=== PATIENT | male | born 1955 | race Caucasian/White ===

== ENCOUNTER 2018-08-29 11:36 | Inpatient (IN) | payer BC, OTHER ==
[~2018-08-29 11:36] MED LIST: ISOVUE-370 76%-LOCM 1 ML ONE
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
[2018-08-29 11:58] LABS: #Basophils 0.1 thou/uL (0.0-0.2); #Eosinphils 0.2 thou/uL (0.0-0.7); #Lymphocytes 1.8 thou/uL (1.20-3.40); #Monocytes 0.7 thou/uL (0.11-0.59); #Neutrophils 7.5 thou/uL (1.40-6.50); %Basophils 0.5 % (0.0-1.0); %Eosinophils 2.1 % (0.0-10.0); %Monocytes 6.7 % (0.0-10.0); %Neutrophils 73.7 % (42.0-75.0); Hemoglobin 16.7 g/dL (14.0-18.0); Mean Corpuscular Hemoglobin 30.4 pg (27.0-31.0); Platelet Count 182 thou/uL (130-400); Red Blood Cell (RBC) Count 5.49 mill/uL (4.70-6.10); White Blood Cell (WBC) Count 10.2 thou/uL (4.8-10.8)
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
[2018-08-29 12:19] LABS: ALT (SGPT) 44 U/L (8-55); AST (SGOT) 37 U/L (5-34); Albumin 4.6 g/dL (3.4-4.8); Alkaline Phosphatase 80 U/L (40-150); Anion Gap 14 mmol/L (10-20); BUN (Urea Nitrogen) 14 mg/dL (8.4-25.7); Bilirubin, Total 0.4 mg/dL (0.2-1.2); Calc. Creatinine Clearance 0 mL/min (70-130); Calcium 9.9 mg/dL (7.8-10.44); Carbon Dioxide 28 mmol/L (23-31); Chloride 105 mmol/L (98-107); Estimated GFR-MDRD 64; Globulin 3.2 g/dL (2.4-3.5); Glucose 117 mg/dL (80-115); Potassium 3.9 mmol/L (3.5-5.1); Protein, Total 7.8 g/dL (5.8-8.1); Sodium 143 mmol/L (136-145)
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
[2018-08-29 13:20] LABS: CKMB 16.6 ng/mL (0-6.6)
[2018-08-29] MEDS ORDERED: Labetalol HCl 100 MG/20 ML VIAL ONE (13:24)
[2018-08-29] MEDS ORDERED: methylPREDNISolone Sod Succ/PF 125 MG/2 ML VIAL ONE (13:24)
[2018-08-29] MEDS ORDERED: Aspirin Chewable 81 MG TAB ONE (13:24)
[2018-08-29] MEDS ORDERED: Ondansetron PF 4 MG/2 ML Vial IVP PRN (13:32)
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
[2018-08-29] MEDS ORDERED: cloNIDine 0.1 MG TAB PO PRN (14:25)
[2018-08-29] MEDS ORDERED: Amlodipine 5 MG TAB PO SCH (14:30)
[2018-08-29 15:03] LABS: Bilirubin Negative (Negative); Blood, Urine Negative (Negative); Clarity CLEAR (Clear); Glucose, Urine (Dipstick) Negative (Negative); Leukocyte Negative (Negative); Nitrite Negative (Negative); Protein, Urine (Dipstick) Trace mg/dL (Neg-Trace); pH, Urine 5.5 (5.0-9.0)
[2018-08-29 15:08] LABS: Specific Gravity, Urine Greater than 1.060 (1.002-1.036)
[2018-08-29] MEDS ORDERED: Amlodipine 5 MG TAB ONE (16:19)
[2018-08-29 16:53] LABS: Troponin I 0.047 ng/mL (< 0.028)
[2018-08-29] MEDS: Acetaminophen 325 MG TAB PO PRN (20:40)
[2018-08-30] MEDS: Acetaminophen 325 MG TAB PO PRN ×3 (06:36→21:41)
[2018-08-30 06:42] LABS: #Eosinphils 0.1 thou/uL (0.0-0.7); #Lymphocytes 1.3 thou/uL (1.20-3.40); #Neutrophils 13.2 thou/uL (1.40-6.50); %Basophils 0.1 % (0.0-1.0); %Eosinophils 0.3 % (0.0-10.0); %Lymphocytes 8.2 % (21.0-51.0); %Monocytes 6.3 % (0.0-10.0); %Neutrophils 85.2 % (42.0-75.0); Hemoglobin 14.7 g/dL (14.0-18.0); Mean Corpuscular HGB CONC 33.2 g/dL (32.0-36.0); Mean Corpuscular Hemoglobin 30.5 pg (27.0-31.0); Mean Corpuscular Volume 91.8 fL (78.0-98.0); Mean Platelet Volume 8.2 fL (7.4-10.4); Platelet Count 177 thou/uL (130-400); RBC Distribution Width 12.2 % (11.5-14.5); Red Blood Cell (RBC) Count 4.82 mill/uL (4.70-6.10); White Blood Cell (WBC) Count 15.5 thou/uL (4.8-10.8)
[2018-08-30 07:03] LABS: Anion Gap 14 mmol/L (10-20); BUN (Urea Nitrogen) 16 mg/dL (8.4-25.7); CK (CPK) 916 U/L (30-200); Calc. Creatinine Clearance 96 mL/min (70-130); Calcium 9.2 mg/dL (7.8-10.44); Carbon Dioxide 26 mmol/L (23-31); Chloride 105 mmol/L (98-107); Estimated GFR-MDRD 82; Glucose 132 mg/dL (80-115); Potassium 3.7 mmol/L (3.5-5.1); Sodium 141 mmol/L (136-145)
[2018-08-30] MEDS ORDERED: Enoxaparin Sodium 40 MG/0.4 ML SYRINGE SC SCH (09:00)
[2018-08-30] MEDS: Amlodipine 5 MG TAB PO SCH (09:33)
[2018-08-30] MEDS: predniSONE 20 MG TAB PO SCH (09:34)
--- NOTE | 2018-08-30 12:21 | PDOC.PN ---
- Subjective Encounter Start Date: 08/30/18 Encounter Start Time: 12:19 Mr. Westfall was seen today in follow-up of syncope. He notes some chest soreness , after rib fracture. Otherwise he feels fine. - Objective MAR Reviewed: Yes Vital Signs & Weight: Vital Signs (12 hours) Temp Pulse Resp BP BP Pulse Ox 08/30/18 11:48 97.3 F L 100 17 190/90 H 90 L 08/30/18 09:33 96 177/83 H 08/30/18 08:00 91 L 08/30/18 07:28 85 16 93 L 08/30/18 07:23 98.6 F 95 16 177/83 H 91 L 08/30/18 04:00 97.4 F L 85 16 141/67 H 90 L Weight Weight 186 lb 14.4 oz Result Diagrams: 08/30/18 06:20 08/30/18 06:20 Phys Exam - Physical Examination HEENT: PERRLA Respiratory: no wheezing, no rales, no rhonchi, clear to auscultation bilateral Cardiovascular: RRR, no significant murmur, no rub Gastrointestinal: soft, non-tender, no distention, positive bowel sounds Musculoskeletal: no edema, pulses present Dx/Plan (1) Syncope Code(s): R55 - SYNCOPE AND COLLAPSE Status: Acute (2) Hypertension Code(s): I10 - ESSENTIAL (PRIMARY) HYPERTENSION Status: Chronic - Plan * Syncope- ? etiology- await Echo results as well as Cardiology evaluation * HTN- blood pressure is not well controlled- will add Carvediolol * Restart aspirin. Will check a lipid profile
[2018-08-30] MEDS ORDERED: Carvedilol 6.25 MG TAB PO SCH (12:30)
[2018-08-30] MEDS ORDERED: Communication Order-Pharmacy FS SCH (14:30)
[2018-08-30] MEDS ORDERED: Lisinopril 10 MG TAB PO SCH (14:45)
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
[2018-08-30] MEDS: Carvedilol 6.25 MG TAB PO SCH (15:56)
[2018-08-31] MEDS: Sodium Chloride 0.9% 1,000 ML IV SCH ×2 (00:36→16:01)
[2018-08-31] MEDS: Carvedilol 6.25 MG TAB PO SCH ×2 (05:42→17:38)
[2018-08-31] MEDS: Acetaminophen 325 MG TAB PO PRN (05:43)
[2018-08-31] MEDS ORDERED: HYDROcodone/Acetaminophen 5/325 mg Tablet PO PRN (10:19)
[2018-08-31] MEDS ORDERED: Iopamidol 370 76% 100 ML VIAL ONE (10:27)
--- NOTE | 2018-08-31 11:09 | PDOC.PN ---
- Subjective Encounter Start Date: 08/31/18 Encounter Start Time: 10:00 Mr. Westfall was seen today in follow-up of syncope. He does not have any complaints. - Objective MAR Reviewed: Yes Vital Signs & Weight: Vital Signs (12 hours) Temp Pulse Resp BP Pulse Ox 08/31/18 08:15 95 08/31/18 07:52 97.4 F L 82 18 162/85 H 95 08/31/18 06:44 99 16 95 08/31/18 04:00 97.6 F 77 20 155/73 H 92 L 08/31/18 00:00 97.9 F 79 18 138/68 97 08/30/18 23:24 82 16 Weight Weight 186 lb 14.4 oz Result Diagrams: 08/30/18 06:20 08/30/18 06:20 Phys Exam - Physical Examination HEENT: PERRLA Respiratory: no rales, wheezing present + occasional wheeze, and decreased breath sounds at the bases Cardiovascular: RRR 2/6 systolic and diastolic heart murmur Gastrointestinal: soft, non-tender, no distention, positive bowel sounds Musculoskeletal: no edema, pulses present + mild cyanosis of both feet, Dx/Plan (1) Syncope Code(s): R55 - SYNCOPE AND COLLAPSE Status: Acute (2) Hypertension Code(s): I10 - ESSENTIAL (PRIMARY) HYPERTENSION Status: Chronic - Plan * Syncope- ? etiology possibly cardiac, plan is for cardiac cath today * Possible LINQ recorder at discharge * HTN- Blood pressure is a bit elevated- will continue to monitor and adjust medications as needed * .
[2018-08-31] MEDS ORDERED: Midazolam HCl 2 mg/2 ml Vial ONE (11:22)
[2018-08-31] MEDS ORDERED: Fentanyl 100 MCG/2 ML VIAL ONE (11:22)
[2018-08-31] MEDS ORDERED: Sodium Chloride 0.9% 200 ML IV PRN (11:37)
[2018-08-31] MEDS ORDERED: Nitroglycerin 0.4 MG TAB (25 Tab Bottle) SL PRN (11:37)
[2018-08-31] MEDS ORDERED: Sodium Chloride 0.9% 1,000 ML IV SCH (11:45)
[2018-08-31] MEDS: Amlodipine 5 MG TAB PO SCH (12:19)
[2018-08-31] MEDS: predniSONE 20 MG TAB PO SCH (12:19)
[2018-08-31] MEDS: Lisinopril 10 MG TAB PO SCH (12:20)
[2018-08-31] MEDS: Aspirin 81 mg Enteric Coated Tablet PO SCH (12:20)
[2018-08-31] MEDS: Acetaminophen/Codeine 30-300mg Tablet PO PRN ×2 (14:12→22:08)
[2018-08-31 15:55] LABS: Actual Bicarbonate (HCO3a) 27.1 mEq/L (22-28); Calcium, Ionized 1.14 mmol/L (1.12-1.30); Carboxyhemoglobin (COHb) 1.6 gm% (0.0-3.0); O2 Tension (PaO2) 61.3 mmHg (> 80.0); Potassium - ABG Lab 4.15 mmol/L (3.70-5.30); Puncture Site LRA; pH, Arterial 7.41 (7.35-7.45)
--- NOTE | 2018-08-31 16:20 | RAD ---
Portable chest: HISTORY: Rib fracture COMPARISON: 08/29/2018 FINDINGS:Mild cardiomegaly. Mild vascular engorgement. Lungs appear well aerated and clear. No pneumo thorax identified. Patient has a known right fifth rib fracture which is not delineated on this portable chest exam. IMPRESSION: No acute finding
--- NOTE | 2018-08-31 16:24 | PDOC.CTH ---
Cardiology Progress Note - Subjective Chest pain. - Objective Vital Signs Temp Pulse Resp BP BP BP Pulse Ox 08/31/18 15:51 96 22 H 167/80 H 08/31/18 15:41 97.7 F 94 18 186/90 H 92 L 08/31/18 15:00 22 H 203/97 H 08/31/18 13:37 115 H 22 H 91 L 08/31/18 12:19 82 159/77 H 08/31/18 12:00 97.9 F 88 18 166/84 H 166/84 H 94 L 08/31/18 08:15 95 08/31/18 07:52 97.4 F L 82 18 162/85 H 95 08/31/18 06:44 99 16 95 Weight 186 lb 14.4 oz - Physical Examination General/Neuro: alert & oriented x3, NAD Neck: no JVD present Lungs: unlabored respirations Heart: RRR Abdomen: NT/ND Extremities: other: (no edema) - Telemetry Telemetry Rhythm: NSR - Labs Result Diagrams: 08/30/18 06:20 08/30/18 06:20 Troponin/CKMB CK-MB (CK-2) 16.6 ng/mL (0-6.6) H* 08/29/18 11:47 Troponin I 0.047 ng/mL (< 0.028) H 08/29/18 16:19 - Assessment/Plan 1. CAD. 2. Syncope. 3. Mild LV dysfunction EF at 45% PLAN: - Occluded RCA, occluded LCx, both fill from large collaterals from LAD widely patent. - Will consult EP for EP study possible AICD versus LINQ. - EP study monday. NPO past midnight monday night.
--- NOTE | 2018-08-31 17:05 | PDOC.EVN ---
Event Note - Event Note Event Note: Patient was reported to have some dyspnea about 2-3 hours after his cardiac cath. He also developed chest pain on his right side. His oxygen saturation droped as well. He was placed on a venti-mask, and given a breathing treatment. A chest X-ray was ordered, and he appears to be a little volume overloaded, he has some rales on lung exam. Will discontinue his IV fluids, and give a dose of IV Lasix. Incentive spirometry, and pain control with regards to the rib fracture and re-assess.
[2018-08-31] MEDS ORDERED: Furosemide 20 MG/2 ML VIAL SLOW IVP SCH (17:15)
[2018-08-31] MEDS: guaiFENesin 200 MG TAB PO PRN (22:09)
--- NOTE | 2018-08-31 23:56 | HP ---
DICTATIONS ENDS HERE Job ID: [id number] [facility]
[2018-09-01 05:44] LABS: #Lymphocytes 2.4 thou/uL (1.20-3.40); #Monocytes 1.2 thou/uL (0.11-0.59); #Neutrophils 9.6 thou/uL (1.40-6.50); %Basophils 0.3 % (0.0-1.0); %Eosinophils 0.3 % (0.0-10.0); %Lymphocytes 17.7 % (21.0-51.0); %Monocytes 9.3 % (0.0-10.0); %Neutrophils 72.3 % (42.0-75.0); Hemoglobin 15.5 g/dL (14.0-18.0); Mean Corpuscular HGB CONC 33.1 g/dL (32.0-36.0); Mean Corpuscular Hemoglobin 30.7 pg (27.0-31.0); Mean Corpuscular Volume 92.6 fL (78.0-98.0); Mean Platelet Volume 8.1 fL (7.4-10.4); Platelet Count 184 thou/uL (130-400); RBC Distribution Width 12.2 % (11.5-14.5); Red Blood Cell (RBC) Count 5.05 mill/uL (4.70-6.10); White Blood Cell (WBC) Count 13.3 thou/uL (4.8-10.8)
[2018-09-01] MEDS: Acetaminophen/Codeine 30-300mg Tablet PO PRN ×3 (05:57→21:01)
[2018-09-01 06:02] LABS: Anion Gap 16 mmol/L (10-20); BUN (Urea Nitrogen) 22 mg/dL (8.4-25.7); Calc. Creatinine Clearance 92 mL/min (70-130); Calcium 9.6 mg/dL (7.8-10.44); Carbon Dioxide 27 mmol/L (23-31); Chloride 102 mmol/L (98-107); Estimated GFR-MDRD 78; Glucose 101 mg/dL (80-115); Potassium 4.5 mmol/L (3.5-5.1); Sodium 140 mmol/L (136-145)
[2018-09-01] MEDS: guaiFENesin 200 MG TAB PO PRN (10:08)
[2018-09-01] MEDS: predniSONE 20 MG TAB PO SCH (10:08)
[2018-09-01] MEDS: Amlodipine 5 MG TAB PO SCH (10:08)
[2018-09-01] MEDS: Aspirin 81 mg Enteric Coated Tablet PO SCH (10:08)
[2018-09-01] MEDS: Carvedilol 6.25 MG TAB PO SCH ×2 (10:09→17:56)
[2018-09-01] MEDS: Lisinopril 10 MG TAB PO SCH (10:10)
--- NOTE | 2018-09-01 11:01 | PDOC.PN ---
- Subjective Encounter Start Date: 09/01/18 Encounter Start Time: 10:59 Mr. Westfall was seen today in follow-up of Syncope. He says he is breathing a little better today. He continues to have some pain in his chest on the right side, but otherwise ok. - Objective MAR Reviewed: Yes Vital Signs & Weight: Vital Signs (12 hours) Temp Pulse Resp BP BP Pulse Ox 09/01/18 10:10 179/80 H 09/01/18 10:09 179/80 H 09/01/18 10:08 75 09/01/18 08:00 97.5 F L 87 20 179/80 H 92 L 09/01/18 06:58 67 20 93 L 09/01/18 04:00 98.2 F 93 18 180/97 H 90 L 09/01/18 00:23 103 H 20 09/01/18 00:00 98.3 F 66 16 142/76 H 97 Weight Weight 186 lb 14.4 oz I&O: 08/31/18 09/01/18 09/02/18 06:59 06:59 06:59 Intake Total 1872 360 Balance 1872 360 Result Diagrams: 09/01/18 05:16 09/01/18 05:16 Additional Labs: Accuchecks 08/31/18 15:48 POC Glucose 141 H Phys Exam - Physical Examination HEENT: PERRLA + faint wheeze on the right base Cardiovascular: RRR, no significant murmur, no rub Gastrointestinal: soft, non-tender, no distention, positive bowel sounds Musculoskeletal: no edema, pulses present Dx/Plan (1) Syncope Code(s): R55 - SYNCOPE AND COLLAPSE Status: Acute (2) Hypertension Code(s): I10 - ESSENTIAL (PRIMARY) HYPERTENSION Status: Chronic - Plan * Syncope- an arrhythmia is suspected- await EP evaluation on Monday * CAD- discussed with Dr. Fernandes- medical management is recommended * Dyspnea- i suspect he may have some atelectasis from his rib fracture- encourage incentive spirometry, and manage pain * HTN- Lisinopril has been added to his regimen- will monitor over the next few days
[2018-09-01] MEDS: Bisacodyl 5 MG TAB PO PRN (13:12)
[2018-09-02] MEDS: predniSONE 20 MG TAB PO SCH (08:44)
[2018-09-02] MEDS: Aspirin 81 mg Enteric Coated Tablet PO SCH (08:44)
[2018-09-02] MEDS: Carvedilol 6.25 MG TAB PO SCH ×2 (08:44→18:14)
[2018-09-02] MEDS: Lisinopril 10 MG TAB PO SCH (08:44)
[2018-09-02] MEDS: Acetaminophen/Codeine 30-300mg Tablet PO PRN ×3 (08:45→20:11)
[2018-09-02] MEDS: Amlodipine 5 MG TAB PO SCH (08:45)
[2018-09-02] MEDS: Bisacodyl 5 MG TAB PO PRN (09:04)
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
[2018-09-02] MEDS: guaiFENesin 200 MG TAB PO PRN (10:51)
[2018-09-02] MEDS: Atorvastatin Calcium 20 MG TAB PO SCH (20:11)
[2018-09-03 06:11] LABS: Cardiac Risk 4.5 (Less than 4.5)
[2018-09-03] MEDS: Aspirin 81 mg Enteric Coated Tablet PO SCH (08:33)
[2018-09-03] MEDS: predniSONE 20 MG TAB PO SCH (08:33)
[2018-09-03] MEDS: Amlodipine 10 MG TAB PO SCH (08:33)
[2018-09-03] MEDS: Lisinopril 10 MG TAB PO SCH (08:34)
[2018-09-03] MEDS: Carvedilol 6.25 MG TAB PO SCH ×2 (08:34→16:58)
[2018-09-03] MEDS ORDERED: PROPOFOL 200 MG/20 ML VIAL ONE (09:28)
[2018-09-03] MEDS: Acetaminophen/Codeine 30-300mg Tablet PO PRN ×2 (10:14→20:57)
--- NOTE | 2018-09-03 11:22 | PDOC.PN ---
- Subjective Encounter Start Date: 09/03/18 Encounter Start Time: 11:20 Subjective: f/u for syncope and concern for cardiac etiology or arrhythmia. Plan for -: EP evaluation and consideration for loop recorder. Some mild cough, no -: fever, voiding ok. NPO currently - Objective MAR Reviewed: Yes Vital Signs & Weight: Vital Signs (12 hours) Temp Pulse Resp BP BP Pulse Ox 09/03/18 08:34 173/89 H 09/03/18 08:33 68 173/89 H 09/03/18 07:52 98.4 F 68 18 173/89 H 92 L 09/03/18 07:04 97 09/03/18 07:02 70 16 97 09/03/18 04:00 97.4 F L 63 19 163/74 H 95 09/03/18 00:00 97.4 F L 63 18 138/71 97 09/02/18 23:32 93 L Weight Weight 186 lb 14.4 oz I&O: 09/02/18 09/03/18 09/04/18 06:59 06:59 06:59 Intake Total 900 Output Total 155 575 Balance 745 -575 Result Diagrams: 09/01/18 05:16 09/01/18 05:16 Radiology Reviewed by me: Yes (Echo - EF 50-55%, mod-sev AR, I/III diast dysfxn) EKG Reviewed by me: Yes (Tele - Sinus bradycardia) Phys Exam - Physical Examination Constitutional: NAD HEENT: PERRLA, sclera anicteric, oral pharynx no lesions Neck: no nodes, no JVD, supple, full ROM diminished in basilar segments Respiratory: no wheezing, no rales, clear to auscultation bilateral S1, S2 Cardiovascular: RRR, no rub, gallop Gastrointestinal: soft, non-tender, no distention, positive bowel sounds Musculoskeletal: no edema, pulses present Neurological: normal sensation, moves all 4 limbs Psychiatric: A&O x 3 Skin: normal turgor, cap refill <2 seconds Dx/Plan (1) Syncope Code(s): R55 - SYNCOPE AND COLLAPSE Status: Acute Comment: Suspected cardiac etiology, EP consulted for evaluation and ILR placement (2) Hypertension Code(s): I10 - ESSENTIAL (PRIMARY) HYPERTENSION Status: Chronic Qualifiers: Hypertension type: essential hypertension Qualified Code(s): I10 - Essential (primary) hypertension Comment: Continue Amlodipine, Coreg, increase Lisinopril 20mg daily, titrate to optimal response (3) Grade I diastolic dysfunction Code(s): I51.9 - HEART DISEASE, UNSPECIFIED Status: Chronic Comment: Continue Coreg 6.25mg BID (4) Aortic regurgitation Code(s): I35.1 - NONRHEUMATIC AORTIC (VALVE) INSUFFICIENCY Status: Chronic Comment: EP evaluation pending (5) CAD (coronary artery disease) Code(s): I25.10 - ATHSCL HEART DISEASE OF 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
[2018-09-03] MEDS ORDERED: Fentanyl 100 MCG/2 ML VIAL ONE (17:34)
[2018-09-03] MEDS ORDERED: Midazolam HCl 2 mg/2 ml Vial ONE (17:34)
[2018-09-03] MEDS ORDERED: Propofol 500 MG/50 ML VIAL ONE (17:35)
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
[2018-09-03] MEDS ORDERED: Lidocaine 1% w/Epinephrine 1:100K 20 ML VIAL ONE (18:46)
[2018-09-03] MEDS: Atorvastatin Calcium 20 MG TAB PO SCH (20:54)
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
[2018-09-04] MEDS: Acetaminophen/Codeine 30-300mg Tablet PO PRN ×2 (06:49→22:46)
[2018-09-04] MEDS: Aspirin 81 mg Enteric Coated Tablet PO SCH (07:57)
[2018-09-04] MEDS: predniSONE 20 MG TAB PO SCH (07:58)
[2018-09-04] MEDS: Lisinopril 20 MG TAB PO SCH (07:58)
[2018-09-04] MEDS: Amlodipine 10 MG TAB PO SCH (07:59)
[2018-09-04] MEDS: Carvedilol 6.25 MG TAB PO SCH ×2 (08:00→15:59)
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
[2018-09-04] MEDS: Bisacodyl 5 MG TAB PO PRN (15:20)
[2018-09-04] MEDS ORDERED: Furosemide 40 MG/4 ML VIAL SLOW IVP SCH (15:45)
--- NOTE | 2018-09-04 18:02 | PDOC.CTH ---
Cardiology Progress Note - Subjective He is feeling more SOB today. He is still needing oxygen supplementation. - Objective Vital Signs Temp Pulse Resp BP BP Pulse Ox 09/04/18 16:00 98.3 F 100 18 160/75 H 92 L 09/04/18 15:59 160/75 H 09/04/18 12:46 88 16 88 L 09/04/18 12:00 98.1 F 98 18 169/75 H 93 L 09/04/18 08:00 168/76 H 93 L 09/04/18 07:59 72 168/76 H 09/04/18 07:58 168/76 H 09/04/18 07:35 98.0 F 72 20 168/76 H 93 L 09/04/18 06:40 95 09/04/18 06:39 77 16 95 Weight 186 lb 14.4 oz 09/03/18 09/04/18 09/05/18 06:59 06:59 06:59 Intake Total 600 Output Total 575 1165 Balance -575 -565 - Physical Examination General/Neuro: alert & oriented x3 Neck: no JVD present Lungs: other: (Reduced breath sounds bilaterally. ) Heart: RRR Abdomen: NT/ND Extremities: other: (no edema) - Telemetry Telemetry Rhythm: S Tach - Labs Result Diagrams: 09/01/18 05:16 09/01/18 05:16 Troponin/CKMB CK-MB (CK-2) 16.6 ng/mL (0-6.6) H* 08/29/18 11:47 Troponin I 0.047 ng/mL (< 0.028) H 08/29/18 16:19 - Assessment/Plan 1. CAD. 2. Syncope. 3. Mild LV dysfunction EF at 45% 4. Normal EP study, s/p LINQ placement. 5. Constipation. PLAN: - Occluded RCA, occluded LCx, both fill from large collaterals from LAD widely patent. - LINQ in place. - Will give Lactulose to try to get his bowels to move. - Will give one dose IV lasix as he is a little volume up. - Monitor overnight and home tomorrow if remains stable.
--- NOTE | 2018-09-04 19:19 | PDOC.PN ---
- Subjective Encounter Start Date: 09/04/18 Encounter Start Time: 18:30 Subjective: Nsg reports pt with increased dyspnea after planned d/c today. Remains -: on O2 3-4L/min NC. EP study performed with negative findings and ILR -: placed 09/03/18. - Objective MAR Reviewed: Yes Vital Signs & Weight: Vital Signs (12 hours) Temp Pulse Resp BP BP Pulse Ox 09/04/18 18:44 88 L 09/04/18 18:19 112 H 28 H 85 L 09/04/18 16:00 98.3 F 100 18 160/75 H 92 L 09/04/18 15:59 160/75 H 09/04/18 12:46 88 16 88 L 09/04/18 12:00 98.1 F 98 18 169/75 H 93 L 09/04/18 08:00 168/76 H 93 L 09/04/18 07:59 72 168/76 H 09/04/18 07:58 168/76 H 09/04/18 07:35 98.0 F 72 20 168/76 H 93 L Weight Weight 186 lb 14.4 oz I&O: 09/03/18 09/04/18 09/05/18 06:59 06:59 06:59 Intake Total 600 Output Total 575 1165 Balance -575 -565 Result Diagrams: 09/01/18 05:16 09/01/18 05:16 EKG Reviewed by me: Yes (Tele - Sinus bradycardia) Phys Exam - Physical Examination Constitutional: NAD HEENT: PERRLA, sclera anicteric, oral pharynx no lesions Neck: no nodes, no JVD, supple, full ROM scattered coarse sounds bilat, diminished in bases S1, S2 Cardiovascular: RRR, no significant murmur, no rub, gallop Gastrointestinal: soft, non-tender, no distention, positive bowel sounds Musculoskeletal: no edema, pulses present Neurological: normal sensation, moves all 4 limbs Psychiatric: A&O x 3 Skin: normal turgor, cap refill <2 seconds Dx/Plan (1) Acute respiratory failure with hypoxia Code(s): J96.01 - ACUTE RESPIRATORY FAILURE WITH HYPOXIA Status: Acute Comment: Persistent need for O2 supplementation, likely undiagnosed COPD with exacerbation, continue Duonebs q4h, Solumedrol 80mg IV x 1 dose now, Dulera 2 puffs BID, Start Levaquin 500mg daily (2) Syncope Code(s): R55 - SYNCOPE AND COLLAPSE Status: Acute Comment: Suspected cardiac etiology, EP consulted with negative EP study 09/03/18, ILR placed with outpt f/u planned (3) Hypertension Code(s): I10 - ESSENTIAL (PRIMARY) HYPERTENSION Status: Chronic Qualifiers: Hypertension type: essential hypertension Qualified Code(s): I10 - Essential (primary) hypertension Comment: Continue Amlodipine, Coreg, increase Lisinopril 20mg daily, titrate to optimal response (4) Grade I diastolic dysfunction Code(s): I51.9 - HEART DISEASE, UNSPECIFIED Status: Chronic Comment: Continue Coreg 6.25mg BID (5) Aortic regurgitation Code(s): I35.1 - NONRHEUMATIC AORTIC (VALVE) INSUFFICIENCY Status: Chronic Comment: EP evaluation pending (6) CAD (coronary artery disease) Code(s): I25.10 - ATHSCL HEART DISEASE OF [place] CORONARY ARTERY W/O ANG PCTRS Status: Chronic Comment: continue med mgmt with ASA, Lipitor, Coreg - Plan continue antibiotics, PT/OT, social insurance analyst, respiratory therapy, out of bed/ ambulate, DVT proph w/SCDs Stable currently -: Add Solumedrol 80mg IV x 1 dose -: Add Dulera BID -: Add Levaquin 500mg daily -: O2 setup for home * Likely home in am
[2018-09-04] MEDS ORDERED: methylPREDNISolone Sod Succ/PF 125 MG/2 ML VIAL IVP SCH (19:30)
[2018-09-04] MEDS ORDERED: Mometasone/Formoterol 120 PUFF INHALER INH SCH ×2 (20:00)
[2018-09-04] MEDS: Atorvastatin Calcium 20 MG TAB PO SCH (21:46)
[2018-09-04] MEDS: Acetaminophen 325 MG TAB PO PRN (22:05)
[2018-09-05] MEDS: Acetaminophen/Codeine 30-300mg Tablet PO PRN ×3 (03:24→15:33)
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
[2018-09-05] MEDS ORDERED: Ondansetron PF 4 MG/2 ML Vial IVP SCH ×2 (06:45→09:00)
[2018-09-05] MEDS: Mometasone/Formoterol 120 PUFF INHALER INH SCH ×2 (07:13→18:33)
[2018-09-05] MEDS: Bisacodyl 5 MG TAB PO PRN (08:55)
[2018-09-05] MEDS: predniSONE 20 MG TAB PO SCH (08:56)
[2018-09-05] MEDS: Carvedilol 6.25 MG TAB PO SCH ×2 (08:56→16:37)
[2018-09-05] MEDS: Aspirin 81 mg Enteric Coated Tablet PO SCH (08:56)
[2018-09-05] MEDS: Lisinopril 20 MG TAB PO SCH (08:56)
[2018-09-05] MEDS: Amlodipine 10 MG TAB PO SCH (08:57)
[2018-09-05] MEDS ORDERED: Magnesium Citrate 300 ML BOT PO SCH (11:00)
--- NOTE | 2018-09-05 11:18 | PDOC.PN ---
- Subjective Encounter Start Date: 09/05/18 Encounter Start Time: 11:10 Subjective: f/u for hypoxic resp failure likely related to COPD. Remains on 4L/ min -: NC and received Lasix last pm x 1 dose. No BM in 1 week with abd -: fullness. No fever and tolerating all meals. Ambulated short distance. - Objective MAR Reviewed: Yes Vital Signs & Weight: Vital Signs (12 hours) Temp Pulse Resp BP BP Pulse Ox 09/05/18 10:57 92 24 H 90 L 09/05/18 09:01 95 09/05/18 08:57 95 139/67 09/05/18 08:56 139/67 09/05/18 08:00 97.5 F L 95 20 139/67 89 L 09/05/18 07:16 89 L 09/05/18 07:13 97 20 89 L 09/05/18 04:00 97.8 F 103 H 22 H 120/76 90 L 09/05/18 02:11 95 24 H 09/05/18 00:00 97.8 F 105 H 20 139/71 91 L Weight Admit Weight 186 lb 14.4 oz Weight 201 lb 4.8 oz I&O: 09/04/18 09/05/18 09/06/18 06:59 06:59 06:59 Intake Total 600 Output Total 1165 Balance -565 Result Diagrams: 09/01/18 05:16 09/01/18 05:16 Additional Labs: Laboratory Tests 08/29/18 08/29/18 08/30/18 11:47 11:47 06:20 WBC 10.2 15.5 H B-Natriuretic Peptide 90.7 09/01/18 05:16 WBC 13.3 H B-Natriuretic Peptide Radiology Reviewed by me: Yes (KUB - pending) EKG Reviewed by me: Yes (Tele - SR) Phys Exam - Physical Examination Constitutional: NAD alert, responsive HEENT: PERRLA, sclera anicteric, oral pharynx no lesions Neck: no nodes, no JVD, supple, full ROM diminished in bases Respiratory: no wheezing, no rhonchi S1, S2 Cardiovascular: RRR, no significant murmur, no rub, gallop no mass or rebound Gastrointestinal: soft, non-tender, positive bowel sounds Musculoskeletal: no edema, pulses present Neurological: normal sensation, moves all 4 limbs Psychiatric: A&O x 3 Skin: normal turgor, cap refill <2 seconds Dx/Plan (1) Acute respiratory failure with hypoxia Code(s): J96.01 - ACUTE RESPIRATORY FAILURE WITH HYPOXIA Status: Acute Comment: Persistent need for O2 supplementation, likely undiagnosed COPD with exacerbation, continue Duonebs q4h, Solumedrol 80mg IV x 1 dose now, Dulera 2 puffs BID, Start Levaquin 500mg daily (2) Syncope Code(s): R55 - SYNCOPE AND COLLAPSE Status: Acute Comment: Suspected cardiac etiology, EP consulted with negative EP study 09/03/18, ILR placed with outpt f/u planned (3) Hypertension Code(s): I10 - ESSENTIAL (PRIMARY) HYPERTENSION Status: Chronic Qualifiers: Hypertension type: essential hypertension Qualified Code(s): I10 - Essential (primary) hypertension Comment: Continue Amlodipine, Coreg, increase Lisinopril 20mg daily, titrate to optimal response (4) Grade I diastolic dysfunction Code(s): I51.9 - HEART DISEASE, UNSPECIFIED Status: Chronic Comment: Continue Coreg 6.25mg BID (5) Aortic regurgitation Code(s): I35.1 - NONRHEUMATIC AORTIC (VALVE) INSUFFICIENCY Status: Chronic Comment: EP evaluation pending (6) CAD (coronary artery disease) Code(s): I25.10 - ATHSCL HEART DISEASE OF [place] CORONARY ARTERY W/O ANG PCTRS Status: Chronic Comment: continue med mgmt with ASA, Lipitor, Coreg (7) Constipation Code(s): K59.00 - CONSTIPATION, UNSPECIFIED Status: Acute Qualifiers: Constipation type: slow transit constipation Qualified Code(s): K59.01 - Slow transit constipation Comment: Start Mag Citrate today, KUB to r/u free air, serial abd exams, OOB - Plan continue antibiotics, PT/OT, social work associate, respiratory therapy, out of bed/ ambulate, DVT proph w/SCDs continue supportive mgmt -: Continue Duonebs, Prednisone -: Continue Levaquin -: Mag Citrate today -: KUB today * Lab: CMP, CBC
[2018-09-05] MEDS ORDERED: predniSONE 20 MG TAB PO SCH (11:30)
[2018-09-05 11:50] LABS: Hemoglobin 14.8 g/dL (14.0-18.0); Mean Corpuscular HGB CONC 33.1 g/dL (32.0-36.0); Mean Corpuscular Volume 93.5 fL (78.0-98.0); Mean Platelet Volume 8.1 fL (7.4-10.4); Platelet Count 179 thou/uL (130-400); RBC Distribution Width 12.4 % (11.5-14.5); Red Blood Cell (RBC) Count 4.78 mill/uL (4.70-6.10); White Blood Cell (WBC) Count 24.2 thou/uL (4.8-10.8)
[2018-09-05] MEDS ORDERED: Senokot S 8.6-50 MG TAB PO SCH (12:00)
--- NOTE | 2018-09-05 12:01 | RAD ---
EXAM: Single view of the abdomen HISTORY: Abdominal distention. No bowel movement. COMPARISON: None FINDINGS: Single view of the abdomen shows a nonspecific, nonobstructive bowel gas pattern. Air is se en to the level the rectum. A small amount of stool is seen in the left colon. An air-filled loop of small bowel is seen in the left upper quadrant of the abdomen. No suspicious calcifications are s een. The bones are unremarkable. IMPRESSION: No significant abnormality
[2018-09-05 12:11] LABS: Band 25 % (5-11); Lymphocytes 3 % (21-51); MDiff Complete? YES; Metamyelocyte 1 % (0-0); Monocytes 2 % (0-10); Neutrophil 67 % (42-75); RBC Morphology Normal; Reactive Lymphocytes 2 % (0-10)
[2018-09-05 12:14] LABS: ALT (SGPT) 40 U/L (8-55); AST (SGOT) 13 U/L (5-34); Albumin 3.9 g/dL (3.4-4.8); Alkaline Phosphatase 57 U/L (40-150); Anion Gap 17 mmol/L (10-20); BUN (Urea Nitrogen) 43 mg/dL (8.4-25.7); Bilirubin, Total 0.9 mg/dL (0.2-1.2); Calc. Creatinine Clearance 42 mL/min (70-130); Calcium 9.7 mg/dL (7.8-10.44); Carbon Dioxide 29 mmol/L (23-31); Chloride 97 mmol/L (98-107); Estimated GFR-MDRD 29; Globulin 3.1 g/dL (2.4-3.5); Glucose 158 mg/dL (80-115); Potassium 4.4 mmol/L (3.5-5.1); Sodium 139 mmol/L (136-145)
--- NOTE | 2018-09-05 14:58 | EKG ---
Test Reason : Blood Pressure : / mmHG Vent. Rate : 094 BPM Atrial Rate : 094 BPM P-R Int : 148 ms QRS Dur : 090 ms QT Int : 380 ms P-R-T Axes : 147 029 156 degrees QTc Int : 475 ms Unusual P axis, possible ectopic atrial rhythm Cannot exclude Inferior infarct , age undetermined Left ventricular hypertrophy with repolarization abnormality Abnormal ECG Confirmed by ADAM MOJICA ([id number]) on 09/05/2018 2:58:01 PM Referred By: GAYLE Confirmed By:ADAM MOJICA
--- NOTE | 2018-09-05 18:15 | PDOC.CTH ---
Cardiology Progress Note - Subjective Still no BM. Abdomen starting to hurt now. Still needing oxygen supplementation. - Objective Vital Signs Temp Pulse Resp BP BP Pulse Ox 09/05/18 16:37 154/69 H 09/05/18 15:48 97.3 F L 99 20 154/69 H 93 L 09/05/18 14:04 83 22 H 09/05/18 11:53 98.0 F 83 18 127/69 95 09/05/18 10:57 92 24 H 90 L 09/05/18 09:01 95 09/05/18 08:57 95 139/67 09/05/18 08:56 139/67 09/05/18 08:48 95 09/05/18 08:00 97.5 F L 95 20 139/67 89 L 09/05/18 07:16 89 L 09/05/18 07:13 97 20 89 L Admit Weight 186 lb 14.4 oz Weight 201 lb 4.8 oz 09/04/18 09/05/18 09/06/18 06:59 06:59 06:59 Intake Total 600 Output Total 1165 Balance -565 - Physical Examination General/Neuro: alert & oriented x3 Neck: no JVD present Lungs: unlabored respirations, other: (Reduced breath sounds bilat. ) Heart: RRR Abdomen: other: (bloated, positive BS, no rebound or guarding. ) Extremities: other: (no edema) - Telemetry Telemetry Rhythm: NSR - Labs Result Diagrams: 09/05/18 11:36 09/05/18 11:36 Troponin/CKMB CK-MB (CK-2) 16.6 ng/mL (0-6.6) H* 08/29/18 11:47 Troponin I 0.047 ng/mL (< 0.028) H 08/29/18 16:19 - Assessment/Plan 1. CAD. 2. Syncope. 3. Mild LV dysfunction EF at 45% 4. Normal EP study, s/p LINQ placement. 5. Constipation. PLAN: - Occluded RCA, occluded LCx, both fill from large collaterals from LAD widely patent. - LINQ in place. - Home once bowels start to move. - Will sign off. Please call [facility] any questions. - Follow up in office in 1 month.
[2018-09-05] MEDS: Atorvastatin Calcium 20 MG TAB PO SCH (21:16)
[2018-09-05] MEDS: Senokot S 8.6-50 MG TAB PO SCH (21:16)
[2018-09-06 06:41] LABS: Hemoglobin 15.4 g/dL (14.0-18.0); Mean Corpuscular HGB CONC 32.3 g/dL (32.0-36.0); Mean Corpuscular Hemoglobin 30.5 pg (27.0-31.0); Mean Corpuscular Volume 94.5 fL (78.0-98.0); Mean Platelet Volume 9.4 fL (7.4-10.4); Platelet Count 155 thou/uL (130-400); RBC Distribution Width 12.7 % (11.5-14.5); Red Blood Cell (RBC) Count 5.03 mill/uL (4.70-6.10); White Blood Cell (WBC) Count 23.4 thou/uL (4.8-10.8)
[2018-09-06] MEDS: Mometasone/Formoterol 120 PUFF INHALER INH SCH ×2 (07:16→18:46)
[2018-09-06] MEDS: Aspirin 81 mg Enteric Coated Tablet PO SCH (08:13)
[2018-09-06] MEDS: Acetaminophen/Codeine 30-300mg Tablet PO PRN (08:13)
[2018-09-06] MEDS: Senokot S 8.6-50 MG TAB PO SCH (08:13)
[2018-09-06 08:47] LABS: Band 34 % (5-11); Lymphocytes 10 % (21-51); MDiff Complete? YES; Monocytes 4 % (0-10); Neutrophil 51 % (42-75); RBC Morphology Normal; Reactive Lymphocytes 1 % (0-10)
[2018-09-06] MEDS ORDERED: predniSONE 20 MG TAB PO SCH (09:00)
[2018-09-06 09:25] LABS: BUN (Urea Nitrogen) 73 mg/dL (8.4-25.7); Calc. Creatinine Clearance 24 mL/min (70-130); Calcium 9.7 mg/dL (7.8-10.44); Carbon Dioxide 23 mmol/L (23-31); Chloride 92 mmol/L (98-107); Estimated GFR-MDRD 15; Glucose 139 mg/dL (80-115); Potassium 5.3 mmol/L (3.5-5.1); Sodium 133 mmol/L (136-145)
[2018-09-06 09:27] LABS: Anion Gap 23 mmol/L (10-20)
[2018-09-06] MEDS ORDERED: Bisacodyl 10 MG SUPP PR PRN (10:18)
[2018-09-06] MEDS ORDERED: Magnesium Citrate 300 ML BOT PO SCH (10:30)
[2018-09-06] MEDS ORDERED: Sodium Chloride 0.9% 1,000 ML IV SCH (10:30)
[2018-09-06] MEDS ORDERED: Fleet Enema 133 ML BOT PR SCH (10:30)
--- NOTE | 2018-09-06 10:32 | PDOC.PN ---
- Subjective Encounter Start Date: 09/06/18 Encounter Start Time: 10:30 Subjective: f/u for abdominal distention and no BM in 1 week. Took Mag Citrate but -: no BM. c/o abd pain and fullness, states urinating. Decreases appetite. -: Remains on 4L/min NC. - Objective MAR Reviewed: Yes Vital Signs & Weight: Vital Signs (12 hours) Temp Pulse Resp BP Pulse Ox 09/06/18 10:12 82 18 88 L 09/06/18 07:52 97.8 F 97 22 H 110/60 95 09/06/18 07:16 95 24 H 09/06/18 04:00 98 F 98 20 92/52 L 94 L 09/06/18 02:30 94 L 09/06/18 02:10 89 22 H 94 L 09/06/18 00:00 97.8 F 101 H 18 107/53 L 92 L Weight Admit Weight 186 lb 14.4 oz Weight 206 lb 6 oz I&O: 09/05/18 09/06/18 09/07/18 06:59 06:59 06:59 Intake Total 460 Output Total 300 Balance 160 Result Diagrams: 09/06/18 06:00 09/06/18 08:45 Additional Labs: Laboratory Tests 08/29/18 08/29/18 08/30/18 11:47 11:47 06:20 WBC 10.2 15.5 H Band Neuts % (Manual) Sodium Potassium BUN Creatinine Estimated GFR (MDRD) B-Natriuretic Peptide 90.7 09/01/18 09/05/18 09/05/18 05:16 11:36 11:36 WBC 13.3 H 24.2 H Band Neuts % (Manual) 25 H Sodium 139 Potassium 4.4 BUN 43 H Creatinine 2.29 H Estimated GFR (MDRD) 29 B-Natriuretic Peptide 09/06/18 06:00 WBC Band Neuts % (Manual) 34 H Sodium Potassium BUN Creatinine Estimated GFR (MDRD) B-Natriuretic Peptide Radiology Reviewed by me: Yes (KUB - no acute process noted) EKG Reviewed by me: Yes (Tele - SR) Phys Exam - Physical Examination lethargic, opens eyes to name, answers questions briefly HEENT: PERRLA, sclera anicteric, oral pharynx no lesions Neck: no nodes, no JVD, supple, full ROM diminished bilat, mild exp wheeze S1, S2 with distant heart sounds Cardiovascular: RRR, no rub, gallop distended, TTP in LLQ, no mass Gastrointestinal: positive bowel sounds Musculoskeletal: pulses present, edema present Neurological: normal sensation, moves all 4 limbs Skin: normal turgor, cap refill <2 seconds Dx/Plan (1) EMILY (acute kidney injury) Code(s): N17.9 - ACUTE KIDNEY FAILURE, UNSPECIFIED Status: Acute Comment: Suspect pre-renal and iatrogenic, start IV NS @ 50ml/h, avoid nephrotoxic meds, limit contrast exposure, hold Lisinopril (2) Constipation Code(s): K59.00 - CONSTIPATION, UNSPECIFIED Status: Acute Qualifiers: Constipation type: slow transit constipation Qualified Code(s): K59.01 - Slow transit constipation Comment: Persistent, Second dose Mag Citrate today, Fleets Enema, Dulcolax supp , Senna, check CT abd/pel (3) Acute respiratory failure with hypoxia Code(s): J96.01 - ACUTE RESPIRATORY FAILURE WITH HYPOXIA Status: Acute Comment: Persistent need for O2 supplementation, likely undiagnosed COPD with exacerbation, continue Duonebs q4h, Solumedrol 80mg IV x 1 dose now, Dulera 2 puffs BID, Start Levaquin 250mg q48h (4) Syncope Code(s): R55 - SYNCOPE AND COLLAPSE Status: Acute Comment: Suspected cardiac etiology, EP consulted with negative EP study 09/03/18, ILR placed with outpt f/u planned (5) Hypertension Code(s): I10 - ESSENTIAL (PRIMARY) HYPERTENSION Status: Chronic Qualifiers: Hypertension type: essential hypertension Qualified Code(s): I10 - Essential (primary) hypertension Comment: Continue Amlodipine, Coreg, increase Lisinopril 20mg daily, titrate to optimal response (6) Grade I diastolic dysfunction Code(s): I51.9 - HEART DISEASE, UNSPECIFIED Status: Chronic Comment: Continue Coreg 6.25mg BID (7) Aortic regurgitation Code(s): I35.1 - NONRHEUMATIC AORTIC (VALVE) INSUFFICIENCY Status: Chronic Comment: EP evaluation pending (8) CAD (coronary artery disease) Code(s): I25.10 - ATHSCL HEART DISEASE OF [place] CORONARY ARTERY W/O ANG PCTRS Status: Chronic Comment: continue med mgmt with ASA, Lipitor, Coreg - Plan continue antibiotics, PT/OT, 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
[2018-09-06] MEDS: Lisinopril 20 MG TAB PO SCH (10:58)
[2018-09-06] MEDS: Amlodipine 10 MG TAB PO SCH (10:58)
[2018-09-06] MEDS: Carvedilol 6.25 MG TAB PO SCH ×2 (10:58→19:29)
[2018-09-06] MEDS ORDERED: Sodium Chloride 0.9% 500 ML IVPB SCH (11:45)
--- NOTE | 2018-09-06 13:11 | ULT ---
US Renal Bilateral STANDARD History: [8 acute kidney injury] Comparison: CT examination August 29, 2018 Findings: Real-time grayscale and color evaluation of the kidneys and urinary bladder was performed. Right kidney measures 10.4 x 5.9 x 6.1 cm with a 2.7 cm cyst. The left kidney measures 11.2 x 7.8 x 6 .2 cm with 2 separate interpolar 3.2 and 2.7 cm cysts. No renal mass, hydronephrosis, or abnormal calcifications. Urinary bladder is unremarkable. Impression: Bilateral renal cysts. No evidence for obstructive uropathy.
--- NOTE | 2018-09-06 13:12 | RAD ---
PORTABLE CHEST DATE: 09/06/2018. PROVIDED CLINICAL HISTORY: Hypoxia. FINDINGS: Comparison 08/31/2018. Cardiac and mediastinal silhouette is unchanged in appearance. Implanted loop recorded device now overlies the left chest. No focal consolidation, pleural fluid, or pneumothorax apparent. IMPRESSION: No evidence for an acute cardiopulmonary process. POS: OFF
[2018-09-06] MEDS ORDERED: cefOXitin 2 GM in Sodium Chloride 0.9% 100 ML IVPB SCH (13:15)
--- NOTE | 2018-09-06 13:36 | CT ---
CT ABDOMEN WITHOUT IV CONTRAST: Date: 09/06/18 HISTORY: Abdominal distention and abdominal pain. COMPARISON: CT abdomen on 08/29/18. FINDINGS: Emphysematous changes are seen within the lungs. There are parenchymal changes at each lung base, gre ater on the right, probably related to bibasilar atelectasis, although pneumonia at either lung base could not be excluded. Vascular calcifications are seen in the coronary arteries, as well as involving the visualized thorac ic, as well as abdominal aorta, and visualized iliac arteries. The heart is mildly enlarged. There has been interval development of free intraperitoneal gas seen within the abdomen. The stomach is distended, and there are dilated loops of proximal small bowel, measuring 3.5 cm in diameter. No a brupt transition zone is seen. There is a small amount of edema seen within the mesentery. No fluid collection or significant free f luid is seen in the abdomen or pelvis. Low density lesions involving each kidney are again seen, which demonstrate appearance of cysts on pr ior exam. Nonobstructing calculus mid portion left kidney is present. The liver, spleen, pancreas, and bilateral adrenal glands demonstrate grossly normal nonenhanced CT a ppearance. There is colonic diverticulosis involving the descending colon and limited visualized sigmoid colon. No other interval change compared to prior exam. There is a remote anterior mid right rib fracture. IMPRESSION: 1. Free intraperitoneal gas in the abdomen suggesting perforated viscus. 2. Small amount of edema in the mesentery. 3. Dilated stomach with dilated proximal jejunal small bowel loops, without an abrupt transition poi nt. Exact etiology for bowel dilatation is uncertain on this exam. 4. Bibasilar areas of consolidation, which may be related to bibasilar atelectasis, but pneumonia in either lung base cannot be excluded. 5. Nonobstructing left renal calculus. 6. Stable bilateral renal cysts. 7. Small duodenal diverticulum. 8. Colonic diverticulosis. Above findings concerning free intraperitoneal gas was discussed with Dr. Aguirre on 09/06/18 at 1237 ho urs. CODE CR. POS: [facility]
[2018-09-06 13:38] LABS: INR-International Normal Ratio 1.3; PTT 34.8 SEC (22.9-36.1); Prothrombin Time 15.9 SEC (12.0-14.7)
[2018-09-06] MEDS ORDERED: Phenylephrine HCL 10 MG/ML VIAL ONE (15:03)
[2018-09-06] MEDS ORDERED: Fentanyl 100 MCG/2 ML VIAL ONE (15:03)
[2018-09-06] MEDS ORDERED: Albumin 25% 0 ML ONE (15:03)
[2018-09-06] MEDS ORDERED: Norepinephrine 8 MG/0.9% NS 0 ML ONE ×2 (15:03→15:11)
[2018-09-06] MEDS ORDERED: Norepinephrine 4 MG/4 ML VIAL ONE (15:03)
[2018-09-06] MEDS ORDERED: Ketamine 50 MG/ML (10ML VIAL) ONE (15:26)
[2018-09-06] MEDS ORDERED: cefOXitin 2 GM VIAL ONE (15:26)
[2018-09-06] MEDS ORDERED: Sodium Chloride 0.9% 100 ML ONE (15:27)
[2018-09-06] MEDS ORDERED: Sodium Bicarbonate 2.5 MEQ/5 ML VIAL ONE (15:52)
[2018-09-06] MEDS ORDERED: Sodium Bicarb 50 MEQ/50 ML Abboject 8.4% SYRINGE ONE (15:53)
[2018-09-06] MEDS ORDERED: Nitroglycerin 2% Ointment 1 INCH/1 GM Packet ONE (15:58)
[2018-09-06] MEDS ORDERED: PHENYLEPHRINE-NS 100 MCG/ML 10 ML SYRINGE ONE (16:46)
[2018-09-06] MEDS ORDERED: Succinylcholine Chloride 20 MG/ML 10 ml SYRINGE FS ONE (16:46)
[2018-09-06] MEDS ORDERED: Calcium Chloride 1 GM/10 ML Abboject SYRINGE ONE (16:46)
[2018-09-06] MEDS ORDERED: ePHEDrine 50 MG/ML VIAL ONE (16:46)
[2018-09-06] MEDS ORDERED: Rocuronium Bromide 10 MG/ML (10ML VIAL) ONE (16:46)
[2018-09-06] MEDS ORDERED: Lidocaine 1% PF 5 ML VIAL ONE (16:46)
[2018-09-06] MEDS ORDERED: PROPOFOL 200 MG/20 ML VIAL ONE (16:46)
[2018-09-06] MEDS ORDERED: Piperacillin/Tazobactam 3.375 GM VIAL ONE (17:45)
[2018-09-06] MEDS ORDERED: Ventilator Sedation Protocol 1 EACH FS SCH (18:30)
[2018-09-06] MEDS ORDERED: Propofol 1,000 MG/100 ML VIAL IV PRN (18:36)
[2018-09-06] MEDS ORDERED: Propofol BOLUS 1,000 MG/100 ML VIAL IV PRN (18:36)
[2018-09-06] MEDS ORDERED: Fentanyl BOLUS 250 ML IVPB PRN (18:36)
[2018-09-06] MEDS ORDERED: Morphine 2 MG/ML SYRINGE SLOW IVP PRN (18:36)
[2018-09-06] MEDS ORDERED: Lorazepam 2 MG/ML VIAL SLOW IVP PRN (18:36)
[2018-09-06] MEDS ORDERED: DISCONTINUE PREVIOUS NARCOTIC PAIN MEDICATIONS AND BENZODIAZEPINES FS SCH (18:36)
[2018-09-06 18:37] LABS: Actual Bicarbonate (HCO3a) 22.9 mEq/L (22-28); Base Excess (BEa) -3.3 mEq/L (-2.0 to +3.0); CO2 Tension 45.5 mmHg (35.0-45.0); Calcium, Ionized 1.02 mmol/L (1.12-1.30); Carboxyhemoglobin (COHb) 1.6 gm% (0.0-3.0); Hemoglobin (Hb) 12.5 g/dL (14.0-18.0); O2 Tension (PaO2) 75.4 mmHg (> 80.0); Potassium - ABG Lab 3.95 mmol/L (3.70-5.30); pH, Arterial 7.32 (7.35-7.45)
[2018-09-06 18:49] LABS: INR-International Normal Ratio 1.5; Prothrombin Time 17.7 SEC (12.0-14.7)
--- NOTE | 2018-09-06 18:49 | RAD ---
Portable frontal chest radiograph: 09/06/2018 6:34 PM. COMPARISON: 09/06/2018 12:25 PM HISTORY: Postoperative patient FINDINGS: Stable increased linear interstitial density noted bilaterally, left greater than right. Salazar pine imaging limits assessment for pneumothorax and pleural fluid. Nasogastric tube extends into the left upper quadrant. Endotracheal tube terminates just below the level the clavicles. Left-sided vascular catheter present, distal tip overlying the expected location of the cavoatrial junction. IMPRESSION: Lines and tubes as detailed above.
[2018-09-06 18:58] LABS: Hemoglobin 12.1 g/dL (14.0-18.0); Mean Corpuscular HGB CONC 33.4 g/dL (32.0-36.0); Mean Corpuscular Hemoglobin 31.3 pg (27.0-31.0); Mean Corpuscular Volume 93.8 fL (78.0-98.0); Mean Platelet Volume 8.2 fL (7.4-10.4); Platelet Count 124 thou/uL (130-400); RBC Distribution Width 12.4 % (11.5-14.5); Red Blood Cell (RBC) Count 3.85 mill/uL (4.70-6.10); White Blood Cell (WBC) Count 8.6 thou/uL (4.8-10.8)
[2018-09-06] MEDS ORDERED: Albumin 5% 500 ML ONE (18:58)
[2018-09-06 19:01] LABS: Lactic Acid 1.2 mmol/L (0.5-2.2)
[2018-09-06 19:09] LABS: Anion Gap 17 mmol/L (10-20); BUN (Urea Nitrogen) 81 mg/dL (8.4-25.7); Calc. Creatinine Clearance 24 mL/min (70-130); Calcium 7.8 mg/dL (7.8-10.44); Carbon Dioxide 24 mmol/L (23-31); Chloride 100 mmol/L (98-107); Estimated GFR-MDRD 14; Glucose 151 mg/dL (80-115); Magnesium 2.6 mg/dL (1.6-2.6); Phosphorus 12.5 mg/dL (2.3-4.7); Potassium 4.1 mmol/L (3.5-5.1); Sodium 137 mmol/L (136-145)
[2018-09-06 19:12] LABS: ALV-art Gradient 366.825 (0-20); Puncture Site LINE
[2018-09-06] MEDS: fentaNYL Citrate/PF 2,000 MCG in Sodium Chloride 0.9% 60 ML IV SCH (19:14)
[2018-09-06 19:17] LABS: Band 34 % (5-11); Eosinophils 1 % (0-10); Lymphocytes 7 % (21-51); MDiff Complete? YES; Metamyelocyte 4 % (0-0); Monocytes 5 % (0-10); Myelocyte 1 % (0-0); Neutrophil 48 % (42-75); Platelet Morphology Comment Appears Decreased; Toxic Granulation SLIGHT
[2018-09-06] MEDS: Sodium Chloride 0.9% 1,000 ML IV SCH (19:26)
[2018-09-06] MEDS ORDERED: Norepinephrine 8 MG/0.9% NS 250 ML IVPB SCH (19:30)
[2018-09-06] MEDS: Piperacillin/Tazobactam 3.375 GM in Sodium Chloride 0.9% 100 ML IVPB SCH (19:39)
[2018-09-06] MEDS ORDERED: Calcium Chloride 1 GM/10 ML Abboject SYRINGE IVP SCH (19:45)
[2018-09-06] MEDS: Hydrocortisone Sod Succ/PF 100 mg/2 ml Vial IVP SCH (21:58)
[2018-09-06] MEDS: Atorvastatin Calcium 20 MG TAB PO SCH (21:59)
--- NOTE | 2018-09-07 00:19 | CON ---
DATE OF CONSULTATION: CONSULTING PHYSICIAN: Marcia Rios MD. REQUESTING PHYSICIAN: Dr. Aguirre. REASON FOR CONSULTATION: Acute kidney injury. IMPRESSION: Acute kidney injury this is likely hemodynamically mediated in the context of bowel obstruction and . PLAN: 1. Renal supportive measures with IV fluid. 2. Renal ultrasound which did not show any significant renal pathology. 3. Renally dose all medications and avoid potentially nephrotoxic agents. 4. No indication at this point for renal replacement therapy. Hopefully, we will be able to avoid this modality of treatment. However, if renal function continues to deteriorate, this modality of treatment might become indicated. HISTORY OF PRESENT ILLNESS: History is that of a 63-year-old gentleman who presented here with syncopal episode and over the course of hospitalization has been noted with worsening abdominal distention to the point that the patient had to now be taken to the OR for possible bowel perforation. Of note, the patient presented here with a normal creatinine of 0.97. However, over the past 24 to 48 hours, the creatinine has gone up to 4.12 with rising potassium at 5.3. As a result of these changes, decision has been taken to involve Renal in the management of this case. PAST MEDICAL HISTORY: Notable for hypertension. SOCIAL HISTORY: Quit tobacco use about 2 months ago. REVIEW OF SYSTEMS: As documented in the body of history, highly limited given the clinical condition of this patient. FAMILY HISTORY: Not significantly related to present illness. PHYSICAL EXAMINATION: VITAL SIGNS: The patient noted with the following vital signs, afebrile temperature 97.8, pulse 97 to 82, respiratory rate of 18, O2 saturation of 88% on 4 L, blood pressure 110/60. HEENT: Unremarkable. CARDIOVASCULAR: First and second heart sounds were heard. RESPIRATORY: sounds. DIGESTIVE: Revealed a distended abdomen. EXTREMITIES: No peripheral edema. SKIN: No new gross rash. LYMPHATICS: No peripheral lymphadenopathy. SUMMARY: This is a 63-year-old gentleman who is experiencing worsening renal failure at this point. Thank you for this consultation. We will follow with you. Job ID: [id number]
[2018-09-07] MEDS: Sodium Chloride 0.9% 1,000 ML IV SCH ×4 (00:49→23:46)
[2018-09-07] MEDS: Piperacillin/Tazobactam 3.375 GM in Sodium Chloride 0.9% 100 ML IVPB SCH ×2 (00:52→05:10)
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
[2018-09-07] MEDS: Hydrocortisone Sod Succ/PF 100 mg/2 ml Vial IVP SCH ×4 (04:53→21:44)
[2018-09-07 06:26] LABS: Lactic Acid 1.1 mmol/L (0.5-2.2)
[2018-09-07 06:27] LABS: Anion Gap 19 mmol/L (10-20); BUN (Urea Nitrogen) 87 mg/dL (8.4-25.7); Calc. Creatinine Clearance 21 mL/min (70-130); Calcium 8.4 mg/dL (7.8-10.44); Carbon Dioxide 22 mmol/L (23-31); Chloride 102 mmol/L (98-107); Estimated GFR-MDRD 13; Glucose 144 mg/dL (80-115); Magnesium 3.2 mg/dL (1.6-2.6); Potassium 4.5 mmol/L (3.5-5.1); Sodium 138 mmol/L (136-145)
[2018-09-07 06:40] LABS: Band 25 % (5-11); Hemoglobin 10.9 g/dL (14.0-18.0); Lymphocytes 6 % (21-51); MDiff Complete? YES; Mean Corpuscular HGB CONC 33.3 g/dL (32.0-36.0); Mean Corpuscular Hemoglobin 31.3 pg (27.0-31.0); Mean Platelet Volume 8.5 fL (7.4-10.4); Metamyelocyte 2 % (0-0); Monocytes 1 % (0-10); Neutrophil 66 % (42-75); Platelet Count 124 thou/uL (130-400); Platelet Morphology Comment Appears Decreased; RBC Distribution Width 12.4 % (11.5-14.5); RBC Morphology Normal; White Blood Cell (WBC) Count 12.6 thou/uL (4.8-10.8)
[2018-09-07] MEDS ORDERED: Midazolam HCl 2 mg/2 ml Vial ONE (07:11)
[2018-09-07] MEDS ORDERED: Fentanyl 100 MCG/2 ML VIAL ONE (07:11)
[2018-09-07] MEDS: Mometasone/Formoterol 120 PUFF INHALER INH SCH ×2 (07:51→20:19)
[2018-09-07] MEDS ORDERED: Ondansetron PF 4 MG/2 ML Vial ONE (10:34)
[2018-09-07] MEDS ORDERED: Rocuronium Bromide 10 MG/ML (10ML VIAL) ONE (10:34)
--- NOTE | 2018-09-07 10:47 | PRG ---
DATE OF SERVICE: 09/07/2018 SUBJECTIVE: The patient was seen and examined, still on life support in the ICU, but hemodynamically stable. OBJECTIVE: VITAL SIGNS: Blood pressure 121/55. HEENT: Remarkable for endotracheal tube in place. CARDIOVASCULAR SYSTEM: First and second heart sounds. RESPIRATORY SYSTEM: Revealed vented sounds. DIGESTIVE SYSTEM: Revealed evidence of recent exploratory laparotomy. EXTREMITIES: No significant peripheral edema. DIAGNOSTIC STUDIES: Laboratory investigation showed a white count of 2600 and hemoglobin 10.9. Chemistry showed creatinine has gone up to 4.62, BUN of 87, and phosphorus of 10.0. IMPRESSION: 1. Acute tubular necrosis, likely hemodynamically mediated in the context of bowel perforation with constipation. 2. Severe hyperphosphatemia, out of proportion with a degree of renal failure. This might be related to Fleet enema. PLAN: 1. Please avoid any need form of Fleet enema because of the potential kidney failure. 2. Renal supportive measures and avoid potentially nephrotoxic agents. 3. No emergent indication at this point for renal replacement therapy; however, if the renal function continues at this current trajectory, this modality of treatment might become indicated. 4. Further management will be dependent on the clinical course. Job ID: [id number]
--- NOTE | 2018-09-07 11:28 | RAD ---
XR Abdomen 1 View/KUB History: [Dobbhoff tube placement] Comparison: Radiograph 2 days prior Findings: Enteric feeding tube is in place with tip at the ligament of Treitz. There is a projecting over the left lower quadrant of the abdomen. Enteric suction tube side port is at the GE junction. New surgical curly over the abdomen. Impression: 1. Dobbhoff tube tip in good position. 2. Enteric suction tube side port at the GE junction. Recommend advancing.
[2018-09-07] MEDS: Aspirin 81 mg Enteric Coated Tablet PO SCH (11:54)
[2018-09-07] MEDS: Famotidine/PF 20 mg/2ml Vial SLOW IVP SCH (11:54)
[2018-09-07] MEDS: Piperacillin/Tazobactam 2.25 GM in Sodium Chloride 0.9% 100 ML IVPB SCH ×3 (11:55→23:46)
--- NOTE | 2018-09-07 12:37 | OP ---
DATE OF PROCEDURE: 09/07/2018 PREOPERATIVE DIAGNOSES: 1. Status post laparotomy and left colectomy for perforated sigmoid colon diverticulitis. 2. Fecal peritonitis. 3. Open abdomen. POSTOPERATIVE DIAGNOSES: 1. Status post laparotomy and left colectomy for perforated sigmoid colon diverticulitis. 2. Fecal peritonitis. 3. Open abdomen. 4. Necrotic transverse colon. PROCEDURE PERFORMED: 1. Second-look exploratory laparotomy. 2. Segmental transverse colectomy. 3. Partial omentectomy. 4. End-transverse colostomy. 5. Placement of feeding nasojejunal tube. 6. Abdominal washout and closure. ANESTHESIA: General endotracheal. ESTIMATED BLOOD LOSS: 150 mL. FLUIDS: Given 2600 mL crystalloids. COUNTS: Sponge and instrument counts were verified as correct x2. COMPLICATIONS: None apparent to operation. INDICATIONS FOR OPERATION: A 63-year-old man underwent exploratory laparotomy yesterday with left colectomy. This was a salvage exploratory laparotomy as the patient had extensive fecal peritonitis and profound septic shock requiring vasopressor support intraoperatively. The abdomen was left open, temporary closed using wound VAC. The patient was brought into operating room today for second-look. Findings are consistent with residual, cloudy foul-smelling ascitic fluid as well as necrotic transverse colonic staple line requiring resection. DESCRIPTION OF PROCEDURE: Informed consent was obtained from the patient's son. The patient was brought to the operating room today and placed in supine position. Following general anesthesia, previous Rizzo catheter was placed to bedside drain. Nasogastric tube was placed to wall suction. External wound VAC dressing was removed, and the abdomen was sterilely prepped and draped in usual fashion. Internal wound VAC dressings were removed and peritoneal cavity was entered. Small bowel was run from ligament of Treitz down to terminal ileum breaking down fibrinous adhesions as they were encountered. Cloudy foul-smelling ascitic fluid was evacuated from the peritoneal cavity. Large intestine was then inspected from the cecum through the ascending to the transverse colonic staple line, approximately distal 6 inches of bowel was necrotic. We decided to proceed with resection. To achieve this, we used the YARIEL stapler, which was fired to divide the bowel. Mesentery of the specimen was divided between clamps and ligated with free tie of 2-0 silk. Specimen was passed off the operative field. A segment of omentum was also noted to be dusky, decided to achieve partial omentectomy. This was serially divided between clamps and ligated with free tie of 2-0 silk and this omentum specimen was passed off the operative field again followed by transmission to pathology. The rectal stump remained intact. At this juncture, a feeding nasojejunal tube was inserted by Anesthesia, which was palpated by myself within the gastric lumen. I manipulated tip of this catheter into proximal small bowel without resistance. The abdominal cavity was then copiously irrigated with saline in a total of 4 L of sterile saline. At this juncture, all sponges and instruments were certified as correct x2. A #19 [place]che drain was introduced into the pelvic cavity and allowed to exit the abdominal cavity through a separate stab incision. The drain was secured to anterior abdominal wall using 2-0 silk suture. I turned my attention to the staple end of the transverse colon, which we will be using to perform the colostomy. The right colon was mobilized along the white line of Toldt, taken down the hepatic flexure as the bowel was mobilized medially. Care was taken to avoid injury to underlying duodenum. A core incision was then made in the left lower quadrant using a 10 scalpel. The incision was carried down to the level of the fascia. A incision was made in the fascia. Tonsil clamp was introduced through this and placed in the peritoneal cavity and the defect was dilated to 3 fingerbreadths. [place] forceps introduced to the peritoneal cavity through this defect grabbing the staple end of the transverse colon, which was pulled through and secured within the abdominal cavity using interrupted sutures of 3-0 silk at 3 points. All sponges and instruments had been removed and accounted for x2. One sheet of Seprafilm was placed into the deep pelvis and small bowel was returned to normal anatomic location. A second piece of Seprafilm was placed over this and omentum was drawn over remainder of the viscera. Fascia was approximated in the midline using a running stitch of #1 single stranded PDS. The subcutaneous tissue was pulse lavaged with 3 L of sterile saline. Good hemostasis was achieved using cautery. Skin incision was closed using curly. Sterile dressing was applied. I turned my attention then to the colostomy site, where the staple line of the transverse colon was excised using Neal scissors. A functional Mandy colostomy was achieved using interrupted sutures of 2-0 chromic. Ostomy appliance was placed. The patient tolerated the operation without any apparent complication and was returned to the intensive care unit in critical, but stable condition. Job ID: [id number]
--- NOTE | 2018-09-07 13:47 | PRG ---
DATE OF SERVICE: 09/07/2018 SUBJECTIVE: Mr. Westfall is a 63-year-old man, postop day #1 status post exploratory laparotomy and left hemicolectomy for sigmoid colon diverticular rupture with profound fecal peritonitis. The patient remains on mechanical ventilator support. His blood pressure is being supported with norepinephrine despite IV fluid resuscitation. He is slightly sedated, awakens to voice. Moves all extremities and follows commands. OBJECTIVE: VITAL SIGNS: This morning include blood pressure 124/51, pulse 82, respiratory rate is 14, temperature is 98.9 degrees Fahrenheit, and oxygen saturation 98% on FiO2 of 70%. The patient is on norepinephrine at 8 mcg/minute. Urinary output has been marginal about 20 to 25 mL/h. HEENT: Pupils equal, round, and reactive to light. NECK: He has no jugular venous distention noted. HEART: Reveals regular rate and rhythm. No murmurs or gallops auscultated. LUNGS: Clear to auscultation bilaterally. Breathing, regular and nonlabored. ABDOMEN: Soft. Wound VAC in place, returns serous fluid. EXTREMITIES: Reveal 2+ radial and pedal pulses bilaterally. He has soft tissue edema bilaterally. NEUROLOGIC: Reveals no focal deficits present. LABORATORY FINDINGS: Today includes CBC with 12,600 white blood cells, hemoglobin and hematocrit of 10.9 and 32.9 respectively. Platelet count 124,000. Differential counts as follows 66 segmented neutrophils, 25 bands, 6 lymphocytes, and 1 monocyte. Metabolic profile; sodium 138, potassium 4.5, chloride is 102, bicarb is 22, BUN is 87, creatinine 4.62, glucose is 144, phosphorus remains high at 10.0, and magnesium is 3.2. IMPRESSION: 1. Postop day #1 status post exploratory laparotomy and left hemicolectomy for perforated sigmoid diverticulum with fecal peritonitis. 2. Acute septic shock secondary to #1. 3. Acute respiratory failure secondary to #1. 4. Worsening acute kidney injury secondary to #1. PLAN: 1. Continue with aggressive fluid resuscitation and wean vasopressors as tolerated. 2. We will monitor urinary output as endpoint of our resuscitation. 3. Continue with full mechanical ventilator support until the patient is hemodynamically stable. The patient will return to the operating room today for second-look laparotomy. Total critical care time is 50 minutes. Job ID: [id number]
--- NOTE | 2018-09-07 16:09 | PDOC.PN ---
- Subjective Encounter Start Date: 09/07/18 Encounter Start Time: 15:00 Subjective: f/u for perforated sigmoid from diverticulitis with peritonitis, sepsis s/p -: R sigmoidectomy, abd washout POD #1. s/p transverse colectomy/partial -: omenectomy, colostomy and washout today. - Objective MAR Reviewed: Yes Vital Signs & Weight: Vital Signs (12 hours) Pulse Resp BP Pulse Ox 09/07/18 14:45 72 98/44 L 09/07/18 11:00 77 09/07/18 07:14 16 99 09/07/18 06:00 16 Weight Admit Weight 186 lb 14.4 oz Weight 206 lb 2.115 oz Most Recent Monitor Data Heart Rate from ECG 76 NIBP 96/48 NIBP BP-Mean 64 Respiration from ECG 16 SpO2 94 I&O: 09/06/18 09/07/18 09/08/18 06:59 06:59 06:59 Intake Total 460 3888 920 Output Total 300 1337 395 Balance 160 2551 525 Result Diagrams: 09/07/18 05:41 09/07/18 05:41 Additional Labs: Microbiology 09/06/18 22:42 Urine cohn catheter Urine Culture - Preliminary NO GROWTH AT 12 HOURS 09/06/18 19:37 Venous blood - Left Arm Blood Culture - Preliminary Specimen has been received and culture in progress. No Growth to date. 09/06/18 19:30 Venous blood - Right Arm Blood Culture - Preliminary Specimen has been received and culture in progress. No Growth to date. Laboratory Tests 08/29/18 08/29/18 08/30/18 11:47 11:47 06:20 WBC 10.2 15.5 H Hgb Plt Count Band Neuts % (Manual) Sodium Potassium BUN Creatinine Estimated GFR (MDRD) Phosphorus Magnesium B-Natriuretic Peptide 90.7 09/01/18 09/05/18 09/05/18 05:16 11:36 11:36 WBC 13.3 H 24.2 H Hgb Plt Count Band Neuts % (Manual) 25 H Sodium 139 Potassium 4.4 BUN 43 H Creatinine 2.29 H Estimated GFR (MDRD) 29 Phosphorus Magnesium B-Natriuretic Peptide 09/06/18 09/06/18 09/06/18 06:00 18:34 18:34 WBC 23.4 H 8.6 Hgb 12.1 L Plt Count 124 L Band Neuts % (Manual) 34 H 34 H Sodium Potassium BUN Creatinine 4.18 H Estimated GFR (MDRD) Phosphorus 12.5 H* Magnesium 2.6 B-Natriuretic Peptide 09/07/18 09/07/18 09/07/18 05:41 05:41 05:41 WBC Hgb Plt Count Band Neuts % (Manual) 25 H Sodium Potassium BUN Creatinine Estimated GFR (MDRD) Phosphorus 10.0 H* Magnesium 3.2 H B-Natriuretic Peptide Radiology Reviewed by me: Yes (Renal sono - no obstruction) EKG Reviewed by me: Yes (Tele - SR in 's) Phys Exam - Physical Examination sedate, mech ventilation, ETT in place HEENT: PERRLA, sclera anicteric, oral pharynx no lesions Neck: no nodes, no JVD, supple, full ROM diminished in bases Respiratory: no rhonchi S1, S2 Cardiovascular: RRR, no significant murmur, no rub, gallop surgical scar intact, + sounds in RUQ, mild distention Musculoskeletal: pulses present, edema present sedate on mech vent Skin: normal turgor, cap refill <2 seconds Deviation from normal: Cohn with dark, rosemarie urine Dx/Plan (1) Severe sepsis with septic shock Code(s): A41.9 - SEPSIS, UNSPECIFIED ORGANISM; R65.21 - SEVERE SEPSIS WITH SEPTIC SHOCK Status: Acute Comment: Secondary to #2, #3, s/p L colectomy, washout and colostomy, continue Zosyn, Levophed for pressor support, IVF's (2) Peritonitis Code(s): K65.9 - PERITONITIS, UNSPECIFIED Status: Acute Comment: Secondary to perforated sigmoid diverticulitis, see above, continue aggressive support (3) Perforated sigmoid colon Code(s): K63.1 - PERFORATION OF INTESTINE (NONTRAUMATIC) Status: Acute Comment: See above for mgmt (4) EMILY (acute kidney injury) Code(s): N17.9 - ACUTE KIDNEY FAILURE, UNSPECIFIED Status: Acute Comment: Secondary to peritonitis, septic shock and pre-renal mechanism, IVF's, avoid nephrotoxic agents, serial monitoring (5) Acute respiratory failure with hypoxia Code(s): J96.01 - ACUTE RESPIRATORY FAILURE WITH HYPOXIA Status: Acute Comment: Secondary to above, continue mech ventilation, CCU sedation protocol (6) Syncope Code(s): R55 - SYNCOPE AND COLLAPSE Status: Acute Comment: Suspected cardiac etiology, EP consulted with negative EP study 09/03/18, ILR placed with outpt f/u planned (7) Hypertension Code(s): I10 - ESSENTIAL (PRIMARY) HYPERTENSION Status: Chronic Qualifiers: Hypertension type: essential hypertension Qualified Code(s): I10 - Essential (primary) hypertension Comment: Currently hypotensive due to septic shock (8) Grade I diastolic dysfunction Code(s): I51.9 - HEART DISEASE, UNSPECIFIED Status: Chronic Comment: Continue Coreg 6.25mg BID (9) Aortic regurgitation Code(s): I35.1 - NONRHEUMATIC AORTIC (VALVE) INSUFFICIENCY Status: Chronic Comment: EP evaluation pending (10) CAD (coronary artery disease) Code(s): I25.10 - ATHSCL HEART DISEASE OF [place] CORONARY ARTERY W/O ANG PCTRS Status: Chronic Comment: continue med mgmt with ASA, Lipitor, Coreg - Plan continue antibiotics, social work msw, respiratory therapy, DVT proph w/SCDs Continue aggressive support -: Continue Zosyn -: Levophed and IVF's for pressure support -: Mech ventilation with SIMV -: AM lab: CMP, CBC, Mg++, PO3 * .
[2018-09-07] MEDS ORDERED: Albumin 5% 500 ML ONE (18:42)
[2018-09-07 19:06] LABS: Actual Bicarbonate (HCO3a) 23.3 mEq/L (22-28); Base Excess (BEa) -3.3 mEq/L (-2.0 to +3.0); CO2 Tension 48.6 mmHg (35.0-45.0); Calcium, Ionized 1.01 mmol/L (1.12-1.30); Carboxyhemoglobin (COHb) 1.6 gm% (0.0-3.0); Hemoglobin (Hb) 10.9 g/dL (14.0-18.0); O2 Tension (PaO2) 61.6 mmHg (> 80.0); Potassium - ABG Lab 4.54 mmol/L (3.70-5.30)
[2018-09-07 19:07] LABS: Puncture Site ALINE
[2018-09-07] MEDS ORDERED: Calcium Chloride 1 GM/10 ML Abboject SYRINGE IVP SCH (19:30)
--- NOTE | 2018-09-07 20:03 | PDOC.CTH ---
Cardiology Progress Note - Subjective He had peritonitis from a perforated diverticulum. He underwent surgery yesterday and remains in the ICU sedated and intubated. - Objective Vital Signs Temp Pulse BP 09/07/18 17:00 98.8 F 09/07/18 14:45 72 98/44 L 09/07/18 11:00 77 Admit Weight 186 lb 14.4 oz Weight 206 lb 2.115 oz 09/06/18 09/07/18 09/08/18 06:59 06:59 06:59 Intake Total 460 3888 2005.5 Output Total 300 1337 530 Balance 160 2551 1475.5 - Physical Examination General/Neuro: other: (Intubated, sedated. ) Neck: no JVD present Lungs: unlabored respirations Heart: RRR Abdomen: NT/ND Extremities: + edema B (1+) - Telemetry Telemetry Rhythm: S tach - Labs Result Diagrams: 09/07/18 05:41 09/07/18 05:41 Troponin/CKMB CK-MB (CK-2) 16.6 ng/mL (0-6.6) H* 08/29/18 11:47 Troponin I 0.047 ng/mL (< 0.028) H 08/29/18 16:19 - Assessment/Plan 1. CAD. 2. Syncope. 3. Mild LV dysfunction EF at 45% 4. Normal EP study, s/p LINQ placement. 5. Peritonitis 6. Septic shock 7. EMILY on CKD PLAN: - Occluded RCA, occluded LCx, both fill from large collaterals from LAD widely patent. - LINQ in place. - Continue supportive care - Will follow.
[2018-09-07] MEDS: Atorvastatin Calcium 20 MG TAB PO SCH (21:03)
[2018-09-07] MEDS: fentaNYL Citrate/PF 2,000 MCG in Sodium Chloride 0.9% 60 ML IV SCH (21:49)
[2018-09-08] MEDS ORDERED: Acetaminophen 325 MG TAB PO PRN (02:20)
[2018-09-08] MEDS: Hydrocortisone Sod Succ/PF 100 mg/2 ml Vial IVP SCH ×3 (04:35→20:24)
[2018-09-08 05:05] LABS: Band 14 % (5-11); Hemoglobin 8.3 g/dL (14.0-18.0); Hypochromia SLIGHT = 6-15 cells (100X) (0-5/hpf); Lymphocytes 2 % (21-51); MDiff Complete? YES; Mean Corpuscular HGB CONC 32.2 g/dL (32.0-36.0); Mean Corpuscular Hemoglobin 30.9 pg (27.0-31.0); Mean Platelet Volume 8.5 fL (7.4-10.4); Monocytes 1 % (0-10); Neutrophil 83 % (42-75); Phosphorus 8.7 mg/dL (2.3-4.7); Platelet Count 99 thou/uL (130-400); Platelet Morphology Comment Appears Decreased; RBC Distribution Width 12.5 % (11.5-14.5); White Blood Cell (WBC) Count 8.8 thou/uL (4.8-10.8)
[2018-09-08 05:06] LABS: ALT (SGPT) 34 U/L (8-55); AST (SGOT) 43 U/L (5-34); Albumin 2.7 g/dL (3.4-4.8); Alkaline Phosphatase 45 U/L (40-150); Anion Gap 15 mmol/L (10-20); BUN (Urea Nitrogen) 99 mg/dL (8.4-25.7); Bilirubin, Total 0.7 mg/dL (0.2-1.2); Calc. Creatinine Clearance 18 mL/min (70-130); Calcium 7.9 mg/dL (7.8-10.44); Carbon Dioxide 24 mmol/L (23-31); Chloride 108 mmol/L (98-107); Estimated GFR-MDRD 10; Globulin 1.9 g/dL (2.4-3.5); Glucose 137 mg/dL (80-115); Magnesium 3.1 mg/dL (1.6-2.6); Potassium 4.6 mmol/L (3.5-5.1); Protein, Total 4.6 g/dL (5.8-8.1); Sodium 142 mmol/L (136-145)
[2018-09-08] MEDS: Piperacillin/Tazobactam 2.25 GM in Sodium Chloride 0.9% 100 ML IVPB SCH ×4 (05:54→23:46)
[2018-09-08] MEDS: Mometasone/Formoterol 120 PUFF INHALER INH SCH ×2 (07:38→19:00)
[2018-09-08 08:53] LABS: Actual Bicarbonate (HCO3a) 22.9 mEq/L (22-28); Base Excess (BEa) -3.1 mEq/L (-2.0 to +3.0); CO2 Tension 44.9 mmHg (35.0-45.0); Calcium, Ionized 1.04 mmol/L (1.12-1.30); Hemoglobin (Hb) 9.9 g/dL (14.0-18.0); O2 Tension (PaO2) 85.9 mmHg (> 80.0); Potassium - ABG Lab 4.59 mmol/L (3.70-5.30); pH, Arterial 7.33 (7.35-7.45)
[2018-09-08 08:58] LABS: ALV-art Gradient 357.075 (0-20); Puncture Site A-LINE
[2018-09-08] MEDS: Famotidine/PF 20 mg/2ml Vial SLOW IVP SCH (09:36)
[2018-09-08] MEDS: Aspirin 81 mg Enteric Coated Tablet PO SCH (09:36)
--- NOTE | 2018-09-08 09:46 | PDOC.PN ---
- Subjective Encounter Start Date: 09/08/18 Encounter Start Time: 09:44 Mr. Westfall was seen in follow-up. The events of the past few days were noted. He developed an acute abdomen with fecal peritonitis from a perforated diverticulum. He is intubated, but is awake and alert. He will respond. - Objective MAR Reviewed: Yes Vital Signs & Weight: Vital Signs (12 hours) Temp Pulse Resp BP Pulse Ox 09/08/18 08:00 20 09/08/18 07:39 81 107/54 L 09/08/18 07:36 97 09/08/18 07:00 98.8 F 09/08/18 06:00 18 09/08/18 04:01 78 110/63 09/08/18 04:00 99.1 F 18 09/08/18 02:00 99.3 F 18 09/08/18 00:00 100.9 F H 78 18 09/07/18 22:00 18 Weight Admit Weight 186 lb 14.4 oz Weight 202 lb 13.204 oz Most Recent Monitor Data Heart Rate from ECG 82 NIBP 114/56 NIBP BP-Mean 75 Respiration from ECG 14 SpO2 99 I&O: 09/07/18 09/08/18 09/09/18 06:59 06:59 06:59 Intake Total 3888 3734.5 Output Total 1337 1220 180 Balance 2551 2514.5 -180 Result Diagrams: 09/08/18 04:30 09/08/18 04:30 Phys Exam - Physical Examination HEENT: PERRLA, sclera anicteric Respiratory: no wheezing, no rales, no rhonchi + coarse breath sounds Cardiovascular: RRR, no significant murmur, no rub + mildly distended, tympanic to percussion bowel sounds are diminished Musculoskeletal: pulses present trace pedal edema Dx/Plan (1) Perforated sigmoid colon Code(s): K63.1 - PERFORATION OF INTESTINE (NONTRAUMATIC) Status: Acute Comment: See above for mgmt (2) Severe sepsis with septic shock Code(s): A41.9 - SEPSIS, UNSPECIFIED ORGANISM; R65.21 - SEVERE SEPSIS WITH SEPTIC SHOCK Status: Acute Comment: Secondary to #2, #3, s/p L colectomy, washout and colostomy, continue Zosyn, Levophed for pressor support, IVF's (3) Acute respiratory failure with hypoxia Code(s): J96.01 - ACUTE RESPIRATORY FAILURE WITH HYPOXIA Status: Acute Comment: Secondary to above, continue [facility] ventilation, CCU sedation protocol (4) Peritonitis Code(s): K65.9 - PERITONITIS, UNSPECIFIED Status: Acute Comment: Secondary to perforated sigmoid diverticulitis, see above, continue aggressive support (5) EMILY (acute kidney injury) Code(s): N17.9 - ACUTE KIDNEY FAILURE, UNSPECIFIED Status: Acute Comment: Secondary to peritonitis, septic shock and pre-renal mechanism, IVF's, avoid nephrotoxic agents, serial monitoring (6) Syncope Code(s): R55 - SYNCOPE AND COLLAPSE Status: Acute Comment: Suspected cardiac etiology, EP consulted with negative EP study 09/03/18, ILR placed with outpt f/u planned (7) Hypertension Code(s): I10 - ESSENTIAL (PRIMARY) HYPERTENSION Status: Chronic Qualifiers: Hypertension type: essential hypertension Qualified Code(s): I10 - Essential (primary) hypertension Comment: Currently hypotensive due to septic shock - Plan * Ruptured Diverticulitis with dfecal peritonitis, with severe sepsis- He is s/ p exploratory lap, sigmoidectomy, and abdominal washout * Continue Zosyn, and he continue to require pressor support * Acute respiratory failure- continue Ventilator management per trauma team * Syncope- suspected to be cardiogenic - patient has loop recorder placed * Acute kidney injury- related to sepsis- renal function has not yet improved- will defer to Nephrology . * Hypermagnesemia and hyperphosphatemia- will defer to Nephrology
[2018-09-08] MEDS ORDERED: Calcium Chloride 1 GM/10 ML Abboject SYRINGE IVP SCH (11:15)
[2018-09-08] MEDS: Sodium Chloride 0.9% 1,000 ML IV SCH ×2 (12:11→20:24)
--- NOTE | 2018-09-08 12:13 | PDOC.CTH ---
Cardiology Progress Note - Subjective Remains sedated intubated. - Objective Vital Signs Temp Pulse Resp BP Pulse Ox 09/08/18 11:15 77 108/60 09/08/18 11:00 99.3 F 09/08/18 10:00 22 H 09/08/18 08:00 20 09/08/18 07:39 81 107/54 L 09/08/18 07:36 97 09/08/18 07:00 98.8 F 09/08/18 06:00 18 09/08/18 04:01 78 110/63 09/08/18 04:00 99.1 F 18 09/08/18 02:00 99.3 F 18 Admit Weight 186 lb 14.4 oz Weight 202 lb 13.204 oz 09/07/18 09/08/18 09/09/18 06:59 06:59 06:59 Intake Total 3888 3734.5 Output Total 1337 1220 350 Balance 2551 2514.5 -350 - Physical Examination General/Neuro: other: (S/I) Neck: no JVD present Lungs: CTA, unlabored respirations Heart: RRR Abdomen: other: (reduced BS) - Telemetry Telemetry Rhythm: NSR - Labs Result Diagrams: 09/08/18 04:30 09/08/18 04:30 Troponin/CKMB CK-MB (CK-2) 16.6 ng/mL (0-6.6) H* 08/29/18 11:47 Troponin I 0.047 ng/mL (< 0.028) H 08/29/18 16:19 - Assessment/Plan 1. CAD. 2. Syncope. 3. Mild LV dysfunction EF at 45% 4. Normal EP study, s/p LINQ placement. 5. Peritonitis 6. Septic shock 7. EMILY on CKD PLAN: - Occluded RCA, occluded LCx, both fill from large collaterals from LAD widely patent. - LINQ in place. - Continue supportive care - Sepis protocol. - May fluid resuscitate as needed for sepsis. EF at 45-50% amnd should be able to tolerate fluid load. - Will follow.
--- NOTE | 2018-09-08 13:19 | PRG ---
DATE OF SERVICE: 09/08/2018 SUBJECTIVE: Mr. Westfall is a 63-year-old man, who is postop day #1, status post second-look exploratory laparotomy, abdominal washout and end-colostomy. He is postop day #2, status post left colectomy for sigmoid colon diverticular perforation with extensive fecal peritonitis. The patient is currently on antibiotic therapy for septic shock. He was successfully weaned off vasopressor support early this morning. He is lightly sedated on mechanical ventilator support. He moves all extremities. Follows commands. OBJECTIVE: VITAL SIGNS: This morning include blood pressure 108/60, pulse is 86, respiratory rate is 18, temperature is 98.8 degrees Fahrenheit with maximum temperature in last 24 hours noted at 100.9 degrees Fahrenheit. Oxygen saturation currently is 99% on FiO2 of 70% on mechanical ventilator support and PEEP of 10. HEENT: Pupils are equal, round, and reactive to light bilaterally. NECK: He has no jugular venous distention noted. HEART: Reveals regular rate and rhythm. No murmurs or gallops auscultated. LUNGS: Clear to auscultation bilaterally. Breathing, regular and nonlabored. ABDOMEN: Soft and distended. He has incisional tenderness to palpation. Colostomy is viable and edematous with no output of stool or gas yet. EXTREMITIES: Reveal 2+ radial and pedal pulses bilaterally. He has bilateral upper and lower extremities soft tissue edema consistent with anasarca. NEUROLOGIC: Reveals no focal deficits present. LABORATORY FINDINGS: Today include a CBC with 8800 white blood cells, hemoglobin and hematocrit of 8.3 and 25.9 respectively. Platelet count is 99,000. Differential counts as follows; 83 segmented neutrophils, 14 bands, 2 lymphocytes, and 1 monocyte. Metabolic profile; sodium 142, potassium is 4.6, chloride is 108, bicarb is 24, BUN 99, creatinine is 5.60, glucose is 137, phosphorus is 8.7. AST and ALT of 43 and 34 respectively. Arterial blood gas this morning; pH 7.33, pCO2 is 45, pO2 is 86, oxygen saturation 95%, base excess -3.1, and ionized calcium is 1.04. IMPRESSION: 1. Postop day #2, status post second-look exploratory laparotomy, abdominal washout and end-colostomy. 2. Postop day #2, status post exploratory laparotomy with left colectomy for perforated sigmoid colon diverticulitis. 3. Acute fecal peritonitis. 4. Acute septic shock. 5. Acute respiratory failure secondary to fecal peritonitis. 6. Worsening acute kidney injury, though the urinary output is improving. 7. Acute hypocalcemia. PLAN: 1. Correct abnormal electrolytes. 2. Continue to optimize fluid resuscitation using urinary output as endpoint of our resuscitation. 3. Continue with full mechanical ventilator support until the patient is hemodynamically stable. 4. We will suspend trophic enteral nutritional supplementation as the patient more than likely has significant bowel wall edema, which will preclude normal absorption. 5. Above findings and plan have been discussed with the patient. TOTAL CRITICAL CARE TIME: 50 minutes. Job ID: [id number]
--- NOTE | 2018-09-08 15:08 | EKG ---
Test Reason : CHEST PAIN Blood Pressure : / mmHG Vent. Rate : 112 BPM Atrial Rate : 112 BPM P-R Int : 134 ms QRS Dur : 086 ms QT Int : 384 ms P-R-T Axes : 062 025 134 degrees QTc Int : 524 ms Sinus tachycardia Left ventricular hypertrophy with repolarization abnormality Prolonged QT Abnormal ECG Left atrial enlargement Left ventricular hypertrophy Confirmed by TRICE PANDEY, LAMINE Bryant ([id number]), field map editor DOLORES GAUTHIER ([id number]) on 09/08/2018 3:07:45 PM Referred By: Confirmed By:LAMINE CARNES MD
--- NOTE | 2018-09-08 15:18 | PRG ---
DATE OF SERVICE: 09/08/2018 SUBJECTIVE: The patient is seen and examined, still on life support. Noted with the following vital signs. OBJECTIVE: VITAL SIGNS: Blood pressure 136/54, pulse rate of 95, and respiratory rate of 17. HEENT: Unremarkable except endotracheal tube in place. CARDIOVASCULAR SYSTEM: First and second heart sounds were heard. RESPIRATORY SYSTEM: Revealed vented sounds. DIGESTIVE SYSTEM: Reveals somewhat distant abdomen. EXTREMITIES: No peripheral edema. SKIN: No new gross rash. NEUROLOGIC: The patient is arousable and could interact and follow commands. LABORATORY INVESTIGATION: Showed a rise in creatinine of 5.6, BUN of 99, and phosphorus of 8.7. IMPRESSION: 1. Acute tubular necrosis, multifactorially mediated but mainly hemodynamically mediated in the context of intravascular depletion. 2. Cardiopulmonary failure. PLAN: 1. We will continue current renal supportive measures. Hopefully, renal function will pickup; however, if this acute tubular necrosis becomes protracted and the patient's renal function continues to deteriorate at the current trajectory, renal replacement therapy might become indicated within the next 24 to 48 hours. 2. Further management will be dependent on the clinical course. Job ID: [id number]
[2018-09-08] MEDS: Atorvastatin Calcium 20 MG TAB PO SCH (21:39)
[2018-09-09] MEDS: Hydrocortisone Sod Succ/PF 100 mg/2 ml Vial IVP SCH ×3 (03:50→20:31)
[2018-09-09] MEDS: Sodium Chloride 0.9% 1,000 ML IV SCH (03:50)
[2018-09-09 03:52] LABS: #Lymphocytes 0.4 thou/uL (1.20-3.40); #Monocytes 0.9 thou/uL (0.11-0.59); #Neutrophils 10.6 thou/uL (1.40-6.50); %Basophils 0.1 % (0.0-1.0); %Lymphocytes 3.4 % (21.0-51.0); %Monocytes 7.2 % (0.0-10.0); %Neutrophils 89.4 % (42.0-75.0); Hemoglobin 9.4 g/dL (14.0-18.0); Mean Corpuscular HGB CONC 32.5 g/dL (32.0-36.0); Mean Corpuscular Hemoglobin 31.2 pg (27.0-31.0); Mean Platelet Volume 8.4 fL (7.4-10.4); Platelet Count 91 thou/uL (130-400); Red Blood Cell (RBC) Count 3.01 mill/uL (4.70-6.10); White Blood Cell (WBC) Count 11.9 thou/uL (4.8-10.8)
[2018-09-09 04:11] LABS: Anion Gap 20 mmol/L (10-20); BUN (Urea Nitrogen) 114 mg/dL (8.4-25.7); Calc. Creatinine Clearance 16 mL/min (70-130); Calcium 8.6 mg/dL (7.8-10.44); Carbon Dioxide 18 mmol/L (23-31); Chloride 111 mmol/L (98-107); Estimated GFR-MDRD 8; Glucose 106 mg/dL (80-115); Magnesium 3.1 mg/dL (1.6-2.6); Phosphorus 8.4 mg/dL (2.3-4.7); Potassium 5.2 mmol/L (3.5-5.1); Sodium 144 mmol/L (136-145)
[2018-09-09] MEDS: Piperacillin/Tazobactam 2.25 GM in Sodium Chloride 0.9% 100 ML IVPB SCH ×4 (06:03→23:56)
[2018-09-09] MEDS: Mometasone/Formoterol 120 PUFF INHALER INH SCH ×2 (08:07→19:07)
[2018-09-09] MEDS: Famotidine/PF 20 mg/2ml Vial SLOW IVP SCH (09:20)
[2018-09-09] MEDS: Aspirin 81 mg Enteric Coated Tablet PO SCH (09:20)
--- NOTE | 2018-09-09 10:05 | PDOC.PN ---
- Subjective Encounter Start Date: 09/09/18 Encounter Start Time: 10:03 Mr. Westfall was seen today in follow-up of ruptured diverticulitis and respiratory failure. He is intubated. He does not have any complaints. He is more alert this morning. - Objective MAR Reviewed: Yes Vital Signs & Weight: Vital Signs (12 hours) Temp Pulse Resp BP Pulse Ox 09/09/18 08:07 82 162/61 H 94 L 09/09/18 08:00 22 H 09/09/18 07:16 95 09/09/18 07:00 99.3 F 09/09/18 06:00 18 09/09/18 04:00 99.6 F 21 H 09/09/18 03:20 85 09/09/18 02:00 18 09/09/18 00:00 99.6 F 20 09/08/18 22:51 84 155/62 H Weight Admit Weight 186 lb 14.4 oz Weight 217 lb 9.54 oz Most Recent Monitor Data Heart Rate from ECG 90 NIBP 153/73 NIBP BP-Mean 99 Respiration from ECG 0 SpO2 93 I&O: 09/08/18 09/09/18 09/10/18 06:59 06:59 06:59 Intake Total 3734.5 3666.7 Output Total 1220 2215 190 Balance 2514.5 1451.7 -190 Result Diagrams: 09/09/18 03:40 09/09/18 03:40 Phys Exam - Physical Examination HEENT: PERRLA, sclera anicteric Respiratory: no wheezing, no rales, no rhonchi + coarse breath sounds Cardiovascular: RRR, no significant murmur, no rub Gastrointestinal: soft, no distention, positive bowel sounds + tenderness, diffuse Musculoskeletal: pulses present, edema present + edema in the upper extremities Neurological: non-focal Dx/Plan (1) Perforated sigmoid colon Code(s): K63.1 - PERFORATION OF INTESTINE (NONTRAUMATIC) Status: Acute Comment: See above for mgmt (2) Severe sepsis with septic shock Code(s): A41.9 - SEPSIS, UNSPECIFIED ORGANISM; R65.21 - SEVERE SEPSIS WITH SEPTIC SHOCK Status: Acute Comment: Secondary to #2, #3, s/p L colectomy, washout and colostomy, continue Zosyn, Levophed for pressor support, IVF's (3) Acute respiratory failure with hypoxia Code(s): J96.01 - ACUTE RESPIRATORY FAILURE WITH HYPOXIA Status: Acute Comment: Secondary to above, [facility], CCU sedation protocol (4) Peritonitis Code(s): K65.9 - PERITONITIS, UNSPECIFIED Status: Acute Comment: Secondary to perforated sigmoid diverticulitis, see above, continue aggressive support (5) EMILY (acute kidney injury) Code(s): N17.9 - ACUTE KIDNEY FAILURE, UNSPECIFIED Status: Acute Comment: Secondary to peritonitis, septic shock and pre-renal mechanism, IVF's, avoid nephrotoxic agents, serial monitoring (6) Syncope Code(s): R55 - SYNCOPE AND COLLAPSE Status: Acute Comment: Suspected cardiac etiology, EP consulted with negative EP study 09/03/18, ILR placed with outpt f/u planned (7) Hypertension Code(s): I10 - ESSENTIAL (PRIMARY) HYPERTENSION Status: Chronic Qualifiers: Hypertension type: essential hypertension Qualified Code(s): I10 - Essential (primary) hypertension Comment: Currently hypotensive due to septic shock - Plan * Diverticulitis with perforation and peritonitis with severe sepsis- continue Zosyn * He is now off pressor support * Acute renal failure- likely due to severe sepsis- continue supportive care- urine output has been improving * Hypermagnesemia and Hyperphosphatemia- will defer to Nephrology * HTN- blood pressure has been creeping up- will monitor. * Syncope- likely cardiogenic in nature- he has a LINQ recorder placed
[2018-09-09 10:58] LABS: Actual Bicarbonate (HCO3a) 17.9 mEq/L (22-28); Base Excess (BEa) -7.9 mEq/L (-2.0 to +3.0); CO2 Tension 37.5 mmHg (35.0-45.0); Carboxyhemoglobin (COHb) 1.8 gm% (0.0-3.0); Hemoglobin (Hb) 9.6 g/dL (14.0-18.0); O2 Tension (PaO2) 70.4 mmHg (> 80.0); Puncture Site A-LINE
[2018-09-09 10:59] LABS: ALV-art Gradient 310.525 (0-20)
[2018-09-09] MEDS: Sodium Bicarbonate 150 MEQ in Dextrose 5% in Water 1,000 ML IV SCH ×2 (11:34→17:15)
[2018-09-09] MEDS: fentaNYL Citrate/PF 2,000 MCG in Sodium Chloride 0.9% 60 ML IV SCH (12:37)
[2018-09-09] MEDS ORDERED: Calcium Chloride 1 GM/10 ML Abboject SYRINGE IVP SCH (14:15)
--- NOTE | 2018-09-09 14:58 | PRG ---
DATE OF SERVICE: 09/09/2018 This is Marivel Lucero PA-C dictating a report for Ming Mcduffie DO. SUBJECTIVE: The patient was seen this morning, still in the ICU, intubated and sedated with Precedex and fentanyl. He does follow commands in all extremities. He can nod appropriately. He does report pain is well controlled and he does not feel uncomfortable. He is making urine this morning and his Rizzo urinary output has improved. He has a colostomy with no stool output yet. He had no acute events overnight otherwise. He is no longer requiring vasopressors. OBJECTIVE: VITAL SIGNS: Temperature 99.3, pulse 84, respirations 18, oxygen saturation 94% on mechanical ventilation, and blood pressure 149/67. GENERAL: Middle-aged male, intubated and sedated, lying in ICU bed, on mechanical ventilation. NEUROLOGIC: GCS is 11T. Pupils equal, round, and reactive to light. Gross motor and sensation intact in all extremities. PULMONARY: Equal chest rise and fall. Clear breath sounds bilaterally. No significant signs of respiratory distress. CARDIAC: Regular rate and rhythm. No murmurs, gallops, or rubs. GI: Abdomen is distended, but still soft, tender to palpation. Colostomy with some edema, but perfusing well. No stool output yet. EXTREMITIES: 2+ pulses in all extremities. Bilateral upper and lower extremities with swelling, this not improved from yesterday. LABORATORY FINDINGS: White count 11.9, hemoglobin 9.8, hematocrit 28.9, and platelets 91. Sodium 114, potassium 5.2, chloride 111, carbon dioxide 18, BUN 111, creatinine 6.65, and glucose 106. Phosphorous 8.4. Magnesium 3.1. Ionized calcium 1.10. ABG, pH 7.30. DIAGNOSTIC FINDINGS: There are no new diagnostic findings to report. ASSESSMENT: 1. Postoperative day 2, status post second-look abdominal washout and end colostomy. 2. Postoperative day 3, status post exploratory laparotomy with left colectomy for perforated sigmoid colon diverticulitis. 3. Acute fecal peritonitis. 4. Acute septic shock. 5. Acute respiratory failure secondary to fecal peritonitis. 6. Acute kidney injury, worsening, but improved urinary output. 7. Acute hypocalcemia. 8. Acute hyperkalemia, hyperphosphatemia, and hypermagnesemia. 9. Acute metabolic acidosis. PLAN: We will correct the patient's calcium by giving him 1 g of calcium chloride. We will discontinue normal saline and start a bicarb drip at 125 an hour per the recommendations of Renal. Continue mechanical ventilation support. Dialysis per Nephrology recommendations. Continue to hold tube feeds for now. Continue Zosyn. Continue to monitor for ostomy output. The patient was discussed with Dr. Mcduffie this morning after rounds. Total critical care time, 40 minutes. Job ID: [id number]
--- NOTE | 2018-09-09 15:07 | PDOC.CTH ---
Cardiology Progress Note - Subjective Remains sedated intubated. - Objective Vital Signs Temp Pulse Resp BP Pulse Ox 09/09/18 14:27 85 140/68 09/09/18 14:00 18 09/09/18 12:00 22 H 09/09/18 11:00 99.8 F H 09/09/18 10:06 87 133/91 H 09/09/18 10:00 18 09/09/18 08:07 82 162/61 H 94 L 09/09/18 08:00 22 H 09/09/18 07:16 95 09/09/18 07:00 99.3 F 09/09/18 06:00 18 09/09/18 04:00 99.6 F 21 H 09/09/18 03:20 85 Admit Weight 186 lb 14.4 oz Weight 217 lb 9.54 oz 09/08/18 09/09/18 09/10/18 06:59 06:59 06:59 Intake Total 3734.5 3666.7 Output Total 1220 2215 690 Balance 2514.5 1451.7 -690 - Physical Examination General/Neuro: alert & oriented x3, NAD Neck: no JVD present Lungs: CTA, unlabored respirations Heart: RRR Abdomen: NT/ND Extremities: + edema B (1+) - Telemetry Telemetry Rhythm: NSR, S tach. - Labs Result Diagrams: 09/09/18 03:40 09/09/18 03:40 Troponin/CKMB CK-MB (CK-2) 16.6 ng/mL (0-6.6) H* 08/29/18 11:47 Troponin I 0.047 ng/mL (< 0.028) H 08/29/18 16:19 - Assessment/Plan 1. CAD. 2. Syncope. 3. Mild LV dysfunction EF at 45% 4. Normal EP study, s/p LINQ placement. 5. Peritonitis 6. Septic shock 7. EMILY, likely ATN. PLAN: - Occluded RCA, occluded LCx, both fill from large collaterals from LAD widely patent. - LINQ in place. - Continue supportive care - Sepsis protocol. - Will follow.
--- NOTE | 2018-09-09 15:18 | PRG ---
DATE OF SERVICE: 09/09/2018 SUBJECTIVE: The patient is seen and examined, still on life support. Noted with the following vital signs. OBJECTIVE: VITAL SIGNS: Blood pressure 140/68 and pulse 85. HEENT: Remarkable for endotracheal tube in place. CARDIOVASCULAR SYSTEM: First and second heart sounds were heard. RESPIRATORY SYSTEM: Revealed ventilator sounds. DIGESTIVE SYSTEM: Revealed recent laparotomy. Positive bowel sounds. EXTREMITIES: No peripheral edema. SKIN: No new gross rash. LYMPHATICS: No peripheral lymphadenopathy. LABORATORY INVESTIGATION: Showed a potassium of 5.2, bicarb of 18, BUN of 114 with a creatinine 6.65, phosphorus 8.4, and magnesium 3.1. CBC showed a hemoglobin of 9.4. IMPRESSION: 1. Dense acute tubular necrosis, seems to be making some urine at this point; however, renal function is showing some evidence of degeneration. 2. Hyperphosphatemia and hypermagnesemia related to problem #1. 3. Metabolic acidosis related to problem #1. 4. Mild hyperkalemia. PLAN: 1. Discontinue normal saline and start this patient on a bicarb-based infusion. 2. Repeat chemistry at 3 p.m. Make changes accordingly. 3. If renal function continues to deteriorate at this rate within the next 24 to 48 hours, renal replacement therapy (hemodialysis) might become indicated. 4. Renally dose all medications and avoid potentially nephrotoxic agents. There is the hope for renal recovery. 5. Further management will be dependent on the clinical course. Job ID: [id number]
[2018-09-09 16:22] LABS: Anion Gap 19 mmol/L (10-20); BUN (Urea Nitrogen) 119 mg/dL (8.4-25.7); Calc. Creatinine Clearance 15 mL/min (70-130); Calcium 8.9 mg/dL (7.8-10.44); Carbon Dioxide 19 mmol/L (23-31); Chloride 113 mmol/L (98-107); Estimated GFR-MDRD 8; Glucose 148 mg/dL (80-115); Potassium 4.9 mmol/L (3.5-5.1); Sodium 146 mmol/L (136-145)
[2018-09-09] MEDS: Atorvastatin Calcium 20 MG TAB PO SCH (20:31)
[2018-09-10] MEDS: Sodium Bicarbonate 150 MEQ in Dextrose 5% in Water 1,000 ML IV SCH ×2 (03:00→14:44)
[2018-09-10 03:41] LABS: Band 8 % (5-11); Hemoglobin 8.9 g/dL (14.0-18.0); Lymphocytes 4 % (21-51); MDiff Complete? YES; Mean Corpuscular HGB CONC 32.3 g/dL (32.0-36.0); Mean Corpuscular Hemoglobin 30.7 pg (27.0-31.0); Mean Corpuscular Volume 95.2 fL (78.0-98.0); Mean Platelet Volume 8.5 fL (7.4-10.4); Monocytes 8 % (0-10); Neutrophil 80 % (42-75); Platelet Count 100 thou/uL (130-400); Platelet Morphology Comment Appears Decreased; RBC Distribution Width 12.9 % (11.5-14.5); Red Blood Cell (RBC) Count 2.89 mill/uL (4.70-6.10)
[2018-09-10 03:42] LABS: Lactic Acid 0.6 mmol/L (0.5-2.2)
[2018-09-10 03:43] LABS: Anion Gap 18 mmol/L (10-20); BUN (Urea Nitrogen) 121 mg/dL (8.4-25.7); Calc. Creatinine Clearance 14 mL/min (70-130); Calcium 8.1 mg/dL (7.8-10.44); Carbon Dioxide 22 mmol/L (23-31); Chloride 109 mmol/L (98-107); Estimated GFR-MDRD 8; Glucose 193 mg/dL (80-115); Magnesium 2.9 mg/dL (1.6-2.6); Potassium 4.6 mmol/L (3.5-5.1); Sodium 144 mmol/L (136-145)
[2018-09-10] MEDS: Hydrocortisone Sod Succ/PF 100 mg/2 ml Vial IVP SCH ×3 (04:21→20:18)
[2018-09-10] MEDS: Piperacillin/Tazobactam 2.25 GM in Sodium Chloride 0.9% 100 ML IVPB SCH ×3 (05:49→17:49)
[2018-09-10] MEDS: Mometasone/Formoterol 120 PUFF INHALER INH SCH ×2 (07:33→18:26)
[2018-09-10 07:40] LABS: Actual Bicarbonate (HCO3a) 24.3 mEq/L (22-28); Base Excess (BEa) -0.6 mEq/L (-2.0 to +3.0); CO2 Tension 40.8 mmHg (35.0-45.0); Calcium, Ionized 1.05 mmol/L (1.12-1.30); Carboxyhemoglobin (COHb) 1.7 gm% (0.0-3.0); Hemoglobin (Hb) 9.3 g/dL (14.0-18.0); Potassium - ABG Lab 4.35 mmol/L (3.70-5.30); pH, Arterial 7.39 (7.35-7.45)
[2018-09-10 07:42] LABS: Puncture Site LINE
--- NOTE | 2018-09-10 08:02 | RAD ---
CHEST 1 VIEW: Date: 09/10/18 INDICATION: Intubation. COMPARISON: Prior exam dated 09/06/18. FINDINGS: There has been interval placement of a feeding tube that projects beyond the left hemidiaphragm and b eyond the field of view. The left subclavian central venous catheter and ET tube tip are unchanged. L oop recorder is unchanged. Cardiomegaly with pulmonary vascular congestion persists. The extent of th e central edema pattern appears slightly more pronounced. There is worsening bilateral pleural effusi ons, left greater than right. No pneumothorax is evident. IMPRESSION: Findings suspicious for worsening volume overload or CHF. POS: BH
[2018-09-10] MEDS: fentaNYL Citrate/PF 2,000 MCG in Sodium Chloride 0.9% 60 ML IV SCH (08:37)
[2018-09-10] MEDS: Famotidine/PF 20 mg/2ml Vial SLOW IVP SCH (08:51)
[2018-09-10] MEDS: Aspirin 81 mg Enteric Coated Tablet PO SCH (08:52)
[2018-09-10 14:01] LABS: Actual Bicarbonate (HCO3a) 27.8 mEq/L (22-28); Analyzer IN Cardio OR; CO2 Tension 53.8 mmHg (35.0-45.0); Calcium, Ionized 1.11 mmol/L (1.12-1.30); Carboxyhemoglobin (COHb) 1.7 gm% (0.0-3.0); Hemoglobin (Hb) 13.1 g/dL (14.0-18.0); O2 Tension (PaO2) 91.7 mmHg (> 80.0); Potassium - ABG Lab 4.48 mmol/L (3.70-5.30); pH, Arterial 7.33 (7.35-7.45)
[2018-09-10 14:02] LABS: Actual Bicarbonate (HCO3a) 25.4 mEq/L (22-28); Analyzer IN Cardio OR; Base Excess (BEa) -1.1 mEq/L (-2.0 to +3.0); CO2 Tension 49.6 mmHg (35.0-45.0); Calcium, Ionized 1.06 mmol/L (1.12-1.30); Carboxyhemoglobin (COHb) 1.6 gm% (0.0-3.0); Hemoglobin (Hb) 13.7 g/dL (14.0-18.0); O2 Tension (PaO2) 69.9 mmHg (> 80.0); Potassium - ABG Lab 4.24 mmol/L (3.70-5.30); Puncture Site ALINE; pH, Arterial 7.33 (7.35-7.45)
[2018-09-10 14:02] LABS: Puncture Site ALINE
--- NOTE | 2018-09-10 15:58 | PDOC.CTH ---
Cardiology Progress Note - Subjective No new issues. Remains intubated, sedated. - Objective Vital Signs Temp Pulse Resp BP Pulse Ox 09/10/18 15:20 67 156/73 H 09/10/18 15:19 69 18 95 09/10/18 15:00 99.2 F 09/10/18 14:00 18 09/10/18 12:00 18 09/10/18 11:00 99.2 F 09/10/18 10:36 74 172/76 H 09/10/18 10:35 76 18 96 09/10/18 10:00 18 09/10/18 08:00 18 09/10/18 07:35 73 183/66 H 09/10/18 07:33 78 18 96 09/10/18 07:14 98 09/10/18 07:00 99.3 F 09/10/18 06:00 18 09/10/18 04:00 99.5 F 24 H Admit Weight 186 lb 14.4 oz Weight 220 lb 14.451 oz 09/09/18 09/10/18 09/11/18 06:59 06:59 06:59 Intake Total 3666.7 3729 30 Output Total 2215 2176 780 Balance 1451.7 1553 -750 - Physical Examination General/Neuro: other: (S/I) Neck: no JVD present Lungs: CTA, unlabored respirations Heart: RRR Abdomen: NT/ND Extremities: other: (no edema) - Telemetry Telemetry Rhythm: NSR - Labs Result Diagrams: 09/10/18 03:15 09/10/18 03:15 Troponin/CKMB CK-MB (CK-2) 16.6 ng/mL (0-6.6) H* 08/29/18 11:47 Troponin I 0.047 ng/mL (< 0.028) H 08/29/18 16:19 - Assessment/Plan 1. CAD. 2. Syncope. 3. Mild LV dysfunction EF at 45% 4. Normal EP study, s/p LINQ placement. 5. Peritonitis 6. Septic shock 7. EMILY, likely ATN. PLAN: - Occluded RCA, occluded LCx, both fill from large collaterals from LAD widely patent. - Continue supportive care - No new recs. - Will follow.
--- NOTE | 2018-09-10 15:59 | PRG ---
DATE OF SERVICE: 09/10/2018 SUBJECTIVE: Mr. Westfall is a 63-year-old man, who is postoperative day #3 status post second-look exploratory laparotomy, segmental colectomy with end colostomy, and abdominal closure. He is postop day #4 status post exploratory laparotomy and left colectomy for perforated sigmoid diverticulitis with profound fecal peritonitis. The patient has successfully been weaned off vasopressor support over the last 48 hours. Urinary output is improving. He remains sedated on mechanical ventilator support. [place] coma scale today is E3-4, M6, V1T. OBJECTIVE: VITAL SIGNS: This morning include blood pressure 172/76, pulse is 76, respiratory rate is 18, temperature is 99.9 degrees Fahrenheit, and oxygen saturation is 97% on FiO2 of 60% on mechanical ventilator support with a PEEP of 10. HEENT: Pupils are equal, round, reactive to light and accommodation. HEART: Reveals regular rate and rhythm. No murmurs or gallops auscultated. LUNGS: Reveal bibasilar rhonchi. Breathing regular and nonlabored. ABDOMEN: Soft and obese. He has incisional tenderness to palpation. Bowel sounds present in all 4 quadrants. Nasogastric tube is returning scant amount of bile-tinged gastric effluent. Colostomy is viable and edematous with no output of stool or gas. NEUROLOGIC: Reveals no focal deficits present. EXTREMITIES: Reveal 2+ radial and pedal pulses bilaterally. He has bilateral upper and lower extremity soft tissue edema. LABORATORY FINDINGS: Today include a CBC with 9000 white blood cells, hemoglobin and hematocrit 8.9 and 27.6 respectively. Platelet count is 100,000. Differential counts as follows; 80 segmented neutrophils, 8 bands, 4 lymphocytes, and 8 monocytes. Metabolic profile; sodium 144, potassium is 4.6, chloride is 109, bicarb is 22, BUN is 121, creatinine is 7.33, glucose is 193, magnesium 2.9, and phosphorus is 7.0. Arterial blood gas today reveals a pH of 7.39, pCO2 is 41, pO2 is 63, base excess is -0.6, and ionized calcium is 1.05. I reviewed the chest x-ray today, which reveals bilateral increased pulmonary alveolar infiltrates with slight cardiomegaly and bilateral pleural effusions, left greater than right. IMPRESSION: 1. Postoperative day #3 status post second-look exploratory laparotomy, segmental colectomy and end colostomy. 2. Postop day #4 status post exploratory laparotomy with left colectomy for perforated sigmoid colon diverticulitis. 3. Fecal peritonitis, resolving. 4. Resolved septic shock. 5. Acute respiratory failure secondary to fecal peritonitis. 6. Acute renal failure secondary to septic shock and fecal peritonitis. PLAN: 1. Continue with full mechanical ventilator support until the patient is hemodynamically stable. 2. We will initiate trophic enteral nutritional supplementation at this time. 3. Continue with current antibiotic regimen. 4. We will need to begin to mobilize the patient through the neuro chair and resume physical and occupational therapy. 5. We will discuss with Nephrology in consideration for starting furosemide drip at low dose. TOTAL CRITICAL CARE TIME: 55 minutes. Job ID: [id number]
[2018-09-10] MEDS: Furosemide 100 MG, Admixture Fee 1 EACH in Sodium Chloride 0.9% 90 ML IVPB SCH (16:16)
--- NOTE | 2018-09-10 16:28 | PDOC.PN ---
- Subjective Encounter Start Date: 09/10/18 Encounter Start Time: 11:00 Mr. Westfall was seen today in follow-up of perforated sigmoid diverticulitis. He remains intubated. He is sitting up in a Neuro-chair when I cam to see him. He is more sedated today. - Objective MAR Reviewed: Yes Vital Signs & Weight: Vital Signs (12 hours) Temp Pulse Resp BP Pulse Ox 09/10/18 16:00 18 09/10/18 15:20 67 156/73 H 09/10/18 15:19 69 18 95 09/10/18 15:00 99.2 F 09/10/18 14:00 18 09/10/18 12:00 18 09/10/18 11:00 99.2 F 09/10/18 10:36 74 172/76 H 09/10/18 10:35 76 18 96 09/10/18 10:00 18 09/10/18 08:00 18 09/10/18 07:35 73 183/66 H 09/10/18 07:33 78 18 96 09/10/18 07:14 98 09/10/18 07:00 99.3 F 09/10/18 06:00 18 Weight Admit Weight 186 lb 14.4 oz Weight 220 lb 14.451 oz Most Recent Monitor Data Heart Rate from ECG 65 NIBP 159/74 NIBP BP-Mean 102 Respiration from ECG 18 SpO2 95 I&O: 09/09/18 09/10/18 09/11/18 06:59 06:59 06:59 Intake Total 3666.7 3729 30 Output Total 2215 2176 825 Balance 1451.7 1553 -795 Result Diagrams: 09/10/18 03:15 09/10/18 03:15 Phys Exam - Physical Examination HEENT: PERRLA Respiratory: no wheezing, no rales, no rhonchi, clear to auscultation bilateral Cardiovascular: RRR, no significant murmur, no rub Gastrointestinal: soft, non-tender, positive bowel sounds Musculoskeletal: pulses present, edema present trace pedal edema Dx/Plan (1) Perforated sigmoid colon Code(s): K63.1 - PERFORATION OF INTESTINE (NONTRAUMATIC) Status: Acute Comment: See above for mgmt (2) Severe sepsis with septic shock Code(s): A41.9 - SEPSIS, UNSPECIFIED ORGANISM; R65.21 - SEVERE SEPSIS WITH SEPTIC SHOCK Status: Acute Comment: Secondary to #2, #3, s/p L colectomy, washout and colostomy, continue Zosyn, Levophed for pressor support, IVF's (3) Acute respiratory failure with hypoxia Code(s): J96.01 - ACUTE RESPIRATORY FAILURE WITH HYPOXIA Status: Acute Comment: Secondary to above, continue [facility] ventilation, CCU sedation protocol (4) Peritonitis Code(s): K65.9 - PERITONITIS, UNSPECIFIED Status: Acute Comment: Secondary to perforated sigmoid diverticulitis, see above, continue aggressive support (5) EMILY (acute kidney injury) Code(s): N17.9 - ACUTE KIDNEY FAILURE, UNSPECIFIED Status: Acute Comment: Secondary to peritonitis, septic shock and pre-renal mechanism, IVF's, avoid nephrotoxic agents, serial monitoring (6) Syncope Code(s): R55 - SYNCOPE AND COLLAPSE Status: Acute Comment: Suspected cardiac etiology, EP consulted with negative EP study 09/03/18, ILR placed with outpt f/u planned (7) Hypertension Code(s): I10 - ESSENTIAL (PRIMARY) HYPERTENSION Status: Chronic Qualifiers: Hypertension type: essential hypertension Qualified Code(s): I10 - Essential (primary) hypertension Comment: Currently hypotensive due to septic shock - Plan * Sigmoid diverticulitis with perforation and peritonitis- continue IV Zosyn, and wound vac is in place * EMILY- likley from ATN from sepsis- his urine output has been improving. avoid nephrotoxins, and renal dose medications * HTN- blood pressure is stable. * Respiratory failure- he continues to require ventilator support
[2018-09-10] MEDS: Atorvastatin Calcium 20 MG TAB PO SCH (20:18)
--- NOTE | 2018-09-10 21:29 | PRG ---
DATE OF SERVICE: 09/10/2018 SUBJECTIVE: The patient is seen and examined, still intubated. OBJECTIVE: VITAL SIGNS: Noted with the following vital signs; blood pressure 152/68, respiratory rate of 18, pulse of 68. HEENT: Unremarkable except endotracheal tube in place. CARDIOVASCULAR: First and second heart sounds were heard. RESPIRATORY: Revealed ventilator sounds. DIGESTIVE: Revealed positive bowel sounds. EXTREMITIES: Showed no significant peripheral edema. LABORATORY INVESTIGATION: Showed a hemoglobin of 8.9. Chemistry showed a creatinine of 7.33, BUN of 121, phosphorus of 7.0 with magnesium of 2.9. IMPRESSION: 1. Dense acute tubular necrosis hemodynamically mediated plus omental cytokine mediated injury in the context of sepsis. 2. Hyperphosphatemia seems to be improving. 3. Profound azotemia. PLAN: 1. We will recommend discontinuation of IV fluids. 2. Gentle diuresis. 3. Monitor renal function and hemodynamics and avoid potentially nephrotoxic agents. 4. Further management will be dependent on the clinical course. At this time of dictation, there is no emergent indication for renal replacement therapy (hemodialysis). Job ID: [id number]
[2018-09-11] MEDS: Piperacillin/Tazobactam 2.25 GM in Sodium Chloride 0.9% 100 ML IVPB SCH ×5 (00:06→23:03)
[2018-09-11] MEDS: fentaNYL Citrate/PF 2,000 MCG in Sodium Chloride 0.9% 60 ML IV SCH ×2 (03:35→22:27)
[2018-09-11] MEDS: Hydrocortisone Sod Succ/PF 100 mg/2 ml Vial IVP SCH ×3 (04:25→20:35)
[2018-09-11 05:04] LABS: Anion Gap 17 mmol/L (10-20); Calc. Creatinine Clearance 13 mL/min (70-130); Calcium 7.7 mg/dL (7.8-10.44); Carbon Dioxide 27 mmol/L (23-31); Chloride 107 mmol/L (98-107); Estimated GFR-MDRD 7; Glucose 150 mg/dL (80-115); Magnesium 2.7 mg/dL (1.6-2.6); Phosphorus 6.4 mg/dL (2.3-4.7); Potassium 4.2 mmol/L (3.5-5.1); Sodium 147 mmol/L (136-145)
[2018-09-11 05:15] LABS: BUN (Urea Nitrogen) 119 mg/dL (8.4-25.7)
[2018-09-11 05:19] LABS: Band 2 % (5-11); Hemoglobin 9.1 g/dL (14.0-18.0); Hypochromia SLIGHT = 6-15 cells (100X) (0-5/hpf); Lymphocytes 6 % (21-51); MDiff Complete? YES; Mean Corpuscular HGB CONC 33.2 g/dL (32.0-36.0); Mean Corpuscular Hemoglobin 31.1 pg (27.0-31.0); Mean Corpuscular Volume 93.7 fL (78.0-98.0); Mean Platelet Volume 8.8 fL (7.4-10.4); Monocytes 3 % (0-10); Neutrophil 89 % (42-75); Platelet Count 123 thou/uL (130-400); Platelet Morphology Comment Appears Adequate; RBC Distribution Width 12.5 % (11.5-14.5); Red Blood Cell (RBC) Count 2.92 mill/uL (4.70-6.10); White Blood Cell (WBC) Count 9.6 thou/uL (4.8-10.8)
[2018-09-11] MEDS: Mometasone/Formoterol 120 PUFF INHALER INH SCH ×2 (07:22→18:47)
[2018-09-11 07:35] LABS: Actual Bicarbonate (HCO3a) 25.2 mEq/L (22-28); Base Excess (BEa) 0.9 mEq/L (-2.0 to +3.0); CO2 Tension 38.7 mmHg (35.0-45.0); Calcium, Ionized 1.03 mmol/L (1.12-1.30); Carboxyhemoglobin (COHb) 1.3 gm% (0.0-3.0); Hemoglobin (Hb) 9.8 g/dL (14.0-18.0); O2 Tension (PaO2) 73.7 mmHg (> 80.0); Potassium - ABG Lab 4.18 mmol/L (3.70-5.30); pH, Arterial 7.43 (7.35-7.45)
[2018-09-11 07:55] LABS: Puncture Site L.R.
[2018-09-11 07:57] LABS: ALV-art Gradient 305.725 (0-20)
--- NOTE | 2018-09-11 08:26 | RAD ---
AP CHEST: Date: 09/11/18 HISTORY: CCU follow-up. Intubation. COMPARISON: 09/10/18. FINDINGS/IMPRESSION: ET tube and NG tube remain in place. Central line unchanged. Vascular and interstitial prominence is again noted, especially in the lung bases. Interstitial and hazy alveolar opacity in both lung bases with evidence of bilateral effusions. No significant change from yesterday. POS: OFF
[2018-09-11] MEDS: Famotidine/PF 20 mg/2ml Vial SLOW IVP SCH (09:50)
[2018-09-11] MEDS: Aspirin 81 mg Enteric Coated Tablet PO SCH (09:50)
[2018-09-11] MEDS: Furosemide 100 MG, Admixture Fee 1 EACH in Sodium Chloride 0.9% 90 ML IVPB SCH (09:50)
[2018-09-11] MEDS: Dextrose 5% in Water 1,000 ML IV SCH ×2 (10:45→21:49)
--- NOTE | 2018-09-11 11:33 | PRG ---
DATE OF SERVICE: 09/11/2018 SUBJECTIVE: Mr. Westfall is a 63-year-old man. The patient is postoperative day #4 status post second-look exploratory laparotomy with sigmoid colectomy with end colostomy and postop day #5, status post exploratory laparotomy with left colectomy for perforated sigmoid colon diverticulitis. The patient did have a severe fecal peritonitis. He is currently on no vasopressor or inotropic support. He is sedated with Precedex and fentanyl. He awakens to voice. Moves all extremities and follows commands. Urinary output has markedly improved since yesterday on furosemide by continuous infusion at 5 mg/hour. OBJECTIVE: VITAL SIGNS: This morning includes blood pressure is 166/103, pulse is 57, respiratory rate is 18, temperature is 98.9 degrees Fahrenheit, oxygen saturation is 100% on FiO2 of 50%. HEENT: On admission, pupils are equal, round, and reactive to light bilaterally. NECK: He has no jugular venous distention noted. HEART: Reveals regular rate with sinus bradycardia. No murmurs or gallops auscultated. LUNGS: Clear to auscultation bilaterally. Breathing, regular and nonlabored. ABDOMEN: Soft and obese. He has incisional tenderness to palpation with no significant gross rebound tenderness present. Colostomy is viable and edematous with no stool or gas output. Bowel sounds are present in all 4 quadrants. Obi-Lopez drain returns large amount of serous ascites. NEUROLOGIC: Reveals no focal deficits present. LABORATORY FINDINGS: Today includes CBC with 9600 white blood cells, hemoglobin and hematocrit are 9.1 and 27.4 respectively. Platelet count is 123,000. Metabolic profile; sodium is 147, potassium is 4.2, chloride is 107, bicarb is 27, BUN is 119, creatinine is 7.89, glucose is 150, magnesium is 2.7, and phosphorus is 6.4. Arterial blood gas today, pH is 7.43, pCO2 is 39, pO2 is 74, oxygen saturation 94%, and ionized calcium is 1.03. IMAGING STUDIES: I have reviewed the chest x-ray today, which shows better aeration in all lung orta. There remains residual left pleural effusion greater than right. No pneumothorax is present. IMPRESSION: 1. Postoperative day #5, status post exploratory laparotomy with left colectomy for perforated sigmoid colon diverticulitis. 2. Postoperative day #4, status post second-look exploratory laparotomy with segmental colectomy and end colostomy for fecal peritonitis. 3. Acute respiratory failure secondary to fecal peritonitis and septic shock, which is now resolving. 4. Acute nonoliguric renal failure, stable. PLAN: 1. Continue with full mechanical ventilator support until the patient is hemodynamically stable. 2. Continue with current diuresis and decrease the Lasix drip to 3 mg/hour. 3. We will consider initiating total parenteral nutrition as this patient is unlikely to resume enteral nutritional support over the next few days due to profound adynamic ileus as operated from recent fecal peritonitis. 4. Continue with trophic enteral nutritional supplementation nevertheless until the bowel function has been returned. Above findings and plan discussed with the patient. Total critical care time is 50 minutes. Job ID: [id number]
--- NOTE | 2018-09-11 15:06 | PDOC.PN ---
- Subjective Encounter Start Date: 09/11/18 Encounter Start Time: 11:10 Mr. Westfall was seen today in follow-up of perforated diverticulitis with sepsis. He remains intubated. He is sitting in the Neuro-chair when I came to see him. He appears comfortable. - Objective MAR Reviewed: Yes Vital Signs & Weight: Vital Signs (12 hours) Temp Pulse Resp BP Pulse Ox 09/11/18 14:20 65 141/64 H 09/11/18 14:19 67 18 96 09/11/18 12:00 98.6 F 18 09/11/18 10:51 57 L 166/103 H 09/11/18 10:50 58 L 18 98 09/11/18 10:00 18 09/11/18 08:00 22 H 09/11/18 07:34 100 09/11/18 07:23 58 L 148/68 H 09/11/18 07:21 63 18 98 09/11/18 07:00 98.9 F 09/11/18 06:00 18 09/11/18 04:00 98.9 F 19 Weight Admit Weight 186 lb 14.4 oz Weight 210 lb 15.718 oz Most Recent Monitor Data Heart Rate from ECG 79 NIBP 143/64 NIBP BP-Mean 90 Respiration from ECG 17 SpO2 96 I&O: 09/10/18 09/11/18 09/12/18 06:59 06:59 06:59 Intake Total 3729 2539.7 200 Output Total 2176 3865 860 Balance 1553 -1325.3 -660 Result Diagrams: 09/11/18 04:30 09/11/18 04:30 Phys Exam - Physical Examination HEENT: PERRLA Respiratory: no wheezing, no rales, no rhonchi, clear to auscultation bilateral Cardiovascular: RRR, no significant murmur, no rub Gastrointestinal: soft, non-tender, no distention, positive bowel sounds Musculoskeletal: pulses present, edema present Dx/Plan (1) Perforated sigmoid colon Code(s): K63.1 - PERFORATION OF INTESTINE (NONTRAUMATIC) Status: Acute Comment: See above for mgmt (2) Severe sepsis with septic shock Code(s): A41.9 - SEPSIS, UNSPECIFIED ORGANISM; R65.21 - SEVERE SEPSIS WITH SEPTIC SHOCK Status: Acute Comment: Secondary to #2, #3, s/p L colectomy, washout and colostomy, continue Zosyn, Levophed for pressor support, IVF's (3) Acute respiratory failure with hypoxia Code(s): J96.01 - ACUTE RESPIRATORY FAILURE WITH HYPOXIA Status: Acute Comment: Secondary to above, continue [facility] ventilation, CCU sedation protocol (4) Peritonitis Code(s): K65.9 - PERITONITIS, UNSPECIFIED Status: Acute Comment: Secondary to perforated sigmoid diverticulitis, see above, continue aggressive support (5) EMILY (acute kidney injury) Code(s): N17.9 - ACUTE KIDNEY FAILURE, UNSPECIFIED Status: Acute Comment: Secondary to peritonitis, septic shock and pre-renal mechanism, IVF's, avoid nephrotoxic agents, serial monitoring (6) Syncope Code(s): R55 - SYNCOPE AND COLLAPSE Status: Acute Comment: Suspected cardiac etiology, EP consulted with negative EP study 09/03/18, ILR placed with outpt f/u planned (7) Hypertension Code(s): I10 - ESSENTIAL (PRIMARY) HYPERTENSION Status: Chronic Qualifiers: Hypertension type: essential hypertension Qualified Code(s): I10 - Essential (primary) hypertension Comment: Currently hypotensive due to septic shock - Plan * Perforated Diverticilitis with.peritonitis and severe sepsis- slowly improving * Continue IV Zosyn * Acute kidney injury- his urine output has improved- continue to observe, and avoid nephrotoxins * HTN- blood pressure is stable * CAD- stable * Syncope- likely cardiogenic etiology- loop recorder has been placed.
--- NOTE | 2018-09-11 18:22 | PDOC.CTH ---
Cardiology Progress Note - Subjective Remains intubated, sedated. - Objective Vital Signs Temp Pulse Resp BP Pulse Ox 09/11/18 16:18 77 187/81 H 09/11/18 16:00 98.6 F 18 09/11/18 14:20 65 141/64 H 09/11/18 14:19 67 18 96 09/11/18 14:00 18 09/11/18 12:00 98.6 F 18 09/11/18 10:51 57 L 166/103 H 09/11/18 10:50 58 L 18 98 09/11/18 10:00 18 09/11/18 08:00 22 H 09/11/18 07:34 100 09/11/18 07:23 58 L 148/68 H 09/11/18 07:21 63 18 98 09/11/18 07:00 98.9 F Admit Weight 186 lb 14.4 oz Weight 210 lb 15.718 oz 09/10/18 09/11/18 09/12/18 06:59 06:59 06:59 Intake Total 3729 2539.7 537 Output Total 2176 3865 2940 Balance 1553 -1325.3 -2403 - Physical Examination General/Neuro: other: (S/I) Neck: no JVD present Lungs: unlabored respirations Heart: RRR Abdomen: NT/ND Extremities: + edema B (1+) - Telemetry Telemetry Rhythm: NSR - Labs Result Diagrams: 09/11/18 04:30 09/11/18 04:30 Troponin/CKMB CK-MB (CK-2) 16.6 ng/mL (0-6.6) H* 08/29/18 11:47 Troponin I 0.047 ng/mL (< 0.028) H 08/29/18 16:19 - Assessment/Plan 1. CAD. 2. Syncope. 3. Mild LV dysfunction EF at 45% 4. Normal EP study, s/p LINQ placement. 5. Peritonitis 6. Septic shock 7. EMILY, likely ATN. PLAN: - Occluded RCA, occluded LCx, both fill from large collaterals from LAD widely patent. - Continue supportive care - On lasix drip. - Creatinine still climbing. Will eventually go into polyuric phase of ATN.
--- NOTE | 2018-09-11 20:29 | PRG ---
DATE OF SERVICE: 09/11/2018 SUBJECTIVE: The patient was seen and examined today and seems to be doing a little bit better. Noted with the following vital signs. OBJECTIVE: VITAL SIGNS: Blood pressure of 163/62, pulse of 77, respiratory rate of 20, and O2 saturations of 98%. HEENT: Remarkable for endotracheal tube in place. CARDIOVASCULAR SYSTEM: First and second heart sounds were heard. RESPIRATORY SYSTEM: Revealed ventilator sounds. DIGESTIVE SYSTEM: Revealed a benign abdomen. EXTREMITIES: Showed no peripheral edema. SKIN: No new gross rash. LYMPHATICS: No peripheral lymphadenopathy. LABORATORY INVESTIGATION: Showed a hemoglobin of 9.1. Chemistry; creatinine of 7.89 with BUN 119, sodium of 147, phosphorus of 6.4, magnesium 2.7, and calcium 7.7. IMPRESSION: 1. Acute tubular necrosis, which seems to be showing some improvement. 2. Hypernatremia. 3. Hyperphosphatemia related to problem #1. PLAN: 1. We will replete this patient's free water with 5% dextrose water as the GI tract is not yet ready for fluid intake. 2. Renally dose all medications and avoid potentially nephrotoxic agents. 3. Gentle diuresis. 4. Further management to be dependent on the clinical course. Job ID: [id number]
[2018-09-11] MEDS: Atorvastatin Calcium 20 MG TAB PO SCH (20:35)
[2018-09-11] MEDS: SODIUM ACETATE IV SCH (21:48)
[2018-09-11] MEDS: [UNRECOGNIZED DRUG - OTHER] IV SCH (21:48)
[2018-09-11] MEDS: CALCIUM GLUCONATE IV SCH (21:48)
[2018-09-11] MEDS: MULTIVITAMINS IV SCH (21:48)
[2018-09-12] MEDS: Hydrocortisone Sod Succ/PF 100 mg/2 ml Vial IVP SCH ×2 (04:56→12:07)
[2018-09-12] MEDS: Piperacillin/Tazobactam 2.25 GM in Sodium Chloride 0.9% 100 ML IVPB SCH ×4 (05:00→23:28)
[2018-09-12 05:18] LABS: Band 1 % (5-11); Eosinophils 1 % (0-10); Hemoglobin 9.3 g/dL (14.0-18.0); Lymphocytes 6 % (21-51); MDiff Complete? YES; Mean Corpuscular HGB CONC 33.1 g/dL (32.0-36.0); Mean Corpuscular Hemoglobin 30.8 pg (27.0-31.0); Mean Platelet Volume 9.4 fL (7.4-10.4); Monocytes 1 % (0-10); Neutrophil 91 % (42-75); Platelet Count 151 thou/uL (130-400); Platelet Morphology Comment Appears Adequate; RBC Distribution Width 12.4 % (11.5-14.5); Red Blood Cell (RBC) Count 3.01 mill/uL (4.70-6.10); White Blood Cell (WBC) Count 11.2 thou/uL (4.8-10.8)
[2018-09-12 05:27] LABS: Anion Gap 18 mmol/L (10-20); Calc. Creatinine Clearance 13 mL/min (70-130); Calcium 7.9 mg/dL (7.8-10.44); Carbon Dioxide 28 mmol/L (23-31); Chloride 104 mmol/L (98-107); Estimated GFR-MDRD 7; Glucose 205 mg/dL (80-115); Magnesium 2.5 mg/dL (1.6-2.6); Phosphorus 6.6 mg/dL (2.3-4.7); Potassium 3.7 mmol/L (3.5-5.1); Sodium 146 mmol/L (136-145)
[2018-09-12 05:39] LABS: BUN (Urea Nitrogen) 131 mg/dL (8.4-25.7)
[2018-09-12] MEDS: Furosemide 100 MG, Admixture Fee 1 EACH in Sodium Chloride 0.9% 90 ML IVPB SCH (06:06)
[2018-09-12] MEDS: Mometasone/Formoterol 120 PUFF INHALER INH SCH ×2 (07:12→18:40)
[2018-09-12 07:24] LABS: Base Excess (BEa) 0.9 mEq/L (-2.0 to +3.0); CO2 Tension 37.7 mmHg (35.0-45.0); Calcium, Ionized 1.04 mmol/L (1.12-1.30); Carboxyhemoglobin (COHb) 1.6 gm% (0.0-3.0); Hemoglobin (Hb) 11.7 g/dL (14.0-18.0); O2 Tension (PaO2) 79.8 mmHg (> 80.0); Potassium - ABG Lab 3.58 mmol/L (3.70-5.30); pH, Arterial 7.44 (7.35-7.45)
[2018-09-12 07:25] LABS: Puncture Site LR
[2018-09-12 07:26] LABS: ALV-art Gradient 158.275 (0-20)
[2018-09-12] MEDS ORDERED: Furosemide 100 MG, Admixture Fee 1 EACH in Sodium Chloride 0.9% 90 ML IVPB SCH (08:10)
[2018-09-12] MEDS: Aspirin 81 mg Enteric Coated Tablet PO SCH (08:28)
[2018-09-12] MEDS: Dextrose 5% in Water 1,000 ML IV SCH ×2 (08:28→18:02)
[2018-09-12] MEDS: Famotidine/PF 20 mg/2ml Vial SLOW IVP SCH (08:28)
[2018-09-12] MEDS: Enoxaparin Sodium 30 MG/0.3 ML SYRINGE SC SCH ×2 (11:36→21:16)
[2018-09-12] MEDS: hydrALAZINE 20 MG/ML VIAL SLOW IVP PRN (15:19)
[2018-09-12] MEDS ORDERED: Metoprolol Tartrate 25 MG TAB PO SCH ×2 (16:30→21:00)
--- NOTE | 2018-09-12 16:49 | PDOC.PN ---
- Subjective Encounter Start Date: 09/12/18 Encounter Start Time: 11:30 Mr. Westfall was seen today in follow-up of perforated sigmoid diverticulitis with peritonitis. He is intubated. He is awake,and will follow some commands. - Objective MAR Reviewed: Yes Vital Signs & Weight: Vital Signs (12 hours) Temp Pulse Resp BP Pulse Ox 09/12/18 16:00 98.1 F 09/12/18 15:19 86 196/81 H 09/12/18 14:50 86 20 97 09/12/18 12:00 99.2 F 94 L 09/12/18 10:59 79 21 H 97 09/12/18 08:00 99.1 F 18 99 09/12/18 07:11 73 14 99 09/12/18 07:08 74 178/66 H 09/12/18 07:07 99 09/12/18 06:00 13 Weight Admit Weight 186 lb 14.4 oz Weight 205 lb 7.533 oz Most Recent Monitor Data Heart Rate from ECG 86 NIBP 192/87 NIBP BP-Mean 122 Respiration from ECG 23 SpO2 93 I&O: 09/11/18 09/12/18 09/13/18 06:59 06:59 06:59 Intake Total 2539.7 1779.0 502.1 Output Total 3865 5650 2070 Balance -1325.3 -3871.0 -1567.9 Result Diagrams: 09/12/18 04:30 09/12/18 04:30 Phys Exam - Physical Examination HEENT: PERRLA Respiratory: no rales, wheezing present + rhonchi Cardiovascular: RRR, no significant murmur, no rub Gastrointestinal: soft, non-tender, no distention, positive bowel sounds Musculoskeletal: pulses present, edema present Neurological: non-focal, moves all 4 limbs Dx/Plan (1) Perforated sigmoid colon Code(s): K63.1 - PERFORATION OF INTESTINE (NONTRAUMATIC) Status: Acute Comment: See above for mgmt (2) Severe sepsis with septic shock Code(s): A41.9 - SEPSIS, UNSPECIFIED ORGANISM; R65.21 - SEVERE SEPSIS WITH SEPTIC SHOCK Status: Acute Comment: Secondary to #2, #3, s/p L colectomy, washout and colostomy, continue Zosyn, Levophed for pressor support, IVF's (3) Acute respiratory failure with hypoxia Code(s): J96.01 - ACUTE RESPIRATORY FAILURE WITH HYPOXIA Status: Acute Comment: Secondary to above, continue [facility] ventilation, CCU sedation protocol (4) Peritonitis Code(s): K65.9 - PERITONITIS, UNSPECIFIED Status: Acute Comment: Secondary to perforated sigmoid diverticulitis, see above, continue aggressive support (5) EMILY (acute kidney injury) Code(s): N17.9 - ACUTE KIDNEY FAILURE, UNSPECIFIED Status: Acute Comment: Secondary to peritonitis, septic shock and pre-renal mechanism, IVF's, avoid nephrotoxic agents, serial monitoring (6) Syncope Code(s): R55 - SYNCOPE AND COLLAPSE Status: Acute Comment: Suspected cardiac etiology, EP consulted with negative EP study 09/03/18, ILR placed with outpt f/u planned (7) Hypertension Code(s): I10 - ESSENTIAL (PRIMARY) HYPERTENSION Status: Chronic Qualifiers: Hypertension type: essential hypertension Qualified Code(s): I10 - Essential (primary) hypertension Comment: Currently hypotensive due to septic shock - Plan * Perforated Sigmoid Diverticulitis- continue IV Zosyn * HTN- blood pressure is elevated- Metoprolol has been added by the trauma team - will observe, and have PRN Hydralazine available * Acute Kidney Injury- renal function is beginning to plateau- urine output has been stable * Syncope- felt to be cardiogenic in origin, either through ischemic heart disease or arrhythmia he has 2 vessel CAD which is auto- bypassed. He has had loop recorder placed * .
--- NOTE | 2018-09-12 17:22 | PDOC.CTH ---
Cardiology Progress Note - Subjective He was extubated earlier today. He is very hypertensive, maintaining his sats. - Objective Vital Signs Temp Pulse Resp BP Pulse Ox 09/12/18 16:00 98.1 F 09/12/18 15:19 86 196/81 H 09/12/18 14:50 86 20 97 09/12/18 12:00 99.2 F 94 L 09/12/18 10:59 79 21 H 97 09/12/18 08:00 99.1 F 18 99 09/12/18 07:11 73 14 99 09/12/18 07:08 74 178/66 H 09/12/18 07:07 99 09/12/18 06:00 13 Admit Weight 186 lb 14.4 oz Weight 205 lb 7.533 oz 09/11/18 09/12/18 09/13/18 06:59 06:59 06:59 Intake Total 2539.7 1779.0 502.1 Output Total 3865 5650 2270 Balance -1325.3 -3871.0 -1767.9 - Physical Examination General/Neuro: other: Neck: no JVD present Lungs: CTA, unlabored respirations Heart: RRR Abdomen: NT/ND Extremities: + edema B (1+) - Telemetry Telemetry Rhythm: NSR - Labs Result Diagrams: 09/12/18 04:30 09/12/18 04:30 Troponin/CKMB CK-MB (CK-2) 16.6 ng/mL (0-6.6) H* 08/29/18 11:47 Troponin I 0.047 ng/mL (< 0.028) H 08/29/18 16:19 - Assessment/Plan 1. Peritonitis. 2. Septic shock. 3. CAD. 4. Syncope. 5. Mild LV dysfunction EF at 45% 6. Normal EP study, s/p LINQ placement. 7. EMILY, likely ATN. 8. HTN PLAN: - Occluded RCA, occluded LCx, both fill from large collaterals from LAD widely patent. - Continue supportive care - On lasix drip diuresing well. - Will schedule metoprolol 5 mg IV q6hrs. - Likely HTN driven by pain and EMILY.
[2018-09-12] MEDS ORDERED: hydrALAZINE 20 MG/ML VIAL ONE (18:01)
[2018-09-12] MEDS ORDERED: hydrALAZINE 20 MG/ML VIAL SLOW IVP SCH (18:15)
[2018-09-12] MEDS ORDERED: Metoprolol Tartrate 5 MG/5 ML VIAL ONE (18:41)
[2018-09-12] MEDS ORDERED: Metoprolol Tartrate 5 MG/5 ML VIAL IVP SCH (19:15)
[2018-09-12] MEDS ORDERED: fentaNYL Citrate/PF 2,000 MCG in Sodium Chloride 0.9% 60 ML IV SCH (20:30)
--- NOTE | 2018-09-12 20:44 | PRG ---
DATE OF SERVICE: 09/12/2018 SUBJECTIVE: The patient is seen and examined, still on life support. Noted with the following vital signs. OBJECTIVE: VITAL SIGNS: Pulse of 86, blood pressure 184/73, respiratory rate of 19, and O2 saturation 95% on 60% of FiO2. HEENT: Remarkable for endotracheal tube in place. CARDIOVASCULAR SYSTEM: First and second heart sounds were heard. RESPIRATORY SYSTEM: Revealed ventilator sounds. DIGESTIVE SYSTEM: Revealed a benign abdomen with positive bowel sounds. EXTREMITIES: No peripheral edema. SKIN: No new gross rash. LYMPHATICS: No peripheral lymphadenopathy. LABORATORY INVESTIGATION: Showed a sodium of 146, BUN of 131, creatinine 7.84, phosphorus of 6.6. Urinary output showed the patient produced about 5.6 L of urine with a negative of 3.8 L. IMPRESSION: 1. Acute tubular necrosis, nonoliguric. 2. Cardiopulmonary failure, on life support. 3. Profound azotemia in the context of problem #1. 4. Bowel perforation, status post exploratory laparotomy and . PLAN: 1. Continue current renal supportive measures. 2. Renally dose all medications for low GFR and avoid potentially nephrotoxic agents. 3. There is no emergent indication at this point for renal replacement therapy (hemodialysis). Hopefully, the renal function will continue to improve. 4. Further management will be dependent on the clinical course. The condition of the patient at this time of dictation is still critical. Job ID: [id number]
[2018-09-12] MEDS ORDERED: niCARdipine HCl 50 MG in Sodium Chloride 0.9% 250 ML 230 ML IVPB SCH (20:45)
[2018-09-12] MEDS: Atorvastatin Calcium 20 MG TAB PO SCH (21:02)
[2018-09-12] MEDS: Ondansetron PF 4 MG/2 ML Vial IVP PRN (21:28)
[2018-09-12] MEDS ORDERED: [UNRECOGNIZED DRUG - OTHER] IV SCH (22:00)
[2018-09-12] MEDS ORDERED: SODIUM ACETATE IV SCH (22:00)
[2018-09-12] MEDS ORDERED: CALCIUM GLUCONATE IV SCH (22:00)
[2018-09-12] MEDS ORDERED: MULTIVITAMINS IV SCH (22:00)
[2018-09-12] MEDS: CALCIUM GLUCONATE IV SCH (22:35)
[2018-09-12] MEDS: MULTIVITAMINS IV SCH (22:35)
[2018-09-12] MEDS: SODIUM ACETATE IV SCH (22:35)
[2018-09-12] MEDS: [UNRECOGNIZED DRUG - OTHER] IV SCH (22:35)
[2018-09-12] MEDS: Metoprolol Tartrate 5 MG/5 ML VIAL IVP SCH (23:28)
[2018-09-13] MEDS ORDERED: Metoprolol Tartrate 5 MG/5 ML VIAL IVP SCH (02:00)
[2018-09-13] MEDS: Dextrose 5% in Water 1,000 ML IV SCH ×2 (04:19→15:01)
[2018-09-13 04:50] LABS: #Eosinphils 0.1 thou/uL (0.0-0.7); #Lymphocytes 0.6 thou/uL (1.20-3.40); #Monocytes 0.7 thou/uL (0.11-0.59); #Neutrophils 13.9 thou/uL (1.40-6.50); %Eosinophils 0.4 % (0.0-10.0); %Monocytes 4.2 % (0.0-10.0); %Neutrophils 91.3 % (42.0-75.0); Mean Corpuscular HGB CONC 33.5 g/dL (32.0-36.0); Mean Corpuscular Hemoglobin 31.3 pg (27.0-31.0); Mean Corpuscular Volume 93.2 fL (78.0-98.0); Platelet Count 160 thou/uL (130-400); RBC Distribution Width 12.5 % (11.5-14.5); Red Blood Cell (RBC) Count 3.21 mill/uL (4.70-6.10); White Blood Cell (WBC) Count 15.2 thou/uL (4.8-10.8)
[2018-09-13 05:11] LABS: Anion Gap 18 mmol/L (10-20); Calc. Creatinine Clearance 12 mL/min (70-130); Carbon Dioxide 28 mmol/L (23-31); Chloride 104 mmol/L (98-107); Estimated GFR-MDRD 7; Glucose 256 mg/dL (80-115); Magnesium 2.2 mg/dL (1.6-2.6); Phosphorus 5.7 mg/dL (2.3-4.7); Sodium 147 mmol/L (136-145)
[2018-09-13 05:23] LABS: BUN (Urea Nitrogen) 141 mg/dL (8.4-25.7)
[2018-09-13] MEDS: Metoprolol Tartrate 5 MG/5 ML VIAL IVP SCH (05:46)
[2018-09-13] MEDS: Piperacillin/Tazobactam 2.25 GM in Sodium Chloride 0.9% 100 ML IVPB SCH ×3 (05:46→17:12)
[2018-09-13] MEDS ORDERED: Potassium Chloride 40 MEQ in Premix Bag 1 BAG IVPB SCH (07:30)
[2018-09-13] MEDS ORDERED: Furosemide 100 MG, Admixture Fee 1 EACH in Sodium Chloride 0.9% 90 ML IVPB SCH (08:08)
[2018-09-13] MEDS: Mometasone/Formoterol 120 PUFF INHALER INH SCH ×2 (08:36→19:33)
[2018-09-13] MEDS: Famotidine/PF 20 mg/2ml Vial SLOW IVP SCH (08:40)
[2018-09-13] MEDS: Enoxaparin Sodium 30 MG/0.3 ML SYRINGE SC SCH ×2 (08:40→21:32)
[2018-09-13] MEDS: Aspirin 81 mg Enteric Coated Tablet PO SCH ×2 (08:41→11:09)
[2018-09-13] MEDS ORDERED: Labetalol HCl 100 MG/20 ML VIAL ONE (09:31)
[2018-09-13] MEDS: Ondansetron PF 4 MG/2 ML Vial IVP PRN (09:39)
[2018-09-13] MEDS ORDERED: Potassium Chloride 20 MEQ in Premix Bag 1 BAG IVPB SCH (09:45)
[2018-09-13] MEDS ORDERED: Labetalol HCl 100 MG/20 ML VIAL SLOW IVP SCH (10:00)
--- NOTE | 2018-09-13 16:27 | PRG ---
DATE OF SERVICE: 09/13/2018 SUBJECTIVE: A 63-year-old man, who is postoperative day #7 status post exploratory laparotomy, left colectomy, and washout for perforated sigmoid colon and diverticulitis with fecal peritonitis. He is postoperative day #6 status post second-look laparotomy with partial colectomy and end colostomy. He was successfully extubated yesterday. He remains in the intensive care unit, on no vasopressor or inotropic support. His blood pressure frankly has been quite high over the last 24 hours. The urinary output has been adequate on diuretics consisting of furosemide at 2 mg/hour achieving urinary output in excess of 100 mL/hour. OBJECTIVE: VITAL SIGNS: This morning include blood pressure 152/72, pulse 74, respiratory rate 22, temperature 98 degrees Fahrenheit, maximum temperature in the last 24 hours 99.9 degrees Fahrenheit, oxygen saturation is 100% on 3 L by nasal cannula oxygen. HEENT: Reveals normocephalic and atraumatic. Pupils are equally round and reactive to light and accommodation. HEART: Reveals regular rate and rhythm. No murmurs or gallops auscultated. LUNGS: Clear to auscultation bilaterally. Breathing, regular and nonlabored. ABDOMEN: Soft with incisional tenderness to palpation. No significant rebound tenderness present. Bowel sounds in all 4 quadrants appear normoactive. Colostomy is viable and functional with stool. EXTREMITIES: Reveal 2+ radial and pedal pulses bilaterally. He has residual bilateral pain and ankle edema present. NEUROLOGIC: Reveals no focal deficits present. LABORATORY FINDINGS: Today include CBC with 15,200 white blood cells, hemoglobin and hematocrit 10.0 and 29.9 respectively, platelet count is 160,000. Metabolic profile; sodium 147, potassium 3.0, chloride is 104, bicarb is 28, BUN 141, creatinine is 8.03, glucose 256, magnesium 2.2, and phosphorus is 5.7. IMPRESSION: 1. Postoperative day #6 and #7 status post exploratory laparotomy, left colectomy, and end colostomy. 2. Acute fecal peritonitis, resolving. 3. Acute nonoliguric renal failure secondary to acute tubular necrosis. I think that this patient's renal dysfunction has plateaued, and hopefully, kidney function will begin to improve as the patient recovers overall. 4. Acute hypokalemia. 5. Acute hypernatremia. 6. Acute hyperglycemia, on total parenteral nutritional supplementation. PLAN: 1. Correct abnormal electrolytes. 2. Continue with current antimicrobial therapy. We will add antifungal to cover yeast. 3. Increase activity per Physical and Occupational Therapy. 4. The patient requires another stay in intensive care unit. We will consider transfer to either step-down unit or general floor in the next 24 hours. Job ID: [id number]
[2018-09-13] MEDS: Acetaminophen 325 MG TAB PO SCH ×2 (17:13→17:42)
[2018-09-13] MEDS ORDERED: Acetaminophen 650 MG/20.3 ML UDCUP PO PRN (17:20)
[2018-09-13] MEDS: Acetaminophen 650 MG/20.3 ML UDCUP PO SCH (17:37)
--- NOTE | 2018-09-13 17:37 | PDOC.CTH ---
Cardiology Progress Note - Subjective No new issues. More awake but still confused. - Objective Vital Signs Temp Pulse Resp Pulse Ox 09/13/18 16:00 98.2 F 09/13/18 14:32 77 19 97 09/13/18 12:00 97.5 F L 09/13/18 11:13 66 26 H 99 09/13/18 10:21 71 09/13/18 10:19 71 09/13/18 08:00 97.9 F 100 09/13/18 06:36 99 09/13/18 06:34 71 20 99 Admit Weight 186 lb 14.4 oz Weight 204 lb 2 oz 09/12/18 09/13/18 09/14/18 06:59 06:59 06:59 Intake Total 1779.0 2908.1 1348.9 Output Total 5650 5315 1850 Balance -3871.0 -2406.9 -501.1 - Physical Examination General/Neuro: NAD Neck: no JVD present ( b ) Lungs: CTA Heart: RRR Abdomen: NT/ND Extremities: + edema B (1+) - Telemetry Telemetry Rhythm: NSR, PAC's. - Labs Result Diagrams: 09/13/18 04:30 09/13/18 04:30 Troponin/CKMB CK-MB (CK-2) 16.6 ng/mL (0-6.6) H* 08/29/18 11:47 Troponin I 0.047 ng/mL (< 0.028) H 08/29/18 16:19 - Assessment/Plan 1. Peritonitis. 2. Septic shock. 3. CAD. 4. Syncope. 5. Mild LV dysfunction EF at 45% 6. Normal EP study, s/p LINQ placement. 7. EMILY, ATN likely, not improving. 8. HTN PLAN: - Occluded RCA, occluded LCx, both fill from large collaterals from LAD widely patent. - On lasix drip continues to diurese but creatinine continues to climb. - EF at 45%. - May need dialysis. - Replace K. - Nicardipine drip as needed for HTN.
--- NOTE | 2018-09-13 19:43 | PDOC.PN ---
- Subjective Encounter Start Date: 09/13/18 Encounter Start Time: 19:00 Patient seen and examined for Syncope/Resp failure/Peritonitis. No new complaints. No overnight events - Objective MAR Reviewed: Yes Vital Signs & Weight: Vital Signs (12 hours) Temp Pulse Resp Pulse Ox 09/13/18 18:52 81 21 H 94 L 09/13/18 16:00 98.2 F 09/13/18 14:32 77 19 97 09/13/18 12:00 97.5 F L 09/13/18 11:13 66 26 H 99 09/13/18 10:21 71 09/13/18 10:19 71 09/13/18 08:00 97.9 F 100 Weight Admit Weight 186 lb 14.4 oz Weight 204 lb 2 oz Most Recent Monitor Data Heart Rate from ECG 68 NIBP 125/53 NIBP BP-Mean 77 Respiration from ECG 24 SpO2 92 I&O: 09/12/18 09/13/18 09/14/18 06:59 06:59 06:59 Intake Total 1779.0 2908.1 1348.9 Output Total 5650 5315 1960 Balance -3871.0 -2406.9 -611.1 Result Diagrams: 09/13/18 04:30 09/13/18 04:30 EKG Reviewed by me: Yes (Tele SR) Phys Exam - Physical Examination Constitutional: NAD NG tube+/on Lasix drip @ 1 mg/hr and TPN Respiratory: no wheezing, no rhonchi Dim AE at bases Cardiovascular: RRR, no rub Gastrointestinal: soft, positive bowel sounds Musculoskeletal: no edema Neurological: moves all 4 limbs awake/alert with intermittent confusion Dx/Plan - Plan DVT proph w/SCDs IMPRESSION: Severe Sepsis with acute organ dysfunction/Septic shock due to Complicated Sigmoid diverticulitis with perforation/Peritonitis s/p Exp Lap with left colectomy EMILY Hypotension requiring pressors Acute respiratory failure requiring mechanical ventilation CAD Chronic diastolic HF/Mild LV dysfunction Mod-Sev AR/Mild Electrolyte abn HTN Obesity BMI 32 Syncope on admission s/p Cath and Linq recorder PLAN: Cont Zosyn Cont supportive care/TPN AM labs Dialysis if renal function worsens Cont current meds as below DVT/GI prophylaxis Review of Systems - Review of Systems Other: Cannot be reliably obtained due to current mentation. - Medications/Allergies Allergies/Adverse Reactions: Allergies Allergy/AdvReac Type Severity Reaction Status Date / Time No Known Drug Allergies Allergy Verified 08/29/18 13:32 Medications: Current Medications Acetaminophen (Tylenol Elixir) 1,000 mg PO Q6HR [facility] Last Admin: 09/13/18 17:37 Dose: 1,000 mg Albuterol/Ipratropium (Duoneb) 3 ml NEB [id number] PRN PRN Reason: SOB &/or Wheezing Albuterol/Ipratropium (Duoneb) 3 ml NEB [id number] [facility] Last Admin: 09/13/18 18:52 Dose: 3 ml Aspirin (Ecotrin) 81 mg PO DAILY [facility] Last Admin: 09/13/18 11:09 Dose: 81 mg Atorvastatin Calcium (Lipitor) 20 mg PO HS [facility] Last Admin: 09/12/18 21:02 Dose: Not Given Enoxaparin Sodium (Lovenox) 30 mg SC 0900 [facility] Last Admin: 09/13/18 08:40 Dose: 30 mg Enoxaparin Sodium (Lovenox) 30 mg SC 2100 [facility] Last Admin: 09/12/18 21:16 Dose: 30 mg Famotidine (Pepcid) 20 mg SLOW IVP QAM [facility] Last Admin: 09/13/18 08:40 Dose: 20 mg Hydralazine HCl (Apresoline) 10 mg SLOW IVP Q6H PRN PRN Reason: SBP Greater Than 170 Last Admin: 09/12/18 15:19 Dose: 10 mg Fentanyl Citrate (Fentanyl Bolus) 250 mls @ 0 mls/hr IVPB PRN PRN PRN Reason: Breakthrough pain/agitation Stop: 10/06/18 18:36 Piperacillin Sod/Tazobactam (Sod 2.25 gm/ Sodium Chloride) 100 mls @ 200 mls/ hr IVPB Q6HR [facility] Last Admin: 09/13/18 17:12 Dose: 100 mls Sodium Acetate 40 meq/ Calcium Gluconate 10 meq/Multivitamins 10 ml/ Chromium/ Copper/Manganese/Seleni/Zn 5 ml/ Dextrose/Water/ Sterile Water/ Amino Acids 1, 456.7391 mls @ 60.697 mls/hr IV 2200 [facility] Stop: 09/13/18 21:59 Last Admin: 09/12/18 22:07 Dose: 1,456.7391 mls Nicardipine HCl 50 mg/ Sodium (Chloride) 250 mls @ 0 mls/hr IVPB INF [facility]; Protocol Last Admin: 09/12/18 21:04 Dose: 250 mls Furosemide 100 mg/Miscellaneous Medication 1 each/ Sodium Chloride 100 mls @ 1 mls/hr IVPB INF [facility] Potassium Chloride 20 meq/Calcium Gluconate 10 meq/Magnesium Sulfate 10 meq/ Multivitamins 10 ml/ Chromium/Copper/Manganese/Seleni/Zn 5 ml/ Dextrose/Water/ Sterile Water/ Amino Acids 1,074.2021 mls @ 44.758 mls/hr IV 2200 [facility] Metoprolol Tartrate (Lopressor) 50 mg PER TUBE BID [facility] Mometasone Furoate/Formoterol Fumar (Dulera 200 Mcg/5 Mcg Inhaler) 2 puff INH BID-RT [facility] Last Admin: 09/13/18 19:33 Dose: 2 puff Morphine Sulfate (Morphine) 2 mg SLOW IVP Q2H PRN PRN Reason: BREAKTHROUGH PAIN/Agitation Stop: 10/06/18 18:36 Nitroglycerin (Nitrostat) 0.4 mg SL Q5MIN PRN PRN Reason: Chest Pain Last Admin: 08/31/18 15:33 Dose: 0.4 mg Ondansetron HCl (Zofran) 4 mg IVP Q4H PRN PRN Reason: Nausea/Vomiting Last Admin: 09/13/18 09:39 Dose: 4 mg Sodium Chloride (Flush - Normal Saline) 10 ml IVF Q12HR [facility] Last Admin: 09/13/18 09:39 Dose: 10 ml Sodium Chloride (Flush - Normal Saline) 10 ml IVF PRN PRN PRN Reason: Saline Flush Tramadol HCl (Ultram) 50 mg PO Q8HR [facility]
[2018-09-13] MEDS: Atorvastatin Calcium 20 MG TAB PO SCH (21:31)
[2018-09-13] MEDS: Metoprolol Tartrate 50 MG TAB PER TUBE SCH (21:31)
[2018-09-13] MEDS: traMADol HCl 50 MG TAB PO SCH (21:32)
[2018-09-13] MEDS: CALCIUM GLUCONATE IV SCH (21:54)
[2018-09-13] MEDS: POTASSIUM CHLORIDE IV SCH (21:54)
[2018-09-13] MEDS: [UNRECOGNIZED DRUG - OTHER] IV SCH (21:54)
[2018-09-14] MEDS ORDERED: traMADol HCl 50 MG TAB PO SCH (00:01)
[2018-09-14] MEDS: Acetaminophen 650 MG/20.3 ML UDCUP PO SCH ×5 (00:03→23:44)
[2018-09-14] MEDS: Piperacillin/Tazobactam 2.25 GM in Sodium Chloride 0.9% 100 ML IVPB SCH ×5 (00:03→23:45)
[2018-09-14 04:35] LABS: #Eosinphils 0.1 thou/uL (0.0-0.7); #Lymphocytes 0.4 thou/uL (1.20-3.40); #Monocytes 0.6 thou/uL (0.11-0.59); #Neutrophils 15.5 thou/uL (1.40-6.50); %Basophils 0.1 % (0.0-1.0); %Eosinophils 0.7 % (0.0-10.0); %Lymphocytes 2.6 % (21.0-51.0); %Monocytes 3.4 % (0.0-10.0); %Neutrophils 93.2 % (42.0-75.0); Hemoglobin 10.1 g/dL (14.0-18.0); Mean Corpuscular Hemoglobin 30.4 pg (27.0-31.0); Mean Corpuscular Volume 95.1 fL (78.0-98.0); Mean Platelet Volume 10.1 fL (7.4-10.4); Platelet Count 167 thou/uL (130-400); RBC Distribution Width 12.4 % (11.5-14.5); Red Blood Cell (RBC) Count 3.33 mill/uL (4.70-6.10); White Blood Cell (WBC) Count 16.7 thou/uL (4.8-10.8)
[2018-09-14] MEDS: traMADol HCl 50 MG TAB PO SCH ×3 (05:09→21:58)
[2018-09-14 05:16] LABS: BUN (Urea Nitrogen) 134 mg/dL (8.4-25.7)
--- NOTE | 2018-09-14 06:18 | PRG ---
DATE OF SERVICE: 09/13/2018 SUBJECTIVE: The patient is seen and examined. He is extubated, but still very lethargic. Noted with the following vital signs. OBJECTIVE: VITAL SIGNS: Blood pressure 153/58, pulse 68, respiratory rate of 21, HEENT: Unremarkable. CARDIOVASCULAR SYSTEM: First and second heart sounds were heard. RESPIRATORY SYSTEM: Clear to auscultation anteriorly. DIGESTIVE SYSTEM: Revealed positive bowel sounds. EXTREMITIES: Showed some peripheral edema. LABORATORY INVESTIGATION: Showed chemistry with BUN of 141, creatinine of 8.03, potassium 3.0, sodium 147, phosphorus of 5.7. IMPRESSION: 1. Dense acute tubular necrosis with profound azotemia. 2. Hypokalemia. 3. Hyponatremia. 4. Hyperphosphatemia. PLAN: 1. If the patient's profound azotemia persists, may benefit from temporary renal replacement therapy at least to correct this profound azotemia to an extent. 2. There is no emergent indication at this point. 3. Further management will deescalate diuresis. 4. Further management to be dependent on clinical course. Condition is still guarded. Job ID: [id number]
[2018-09-14] MEDS: Mometasone/Formoterol 120 PUFF INHALER INH SCH ×2 (06:38→19:13)
[2018-09-14 07:01] LABS: Anion Gap 16 mmol/L (10-20); Calc. Creatinine Clearance 12 mL/min (70-130); Calcium 8.3 mg/dL (7.8-10.44); Carbon Dioxide 26 mmol/L (23-31); Chloride 107 mmol/L (98-107); Estimated GFR-MDRD 7; Glucose 265 mg/dL (80-115); Magnesium 2.2 mg/dL (1.6-2.6); Phosphorus 4.4 mg/dL (2.3-4.7); Potassium 3.1 mmol/L (3.5-5.1); Sodium 146 mmol/L (136-145)
[2018-09-14] MEDS ORDERED: Potassium Chloride 40 MEQ in Premix Bag 1 BAG IVPB SCH (08:15)
[2018-09-14] MEDS ORDERED: Dextrose 50% Abboject 50 ML SYRINGE SLOW IVP PRN (08:16)
[2018-09-14] MEDS ORDERED: Dextrose 5% in Water 1,000 ML IV PRN (08:16)
--- NOTE | 2018-09-14 08:30 | PRG ---
DATE OF SERVICE: 09/14/2018 PRIMARY INTEGRATION CONSULTANT: Michele Fernandes MD SUBJECTIVE: Mr. Westfall is intubated on the ventilator. He is resting comfortably. He opens his eyes, looks around with stimulation. OBJECTIVE: VITAL SIGNS: Blood pressure 172/70, pulse is 90 and it is sinus on the monitor. LUNGS: Clear. CARDIAC: Normal S1. Normal S2. ABDOMEN: Soft. Mildly distended. EXTREMITIES: Warm and dry. ASSESSMENT: 1. Status post peritonitis. 2. Renal failure. Creatinine is 7.76. 3. Recent septic shock. 4. Mild left ventricular dysfunction. PLAN: Continue current medical regimen. Medical therapy for coronary artery disease is the only really appropriate therapy, looks like the patient will likely need the hemodialysis. Job ID: [id number]
[2018-09-14] MEDS: Micafungin 100 MG in Sodium Chloride 0.9% 100 ML IVPB SCH (08:34)
[2018-09-14] MEDS: Aspirin 81 mg Enteric Coated Tablet PO SCH (08:35)
[2018-09-14] MEDS: Metoprolol Tartrate 50 MG TAB PER TUBE SCH ×2 (08:35→21:59)
[2018-09-14] MEDS: Famotidine/PF 20 mg/2ml Vial SLOW IVP SCH (08:35)
[2018-09-14] MEDS ORDERED: Labetalol HCl 100 MG/20 ML VIAL SLOW IVP PRN (11:06)
--- NOTE | 2018-09-14 11:29 | PRG ---
DATE OF SERVICE: 09/14/2018 SUBJECTIVE: Mr. Westfall is a 63-year-old man, who is postoperative day #8 status post exploratory laparotomy, left colectomy, abdominal washout for fecal peritonitis, and postop day #7 status post second-look laparotomy with partial colectomy, and end-colostomy. He is awake and alert this morning. He reports adequate pain control. He is tolerating tube feeds and having good ostomy output. Urinary output remains adequate on furosemide drip at 1 mg/hour. He is hypertensive. OBJECTIVE: VITAL SIGNS: This morning include blood pressure 160/73, pulse 79, respiratory rate is 18, maximum temperature in last 24 hours is 98.8 degrees Fahrenheit, and oxygen saturation is 98% on 2 L by nasal cannula oxygen. HEENT: Pupils are equal, round, and reactive to light and accommodation. NECK: He has no jugular venous distention noted. HEART: Reveals regular rate and rhythm. No murmurs or gallops auscultated. LUNGS: Clear to auscultation bilaterally. Breathing, regular and nonlabored. ABDOMEN: Soft and nondistended. He has about a liter of gastric output over the last 24 hours, which was bile tinged. Colostomy is viable and functional with liquid stool and some gas. EXTREMITIES: Reveal 2+ radial and pedal pulses bilaterally. He has less bilateral ankle edema present today. NEUROLOGIC: Reveals no focal deficits present. LABORATORY FINDINGS: Today include a CBC with 16,700 white blood cells, hemoglobin and hematocrit are 10.1 and 31.7 respectively. Platelet count is stable at 167,000. Metabolic profile; sodium 146, potassium is 3.1, chloride is 107, bicarb is 26, BUN 134, creatinine resolving at 7.76, and blood glucose is 265. Magnesium is 2.2, phosphorus is 4.4. IMPRESSIONS: 1. Postoperative day #8 and #9, status post multiple exploratory laparotomies. 2. Fecal peritonitis, resolving. 3. Acute nonoliguric renal failure, resolving. 4. Acute hypokalemia. PLAN: 1. Correct abnormal electrolytes. 2. Optimize glucose control for the acute hyperglycemia. 3. Increase tube feeds to goal and discontinue TPN at this time. 4. Increase activity per Physical and Occupational Therapy. 5. The patient is certainly stable for transfer to a step-down unit. Job ID: [id number]
[2018-09-14] MEDS: cloNIDine 0.1 MG TAB PO PRN (13:22)
[2018-09-14] MEDS: Insulin Regular 300 UNITS/3 ML VIAL SC PRN ×2 (13:59→18:58)
[2018-09-14] MEDS: hydrALAZINE 20 MG/ML VIAL SLOW IVP PRN ×2 (14:10→23:46)
--- NOTE | 2018-09-14 15:12 | RAD ---
Chest AP view INDICATION: Chest pain COMPARISON: September 11, 2018 FINDINGS: Lungs:Perihilar opacities have improved. Left infrahilar airspace opacity remains. Small bilateral pl eural effusions are stable. Chronic lung changes are stable. Cardiac silhouette pulmonary vasculature:Moderate cardiomegaly persists. Mild pulmonary vascular domitila estion persists Pleural spaces:Small bilateral pleural effusions persist Upper abdomen:No abnormality seen. Osseous structures: No acute osseous abnormality. Additional findings:Stable tubes and lines. IMPRESSION: Improved perihilar opacities may reflect improving edema or pneumonia. There is some resi dual mild left infrahilar opacity remain which may reflect residual edema, pneumonia or atelectasis. Continued follow-up is recommended. Stable small bilateral pleural effusions, mild cardiomegaly and pulmonary vascular congestion. Stable tubes and lines.
[2018-09-14 15:42] LABS: Actual Bicarbonate (HCO3a) 27.3 mEq/L (22-28); Base Excess (BEa) 3.8 mEq/L (-2.0 to +3.0); CO2 Tension 37.3 mmHg (35.0-45.0); Calcium, Ionized 1.13 mmol/L (1.12-1.30); Carboxyhemoglobin (COHb) 1.2 gm% (0.0-3.0); Hemoglobin (Hb) 10.3 g/dL (14.0-18.0); O2 Tension (PaO2) 63.4 mmHg (> 80.0); Potassium - ABG Lab 2.93 mmol/L (3.70-5.30); pH, Arterial 7.48 (7.35-7.45)
[2018-09-14 15:45] LABS: Anion Gap 17 mmol/L (10-20); BUN (Urea Nitrogen) Greater than 125 mg/dL (8.4-25.7); Calc. Creatinine Clearance 13 mL/min (70-130); Calcium 8.7 mg/dL (7.8-10.44); Carbon Dioxide 28 mmol/L (23-31); Chloride 110 mmol/L (98-107); Estimated GFR-MDRD 7; Glucose 255 mg/dL (80-115); Magnesium 2.4 mg/dL (1.6-2.6); Phosphorus 2.9 mg/dL (2.3-4.7); Sodium 152 mmol/L (136-145)
[2018-09-14 15:46] LABS: Troponin I 0.063 ng/mL (< 0.028)
[2018-09-14 15:48] LABS: Band 4 % (5-11); Hemoglobin 10.4 g/dL (14.0-18.0); Lymphocytes 2 % (21-51); MDiff Complete? YES; Mean Corpuscular HGB CONC 33.1 g/dL (32.0-36.0); Mean Corpuscular Hemoglobin 31.2 pg (27.0-31.0); Mean Corpuscular Volume 94.2 fL (78.0-98.0); Mean Platelet Volume 9.5 fL (7.4-10.4); Monocytes 2 % (0-10); Neutrophil 91 % (42-75); Platelet Count 170 thou/uL (130-400); Platelet Morphology Comment Appears Adequate; RBC Distribution Width 12.5 % (11.5-14.5); Reactive Lymphocytes 1 % (0-10); Red Blood Cell (RBC) Count 3.32 mill/uL (4.70-6.10); White Blood Cell (WBC) Count 18.1 thou/uL (4.8-10.8)
[2018-09-14 16:01] LABS: ALV-art Gradient 89.615 (0-20); Puncture Site LRA
[2018-09-14] MEDS ORDERED: Metolazone 5 MG TAB PO SCH (16:30)
[2018-09-14] MEDS ORDERED: Dextrose 5% in Water 1,000 ML IV SCH (19:15)
--- NOTE | 2018-09-14 20:11 | PRG ---
DATE OF SERVICE: 09/14/2018 SUBJECTIVE: The patient is seen and examined, already extubated with the following vital signs. OBJECTIVE: VITAL SIGNS: Blood pressure 153/65, pulse 71, and O2 saturations are 97%. HEENT: Unremarkable. CARDIOVASCULAR SYSTEM: First and second heart sounds were heard. RESPIRATORY SYSTEM: Revealed diminished breath sounds. DIGESTIVE SYSTEM: Revealed a positive bowel sounds. EXTREMITIES: Showed some peripheral edema. SKIN: No new gross rash. LYMPHATICS: No peripheral lymphadenopathy. LABORATORY INVESTIGATION: Significant for sodium of 152, potassium of 3.0, chloride 110, BUN of greater than 125, creatinine of 7.43. BNP 1541. IMPRESSION: 1. Acute tubular necrosis, nonoliguric. 2. Profound azotemia related to problem #1. 3. Hypernatremia due to free water deficit. 4. Hypokalemia. PLAN: 1. Replete potassium. 2. Increase free water repletion. 3. Renally dose all medications and avoid potentially nephrotoxic agents. 4. No emergent indication at this time for renal replacement therapy unless the patient becomes profoundly azotemic/uremic. 5. Further management to be dependent on the clinical course. Job ID: [id number]
[2018-09-14] MEDS: Morphine 2 MG/ML SYRINGE SLOW IVP PRN ×2 (20:17→23:46)
[2018-09-14] MEDS ORDERED: Potassium Chloride 20 MEQ TAB PO SCH (20:30)
[2018-09-14] MEDS: Atorvastatin Calcium 20 MG TAB PO SCH (21:59)
[2018-09-14] MEDS: Enoxaparin Sodium 30 MG/0.3 ML SYRINGE SC SCH (21:59)
[2018-09-14] MEDS: POTASSIUM CHLORIDE IV SCH (22:18)
[2018-09-14] MEDS: CALCIUM GLUCONATE IV SCH (22:18)
[2018-09-14] MEDS: [UNRECOGNIZED DRUG - OTHER] IV SCH (22:18)
--- NOTE | 2018-09-14 23:28 | PDOC.PN ---
- Subjective Encounter Start Date: 09/14/18 Encounter Start Time: 11:00 Patient seen and examined for Sepsis. Tolerating TF. TPN to be dced today. On Lasix drip. No new complaints. No overnight events - Objective MAR Reviewed: Yes Vital Signs & Weight: Vital Signs (12 hours) Temp Pulse Resp BP Pulse Ox 09/14/18 19:13 63 98 09/14/18 19:11 98 09/14/18 18:00 14 09/14/18 16:00 98.7 F 09/14/18 15:22 71 09/14/18 14:58 78 28 H 98 09/14/18 14:10 201/86 H 09/14/18 13:22 191/82 H 09/14/18 12:00 98.7 F Weight Admit Weight 186 lb 14.4 oz Weight 200 lb Most Recent Monitor Data Heart Rate from ECG 64 NIBP 180/73 NIBP BP-Mean 108 Respiration from ECG 10 SpO2 97 I&O: 09/13/18 09/14/18 09/15/18 06:59 06:59 06:59 Intake Total 2908.1 2593.9 1950.8 Output Total 5315 3970 1865 Balance -2406.9 -1376.1 85.8 Result Diagrams: 09/15/18 04:30 09/15/18 04:30 Additional Labs: Accuchecks 09/14/18 09/14/18 18:57 13:57 POC Glucose 196 H 268 H EKG Reviewed by me: Yes (Tele SR) Phys Exam - Physical Examination Constitutional: NAD Respiratory: no wheezing, no rhonchi Cardiovascular: RRR, no rub Gastrointestinal: soft, non-tender, positive bowel sounds Neurological: moves all 4 limbs Dx/Plan - Plan DVT proph w/SCDs IMPRESSION: Severe Sepsis with acute organ dysfunction/Septic shock due to Complicated Sigmoid diverticulitis with perforation/Peritonitis s/p Exp Lap with left colectomy EMILY - slowly improving Hypotension requiring pressors Acute respiratory failure requiring mechanical ventilation Toxic Metabolic Encephalopathy CAD Acute on Chronic diastolic HF/Mild LV dysfunction/Volume overload - on Lasix drip Mod-Sev AR/Mild Electrolyte abn HTN Obesity BMI 32 Syncope on admission s/p Cath and Linq recorder PLAN: Add Labetalol PRN Cont Metoprolol Potassium replaced Cont Zosyn Cont supportive care TPN to be dced today AM labs Cont current meds as below DVT/GI prophylaxis Review of Systems - Review of Systems Other: Cannot be reliably obtained due to confusion - Medications/Allergies Allergies/Adverse Reactions: Allergies Allergy/AdvReac Type Severity Reaction Status Date / Time No Known Drug Allergies Allergy Verified 08/29/18 13:32 Medications: Current Medications Acetaminophen (Tylenol Elixir) 1,000 mg PO Q6HR [facility] Last Admin: 09/14/18 19:04 Dose: 1,000 mg Albuterol/Ipratropium (Duoneb) 3 ml NEB [id number] PRN PRN Reason: SOB &/or Wheezing Albuterol/Ipratropium (Duoneb) 3 ml NEB [id number] [facility] Last Admin: 09/14/18 19:11 Dose: 3 ml Aspirin (Ecotrin) 81 mg PO DAILY [facility] Last Admin: 09/14/18 08:35 Dose: 81 mg Atorvastatin Calcium (Lipitor) 20 mg PO HS [facility] Last Admin: 09/14/18 21:59 Dose: 20 mg Clonidine (Catapres) 0.1 mg PO Q4H PRN PRN Reason: SBP Greater Than 180 Last Admin: 09/14/18 13:22 Dose: 0.1 mg Dextrose/Water (Dextrose 50%) 25 gm SLOW IVP PRN PRN PRN Reason: Hypoglycemia Enoxaparin Sodium (Lovenox) 30 mg SC 2100 [facility] Last Admin: 09/14/18 21:59 Dose: 30 mg Famotidine (Pepcid) 20 mg SLOW IVP QAM [facility] Last Admin: 09/14/18 08:35 Dose: 20 mg Glucagon (Glucagon) 1 mg IM PRN PRN PRN Reason: Hypoglycemia Hydralazine HCl (Apresoline) 10 mg SLOW IVP Q6H PRN PRN Reason: SBP Greater Than 170 Last Admin: 09/14/18 14:10 Dose: 10 mg Piperacillin Sod/Tazobactam (Sod 2.25 gm/ Sodium Chloride) 100 mls @ 200 mls/ hr IVPB Q6HR [facility] Last Admin: 09/14/18 18:57 Dose: 100 mls Furosemide 100 mg/Miscellaneous Medication 1 each/ Sodium Chloride 100 mls @ 1 mls/hr IVPB INF [facility] Last Admin: 09/13/18 21:33 Dose: 100 mls Potassium Chloride 20 meq/Calcium Gluconate 10 meq/Magnesium Sulfate 10 meq/ Multivitamins 10 ml/ Chromium/Copper/Manganese/Seleni/Zn 5 ml/ Dextrose/Water/ Sterile Water/ Amino Acids 1,074.1 mls @ 44.758 mls/hr IV 2200 [facility] Last Admin: 09/14/18 22:18 Dose: Not Given Micafungin Sodium 100 mg/ (Sodium Chloride) 100 mls @ 100 mls/hr IVPB 0900 [facility] Last Admin: 09/14/18 08:34 Dose: 100 mls Dextrose/Water (D5w) 1,000 mls @ 0 mls/hr IV .Q0M PRN PRN Reason: Hypoglycemia Insulin Human Regular (Humulin R) 0 units SC .MILD SLIDING SCALE PRN PRN Reason: Mild Correctional Scale Last Admin: 09/14/18 18:58 Dose: 2 unit Labetalol HCl (Normodyne) 10 mg SLOW IVP Q4H PRN PRN Reason: Systolic BP > 180 Metoprolol Tartrate (Lopressor) 50 mg PER TUBE BID [facility] Last Admin: 09/14/18 21:59 Dose: 50 mg Mometasone Furoate/Formoterol Fumar (Dulera 200 Mcg/5 Mcg Inhaler) 2 puff INH BID-RT [facility] Last Admin: 09/14/18 19:13 Dose: 2 puff Morphine Sulfate (Morphine) 2 mg SLOW IVP Q2H PRN PRN Reason: BREAKTHROUGH PAIN/Agitation Stop: 10/06/18 18:36 Last Admin: 09/14/18 20:17 Dose: 2 mg Nitroglycerin (Nitrostat) 0.4 mg SL Q5MIN PRN PRN Reason: Chest Pain Last Admin: 08/31/18 15:33 Dose: 0.4 mg Ondansetron HCl (Zofran) 4 mg IVP Q4H PRN PRN Reason: Nausea/Vomiting Last Admin: 09/13/18 09:39 Dose: 4 mg Potassium Chloride (Klor-Con) 40 meq PO 2200 [facility] Stop: 09/14/18 23:59 Last Admin: 09/14/18 21:56 Dose: 40 meq Sodium Chloride (Flush - Normal Saline) 10 ml IVF Q12HR [facility] Last Admin: 09/14/18 21:58 Dose: 10 ml Sodium Chloride (Flush - Normal Saline) 10 ml IVF PRN PRN PRN Reason: Saline Flush Tramadol HCl (Ultram) 50 mg PO Q8HR [facility] Last Admin: 09/14/18 21:58 Dose: 50 mg
[2018-09-15 05:17] LABS: Anion Gap 18 mmol/L (10-20); Calc. Creatinine Clearance 13 mL/min (70-130); Calcium 8.8 mg/dL (7.8-10.44); Carbon Dioxide 29 mmol/L (23-31); Chloride 112 mmol/L (98-107); Estimated GFR-MDRD 8; Glucose 103 mg/dL (80-115); Magnesium 2.3 mg/dL (1.6-2.6); Potassium 3.3 mmol/L (3.5-5.1); Sodium 156 mmol/L (136-145)
[2018-09-15 05:19] LABS: Troponin I 0.072 ng/mL (< 0.028)
[2018-09-15 05:21] LABS: Band 8 % (5-11); Eosinophils 2 % (0-10); Hemoglobin 9.5 g/dL (14.0-18.0); Large Platelets SLIGHT; Lymphocytes 4 % (21-51); MDiff Complete? YES; Mean Corpuscular HGB CONC 33.1 g/dL (32.0-36.0); Mean Corpuscular Hemoglobin 31.2 pg (27.0-31.0); Mean Corpuscular Volume 94.5 fL (78.0-98.0); Mean Platelet Volume 10.1 fL (7.4-10.4); Monocytes 2 % (0-10); Neutrophil 84 % (42-75); Platelet Count 176 thou/uL (130-400); Platelet Morphology Comment Appears Adequate; RBC Distribution Width 12.4 % (11.5-14.5); Red Blood Cell (RBC) Count 3.05 mill/uL (4.70-6.10); White Blood Cell (WBC) Count 18.3 thou/uL (4.8-10.8)
[2018-09-15 05:28] LABS: BUN (Urea Nitrogen) 125 mg/dL (8.4-25.7)
[2018-09-15] MEDS: Piperacillin/Tazobactam 2.25 GM in Sodium Chloride 0.9% 100 ML IVPB SCH ×4 (05:56→23:38)
[2018-09-15] MEDS: traMADol HCl 50 MG TAB PO SCH ×3 (05:56→21:23)
[2018-09-15] MEDS: Acetaminophen 650 MG/20.3 ML UDCUP PO SCH ×4 (05:56→23:38)
[2018-09-15 06:46] LABS: Actual Bicarbonate (HCO3a) 25.9 mEq/L (22-28); Base Excess (BEa) 1.9 mEq/L (-2.0 to +3.0); CO2 Tension 38.1 mmHg (35.0-45.0); Calcium, Ionized 1.16 mmol/L (1.12-1.30); Carboxyhemoglobin (COHb) 1.5 gm% (0.0-3.0); Hemoglobin (Hb) 9.8 g/dL (14.0-18.0); O2 Tension (PaO2) 84.7 mmHg (> 80.0); Potassium - ABG Lab 3.12 mmol/L (3.70-5.30); pH, Arterial 7.45 (7.35-7.45)
[2018-09-15 06:47] LABS: Puncture Site LRA
[2018-09-15 06:48] LABS: ALV-art Gradient 95.835 (0-20)
[2018-09-15] MEDS: Mometasone/Formoterol 120 PUFF INHALER INH SCH ×2 (07:28→19:01)
[2018-09-15] MEDS: Famotidine/PF 20 mg/2ml Vial SLOW IVP SCH (08:23)
[2018-09-15] MEDS: Aspirin 81 mg Enteric Coated Tablet PO SCH (08:23)
[2018-09-15] MEDS: Metoprolol Tartrate 50 MG TAB PER TUBE SCH ×2 (08:23→21:23)
[2018-09-15] MEDS: Micafungin 100 MG in Sodium Chloride 0.9% 100 ML IVPB SCH (08:23)
[2018-09-15] MEDS ORDERED: POTASSIUM PHOSPHATE IVPB SCH (08:30)
[2018-09-15] MEDS ORDERED: SODIUM CHLORIDE 0.9% IVPB SCH (08:30)
--- NOTE | 2018-09-15 08:44 | RAD ---
CHEST 1 VIEW: Date: 09/15/18 INDICATION: History of post extubation respiratory distress. COMPARISON: Prior exam dated 09/14/18. FINDINGS: There is persistent cardiomegaly. Small left pleural effusion persists. Right lung is clear. No pneum othorax is evident. Gastric catheter, feeding tube, and left-sided subclavian central venous catheter are stable. No pneumothorax is demonstrated. Loop recorder is stable. IMPRESSION: Stable exam. POS: BH
[2018-09-15] MEDS: hydrALAZINE 20 MG/ML VIAL SLOW IVP PRN (09:15)
[2018-09-15] MEDS: Pancrelipase DR 12000 1 CAP FS PRN ×2 (09:22→11:53)
[2018-09-15] MEDS: Sodium Bicarbonate Tab 325 MG TAB PER TUBE PRN ×2 (09:22→11:53)
[2018-09-15] MEDS: cloNIDine 0.1 MG TAB PO PRN ×2 (11:55→23:41)
--- NOTE | 2018-09-15 13:44 | EKG ---
Test Reason : Blood Pressure : / mmHG Vent. Rate : 072 BPM Atrial Rate : 072 BPM P-R Int : 106 ms QRS Dur : 100 ms QT Int : 434 ms P-R-T Axes : -12 043 -32 degrees QTc Int : 475 ms Sinus rhythm with short TX with frequent Premature ventricular complexes Moderate voltage criteria for LVH, may be normal variant T wave abnormality, consider inferior ischemia Abnormal ECG When compared with ECG of 31-AUG-2018 15:41, Sinus rhythm has replaced Ectopic atrial rhythm T wave inversion now evident in Inferior leads T wave inversion no longer evident in Lateral leads Confirmed by DR. Kris MANDEL ([id number]) on 09/15/2018 1:44:50 PM Referred By: Raghav SANTIAGO Confirmed By:DR. Kris MANDEL
--- NOTE | 2018-09-15 15:29 | PRG ---
DATE OF SERVICE: 09/15/2018 SUBJECTIVE: The patient was seen this morning. He is postoperative day 9 status post ex lap, left colectomy, abdominal washout for fecal peritonitis, and postop day #8 status post second-look laparotomy with partial colectomy and end colostomy. He is awake and alert this morning. He is more alert today than he was yesterday. He reports good pain control. Nursing reports Dobbhoff was clogged overnight. He is still on Lasix drip at 1 mg an hour with good urinary output. Continues with intermittent hypertension. OBJECTIVE: VITAL SIGNS: Temperature 98.7, pulse 53, respirations 13, oxygen 96% on room air, blood pressure 168/77. GENERAL: Deconditioned elderly male, lying in bed with no signs of acute distress. NEURO: GCS is 14, -1 for confusion. Pupils equal, round, reactive to light bilaterally. PULMONARY: Equal chest rise and fall. Clear breath sounds bilaterally. No signs of acute respiratory distress. CARDIAC: Regular rate and rhythm. No murmurs, gallops, or rubs. GI: Abdomen is soft, nontender, nondistended. Colostomy is visible and functioning with liquid stool and gas. Midline abdominal wound is clean, dry, and intact with curly in place. No signs of infection. EXTREMITIES: 2+ pulses in all extremities. Significantly decreased lower extremity edema today. LABORATORY FINDINGS: White count 18.3, hemoglobin 9.5, hematocrit 28.9, platelets 167. Sodium 156, potassium 3.3, chloride 112, carbon dioxide 29, BUN 125, creatinine 7.10, glucose 103, phos 3.0, potassium 2.3. BNP 1225. DIAGNOSTIC FINDINGS: Chest x-ray completed this morning demonstrates stable exam. IMPRESSION: 1. Postop day 9 and 10, status post multiple exploratory laparotomies. 2. Fecal peritonitis, resolving. 3. Acute renal failure, improving. 4. Acute hypokalemia. 5. Acute hypernatremia. PLAN: The patient will be transferred over to the [facility]. The patient did require BiPAP yesterday for some acute respiratory distress. We will give the patient Zaroxolyn again this evening 2.5 mg once. Continue Lasix drip. We will start the patient on a clear liquid diet. TPN and tube feeds have been held. We will increase his activity with physical and occupational therapy. The patient was seen and examined by myself and Dr. Mcduffie this morning during rounds. Job ID: [id number]
[2018-09-15] MEDS ORDERED: Metolazone 2.5 MG TAB PO SCH (19:00)
[2018-09-15] MEDS: Enoxaparin Sodium 30 MG/0.3 ML SYRINGE SC SCH (21:22)
[2018-09-15] MEDS: Atorvastatin Calcium 20 MG TAB PO SCH (21:23)
[2018-09-15] MEDS: [UNRECOGNIZED DRUG - OTHER] IV SCH (21:24)
[2018-09-15] MEDS: CALCIUM GLUCONATE IV SCH (21:24)
[2018-09-15] MEDS: POTASSIUM CHLORIDE IV SCH (21:24)
--- NOTE | 2018-09-15 22:57 | PDOC.PN ---
- Subjective Encounter Start Date: 09/15/18 Encounter Start Time: 11:15 Patient seen and examined for Sepsis. No new complaints. No overnight events. Off BIPAP - Objective MAR Reviewed: Yes Vital Signs & Weight: Vital Signs (12 hours) Temp Pulse Pulse Pulse Resp BP BP 09/15/18 22:28 73 18 09/15/18 20:00 97.6 F 09/15/18 19:01 78 29 H 09/15/18 16:04 97.2 F L 09/15/18 14:54 98.6 F 09/15/18 14:50 60 197/80 H 09/15/18 14:43 60 22 H 09/15/18 14:10 69 67 188/88 H 09/15/18 11:55 181/97 H 09/15/18 11:00 98.4 F BP Pulse Ox Pulse Ox Pulse Ox 09/15/18 22:28 97 09/15/18 20:00 94 L 09/15/18 19:01 96 09/15/18 16:04 09/15/18 14:54 09/15/18 14:50 09/15/18 14:43 97 09/15/18 14:10 183/85 H 96 95 09/15/18 11:55 09/15/18 11:00 Weight Admit Weight 186 lb 14.4 oz Weight 192 lb 7.417 oz Most Recent Monitor Data Heart Rate from ECG 71 NIBP 166/81 NIBP BP-Mean 109 Respiration from ECG 21 SpO2 95 I&O: 09/14/18 09/15/18 09/16/18 06:59 06:59 06:59 Intake Total 2593.9 2997.8 454.1 Output Total 3970 3845 1620 Balance -1376.1 -847.2 -1165.9 Result Diagrams: 09/15/18 04:30 09/15/18 04:30 Additional Labs: Accuchecks 09/15/18 09/14/18 18:12 23:48 POC Glucose 113 H 135 H EKG Reviewed by me: Yes (Tele SR) Phys Exam - Physical Examination Constitutional: NAD Respiratory: no wheezing, no rhonchi dec AE at bases Cardiovascular: RRR, no rub Gastrointestinal: soft, positive bowel sounds Musculoskeletal: no edema Dx/Plan - Plan DVT proph w/SCDs IMPRESSION: Severe Sepsis with acute organ dysfunction/Septic shock due to Complicated Sigmoid diverticulitis with perforation/Peritonitis s/p Exp Lap with left colectomy EMILY - slowly improving Hypotension requiring pressors Acute respiratory failure requiring mechanical ventilation/NIPPV Toxic Metabolic Encephalopathy CAD Acute on Chronic diastolic HF/Mild LV dysfunction/Volume overload - on Lasix drip Mod-Sev AR/Mild Type 2 MT/demand ischemia Electrolyte abn HTN Obesity BMI 32 Syncope on admission s/p Cath and Linq recorder PLAN: On Lasix drip Cont Metoprolol Cont Zosyn Cont supportive care AM labs Cont current meds as below DVT/GI prophylaxis Review of Systems - Review of Systems Other: Cannot be obtained due to confusion - Medications/Allergies Allergies/Adverse Reactions: Allergies Allergy/AdvReac Type Severity Reaction Status Date / Time No Known Drug Allergies Allergy Verified 08/29/18 13:32 Medications: Current Medications Acetaminophen (Tylenol Elixir) 1,000 mg PO Q6HR [facility] Last Admin: 09/15/18 17:29 Dose: 1,000 mg Albuterol/Ipratropium (Duoneb) 3 ml NEB [id number] PRN PRN Reason: SOB &/or Wheezing Albuterol/Ipratropium (Duoneb) 3 ml NEB [id number] [facility] Last Admin: 09/15/18 22:28 Dose: 3 ml Lipase/Protease/Amylase ([place] [id number]) 1 cap FS .PER PROTOCOL PRN PRN Reason: TUBE OCCLUSION PROTOCOL Last Admin: 09/15/18 11:53 Dose: 1 cap Aspirin (Ecotrin) 81 mg PO DAILY [facility] Last Admin: 09/15/18 08:23 Dose: 81 mg Atorvastatin Calcium (Lipitor) 20 mg PO HS [facility] Last Admin: 09/15/18 21:23 Dose: 20 mg Clonidine (Catapres) 0.1 mg PO Q4H PRN PRN Reason: SBP Greater Than 180 Last Admin: 09/15/18 11:55 Dose: 0.1 mg Dextrose/Water (Dextrose 50%) 25 gm SLOW IVP PRN PRN PRN Reason: Hypoglycemia Enoxaparin Sodium (Lovenox) 30 mg SC 2100 [facility] Last Admin: 09/15/18 21:22 Dose: 30 mg Famotidine (Pepcid) 20 mg SLOW IVP QAM [facility] Last Admin: 09/15/18 08:23 Dose: 20 mg Glucagon (Glucagon) 1 mg IM PRN PRN PRN Reason: Hypoglycemia Hydralazine HCl (Apresoline) 10 mg SLOW IVP Q6H PRN PRN Reason: SBP Greater Than 170 Last Admin: 09/15/18 09:15 Dose: 10 mg Piperacillin Sod/Tazobactam (Sod 2.25 gm/ Sodium Chloride) 100 mls @ 200 mls/ hr IVPB Q6HR [facility] Last Admin: 09/15/18 17:29 Dose: 100 mls Furosemide 100 mg/Miscellaneous Medication 1 each/ Sodium Chloride 100 mls @ 1 mls/hr IVPB INF [facility] Last Admin: 09/13/18 21:33 Dose: 100 mls Potassium Chloride 20 meq/Calcium Gluconate 10 meq/Magnesium Sulfate 10 meq/ Multivitamins 10 ml/ Chromium/Copper/Manganese/Seleni/Zn 5 ml/ Dextrose/Water/ Sterile Water/ Amino Acids 1,074.2021 mls @ 44.758 mls/hr IV 2200 [facility] Last Admin: 09/15/18 21:24 Dose: Not Given Micafungin Sodium 100 mg/ (Sodium Chloride) 100 mls @ 100 mls/hr IVPB 0900 [facility] Last Admin: 09/15/18 08:23 Dose: 100 mls Dextrose/Water (D5w) 1,000 mls @ 0 mls/hr IV .Q0M PRN PRN Reason: Hypoglycemia Insulin Human Regular (Humulin R) 0 units SC .MILD SLIDING SCALE PRN PRN Reason: Mild Correctional Scale Last Admin: 09/14/18 18:58 Dose: 2 unit Labetalol HCl (Normodyne) 10 mg SLOW IVP Q4H PRN PRN Reason: Systolic BP > 180 Last Admin: 09/15/18 14:50 Dose: 10 mg Metolazone (Zaroxolyn) 2.5 mg PO 0830 [facility] Metoprolol Tartrate (Lopressor) 50 mg PER TUBE BID [facility] Last Admin: 09/15/18 21:23 Dose: 50 mg Mometasone Furoate/Formoterol Fumar (Dulera 200 Mcg/5 Mcg Inhaler) 2 puff INH BID-RT [facility] Last Admin: 09/15/18 19:01 Dose: 2 puff Morphine Sulfate (Morphine) 2 mg SLOW IVP Q2H PRN PRN Reason: BREAKTHROUGH PAIN/Agitation Stop: 10/06/18 18:36 Last Admin: 09/14/18 23:46 Dose: 2 mg Nitroglycerin (Nitrostat) 0.4 mg SL Q5MIN PRN PRN Reason: Chest Pain Last Admin: 08/31/18 15:33 Dose: 0.4 mg Ondansetron HCl (Zofran) 4 mg IVP Q4H PRN PRN Reason: Nausea/Vomiting Last Admin: 09/13/18 09:39 Dose: 4 mg Sodium Bicarbonate (Bicarbonate, Sodium) 650 mg PER TUBE .PER PROTOCOL PRN PRN Reason: ENTERAL TUBE OCCLUSION Last Admin: 09/15/18 11:53 Dose: 650 mg Sodium Chloride (Flush - Normal Saline) 10 ml IVF Q12HR [facility] Last Admin: 09/15/18 21:24 Dose: 10 ml Sodium Chloride (Flush - Normal Saline) 10 ml IVF PRN PRN PRN Reason: Saline Flush Tramadol HCl (Ultram) 50 mg PO Q8HR [facility] Last Admin: 09/15/18 21:23 Dose: 50 mg
[2018-09-16 05:36] LABS: Anion Gap 18 mmol/L (10-20); Calc. Creatinine Clearance 14 mL/min (70-130); Calcium 8.8 mg/dL (7.8-10.44); Carbon Dioxide 29 mmol/L (23-31); Chloride 113 mmol/L (98-107); Estimated GFR-MDRD 9; Glucose 127 mg/dL (80-115); Magnesium 2.2 mg/dL (1.6-2.6); Phosphorus 5.6 mg/dL (2.3-4.7); Potassium 3.2 mmol/L (3.5-5.1); Sodium 157 mmol/L (136-145)
[2018-09-16] MEDS: Acetaminophen 650 MG/20.3 ML UDCUP PO SCH ×4 (05:40→23:50)
[2018-09-16] MEDS: Piperacillin/Tazobactam 2.25 GM in Sodium Chloride 0.9% 100 ML IVPB SCH ×4 (05:40→23:50)
[2018-09-16] MEDS: traMADol HCl 50 MG TAB PO SCH ×3 (05:41→21:23)
[2018-09-16 05:42] LABS: BUN (Urea Nitrogen) 120 mg/dL (8.4-25.7)
[2018-09-16 05:45] LABS: Band 7 % (5-11); Eosinophils 1 % (0-10); Hemoglobin 9.7 g/dL (14.0-18.0); Large Platelets SLIGHT; Lymphocytes 3 % (21-51); MDiff Complete? YES; Mean Corpuscular HGB CONC 33.3 g/dL (32.0-36.0); Mean Corpuscular Hemoglobin 31.1 pg (27.0-31.0); Mean Corpuscular Volume 93.4 fL (78.0-98.0); Mean Platelet Volume 9.7 fL (7.4-10.4); Monocytes 5 % (0-10); Neutrophil 84 % (42-75); Platelet Count 192 thou/uL (130-400); Platelet Morphology Comment Appears Adequate; RBC Distribution Width 12.5 % (11.5-14.5); Red Blood Cell (RBC) Count 3.11 mill/uL (4.70-6.10); White Blood Cell (WBC) Count 16.1 thou/uL (4.8-10.8)
[2018-09-16] MEDS: hydrALAZINE 20 MG/ML VIAL SLOW IVP PRN ×2 (06:16→16:21)
[2018-09-16] MEDS: Mometasone/Formoterol 120 PUFF INHALER INH SCH ×2 (07:03→18:35)
[2018-09-16] MEDS: Famotidine/PF 20 mg/2ml Vial SLOW IVP SCH (08:00)
[2018-09-16] MEDS: Metoprolol Tartrate 50 MG TAB PER TUBE SCH ×2 (08:00→21:23)
[2018-09-16] MEDS: Metolazone 2.5 MG TAB PO SCH (08:00)
[2018-09-16] MEDS: Aspirin 81 mg Enteric Coated Tablet PO SCH (08:00)
[2018-09-16] MEDS ORDERED: Potassium Chloride 40 MEQ in Premix Bag 1 BAG IVPB SCH (08:15)
[2018-09-16] MEDS ORDERED: Hydrochlorothiazide 25 MG TAB PO SCH (09:00)
--- NOTE | 2018-09-16 12:40 | PRG ---
DATE OF SERVICE: 09/16/2018 SUBJECTIVE: Mr. Westfall is extubated, is confused, but he looks comfortable. OBJECTIVE: VITAL SIGNS: Pulse is 56. Most recent blood pressure 170/70. LUNGS: Clear. CARDIAC: Normal S1, normal S2. ABDOMEN: Soft and nontender. EXTREMITIES: No clubbing, cyanosis, or edema. ASSESSMENT: 1. Status post respiratory failure. 2. Confusion. PLAN: 1. He is receiving furosemide infusion. 2. Enoxaparin is being given. 3. Metolazone. 4. Metoprolol. Job ID: [id number]
[2018-09-16] MEDS: Micafungin 100 MG in Sodium Chloride 0.9% 100 ML IVPB SCH (13:02)
--- NOTE | 2018-09-16 16:16 | PRG ---
DATE OF SERVICE: 09/16/2018 SUBJECTIVE: The patient was seen this morning, sitting up in bed, appeared more alert and clear than previously, answering simple questions appropriately. Reported pain is well controlled. He has been tolerating a clear liquid diet. He had no acute events overnight. Continues on the Lasix drip, but also received Zaroxolyn overnight. Making good urine from visible in [place]. OBJECTIVE: VITAL SIGNS: Temperature 97.5, pulse 100, respirations 22, oxygen saturation 93% on nasal cannula, and blood pressure 166/67. GENERAL: Deconditioned elderly male, lying in bed with no signs of acute distress. NEUROLOGIC: GCS is 14, -1 for confusion. HEENT: Pupils equal, round, and reactive to light bilaterally. PULMONARY: Equal chest rise and fall. Clear breath sounds bilaterally. No signs of acute respiratory distress. CARDIAC: Regular rate and rhythm. No murmurs, gallops, or rubs. GI: Abdomen is soft, nontender, and nondistended. Colostomy is visible and functioning with liquid stool and gas. Midline abdominal wound is clean, dry, and intact with curly in place. No signs of infection. EXTREMITIES: 2+ pulses in all extremities. Significantly decrease in lower extremity edema. LABORATORY DATA: White count 16.1, hemoglobin 9.7, hematocrit 29.0, and platelets 192. Sodium 157, potassium 3.2, chloride 113, carbon dioxide 29, BUN 120, creatinine 6.6, glucose 127, phosphorus 5.6, and magnesium 2.2. DIAGNOSTIC FINDINGS: There are no new diagnostic findings to report. ASSESSMENT: 1. Postop day 10 and 11, status post multiple exploratory laparotomies. 2. Fecal peritonitis, resolving. 3. Acute respiratory failure, improved. 4. Hypokalemia. PLAN: The patient will continue to stay in the [facility]. We will discontinue IV Lasix and Zaroxolyn today. Start the patient on oral hydrochlorothiazide 25 mg daily for hypertension. We will advance the patient's diet to full liquid renal diet. Dobbhoff to be removed by nursing. The patient needs to be up and out of bed and into a chair for as much as possible today. He is to work with Physical and Occupational Therapy. The patient was discussed with Dr. Mcduffie this morning after rounds. Job ID: [id number]
--- NOTE | 2018-09-16 16:32 | PDOC.PN ---
- Subjective Encounter Start Date: 09/16/18 Encounter Start Time: 10:00 Pt seen for followup re: sepsis. Attempting to answer questions but saying unintelligible words, could not complete ROS. - Objective MAR Reviewed: Yes Vital Signs & Weight: Vital Signs (12 hours) Temp Pulse Resp Pulse Ox 09/16/18 16:21 66 09/16/18 15:21 97.3 F L 09/16/18 15:00 66 20 93 L 09/16/18 11:26 97.9 F 09/16/18 10:48 56 L 18 99 09/16/18 07:16 97.5 F L 09/16/18 07:02 99 09/16/18 07:00 67 15 99 09/16/18 06:16 58 L Weight Admit Weight 186 lb 14.4 oz Weight 184 lb 11.958 oz Most Recent Monitor Data Heart Rate from ECG 60 NIBP 162/77 NIBP BP-Mean 105 Respiration from ECG 16 SpO2 97 I&O: 09/15/18 09/16/18 09/17/18 06:59 06:59 06:59 Intake Total 2997.8 991.1 Output Total 3845 3100 Balance -847.2 -2108.9 Result Diagrams: 09/16/18 05:00 09/16/18 05:00 Additional Labs: Accuchecks 09/16/18 09/16/18 09/15/18 10:47 05:55 23:59 POC Glucose 127 H 128 H 109 09/15/18 18:12 POC Glucose 113 H EKG Reviewed by me: Yes (Tele: NSR) Phys Exam - Physical Examination Constitutional: NAD HEENT: moist MMs Neck: supple Respiratory: clear to auscultation bilateral Cardiovascular: RRR Gastrointestinal: soft L ostomy; midline curly Neurological: moves all 4 limbs Deviation from normal: Unable to assess Dx/Plan (1) Sepsis Code(s): A41.9 - SEPSIS, UNSPECIFIED ORGANISM Status: Acute Comment: Improved (2) EMILY (acute kidney injury) Code(s): N17.9 - ACUTE KIDNEY FAILURE, UNSPECIFIED Status: Acute Comment: creatinine improved to 6.6 today, nephrology following (3) Perforated sigmoid colon Code(s): K63.1 - PERFORATION OF INTESTINE (NONTRAUMATIC) Status: Acute Comment: s/p surgery (4) Peritonitis Code(s): K65.9 - PERITONITIS, UNSPECIFIED Status: Acute Comment: s/p surgery (5) Hypertension Code(s): I10 - ESSENTIAL (PRIMARY) HYPERTENSION Status: Chronic Qualifiers: Hypertension type: essential hypertension Qualified Code(s): I10 - Essential (primary) hypertension Comment: monitor vital signs, titrate antihypertensives as needed - Plan * . Review of Systems - Medications/Allergies Allergies/Adverse Reactions: Allergies Allergy/AdvReac Type Severity Reaction Status Date / Time No Known Drug Allergies Allergy Verified 08/29/18 13:32 Medications: Current Medications Acetaminophen (Tylenol Elixir) 1,000 mg PO Q6HR [facility] Last Admin: 09/16/18 13:01 Dose: 1,000 mg Albuterol/Ipratropium (Duoneb) 3 ml NEB [id number] PRN PRN Reason: SOB &/or Wheezing Albuterol/Ipratropium (Duoneb) 3 ml NEB [id number] [facility] Last Admin: 09/16/18 15:00 Dose: 3 ml Lipase/Protease/Amylase ([place] [id number]) 1 cap FS .PER PROTOCOL PRN PRN Reason: TUBE OCCLUSION PROTOCOL Last Admin: 09/15/18 11:53 Dose: 1 cap Aspirin (Ecotrin) 81 mg PO DAILY [facility] Last Admin: 09/16/18 08:00 Dose: 81 mg Atorvastatin Calcium (Lipitor) 20 mg PO HS [facility] Last Admin: 09/15/18 21:23 Dose: 20 mg Clonidine (Catapres) 0.1 mg PO Q4H PRN PRN Reason: SBP Greater Than 180 Last Admin: 09/15/18 23:41 Dose: 0.1 mg Dextrose/Water (Dextrose 50%) 25 gm SLOW IVP PRN PRN PRN Reason: Hypoglycemia Enoxaparin Sodium (Lovenox) 30 mg SC 2100 [facility] Last Admin: 09/15/18 21:22 Dose: 30 mg Famotidine (Pepcid) 20 mg SLOW IVP QAM [facility] Last Admin: 09/16/18 08:00 Dose: 20 mg Glucagon (Glucagon) 1 mg IM PRN PRN PRN Reason: Hypoglycemia Hydralazine HCl (Apresoline) 10 mg SLOW IVP Q6H PRN PRN Reason: SBP Greater Than 170 Last Admin: 09/16/18 16:21 Dose: 10 mg Hydrochlorothiazide (Hydrochlorothiazide) 25 mg PO DAILY [facility] Last Admin: 09/16/18 13:01 Dose: 25 mg Piperacillin Sod/Tazobactam (Sod 2.25 gm/ Sodium Chloride) 100 mls @ 200 mls/ hr IVPB Q6HR [facility] Last Admin: 09/16/18 13:26 Dose: 100 mls Potassium Chloride 20 meq/Calcium Gluconate 10 meq/Magnesium Sulfate 10 meq/ Multivitamins 10 ml/ Chromium/Copper/Manganese/Seleni/Zn 5 ml/ Dextrose/Water/ Sterile Water/ Amino Acids 1,074.2021 mls @ 44.758 mls/hr IV 2200 [facility] Last Admin: 09/15/18 21:24 Dose: Not Given Micafungin Sodium 100 mg/ (Sodium Chloride) 100 mls @ 100 mls/hr IVPB 0900 [facility] Last Admin: 09/16/18 13:02 Dose: 100 mls Dextrose/Water (D5w) 1,000 mls @ 0 mls/hr IV .Q0M PRN PRN Reason: Hypoglycemia Insulin Human Regular (Humulin R) 0 units SC .MILD SLIDING SCALE PRN PRN Reason: Mild Correctional Scale Last Admin: 09/14/18 18:58 Dose: 2 unit Labetalol HCl (Normodyne) 10 mg SLOW IVP Q4H PRN PRN Reason: Systolic BP > 180 Last Admin: 09/15/18 14:50 Dose: 10 mg Metolazone (Zaroxolyn) 2.5 mg PO 0830 [facility] Last Admin: 09/16/18 08:00 Dose: 2.5 mg Metoprolol Tartrate (Lopressor) 50 mg PER TUBE BID [facility] Last Admin: 09/16/18 08:00 Dose: 50 mg Mometasone Furoate/Formoterol Fumar (Dulera 200 Mcg/5 Mcg Inhaler) 2 puff INH BID-RT [facility] Last Admin: 09/16/18 07:03 Dose: 2 puff Morphine Sulfate (Morphine) 2 mg SLOW IVP Q2H PRN PRN Reason: BREAKTHROUGH PAIN/Agitation Stop: 10/06/18 18:36 Last Admin: 09/14/18 23:46 Dose: 2 mg Nitroglycerin (Nitrostat) 0.4 mg SL Q5MIN PRN PRN Reason: Chest Pain Last Admin: 08/31/18 15:33 Dose: 0.4 mg Ondansetron HCl (Zofran) 4 mg IVP Q4H PRN PRN Reason: Nausea/Vomiting Last Admin: 09/13/18 09:39 Dose: 4 mg Sodium Bicarbonate (Bicarbonate, Sodium) 650 mg PER TUBE .PER PROTOCOL PRN PRN Reason: ENTERAL TUBE OCCLUSION Last Admin: 09/15/18 11:53 Dose: 650 mg Sodium Chloride (Flush - Normal Saline) 10 ml IVF Q12HR [facility] Last Admin: 09/16/18 08:00 Dose: 10 ml Sodium Chloride (Flush - Normal Saline) 10 ml IVF PRN PRN PRN Reason: Saline Flush Tramadol HCl (Ultram) 50 mg PO Q8HR [facility] Last Admin: 09/16/18 13:00 Dose: 50 mg
[2018-09-16] MEDS: cloNIDine 0.1 MG TAB PO PRN (17:51)
[2018-09-16] MEDS: Atorvastatin Calcium 20 MG TAB PO SCH (21:23)
[2018-09-16] MEDS: Enoxaparin Sodium 30 MG/0.3 ML SYRINGE SC SCH (21:23)
[2018-09-16] MEDS: POTASSIUM CHLORIDE IV SCH (21:24)
[2018-09-16] MEDS: CALCIUM GLUCONATE IV SCH (21:24)
[2018-09-16] MEDS: [UNRECOGNIZED DRUG - OTHER] IV SCH (21:24)
[2018-09-17 04:54] LABS: Anion Gap 20 mmol/L (10-20); BUN (Urea Nitrogen) 124 mg/dL (8.4-25.7); Calc. Creatinine Clearance 14 mL/min (70-130); Calcium 8.9 mg/dL (7.8-10.44); Carbon Dioxide 28 mmol/L (23-31); Chloride 119 mmol/L (98-107); Estimated GFR-MDRD 9; Glucose 140 mg/dL (80-115); Magnesium 2.3 mg/dL (1.6-2.6); Phosphorus 5.1 mg/dL (2.3-4.7)
[2018-09-17 04:56] LABS: Sodium 164 mmol/L (136-145)
[2018-09-17] MEDS: Acetaminophen 650 MG/20.3 ML UDCUP PO SCH ×3 (05:44→17:41)
[2018-09-17] MEDS: Piperacillin/Tazobactam 2.25 GM in Sodium Chloride 0.9% 100 ML IVPB SCH ×3 (05:45→17:42)
[2018-09-17] MEDS: traMADol HCl 50 MG TAB PO SCH ×3 (05:45→22:10)
[2018-09-17] MEDS: Mometasone/Formoterol 120 PUFF INHALER INH SCH ×2 (07:53→18:54)
[2018-09-17] MEDS: Metoprolol Tartrate 50 MG TAB PER TUBE SCH ×2 (07:54→21:21)
[2018-09-17] MEDS: Famotidine/PF 20 mg/2ml Vial SLOW IVP SCH (07:54)
[2018-09-17] MEDS: Metolazone 2.5 MG TAB PO SCH (07:55)
[2018-09-17] MEDS: Aspirin 81 mg Enteric Coated Tablet PO SCH (07:55)
[2018-09-17] MEDS: Micafungin 100 MG in Sodium Chloride 0.9% 100 ML IVPB SCH (07:59)
[2018-09-17] MEDS ORDERED: Dextrose 5% in Water 1,000 ML IV SCH (08:00)
--- NOTE | 2018-09-17 08:03 | PRG ---
DATE OF SERVICE: 09/17/2018 SUBJECTIVE: Mr. Westfall is more alert today. He knows his name. He knew also physician. He does not know, which hospital he is in, but he is more alert. OBJECTIVE: VITAL SIGNS: Blood pressure 164/59, pulse is in the 60 range. LUNGS: Clear. CARDIAC: Normal S1. Normal S2. ASSESSMENT: 1. Coronary artery disease. 2. Renal failure. Creatinine 6.3. 3. Sodium level very high at 164. PLAN: 1. He will need free water. 2. Continue current cardiac medicines. 3. We would stop hydrochlorothiazide at this time. Does not appear to be making significant amount of urine. Job ID: [id number]
[2018-09-17] MEDS: Dextrose 5% in Water 1,000 ML IV SCH ×3 (09:45→21:48)
--- NOTE | 2018-09-17 10:37 | RAD ---
ABDOMEN 1 VIEW: HISTORY: Dobbhoff tube placement. FINDINGS/IMPRESSION: There is a feeding tube with tip in the projection of the gastric fundus. POS: NBA
--- NOTE | 2018-09-17 12:23 | PRG ---
DATE OF SERVICE: 09/17/2018 SUBJECTIVE: Mr. Westfall is a 63-year-old man, who is postoperative day #10, status post second-look exploratory laparotomy with segmental colectomy and end colostomy for perforated sigmoid colon diverticulitis with profound fecal peritonitis. OBJECTIVE: GENERAL: The patient is somewhat somnolent today, but awakens to voice. Moves all extremities and follows commands. VITAL SIGNS: This morning includes blood pressure is 193/79, pulse is 71, respiratory rate is 15, temperature is 97.1 degrees Fahrenheit, oxygen saturation is 99% on 2 L by nasal cannula oxygen. Urinary output has been adequate. HEENT: Reveals pupils are equal, round, reactive to light and accommodation. He has no jugular venous distention noted. HEART: Reveals regular rate and rhythm. No murmurs or gallops auscultated. LUNGS: Clear to auscultation bilaterally. Breathing, regular and nonlabored. ABDOMEN: Soft, nontender, and nondistended. Incision is intact, clean, dry. EXTREMITIES: Reveal 2+ radial and pedal pulses bilaterally. No ankle edema is present. NEUROLOGIC: Reveals no focal deficits present. LABORATORY FINDINGS: Today includes a CBC with 16,100 white blood cells, hemoglobin and hematocrit 9.7 and 29.0 respectively. Platelet count is 192,000. Differential count as follows; 84 segmented neutrophils, 7 bands, 3 lymphocytes, and 5 monocytes. Metabolic profile; sodium is 164, potassium is 3.0, chloride is 119, bicarb is 28, BUN is 124, creatinine is 6.33, glucose is 140, magnesium is 2.7, phosphorus is 5.1. IMPRESSION: 1. Postoperative day #10, status post second-look laparotomy with segmental colectomy and end colostomy for perforated sigmoid colon diverticulitis. 2. Fecal peritonitis secondary to #1, improving. 3. Resolving acute nonoliguric renal failure secondary to sepsis. 4. Acute hypernatremia. 5. Acute hypokalemia. PLAN: 1. We will increase free water administration. 2. Correct abnormal electrolytes. 3. Increase activity per Physical and Occupational therapy. 4. PM and R to evaluate the patient for possible inpatient rehabilitation post discharge. Job ID: [id number]
--- NOTE | 2018-09-17 12:34 | RAD ---
ABDOMEN 1 VIEW: HISTORY: Dobbhoff tube placement. FINDINGS/IMPRESSION: The tip of the Dobbhoff tube is in the projection of the 2nd portion of the duodenum. The bowel gas pattern is unremarkable. Postop changes are seen in the abdomen. POS: [id number]
[2018-09-17 13:31] LABS: Sodium 162 mmol/L (136-145)
--- NOTE | 2018-09-17 13:48 | PRG ---
DATE OF SERVICE: 09/17/2018 . IMPRESSION: 1. Severe hypernatremia in the context of free water deficit. 2. Mild hypokalemia. 3. acute tubular necrosis. 4. . PLAN: of this hypernatremia free water intake. I do not believe that this patient will be degree of free water deficit, will likely be 5% dextrose within the next 24 hours as the patient seemed not to be getting much of any oral renally dose all medications and avoid potentially nephrotoxic agents. The patient's condition is . Job ID: [id number]
--- NOTE | 2018-09-17 15:41 | PDOC.PN ---
- Subjective Encounter Start Date: 09/17/18 Encounter Start Time: 10:40 Pt seen for followup re: sepsis. Pt unable to answer questions, unable to complete ROS. - Objective MAR Reviewed: Yes Vital Signs & Weight: Vital Signs (12 hours) Temp Pulse Resp Pulse Ox 09/17/18 15:24 98.6 F 09/17/18 14:41 77 24 H 96 09/17/18 11:36 97.1 F L 09/17/18 11:02 75 15 99 09/17/18 08:00 98 09/17/18 07:54 99 09/17/18 07:48 69 17 99 09/17/18 07:22 97.3 F L Weight Admit Weight 186 lb 14.4 oz Weight 181 lb 14.102 oz Most Recent Monitor Data Heart Rate from ECG 71 NIBP 214/79 NIBP BP-Mean 124 Respiration from ECG 28 SpO2 96 I&O: 09/16/18 09/17/18 09/18/18 06:59 06:59 06:59 Intake Total 991.1 760 Output Total 3100 3360 Balance -2108.9 -2600 Result Diagrams: 09/16/18 05:00 09/17/18 12:54 Additional Labs: Accuchecks 09/17/18 09/17/18 09/16/18 10:09 05:51 22:15 POC Glucose 214 H 136 H 168 H 09/16/18 16:44 POC Glucose 156 H EKG Reviewed by me: Yes (Tele; NSR) Phys Exam - Physical Examination Constitutional: NAD Dry mucosae Neck: supple Respiratory: clear to auscultation bilateral Cardiovascular: RRR Gastrointestinal: soft Neurological: moves all 4 limbs Psychiatric: normal affect Dx/Plan (1) Sepsis Code(s): A41.9 - SEPSIS, UNSPECIFIED ORGANISM Status: Acute Comment: Improved (2) EMILY (acute kidney injury) Code(s): N17.9 - ACUTE KIDNEY FAILURE, UNSPECIFIED Status: Acute Comment: creatinine improved to 6.33 today, nephrology following (3) Hypernatremia Code(s): E87.0 - HYPEROSMOLALITY AND HYPERNATREMIA Status: Acute Comment: pt started on D5W, follow sodium level (4) Hypokalemia Code(s): E87.6 - HYPOKALEMIA Status: Acute Comment: replace potassium (5) Perforated sigmoid colon Code(s): K63.1 - PERFORATION OF INTESTINE (NONTRAUMATIC) Status: Acute Comment: s/p surgery (6) Peritonitis Code(s): K65.9 - PERITONITIS, UNSPECIFIED Status: Acute Comment: s/p surgery (7) Hypertension Code(s): I10 - ESSENTIAL (PRIMARY) HYPERTENSION Status: Chronic Qualifiers: Hypertension type: essential hypertension Qualified Code(s): I10 - Essential (primary) hypertension Comment: controlled - Plan * . Review of Systems - Medications/Allergies Allergies/Adverse Reactions: Allergies Allergy/AdvReac Type Severity Reaction Status Date / Time No Known Drug Allergies Allergy Verified 08/29/18 13:32 Medications: Current Medications Acetaminophen (Tylenol Elixir) 1,000 mg PO Q6HR [facility] Last Admin: 09/17/18 14:41 Dose: 1,000 mg Albuterol/Ipratropium (Duoneb) 3 ml NEB [id number]-AT PRN PRN Reason: SOB &/or Wheezing Albuterol/Ipratropium (Duoneb) 3 ml NEB [id number] [facility] Last Admin: 09/17/18 14:41 Dose: 3 ml Lipase/Protease/Amylase ([place] [id number]) 1 cap FS .PER PROTOCOL PRN PRN Reason: TUBE OCCLUSION PROTOCOL Last Admin: 09/15/18 11:53 Dose: 1 cap Aspirin (Ecotrin) 81 mg PO DAILY [facility] Last Admin: 09/17/18 07:55 Dose: 81 mg Atorvastatin Calcium (Lipitor) 20 mg PO HS [facility] Last Admin: 09/16/18 21:23 Dose: 20 mg Clonidine (Catapres) 0.1 mg PO Q4H PRN PRN Reason: SBP Greater Than 180 Last Admin: 09/16/18 17:51 Dose: 0.1 mg Dextrose/Water (Dextrose 50%) 25 gm SLOW IVP PRN PRN PRN Reason: Hypoglycemia Enoxaparin Sodium (Lovenox) 30 mg SC 2100 [facility] Last Admin: 09/16/18 21:23 Dose: 30 mg Famotidine (Pepcid) 20 mg SLOW IVP QAM [facility] Last Admin: 09/17/18 07:54 Dose: 20 mg Glucagon (Glucagon) 1 mg IM PRN PRN PRN Reason: Hypoglycemia Hydralazine HCl (Apresoline) 10 mg SLOW IVP Q6H PRN PRN Reason: SBP Greater Than 170 Last Admin: 09/17/18 00:00 Dose: 10 mg Piperacillin Sod/Tazobactam (Sod 2.25 gm/ Sodium Chloride) 100 mls @ 200 mls/ hr IVPB Q6HR [facility] Last Admin: 09/17/18 12:40 Dose: 100 mls Micafungin Sodium 100 mg/ (Sodium Chloride) 100 mls @ 100 mls/hr IVPB 0900 [facility] Last Admin: 09/17/18 07:59 Dose: 100 mls Dextrose/Water (D5w) 1,000 mls @ 0 mls/hr IV .Q0M PRN PRN Reason: Hypoglycemia Dextrose/Water (D5w) 1,000 mls @ 200 mls/hr IV .Q5H [facility] Last Admin: 09/17/18 13:30 Dose: 1,000 mls Insulin Human Regular (Humulin R) 0 units SC .MILD SLIDING SCALE PRN PRN Reason: Mild Correctional Scale Last Admin: 09/14/18 18:58 Dose: 2 unit Labetalol HCl (Normodyne) 10 mg SLOW IVP Q4H PRN PRN Reason: Systolic BP > 180 Last Admin: 09/15/18 14:50 Dose: 10 mg Metolazone (Zaroxolyn) 2.5 mg PO 0830 [facility] Last Admin: 09/17/18 07:55 Dose: 2.5 mg Metoprolol Tartrate (Lopressor) 50 mg PER TUBE BID [facility] Last Admin: 09/17/18 07:54 Dose: 50 mg Mometasone Furoate/Formoterol Fumar (Dulera 200 Mcg/5 Mcg Inhaler) 2 puff INH BID-RT [facility] Last Admin: 09/17/18 07:53 Dose: 2 puff Morphine Sulfate (Morphine) 2 mg SLOW IVP Q2H PRN PRN Reason: BREAKTHROUGH PAIN/Agitation Stop: 10/06/18 18:36 Last Admin: 09/14/18 23:46 Dose: 2 mg Nitroglycerin (Nitrostat) 0.4 mg SL Q5MIN PRN PRN Reason: Chest Pain Last Admin: 08/31/18 15:33 Dose: 0.4 mg Ondansetron HCl (Zofran) 4 mg IVP Q4H PRN PRN Reason: Nausea/Vomiting Last Admin: 09/13/18 09:39 Dose: 4 mg Sodium Bicarbonate (Bicarbonate, Sodium) 650 mg PER TUBE .PER PROTOCOL PRN PRN Reason: ENTERAL TUBE OCCLUSION Last Admin: 09/15/18 11:53 Dose: 650 mg Sodium Chloride (Flush - Normal Saline) 10 ml IVF Q12HR [facility] Last Admin: 09/17/18 08:00 Dose: 10 ml Sodium Chloride (Flush - Normal Saline) 10 ml IVF PRN PRN PRN Reason: Saline Flush Tramadol HCl (Ultram) 50 mg PO Q8HR [facility] Last Admin: 09/17/18 14:41 Dose: 50 mg
--- NOTE | 2018-09-17 19:02 | PRG ---
DATE OF SERVICE: 09/17/2018 SUBJECTIVE: The patient is seen and examined with some early signs of mental status disturbance, noted with the following vital signs. OBJECTIVE: VITAL SIGNS: Afebrile, temperature 98.6, pulse 71, respiratory rate of 27, O2 saturations of 96%. HEENT: Unremarkable. CARDIOVASCULAR: First and second heart sounds were heard. RESPIRATORY: Clear to auscultation. DIGESTIVE: Revealed a benign abdomen. EXTREMITIES: No peripheral edema. SKIN: No new gross rash. LYMPHATICS: No peripheral lymphadenopathy. LABORATORY INVESTIGATION: Significant for sodium of 164. IMPRESSION: 1. Hypernatremia in the context of free water deficit. 2. Acute tubular necrosis, nonoliguric. PLAN: 1. Increase free water repletion both parenterally and through the NG tube. 2. Discontinue all diuretics. 3. Encourage p.o. water intake. 4. Monitor the sodium level as the patient continues to get free water repletion. 5. Further management to be dependent on the clinical course. Job ID: [id number]
[2018-09-17] MEDS: Atorvastatin Calcium 20 MG TAB PO SCH (21:21)
[2018-09-17] MEDS: hydrALAZINE 20 MG/ML VIAL SLOW IVP PRN ×2 (21:21)
[2018-09-17] MEDS: Enoxaparin Sodium 30 MG/0.3 ML SYRINGE SC SCH (21:21)
[2018-09-18] MEDS: Acetaminophen 650 MG/20.3 ML UDCUP PO SCH ×5 (00:41→17:44)
[2018-09-18] MEDS: cloNIDine 0.1 MG TAB PO PRN (00:44)
[2018-09-18 05:31] LABS: Anion Gap 19 mmol/L (10-20); BUN (Urea Nitrogen) 92 mg/dL (8.4-25.7); Calc. Creatinine Clearance 18 mL/min (70-130); Calcium 8.3 mg/dL (7.8-10.44); Carbon Dioxide 26 mmol/L (23-31); Chloride 105 mmol/L (98-107); Estimated GFR-MDRD 12; Glucose 148 mg/dL (80-115); Sodium 147 mmol/L (136-145)
[2018-09-18 05:35] LABS: Potassium 2.6 mmol/L (3.5-5.1)
[2018-09-18] MEDS ORDERED: Potassium Chloride 40 MEQ in Premix Bag 1 BAG IVPB SCH (06:00)
[2018-09-18] MEDS: Dextrose 5% in Water 1,000 ML IV SCH ×2 (06:05→08:04)
[2018-09-18] MEDS: hydrALAZINE 20 MG/ML VIAL SLOW IVP PRN (06:20)
[2018-09-18] MEDS: traMADol HCl 50 MG TAB PO SCH ×2 (06:24→14:01)
[2018-09-18 07:13] LABS: Magnesium 1.6 mg/dL (1.6-2.6); Phosphorus 4.3 mg/dL (2.3-4.7)
[2018-09-18] MEDS: Mometasone/Formoterol 120 PUFF INHALER INH SCH ×2 (07:23→18:38)
--- NOTE | 2018-09-18 09:47 | PRG ---
DATE OF SERVICE: 09/18/2018 SUBJECTIVE: Mr. Westfall seems to be somewhat less alert today. REVIEW OF SYSTEMS: Not obtainable. OBJECTIVE: VITAL SIGNS: Blood pressure 150/60, pulse in the 60s. LUNGS: Clear. CARDIAC: Normal S1, normal S2. ASSESSMENT: 1. Hypertension, improved. 2. Hypernatremia, improved, come from 162 to 147. 3. What appears to be end-stage renal disease. PLAN: Continue current medical regimen. Dr. Fernandes to see the patient tomorrow. Job ID: [id number]
[2018-09-18] MEDS: Metoprolol Tartrate 50 MG TAB PER TUBE SCH ×2 (10:15→21:15)
[2018-09-18] MEDS: Micafungin 100 MG in Sodium Chloride 0.9% 100 ML IVPB SCH (10:15)
[2018-09-18] MEDS: Aspirin 81 mg Enteric Coated Tablet PO SCH (10:15)
[2018-09-18] MEDS: Famotidine/PF 20 mg/2ml Vial SLOW IVP SCH (10:16)
--- NOTE | 2018-09-18 10:58 | RAD ---
KUB: 09/10/2018 COMPARISON: 09/17/2018 HISTORY: Evaluate Dobbhoff tube placement FINDINGS: Vertically oriented cutaneous curly overlie the midline abdomen/pelvis. Supine imaging is provided, limiting assessment for free intraperitoneal air and bowel obstruction. The distal aspect of a Dobbhoff feeding tube overlies the left upper quadrant, likely in the region o f the gastric body/fundus. This has been retracted significantly since the prior examination. Recommend advancing the Dobbhoff tube prior to use. A left lower quadrant ostomy is noted. IMPRESSION: Dobbhoff tube as detailed above.
--- NOTE | 2018-09-18 13:29 | RAD ---
Frontal radiograph abdomen: 09/18/2018 COMPARISON: Prior study on 09/18/2018 HISTORY: Evaluate Dobbhoff tube FINDINGS: This study is performed at 1:11 PM on 09/18/2018. The Dobbhoff tube has been advanced since the most recent prior examination, distal tip now overlying the L1 vertebral body, likely in the region of the distal gastric body. Hazy density in the left base noted, which may represent infiltrat e or volume loss. IMPRESSION: Dobbhoff tube as above.
--- NOTE | 2018-09-18 16:43 | PRG ---
DATE OF SERVICE: SUBJECTIVE: Mr. Westfall is a 63-year-old man, who is postoperative day #11, status post second-look exploratory laparotomy, segmental colectomy with end colostomy for perforated sigmoid colon diverticulitis and extensive fecal peritonitis. The patient is recovering, although overnight has been quite impulsive, pulling out lines. This has required soft restraints. Urinary output is adequate. His colostomy has been functional with stool. OBJECTIVE: VITAL SIGNS: This morning include blood pressure 170/75, pulse 77, respiratory rate is 24, temperature is 98.8 degrees Fahrenheit, oxygen saturation is 95% on 2 L by nasal cannula oxygen. HEENT: Pupils are equal, round, reactive to light and accommodation. NECK: He has no jugular venous distention noted. HEART: Reveals regular rate and rhythm. No murmurs or gallops auscultated. LUNGS: Reveal bibasilar rhonchi. Breathing regular and nonlabored. ABDOMEN: Soft, nontender, and nondistended. Incision is intact, clean, dry. Colostomy is viable and functional with stool and gas. EXTREMITIES: Reveal 2+ radial and pedal pulses bilaterally. No ankle edema is present. NEUROLOGIC: Reveals no focal deficits present. LABORATORY FINDINGS: Today include metabolic profile; sodium 147, potassium is 2.6, chloride is 105, bicarb is 26, BUN is 92, creatinine is 4.88, glucose is 148, magnesium 1.6, and phosphorus is 4.3. IMPRESSION: 1. Postop day #11 status post second-look laparotomy with segmental colectomy and end colostomy. 2. Fecal peritonitis, improving. 3. Acute hypernatremia, resolving. 4. Acute hypokalemia. 5. Acute hypomagnesemia. 6. Acute nonoliguric renal failure, improving. 7. Acute Metabolic Encephalopathy PLAN: 1. Correct abnormal electrolytes. 2. We will replace the feeding tube to continue with enteral nutritional supplementation and free water replacement. 3. Increase activity per Physical and Occupational therapy. 4. Ask PM and R to evaluate the patient for possible inpatient rehabilitation post discharge. Total critical care time is 35 minutes. Job ID: [id number] MTDD
--- NOTE | 2018-09-18 16:43 | EKG ---
Test Reason : Blood Pressure : / mmHG Vent. Rate : 073 BPM Atrial Rate : 073 BPM P-R Int : 114 ms QRS Dur : 108 ms QT Int : 432 ms P-R-T Axes : 070 033 007 degrees QTc Int : 475 ms Normal sinus rhythm Voltage criteria for left ventricular hypertrophy Abnormal ECG When compared with ECG of 13-SEP-2018 07:32, Premature ventricular complexes are no longer Present Nonspecific T wave abnormality has replaced inverted T waves in Inferior leads T wave amplitude has decreased in Anterior leads Confirmed by DR. Kris MANDEL ([id number]) on 09/18/2018 4:42:43 PM Referred By: PAMELA Confirmed By:DR. Kris MANDEL
--- NOTE | 2018-09-18 16:47 | RAD ---
KATIEB 09/18/2018 at 4:20 PM COMPARISON: 09/18/2018 at 1:11 PM HISTORY: Evaluate Dobbhoff tube FINDINGS: The tip of the Dobbhoff tube is just to the right of midline at the L1 level, advanced slig htly since the prior exam. There is increased pleural and parenchymal opacity in the left base, nonspecific. IMPRESSION: Dobbhoff tube as above.
[2018-09-18] MEDS ORDERED: Morphine 4 MG/ML VIAL SLOW IVP PRN (17:42)
--- NOTE | 2018-09-18 18:09 | PRG ---
DATE OF SERVICE: 09/18/2018 SUBJECTIVE: The patient is seen and examined. Noted with the following vital signs. OBJECTIVE: VITAL SIGNS: Blood pressure 141/67 with temperature of a 100.5. HEENT: Unremarkable for dry oral mucosa. NECK: Supple. No conjunctival injection. No icterus. CARDIOVASCULAR: First and second heart sounds were heard. RESPIRATORY SYSTEM: Clear to auscultation. DIGESTIVE: Revealed a benign abdomen. Positive bowel sounds. LABORATORY INVESTIGATION: Showed a potassium of 2.6, sodium of 147, creatinine of 4.88, and BUN of 92. IMPRESSION: 1. Acute on chronic kidney disease in the context of acute tubular necrosis, nonoliguric. 2. Hypokalemia. 3. Hypernatremia in the context of free water deficit. PLAN: 1. The patient's dextrose water is on hold for now and the patient now dependent on only oral water intake. I am not too sure these route of water replacement will be adequate. However, we will re-evaluate the sodium level around 6:00 p.m. with very possibility of hypernatremia getting worse instead of continuing to get better. 2. Further management will be dependent on the clinical course. Job ID: [id number]
[2018-09-18 18:28] LABS: Sodium 147 mmol/L (136-145)
[2018-09-18] MEDS: Enoxaparin Sodium 30 MG/0.3 ML SYRINGE SC SCH (21:15)
[2018-09-18] MEDS: Atorvastatin Calcium 20 MG TAB PO SCH (21:15)
--- NOTE | 2018-09-18 23:22 | PDOC.PN ---
- Subjective Encounter Start Date: 09/18/18 Encounter Start Time: 18:00 Patient seen and examined for Sepsis. Pulled out feeding tube. Intermittent confusion. No overnight events - Objective MAR Reviewed: Yes Vital Signs & Weight: Vital Signs (12 hours) Temp Pulse Resp Pulse Ox 09/18/18 22:04 74 23 H 97 09/18/18 19:36 99.5 F 09/18/18 18:37 69 24 H 94 L 09/18/18 15:09 100.5 F H 09/18/18 14:36 74 25 H 93 L Weight Admit Weight 186 lb 14.4 oz Weight 181 lb 14.102 oz Most Recent Monitor Data Heart Rate from ECG 66 NIBP 157/61 NIBP BP-Mean 93 Respiration from ECG 25 SpO2 95 I&O: 09/17/18 09/18/18 09/19/18 06:59 06:59 06:59 Intake Total 760 3050 1513 Output Total 3360 2200 1295 Balance -2600 850 218 Result Diagrams: 09/16/18 05:00 09/18/18 18:03 Additional Labs: Accuchecks 09/18/18 09/18/18 09/18/18 19:57 16:27 10:13 POC Glucose 104 124 H 109 09/18/18 05:33 POC Glucose 118 H EKG Reviewed by me: Yes (Tele SR) Phys Exam - Physical Examination Constitutional: NAD Respiratory: no wheezing, no rhonchi Bibasilar rales Cardiovascular: RRR, no rub Gastrointestinal: soft, positive bowel sounds Musculoskeletal: no edema Neurological: non-focal, moves all 4 limbs Dx/Plan - Plan DVT proph w/SCDs IMPRESSION: Severe Sepsis with acute organ dysfunction/Septic shock due to Complicated Sigmoid diverticulitis with perforation/Peritonitis s/p Exp Lap with left colectomy EMILY - slowly improving Hypotension requiring pressors Acute respiratory failure requiring mechanical ventilation/NIPPV Toxic Metabolic Encephalopathy CAD Acute on Chronic diastolic HF/Mild LV dysfunction/Volume overload - s/p Lasix drip Mod-Sev AR/Mild Type 2 MD/demand ischemia Electrolyte abn HTN Obesity BMI 32 Syncope on admission s/p Cath and Linq recorder PLAN: Potassium replaced AM labs Cont current meds as below DVT/GI prophylaxis Review of Systems - Review of Systems Other: Cannot be reliably obtained due to current mentation - Medications/Allergies Allergies/Adverse Reactions: Allergies Allergy/AdvReac Type Severity Reaction Status Date / Time No Known Drug Allergies Allergy Verified 08/29/18 13:32 Medications: Current Medications Acetaminophen (Tylenol Elixir) 1,000 mg PO Q6HR [facility] Last Admin: 09/18/18 17:44 Dose: 1,000 mg Albuterol/Ipratropium (Duoneb) 3 ml NEB [id number] PRN PRN Reason: SOB &/or Wheezing Albuterol/Ipratropium (Duoneb) 3 ml NEB [id number] [facility] Last Admin: 09/18/18 22:04 Dose: 3 ml Lipase/Protease/Amylase ([place] [id number]) 1 cap FS .PER PROTOCOL PRN PRN Reason: TUBE OCCLUSION PROTOCOL Last Admin: 09/15/18 11:53 Dose: 1 cap Aspirin (Ecotrin) 81 mg PO DAILY [facility] Last Admin: 09/18/18 10:15 Dose: 81 mg Atorvastatin Calcium (Lipitor) 20 mg PO HS [facility] Last Admin: 09/18/18 21:15 Dose: 20 mg Clonidine (Catapres) 0.1 mg PO Q4H PRN PRN Reason: SBP Greater Than 180 Last Admin: 09/18/18 00:44 Dose: 0.1 mg Dextrose/Water (Dextrose 50%) 25 gm SLOW IVP PRN PRN PRN Reason: Hypoglycemia Enoxaparin Sodium (Lovenox) 30 mg SC 2100 [facility] Last Admin: 09/18/18 21:15 Dose: 30 mg Famotidine (Pepcid) 20 mg SLOW IVP QAM [facility] Last Admin: 09/18/18 10:16 Dose: 20 mg Glucagon (Glucagon) 1 mg IM PRN PRN PRN Reason: Hypoglycemia Hydralazine HCl (Apresoline) 10 mg SLOW IVP Q6H PRN PRN Reason: SBP Greater Than 170 Last Admin: 09/18/18 06:20 Dose: 10 mg Micafungin Sodium 100 mg/ (Sodium Chloride) 100 mls @ 100 mls/hr IVPB 0900 [facility] Last Admin: 09/18/18 10:15 Dose: 100 mls Dextrose/Water (D5w) 1,000 mls @ 0 mls/hr IV .Q0M PRN PRN Reason: Hypoglycemia Insulin Human Regular (Humulin R) 0 units SC .MILD SLIDING SCALE PRN PRN Reason: Mild Correctional Scale Last Admin: 09/14/18 18:58 Dose: 2 unit Labetalol HCl (Normodyne) 10 mg SLOW IVP Q4H PRN PRN Reason: Systolic BP > 180 Last Admin: 09/15/18 14:50 Dose: 10 mg Metoprolol Tartrate (Lopressor) 50 mg PER TUBE BID [facility] Last Admin: 09/18/18 21:15 Dose: 50 mg Mometasone Furoate/Formoterol Fumar (Dulera 200 Mcg/5 Mcg Inhaler) 2 puff INH BID-RT [facility] Last Admin: 09/18/18 18:38 Dose: 2 puff Morphine Sulfate (Morphine) 2 mg SLOW IVP Q4H PRN PRN Reason: Severe Pain (7-10) Nitroglycerin (Nitrostat) 0.4 mg SL Q5MIN PRN PRN Reason: Chest Pain Last Admin: 08/31/18 15:33 Dose: 0.4 mg Ondansetron HCl (Zofran) 4 mg IVP Q4H PRN PRN Reason: Nausea/Vomiting Last Admin: 09/13/18 09:39 Dose: 4 mg Sodium Bicarbonate (Bicarbonate, Sodium) 650 mg PER TUBE .PER PROTOCOL PRN PRN Reason: ENTERAL TUBE OCCLUSION Last Admin: 09/15/18 11:53 Dose: 650 mg Sodium Chloride (Flush - Normal Saline) 10 ml IVF Q12HR [facility] Last Admin: 09/18/18 21:15 Dose: 10 ml Sodium Chloride (Flush - Normal Saline) 10 ml IVF PRN PRN PRN Reason: Saline Flush
[2018-09-19] MEDS: Acetaminophen 650 MG/20.3 ML UDCUP PO SCH ×5 (00:59→17:32)
[2018-09-19 06:35] LABS: #Eosinphils 0.2 thou/uL (0.0-0.7); #Lymphocytes 1.1 thou/uL (1.20-3.40); #Monocytes 1.2 thou/uL (0.11-0.59); #Neutrophils 11.9 thou/uL (1.40-6.50); %Basophils 0.1 % (0.0-1.0); %Eosinophils 1.6 % (0.0-10.0); %Lymphocytes 7.5 % (21.0-51.0); %Neutrophils 82.9 % (42.0-75.0); Hemoglobin 9.6 g/dL (14.0-18.0); Mean Corpuscular Hemoglobin 30.6 pg (27.0-31.0); Mean Corpuscular Volume 92.9 fL (78.0-98.0); Mean Platelet Volume 9.7 fL (7.4-10.4); Platelet Count 231 thou/uL (130-400); RBC Distribution Width 12.5 % (11.5-14.5); Red Blood Cell (RBC) Count 3.15 mill/uL (4.70-6.10); White Blood Cell (WBC) Count 14.4 thou/uL (4.8-10.8)
[2018-09-19 06:52] LABS: Anion Gap 17 mmol/L (10-20); BUN (Urea Nitrogen) 76 mg/dL (8.4-25.7); Calc. Creatinine Clearance 20 mL/min (70-130); Calcium 8.2 mg/dL (7.8-10.44); Carbon Dioxide 25 mmol/L (23-31); Chloride 109 mmol/L (98-107); Estimated GFR-MDRD 14; Glucose 110 mg/dL (80-115); Magnesium 1.9 mg/dL (1.6-2.6); Sodium 148 mmol/L (136-145)
[2018-09-19 06:56] LABS: Potassium 2.5 mmol/L (3.5-5.1)
[2018-09-19] MEDS ORDERED: Potassium Chloride 40 MEQ in Premix Bag 1 BAG IVPB SCH (07:15)
[2018-09-19] MEDS ORDERED: Potassium Chloride 20 MEQ in Premix Bag 1 BAG IVPB SCH ×2 (07:15→22:00)
[2018-09-19] MEDS: Mometasone/Formoterol 120 PUFF INHALER INH SCH ×2 (07:37→18:41)
[2018-09-19] MEDS: Potassium Chloride 20 MEQ in Premix Bag 1 BAG IVPB SCH ×2 (08:21→09:17)
[2018-09-19] MEDS: Metoprolol Tartrate 50 MG TAB PER TUBE SCH ×2 (09:16→21:55)
[2018-09-19] MEDS: Micafungin 100 MG in Sodium Chloride 0.9% 100 ML IVPB SCH (09:16)
[2018-09-19] MEDS: Famotidine/PF 20 mg/2ml Vial SLOW IVP SCH (09:16)
[2018-09-19] MEDS: Aspirin 81 mg Enteric Coated Tablet PO SCH (09:16)
--- NOTE | 2018-09-19 09:34 | RAD ---
KUB: INDICATION: Dobbhoff placement. IMPRESSION: Dobbhoff feeding tube tip is seen now in the region of the junction of the 2nd and 3rd stage of the d uodenum. Bowel gas pattern is unchanged from the recent prior. POS: TPC
--- NOTE | 2018-09-19 14:45 | PRG ---
DATE OF SERVICE: 09/19/2018 SUBJECTIVE: The patient noted with the following vital signs. OBJECTIVE: VITAL SIGNS: Blood pressure 135/54, pulse 72, afebrile, temperature 98, and O2 saturation 97%. HEENT: Unremarkable. CARDIOVASCULAR SYSTEM: First and second heart sounds were heard. RESPIRATORY SYSTEM: Clear to auscultation. DIGESTIVE SYSTEM: Revealed a benign abdomen. EXTREMITIES: No peripheral edema. SKIN: No new gross rash. LYMPHATICS: No peripheral lymphadenopathy. LABORATORY INVESTIGATION: Showed hemoglobin 9.6 with a white count of 14,400. Chemistry showed a sodium of 148, potassium 2.5, BUN of 76 with a creatinine of 4.19. IMPRESSION: 1. Hyponatremia in the context of free water deficit. 2. Hypokalemia. 3. Acute tubular necrosis, nonoliguric. PLAN: 1. Replete potassium. 2. Continue free water and we will recommend increasing the free water supplementation. 3. Further management to be dependent on the clinical course. Job ID: [id number]
--- NOTE | 2018-09-19 14:48 | PRG ---
DATE OF SERVICE: 09/15/2018 SUBJECTIVE: The patient is seen and examined, hemodynamically stable. OBJECTIVE: HEENT: Unremarkable. CARDIOVASCULAR SYSTEM: Positive heart sounds were heard. RESPIRATORY: Clear to auscultation anteriorly. DIGESTIVE SYSTEM: Revealed a benign abdomen. EXTREMITIES: No peripheral edema. SKIN: No new gross rash. LYMPHATICS: No peripheral lymphadenopathy. LABORATORY INVESTIGATIONS: Showed sodium 157, potassium 3.2, BUN of 120, and creatinine of 6.6. IMPRESSION: 1. Acute tubular necrosis with profound azotemia. 2. Hypernatremia, worsening. 3. Hypokalemia. PLAN: 1. Replete potassium. 2. Free water repletion today. 3. Renal supportive measures. 4. Avoid potentially nephrotoxic agents. 5. Further management to be dependent on the clinical course. Job ID: [id number]
--- NOTE | 2018-09-19 14:58 | PRG ---
DATE OF SERVICE: 09/15/2018 SUBJECTIVE: The patient noted with the following vital signs. OBJECTIVE: VITAL SIGNS: Blood pressure 174/77, pulse of 74, respiratory rate of 21, and O2 saturation 97%. HEENT: Unremarkable. CARDIOVASCULAR: First and second heart sounds were heard. RESPIRATORY: Clear to auscultation. DIGESTIVE: Revealed a benign abdomen. EXTREMITIES: No peripheral edema. LABORATORY INVESTIGATION: Showed a hemoglobin of 9.5. Chemistry showed sodium of 152, potassium 3.0, BUN of 125, and creatinine of 7.1. IMPRESSION: 1. Dense acute tubular necrosis with azotemia. 2. Hyponatremia. 3. Hypokalemia. PLAN: 1. Free water repletion. 2. Replete potassium. 3. Continue renal supportive measures. Hopefully will be able to avoid hemodialysis. 4. Further management to be dependent on the clinical course. Job ID: [id number]
--- NOTE | 2018-09-19 16:23 | PRG ---
DATE OF SERVICE: 09/19/2018 SUBJECTIVE: Mr. Westfall is a 63-year-old man, who is postoperative day #12, status post exploratory laparotomy, segmental colectomy with end-colostomy for perforated sigmoid colon diverticulitis and fecal peritonitis. The patient is more alert today, though still impulsive and pulling on tubes. Urinary output has been adequate. OBJECTIVE: VITAL SIGNS: This morning include blood pressure 154/59, pulse is 82, respiratory rate is 20, temperature 98.1 degrees Fahrenheit, maximum temperature in last 24 hours 100.5 degrees Fahrenheit, oxygen saturation 99% on 1 L by nasal cannula oxygen. HEENT: Reveals pupils are equally round, reactive to light and accommodation. HEART: Reveals regular rate and rhythm. No murmurs or gallops auscultated. LUNGS: Clear to auscultation bilaterally. Breathing, regular and nonlabored. ABDOMEN: Soft, nontender, and nondistended. Colostomy is viable and functional with stool and gas. Incisional wound remains intact, clean, and dry. EXTREMITIES: Reveal 2+ radial and pedal pulses bilaterally. No ankle edema is present. NEUROLOGIC: Reveals no focal deficits present. LABORATORY FINDINGS: Today include a CBC with 14,400 white blood cells, hemoglobin and hematocrit are 9.6 and 29.3 respectively. Platelet count is 231,000. Metabolic profile; sodium 148, potassium is 2.5, chloride is 109, bicarb is 25, BUN 76, creatinine is 4.19, glucose is 95, magnesium is 1.9. IMPRESSION: 1. Postoperative day #12, status post exploratory laparotomy, colectomy and end-colostomy for perforated sigmoid colon diverticulitis with fecal peritonitis. 2. Resolving acute hypernatremia. 3. Acute hypokalemia. 4. Resolving acute nonoliguric renal failure. PLAN: 1. Continue with free water replacement. 2. Correct abnormal electrolytes. 3. Increase activity per Physical and Occupational Therapy. 4. We will ask PM and R to evaluate the patient for possible transfer to inpatient rehabilitation post discharge. 5. We will remove abdominal curly. Job ID: [id number]
[2018-09-19] MEDS ORDERED: HYDROcodone/Acetaminophen 10/325 mg Tablet PO PRN (17:00)
[2018-09-19] MEDS: hydrALAZINE 20 MG/ML VIAL SLOW IVP PRN (17:09)
--- NOTE | 2018-09-19 18:31 | PDOC.CTH ---
Cardiology Progress Note - Subjective He is confused. Denies chest pain. - Objective Vital Signs Temp Pulse Pulse Pulse Resp BP BP 09/19/18 17:09 77 176/70 H 09/19/18 16:00 09/19/18 15:25 99.2 F 09/19/18 15:02 68 25 H 09/19/18 11:27 98.0 F 09/19/18 10:54 75 30 H 09/19/18 09:58 74 75 148/72 H 09/19/18 08:00 09/19/18 07:38 09/19/18 07:37 98.1 F 09/19/18 07:36 82 20 BP Pulse Ox Pulse Ox Pulse Ox 09/19/18 17:09 09/19/18 16:00 96 09/19/18 15:25 09/19/18 15:02 95 09/19/18 11:27 09/19/18 10:54 93 L 09/19/18 09:58 146/63 H 88 L 99 09/19/18 08:00 97 09/19/18 07:38 99 09/19/18 07:37 09/19/18 07:36 99 Admit Weight 186 lb 14.4 oz Weight 177 lb 7.554 oz 09/18/18 09/19/18 09/20/18 06:59 06:59 06:59 Intake Total 3050 2333 Output Total 2200 2960 Balance 850 -627 - Physical Examination General/Neuro: NAD Neck: no JVD present Lungs: unlabored respirations Heart: RRR Abdomen: NT/ND Extremities: other: (no edema) - Telemetry Telemetry Rhythm: NSR, PVC's. - Labs Result Diagrams: 09/19/18 06:10 09/19/18 06:10 Troponin/CKMB CK-MB (CK-2) 16.6 ng/mL (0-6.6) H* 08/29/18 11:47 Troponin I 0.072 ng/mL (< 0.028) H 09/15/18 04:30 - Assessment/Plan 1. Peritonitis. 2. Septic shock. 3. CAD. 4. Syncope. 5. Mild LV dysfunction EF at 45% 6. Normal EP study, s/p LINQ placement. 7. EMILY, ATN likely, now improving. 8. HTN PLAN: - Occluded RCA, occluded LCx, both fill from large collaterals from LAD widely patent. - Replace K. - No new recs.
[2018-09-19 21:34] LABS: Potassium 2.7 mmol/L (3.5-5.1)
[2018-09-19] MEDS: Atorvastatin Calcium 20 MG TAB PO SCH (21:55)
[2018-09-19] MEDS: Enoxaparin Sodium 30 MG/0.3 ML SYRINGE SC SCH (21:55)
--- NOTE | 2018-09-19 23:04 | PDOC.PN ---
- Subjective Encounter Start Date: 09/19/18 Encounter Start Time: 15:00 Patient seen and examined for Sepsis/Peritonitis. Tolerating tube feeding. Mentation slightly better. No new complaints. No overnight events - Objective MAR Reviewed: Yes Vital Signs & Weight: Vital Signs (12 hours) Temp Pulse Resp BP Pulse Ox 09/19/18 22:20 90 22 H 96 09/19/18 20:01 98.1 F 09/19/18 20:00 97 09/19/18 18:43 79 27 H 99 09/19/18 17:09 77 176/70 H 09/19/18 16:00 96 09/19/18 15:25 99.2 F 09/19/18 15:02 68 25 H 95 09/19/18 11:27 98.0 F Weight Admit Weight 186 lb 14.4 oz Weight 177 lb 7.554 oz Most Recent Monitor Data Heart Rate from ECG 92 NIBP 158/62 NIBP BP-Mean 94 Respiration from ECG 22 SpO2 97 I&O: 09/18/18 09/19/18 09/20/18 06:59 06:59 06:59 Intake Total 3050 2333 1643.0 Output Total 2200 2960 1470 Balance 850 -627 173.0 Result Diagrams: 09/19/18 06:10 09/19/18 21:09 Additional Labs: Accuchecks 09/19/18 09/19/18 09/19/18 17:06 10:57 05:42 POC Glucose 72 95 104 EKG Reviewed by me: Yes (Tele SR) Phys Exam - Physical Examination Constitutional: NAD Respiratory: no wheezing, no rhonchi Dec AE at bases Cardiovascular: RRR, no rub Gastrointestinal: soft, positive bowel sounds Musculoskeletal: no edema Dx/Plan - Plan DVT proph w/lovenox, DVT proph w/SCDs IMPRESSION: Severe Sepsis with acute organ dysfunction/Septic shock due to Complicated Sigmoid diverticulitis with perforation/Peritonitis s/p Exp Lap with left colectomy EMILY - slowly improving Electrolyte abn Hypotension requiring pressors Acute respiratory failure requiring mechanical ventilation/NIPPV Toxic Metabolic Encephalopathy CAD Acute on Chronic diastolic HF/Mild LV dysfunction/Volume overload - s/p Lasix drip Mod-Sev AR/Mild Type 2 MN/demand ischemia HTN Obesity BMI 32 Syncope on admission s/p Cath and Linq recorder PLAN: Replace Potassium Cont Metoprolol Cont supportive care AM labs Cont current meds as below Review of Systems - Review of Systems Respiratory: negative: Cough, Dry, Shortness of Breath, Hemoptysis, SOB with Excertion, Pleuritic Pain, Sputum, Wheezing Cardiovascular: negative: chest pain, palpitations, orthopnea, paroxysmal nocturnal dyspnea, edema, light headedness, other - Medications/Allergies Allergies/Adverse Reactions: Allergies Allergy/AdvReac Type Severity Reaction Status Date / Time No Known Drug Allergies Allergy Verified 08/29/18 13:32 Medications: Current Medications Acetaminophen (Tylenol Elixir) 650 mg PO Q6HR [facility] Last Admin: 09/19/18 17:32 Dose: Not Given Hydrocodone Bitart/Acetaminophen ([place] 10/325) 1 tab PO Q4HR PRN PRN Reason: Pain Albuterol/Ipratropium (Duoneb) 3 ml NEB [id number] PRN PRN Reason: SOB &/or Wheezing Albuterol/Ipratropium (Duoneb) 3 ml NEB [id number] [facility] Last Admin: 09/19/18 22:20 Dose: 3 ml Lipase/Protease/Amylase ([place] [id number]) 1 cap FS .PER PROTOCOL PRN PRN Reason: TUBE OCCLUSION PROTOCOL Last Admin: 09/15/18 11:53 Dose: 1 cap Aspirin (Ecotrin) 81 mg PO DAILY [facility] Last Admin: 09/19/18 09:16 Dose: 81 mg Atorvastatin Calcium (Lipitor) 20 mg PO HS [facility] Last Admin: 09/19/18 21:55 Dose: 20 mg Clonidine (Catapres) 0.1 mg PO Q4H PRN PRN Reason: SBP Greater Than 180 Last Admin: 09/18/18 00:44 Dose: 0.1 mg Dextrose/Water (Dextrose 50%) 25 gm SLOW IVP PRN PRN PRN Reason: Hypoglycemia Enoxaparin Sodium (Lovenox) 30 mg SC 2100 [facility] Last Admin: 09/19/18 21:55 Dose: 30 mg Famotidine (Pepcid) 20 mg SLOW IVP QAM [facility] Last Admin: 09/19/18 09:16 Dose: 20 mg Glucagon (Glucagon) 1 mg IM PRN PRN PRN Reason: Hypoglycemia Hydralazine HCl (Apresoline) 10 mg SLOW IVP Q6H PRN PRN Reason: SBP Greater Than 170 Last Admin: 09/19/18 17:09 Dose: 10 mg Micafungin Sodium 100 mg/ (Sodium Chloride) 100 mls @ 100 mls/hr IVPB 0900 [facility] Last Admin: 09/19/18 09:16 Dose: 100 mls Dextrose/Water (D5w) 1,000 mls @ 0 mls/hr IV .Q0M PRN PRN Reason: Hypoglycemia Potassium Chloride 20 meq/ (Device) 100 mls @ 50 mls/hr IVPB NOW [facility] Stop: 09/19/18 23:59 Insulin Human Regular (Humulin R) 0 units SC .MILD SLIDING SCALE PRN PRN Reason: Mild Correctional Scale Last Admin: 09/14/18 18:58 Dose: 2 unit Labetalol HCl (Normodyne) 10 mg SLOW IVP Q4H PRN PRN Reason: Systolic BP > 180 Last Admin: 09/15/18 14:50 Dose: 10 mg Metoprolol Tartrate (Lopressor) 50 mg PER TUBE BID [facility] Last Admin: 09/19/18 21:55 Dose: 50 mg Mometasone Furoate/Formoterol Fumar (Dulera 200 Mcg/5 Mcg Inhaler) 2 puff INH BID-RT [facility] Last Admin: 09/19/18 18:41 Dose: 2 puff Nitroglycerin (Nitrostat) 0.4 mg SL Q5MIN PRN PRN Reason: Chest Pain Last Admin: 08/31/18 15:33 Dose: 0.4 mg Ondansetron HCl (Zofran) 4 mg IVP Q4H PRN PRN Reason: Nausea/Vomiting Last Admin: 09/13/18 09:39 Dose: 4 mg Sodium Bicarbonate (Bicarbonate, Sodium) 650 mg PER TUBE .PER PROTOCOL PRN PRN Reason: ENTERAL TUBE OCCLUSION Last Admin: 09/15/18 11:53 Dose: 650 mg Sodium Chloride (Flush - Normal Saline) 10 ml IVF Q12HR [facility] Last Admin: 09/19/18 21:56 Dose: 10 ml Sodium Chloride (Flush - Normal Saline) 10 ml IVF PRN PRN PRN Reason: Saline Flush
[2018-09-20] MEDS: Acetaminophen 650 MG/20.3 ML UDCUP PO SCH ×5 (04:45→23:33)
[2018-09-20 04:56] LABS: #Eosinphils 0.2 thou/uL (0.0-0.7); #Lymphocytes 0.8 thou/uL (1.20-3.40); #Neutrophils 11.5 thou/uL (1.40-6.50); %Basophils 0.2 % (0.0-1.0); %Eosinophils 1.3 % (0.0-10.0); %Lymphocytes 5.8 % (21.0-51.0); %Monocytes 7.5 % (0.0-10.0); %Neutrophils 85.2 % (42.0-75.0); Hemoglobin 9.5 g/dL (14.0-18.0); Mean Corpuscular HGB CONC 32.6 g/dL (32.0-36.0); Mean Corpuscular Hemoglobin 30.5 pg (27.0-31.0); Mean Corpuscular Volume 93.5 fL (78.0-98.0); Mean Platelet Volume 9.4 fL (7.4-10.4); Platelet Count 235 thou/uL (130-400); RBC Distribution Width 12.6 % (11.5-14.5); Red Blood Cell (RBC) Count 3.11 mill/uL (4.70-6.10); White Blood Cell (WBC) Count 13.5 thou/uL (4.8-10.8)
[2018-09-20 05:17] LABS: Anion Gap 14 mmol/L (10-20); BUN (Urea Nitrogen) 67 mg/dL (8.4-25.7); Calc. Creatinine Clearance 23 mL/min (70-130); Calcium 8.4 mg/dL (7.8-10.44); Carbon Dioxide 26 mmol/L (23-31); Chloride 110 mmol/L (98-107); Estimated GFR-MDRD 17; Glucose 123 mg/dL (80-115); Magnesium 2.1 mg/dL (1.6-2.6); Phosphorus 3.5 mg/dL (2.3-4.7); Sodium 147 mmol/L (136-145)
[2018-09-20 05:18] LABS: Potassium 2.8 mmol/L (3.5-5.1)
[2018-09-20] MEDS ORDERED: Potassium Chloride 40 MEQ in Premix Bag 1 BAG IVPB SCH (06:00)
--- NOTE | 2018-09-20 07:39 | RAD ---
KUB: COMPARISON: Prior exam dated 09/19/2018. FINDINGS: Dobbhoff feeding tube tip is now coiled in the region of the lower mediastinum. The bowel gas patter n is unchanged. IMPRESSION: Dobbhoff feeding tip as above. POS: BH
[2018-09-20] MEDS: Mometasone/Formoterol 120 PUFF INHALER INH SCH ×2 (07:40→18:18)
--- NOTE | 2018-09-20 07:41 | RAD ---
KUB: INDICATION: Dobbhoff feeding tube placement. IMPRESSION: Since the comparison examination performed earlier at 2:34 a.m., the Dobbhoff feeding tube tip has be en remanipulated. The tip is now in the region of the 3rd portion of the duodenum. POS: BH
[2018-09-20] MEDS: Famotidine/PF 20 mg/2ml Vial SLOW IVP SCH (08:13)
[2018-09-20] MEDS: Micafungin 100 MG in Sodium Chloride 0.9% 100 ML IVPB SCH (08:13)
[2018-09-20] MEDS: Metoprolol Tartrate 50 MG TAB PER TUBE SCH ×2 (08:13→23:34)
[2018-09-20] MEDS: Aspirin 81 mg Enteric Coated Tablet PO SCH (08:13)
--- NOTE | 2018-09-20 13:22 | PRG ---
DATE OF SERVICE: 09/20/2018 SUBJECTIVE: Mr. Westafll is a 63-year-old man, who is postoperative day #13, status post exploratory laparotomy, segmental colectomy with end colostomy for perforated sigmoid colon diverticulitis and fecal peritonitis. The patient developed acute metabolic encephalopathy. He is more alert today. He reportedly tolerated breakfast this morning. Urinary output has been adequate. OBJECTIVE: VITAL SIGNS: This morning include blood pressure 147/72, pulse is 69, respiratory rate is 25, temperature is 97.4 degrees Fahrenheit, and oxygen saturation is 99% on 2 L by nasal cannula oxygen. HEART: Reveals regular rate and rhythm. LUNGS: Clear to auscultation bilaterally. Breathing, regular and nonlabored. ABDOMEN: Soft, nontender, and nondistended. Incision is intact, clean, and dry. Colostomy is viable with stool and gas output. NEUROLOGIC: Reveals no focal deficits present. LABORATORY FINDINGS: Include a CBC with decreasing white blood cell count at 13,500, hemoglobin and hematocrit of 9.5 and 29.1 respectively. Platelet count is 235,000. Metabolic profile; sodium 147, potassium is 2.8, chloride is 110, bicarb is 26, BUN is 67, creatinine is improving at 3.72, glucose is 123, magnesium 2.1, and phosphorus is 3.5. IMPRESSION: 1. Postoperative day #13, status post exploratory laparotomy with colectomy and end colostomy. 2. Resolving acute peritonitis. 3. Resolving acute metabolic encephalopathy. 4. Acute hypernatremia, resolving. 5. Acute hypokalemia. PLAN: 1. Correct abnormal electrolytes. 2. Increase free water intake orally and through the nasogastric tube. 3. Increase activity per Physical and Occupational therapy. 4. PM and R evaluated the patient for possible transfer to inpatient rehabilitation post discharge. 5. Above findings and plan discussed with the patient. Job ID: [id number]
--- NOTE | 2018-09-20 17:23 | PDOC.CTH ---
Cardiology Progress Note - Subjective No new issues. No chest pain. - Objective Vital Signs Temp Pulse Pulse Pulse Resp BP BP 09/20/18 15:33 97.4 F L 09/20/18 14:35 84 24 H 09/20/18 11:51 97.4 F L 09/20/18 11:00 78 68 155/72 H 147/72 H 09/20/18 10:47 65 19 09/20/18 08:00 09/20/18 07:39 66 20 09/20/18 07:23 96.9 F L Pulse Ox Pulse Ox Pulse Ox 09/20/18 15:33 09/20/18 14:35 95 09/20/18 11:51 09/20/18 11:00 97 97 09/20/18 10:47 97 09/20/18 08:00 96 09/20/18 07:39 100 09/20/18 07:23 Admit Weight 186 lb 14.4 oz Weight 175 lb 4.28 oz 09/19/18 09/20/18 09/21/18 06:59 06:59 06:59 Intake Total 2333 2683.0 Output Total 2960 2570 Balance -627 113.0 - Physical Examination General/Neuro: alert & oriented x3, NAD Neck: no JVD present Lungs: CTA, unlabored respirations Heart: RRR Abdomen: NT/ND Extremities: + edema B (trace) - Telemetry Telemetry Rhythm: NSR - Labs Result Diagrams: 09/20/18 04:45 09/20/18 04:45 Troponin/CKMB CK-MB (CK-2) 16.6 ng/mL (0-6.6) H* 08/29/18 11:47 Troponin I 0.072 ng/mL (< 0.028) H 09/15/18 04:30 - Assessment/Plan 1. Peritonitis. 2. Septic shock. 3. CAD. 4. Syncope. 5. Mild LV dysfunction EF at 45% 6. Normal EP study, s/p LINQ placement. 7. EMILY, ATN likely, now improving. 8. HTN PLAN: - CV stable, no new recs. - Replace K - Will sign out. Please call with any questions.
--- NOTE | 2018-09-20 18:46 | PDOC.PN ---
- Subjective Encounter Start Date: 09/20/18 Encounter Start Time: 16:00 Patient seen and examined for Sepsis. Intermittent confusion. FLAT DRIER recommeded to keep pt NPO. No other issues. No overnight events - Objective MAR Reviewed: Yes Vital Signs & Weight: Vital Signs (12 hours) Temp Pulse Pulse Pulse Resp BP BP 09/20/18 18:18 89 24 H 09/20/18 15:33 97.4 F L 09/20/18 14:35 84 24 H 09/20/18 11:51 97.4 F L 09/20/18 11:00 78 68 155/72 H 147/72 H 09/20/18 10:47 65 19 09/20/18 08:00 09/20/18 07:39 66 20 09/20/18 07:23 96.9 F L Pulse Ox Pulse Ox Pulse Ox 09/20/18 18:18 97 09/20/18 15:33 09/20/18 14:35 95 09/20/18 11:51 09/20/18 11:00 97 97 09/20/18 10:47 97 09/20/18 08:00 96 09/20/18 07:39 100 09/20/18 07:23 Weight Admit Weight 186 lb 14.4 oz Weight 175 lb 4.28 oz Most Recent Monitor Data Heart Rate from ECG 87 NIBP 170/65 NIBP BP-Mean 100 Respiration from ECG 32 SpO2 98 I&O: 09/19/18 09/20/18 09/21/18 06:59 06:59 06:59 Intake Total 2333 2683.0 Output Total 2960 2570 Balance -627 113.0 Result Diagrams: 09/20/18 04:45 09/20/18 04:45 Additional Labs: Accuchecks 09/20/18 09/20/18 09/20/18 16:45 11:27 05:50 POC Glucose 96 91 147 H 09/20/18 00:02 POC Glucose 113 H EKG Reviewed by me: Yes (Tele SR) Phys Exam - Physical Examination Constitutional: NAD Respiratory: no wheezing, no rhonchi dec AE at bases Cardiovascular: RRR, no rub Gastrointestinal: soft, non-tender, positive bowel sounds Neurological: moves all 4 limbs Dx/Plan - Plan DVT proph w/lovenox, DVT proph w/SCDs IMPRESSION: Severe Sepsis with acute organ dysfunction/Septic shock due to Complicated Sigmoid diverticulitis with perforation/Peritonitis s/p Exp Lap with left colectomy EMILY - improving Electrolyte abn Hypotension requiring pressors Acute respiratory failure requiring mechanical ventilation/NIPPV Toxic Metabolic Encephalopathy CAD Acute on Chronic diastolic HF/Mild LV dysfunction/Volume overload - s/p Lasix drip Mod-Sev AR/Mild Type 2 NV/demand ischemia HTN Obesity BMI 32 Syncope on admission s/p Cath and Linq recorder Swallow dysfunction PLAN: Potassium replaced Cont Metoprolol with PRN med Cont current meds as below AM labs Review of Systems - Review of Systems Other: Cannot obtain due to current mentation - Medications/Allergies Allergies/Adverse Reactions: Allergies Allergy/AdvReac Type Severity Reaction Status Date / Time No Known Drug Allergies Allergy Verified 08/29/18 13:32 Medications: Current Medications Acetaminophen (Tylenol Elixir) 650 mg PO Q6HR [facility] Last Admin: 09/20/18 18:20 Dose: Not Given Acetaminophen/Codeine Phosphate (Tylenol/Codeine Elixir) 5 ml PO Q4H PRN PRN Reason: Pain Albuterol/Ipratropium (Duoneb) 3 ml NEB [id number] PRN PRN Reason: SOB &/or Wheezing Albuterol/Ipratropium (Duoneb) 3 ml NEB [id number] [facility] Last Admin: 09/20/18 18:18 Dose: 3 ml Lipase/Protease/Amylase ([place] [id number]) 1 cap FS .PER PROTOCOL PRN PRN Reason: TUBE OCCLUSION PROTOCOL Last Admin: 09/15/18 11:53 Dose: 1 cap Aspirin (Ecotrin) 81 mg PO DAILY [facility] Last Admin: 09/20/18 08:13 Dose: 81 mg Atorvastatin Calcium (Lipitor) 20 mg PO HS [facility] Last Admin: 09/19/18 21:55 Dose: 20 mg Clonidine (Catapres) 0.1 mg PO Q4H PRN PRN Reason: SBP Greater Than 180 Last Admin: 09/18/18 00:44 Dose: 0.1 mg Dextrose/Water (Dextrose 50%) 25 gm SLOW IVP PRN PRN PRN Reason: Hypoglycemia Enoxaparin Sodium (Lovenox) 30 mg SC 2100 [facility] Last Admin: 09/19/18 21:55 Dose: 30 mg Famotidine (Pepcid) 20 mg SLOW IVP QAM [facility] Last Admin: 09/20/18 08:13 Dose: 20 mg Glucagon (Glucagon) 1 mg IM PRN PRN PRN Reason: Hypoglycemia Hydralazine HCl (Apresoline) 10 mg SLOW IVP Q6H PRN PRN Reason: SBP Greater Than 170 Last Admin: 09/19/18 17:09 Dose: 10 mg Micafungin Sodium 100 mg/ (Sodium Chloride) 100 mls @ 100 mls/hr IVPB 0900 [facility] Last Admin: 09/20/18 08:13 Dose: 100 mls Dextrose/Water (D5w) 1,000 mls @ 0 mls/hr IV .Q0M PRN PRN Reason: Hypoglycemia Insulin Human Regular (Humulin R) 0 units SC .MILD SLIDING SCALE PRN PRN Reason: Mild Correctional Scale Last Admin: 09/14/18 18:58 Dose: 2 unit Labetalol HCl (Normodyne) 10 mg SLOW IVP Q4H PRN PRN Reason: Systolic BP > 180 Last Admin: 09/15/18 14:50 Dose: 10 mg Metoprolol Tartrate (Lopressor) 50 mg PER TUBE BID [facility] Last Admin: 09/20/18 08:13 Dose: 50 mg Mometasone Furoate/Formoterol Fumar (Dulera 200 Mcg/5 Mcg Inhaler) 2 puff INH BID-RT [facility] Last Admin: 09/20/18 18:18 Dose: 2 puff Nitroglycerin (Nitrostat) 0.4 mg SL Q5MIN PRN PRN Reason: Chest Pain Last Admin: 08/31/18 15:33 Dose: 0.4 mg Ondansetron HCl (Zofran) 4 mg IVP Q4H PRN PRN Reason: Nausea/Vomiting Last Admin: 09/13/18 09:39 Dose: 4 mg Sodium Bicarbonate (Bicarbonate, Sodium) 650 mg PER TUBE .PER PROTOCOL PRN PRN Reason: ENTERAL TUBE OCCLUSION Last Admin: 09/15/18 11:53 Dose: 650 mg Sodium Chloride (Flush - Normal Saline) 10 ml IVF Q12HR [facility] Last Admin: 09/20/18 08:14 Dose: 10 ml Sodium Chloride (Flush - Normal Saline) 10 ml IVF PRN PRN PRN Reason: Saline Flush
--- NOTE | 2018-09-20 20:15 | PRG ---
DATE OF SERVICE: 09/20/2018 SUBJECTIVE: The patient is seen and examined. Noted with the following vital signs. OBJECTIVE: VITAL SIGNS: Respiratory rate of 24, pulse of 89, afebrile, and temperature 97.4. HEENT: Remarkable for dry oral mucosa. NECK: Supple. No conjunctival injection or icterus. CARDIOVASCULAR SYSTEM: First and second heart sounds were heard. RESPIRATORY SYSTEM: Clear to auscultation anteriorly. DIGESTIVE SYSTEM: Revealed a benign abdomen. EXTREMITIES: No peripheral edema. SKIN: No new gross rash. LYMPHATICS: No peripheral lymphadenopathy. LABORATORY INVESTIGATION: Significant for sodium 147 and potassium of 2.8. IMPRESSION: 1. Acute tubular necrosis, improving. 2. Persistent hypokalemia. 3. Hypernatremia in the context of free water deficit. PLAN: 1. Replete potassium. 2. Continue free water repletion. 3. Renal supportive measures, avoid potentially nephrotoxic agents. 4. Further management will be dependent on the clinical course. Job ID: [id number]
[2018-09-20] MEDS: Enoxaparin Sodium 30 MG/0.3 ML SYRINGE SC SCH (22:17)
[2018-09-20] MEDS: Atorvastatin Calcium 20 MG TAB PO SCH (23:34)
[2018-09-21 05:19] LABS: Band 5 % (5-11); Eosinophils 2 % (0-10); Hemoglobin 9.2 g/dL (14.0-18.0); Lymphocytes 9 % (21-51); MDiff Complete? YES; Mean Corpuscular HGB CONC 32.8 g/dL (32.0-36.0); Mean Corpuscular Hemoglobin 30.7 pg (27.0-31.0); Mean Corpuscular Volume 93.6 fL (78.0-98.0); Mean Platelet Volume 9.3 fL (7.4-10.4); Monocytes 7 % (0-10); Neutrophil 77 % (42-75); Platelet Count 232 thou/uL (130-400); Platelet Morphology Comment Appears Adequate; RBC Distribution Width 12.6 % (11.5-14.5); Red Blood Cell (RBC) Count 3.01 mill/uL (4.70-6.10); White Blood Cell (WBC) Count 10.9 thou/uL (4.8-10.8)
[2018-09-21 05:28] LABS: Anion Gap 14 mmol/L (10-20); BUN (Urea Nitrogen) 57 mg/dL (8.4-25.7); Calc. Creatinine Clearance 26 mL/min (70-130); Calcium 8.6 mg/dL (7.8-10.44); Carbon Dioxide 26 mmol/L (23-31); Chloride 111 mmol/L (98-107); Estimated GFR-MDRD 19; Glucose 111 mg/dL (80-115); Magnesium 2.1 mg/dL (1.6-2.6); Phosphorus 3.9 mg/dL (2.3-4.7); Sodium 148 mmol/L (136-145)
[2018-09-21 05:33] LABS: Potassium 2.8 mmol/L (3.5-5.1)
[2018-09-21] MEDS ORDERED: Potassium Chloride 40 MEQ in Premix Bag 1 BAG IVPB SCH (06:00)
[2018-09-21] MEDS: Potassium Chloride 40 MEQ in Dextrose 5% in Water 1,000 ML IV SCH ×2 (07:26→18:50)
[2018-09-21] MEDS: Acetaminophen 650 MG/20.3 ML UDCUP PO SCH ×3 (07:26→18:10)
[2018-09-21] MEDS: Mometasone/Formoterol 120 PUFF INHALER INH SCH ×2 (08:02→18:45)
[2018-09-21] MEDS: Potassium Bicarbonate/Cit Ac 25 MEQ TAB PO SCH ×2 (08:35→18:11)
[2018-09-21] MEDS: Metoprolol Tartrate 50 MG TAB PER TUBE SCH ×2 (08:35→20:13)
[2018-09-21] MEDS: Aspirin 81 mg Enteric Coated Tablet PO SCH (08:35)
[2018-09-21] MEDS: Famotidine/PF 20 mg/2ml Vial SLOW IVP SCH (09:14)
[2018-09-21] MEDS: Micafungin 100 MG in Sodium Chloride 0.9% 100 ML IVPB SCH (10:57)
--- NOTE | 2018-09-21 14:04 | PRG ---
DATE OF SERVICE: 09/21/2018 SUBJECTIVE: This is a 63-year-old gentleman, who is postop day #14, status post exploratory laparotomy, segmental colectomy with end colostomy for perforated sigmoid colon diverticulitis and fecal peritonitis. The patient continues to be more alert today. The patient had no overnight events. The patient continues to have adequate urinary output. The patient continues to have his Dobbhoff in place. In the last several days, the patient has pulled it out, but has kept it in since he has been more alert with it. The patient continues to have a good appetite. OBJECTIVE: VITAL SIGNS: Temperature 97.6, pulse 86, blood pressure 173/66, respirations 20, SpO2 of 95% on room air. GENERAL: The patient is awake and alert, in no distress, requesting something to drink. HEART: Regular rate and rhythm. LUNGS: Clear bilateral. No respiratory distress. ABDOMEN: Soft, nontender, nondistended. Incision is intact, clean, and dry. Ostomy is viable with stool and gas output. NEUROLOGIC: No focal deficits. LABORATORY DATA: WBC 10.9, RBC 3.01, hemoglobin 9.2, hematocrit 28.2, platelets 232. Sodium 148, potassium 2.8, chloride 111, BUN 57, creatinine 3.25, estimated GFR 19, glucose 111, calcium 8.6, phosphorus 3.9, magnesium 2.1. DIAGNOSTICS: There are no diagnostics to review today. IMPRESSION: 1. Postop day #14, status post exploratory laparotomy with colectomy and end colostomy. 2. Resolving peritonitis. 3. Resolving acute metabolic encephalopathy. 4. Acute hypernatremia, resolving. 5. Acute hypokalemia. PLAN: Correct abnormal electrolytes. Continue free water flushes per NG tube. We will continue to increase activity per Physical and Occupational Therapy. We will continue the patient's renal diet. We will place a rehab screen. The plan has been discussed with the patient who agrees. Plan has also been discussed with the attending surgeon. Job ID: [id number]
--- NOTE | 2018-09-21 14:15 | PDOC.PN ---
- Subjective Encounter Start Date: 09/21/18 Encounter Start Time: 14:13 Patient seen and examined, no new issues. - Objective Vital Signs & Weight: Vital Signs (12 hours) Temp Pulse Resp BP Pulse Ox 09/21/18 12:15 98.1 F 80 28 H 153/65 H 97 09/21/18 12:10 98 09/21/18 10:29 80 20 09/21/18 08:27 97.6 F 09/21/18 08:02 86 22 H 09/21/18 08:00 97 09/21/18 04:06 98.8 F 09/21/18 02:46 73 24 H 97 Weight Admit Weight 186 lb 14.4 oz Weight 165 lb 5.547 oz Most Recent Monitor Data Heart Rate from ECG 80 NIBP 174/66 NIBP BP-Mean 102 Respiration from ECG 26 SpO2 95 I&O: 09/20/18 09/21/18 09/22/18 06:59 06:59 06:59 Intake Total 2683.0 500 Output Total 2570 950 Balance 113.0 -450 Result Diagrams: 09/21/18 04:50 09/21/18 04:50 Additional Labs: Accuchecks 09/21/18 09/21/18 09/21/18 12:34 04:17 00:00 POC Glucose 132 H 104 125 H 09/20/18 16:45 POC Glucose 96 Phys Exam - Physical Examination Constitutional: NAD HEENT: PERRLA, moist MMs Neck: no nodes, no JVD Respiratory: no wheezing, no rales, no rhonchi Cardiovascular: RRR, no significant murmur, no rub Gastrointestinal: soft, non-tender, no distention Musculoskeletal: pulses present, edema present Dx/Plan (1) EMILY (acute kidney injury) Code(s): N17.9 - ACUTE KIDNEY FAILURE, UNSPECIFIED Status: Acute Comment: creatinine improved to 6.33 today, nephrology following (2) Acute respiratory failure with hypoxia Code(s): J96.01 - ACUTE RESPIRATORY FAILURE WITH HYPOXIA Status: Acute Comment: Secondary to above[facility] sedation [facility] (3) Hypernatremia Code(s): E87.0 - HYPEROSMOLALITY AND HYPERNATREMIA Status: Acute Comment: pt started on D5W, follow sodium level (4) Perforated sigmoid colon Code(s): K63.1 - PERFORATION OF INTESTINE (NONTRAUMATIC) Status: Acute Comment: s/p surgery (5) Peritonitis Code(s): K65.9 - PERITONITIS, UNSPECIFIED Status: Acute Comment: s/p surgery (6) Sepsis Code(s): A41.9 - SEPSIS, UNSPECIFIED ORGANISM Status: Acute Comment: Improved (7) Syncope Code(s): R55 - SYNCOPE AND COLLAPSE Status: Acute Comment: Suspected cardiac etiology, EP consulted with negative EP study 09/03/18, ILR placed with outpt f/u planned (8) Aortic regurgitation Code(s): I35.1 - NONRHEUMATIC AORTIC (VALVE) INSUFFICIENCY Status: Chronic Comment: EP evaluation pending (9) CAD (coronary artery disease) Code(s): I25.10 - ATHSCL HEART DISEASE OF [place] CORONARY ARTERY W/O ANG PCTRS Status: Chronic Comment: continue med mgmt with ASA, Lipitor, Coreg (10) Hypertension Code(s): I10 - ESSENTIAL (PRIMARY) HYPERTENSION Status: Chronic Qualifiers: Hypertension type: essential hypertension Qualified Code(s): I10 - Essential (primary) hypertension Comment: controlled - Plan * diet to be resumed, d/w surgery, defer diet to surgery team * pending SNf * potassium being replaced * cont current plan of care with no changes for now * overall prognosis is guarded * no family at bedside.
[2018-09-21] MEDS ORDERED: Pancrelipase DR 12000 1 CAP FS PRN (18:09)
[2018-09-21] MEDS ORDERED: Sodium Bicarbonate Tab 325 MG TAB PER TUBE PRN (18:09)
--- NOTE | 2018-09-21 19:41 | PRG ---
DATE OF SERVICE: 09/21/2018 SUBJECTIVE: The patient is seen and examined. Noted with the following vital signs. OBJECTIVE: VITAL SIGNS: Afebrile, temperature 97.9, pulse of 80, respiratory rate of 16, O2 saturation of 95%, and blood pressure 162/75. HEENT: Unremarkable. Dry oral mucosa. NECK: Supple. No conjunctival injection or icterus. CARDIOVASCULAR SYSTEM: First and second heart sounds were heard. RESPIRATORY SYSTEM: Clear to auscultation. DIGESTIVE SYSTEM: Revealed a benign abdomen with positive bowel sounds. EXTREMITIES: No peripheral edema. SKIN: No new gross rash. LYMPHATICS: No peripheral lymphadenopathy. IMPRESSION: 1. Hypernatremia with sodium remaining at 148. 2. Hypokalemia. 3. Acute kidney injury, improving. PLAN: 1. We will increase free water repletion by adding 5% dextrose water with potassium in it. 2. Continue to supplement potassium. 3. Renally dose all medications and avoid potentially nephrotoxic agents. 4. Further management to be dependent on the clinical course. Job ID: [id number]
[2018-09-21] MEDS: Atorvastatin Calcium 20 MG TAB PO SCH (20:13)
[2018-09-21] MEDS: Enoxaparin Sodium 30 MG/0.3 ML SYRINGE SC SCH (20:13)
[2018-09-22] MEDS: Acetaminophen 650 MG/20.3 ML UDCUP PO SCH ×4 (01:15→19:00)
[2018-09-22] MEDS: Potassium Chloride 40 MEQ in Dextrose 5% in Water 1,000 ML IV SCH ×3 (04:28→17:38)
[2018-09-22] MEDS: Micafungin 100 MG in Sodium Chloride 0.9% 100 ML IVPB SCH (08:33)
[2018-09-22] MEDS: Aspirin 81 mg Enteric Coated Tablet PO SCH (08:37)
[2018-09-22] MEDS: Metoprolol Tartrate 50 MG TAB PER TUBE SCH ×2 (08:38→22:03)
[2018-09-22] MEDS: Potassium Bicarbonate/Cit Ac 25 MEQ TAB PO SCH ×2 (08:38→18:52)
[2018-09-22] MEDS: Famotidine/PF 20 mg/2ml Vial SLOW IVP SCH (08:39)
[2018-09-22 08:55] LABS: #Basophils 0.1 thou/uL (0.0-0.2); #Eosinphils 0.7 thou/uL (0.0-0.7); #Monocytes 0.9 thou/uL (0.11-0.59); #Neutrophils 9.1 thou/uL (1.40-6.50); %Basophils 0.5 % (0.0-1.0); %Eosinophils 6.1 % (0.0-10.0); %Lymphocytes 8.6 % (21.0-51.0); %Monocytes 7.6 % (0.0-10.0); %Neutrophils 77.2 % (42.0-75.0); Hemoglobin 9.5 g/dL (14.0-18.0); Mean Corpuscular HGB CONC 33.5 g/dL (32.0-36.0); Mean Corpuscular Hemoglobin 31.3 pg (27.0-31.0); Mean Corpuscular Volume 93.6 fL (78.0-98.0); Mean Platelet Volume 9.3 fL (7.4-10.4); Platelet Count 246 thou/uL (130-400); RBC Distribution Width 12.7 % (11.5-14.5); Red Blood Cell (RBC) Count 3.04 mill/uL (4.70-6.10); White Blood Cell (WBC) Count 11.8 thou/uL (4.8-10.8)
--- NOTE | 2018-09-22 09:05 | PDOC.GSPN ---
Surgery Progress Note: Subj - Subjective Narrative: Not taking even ice chips. Swallow abnormal Surgery Progress Note: Obj - Vital signs Vital signs: Vital Signs - Most Recent Temp Pulse Resp BP Pulse Ox 98.6 F 96 20 136/73 94 L 09/22/18 07:31 09/22/18 07:31 09/22/18 07:31 09/22/18 07:31 09/22/18 07:31 - Physical Exam General: chronically ill Respiratory: coarse breath sounds Abdomen: soft, appropriately tender Wound: healing well Surgery Progress Note: Results - Labs Result Diagrams: 09/22/18 08:41 09/21/18 04:50 Lab results: Laboratory Results - last 24 hr 09/21/18 09/22/18 09/22/18 23:11 06:21 08:41 WBC 11.8 H RBC 3.04 L Hgb 9.5 L Hct 28.4 L MCV 93.6 MCH 31.3 H MCHC 33.5 RDW 12.7 Plt Count 246 MPV 9.3 Neutrophils % 77.2 H Lymphocytes % 8.6 L Monocytes % 7.6 Eosinophils % 6.1 Basophils % 0.5 Neutrophils # 9.1 H Lymphocytes # 1.0 L Monocytes # 0.9 H Eosinophils # 0.7 Basophils # 0.1 POC Glucose 92 111 H Surgery Progress Note: A/P - Problem (1) Perforated sigmoid colon Current Visit: Yes Code(s): K63.1 - PERFORATION OF INTESTINE (NONTRAUMATIC) Status: Acute - Plan Plan: Continue TF for now. Failed swallow -free water boluses -continue to mobilize -will need SNU
[2018-09-22 09:16] LABS: Anion Gap 15 mmol/L (10-20); BUN (Urea Nitrogen) 43 mg/dL (8.4-25.7); Calc. Creatinine Clearance 31 mL/min (70-130); Calcium 8.3 mg/dL (7.8-10.44); Carbon Dioxide 22 mmol/L (23-31); Chloride 112 mmol/L (98-107); Estimated GFR-MDRD 25; Glucose 110 mg/dL (80-115); Magnesium 1.7 mg/dL (1.6-2.6); Potassium 3.6 mmol/L (3.5-5.1); Sodium 145 mmol/L (136-145)
[2018-09-22 09:26] LABS: Phosphorus 2.3 mg/dL (2.3-4.7)
[2018-09-22] MEDS: Mometasone/Formoterol 120 PUFF INHALER INH SCH ×2 (12:40→18:53)
--- NOTE | 2018-09-22 14:17 | PDOC.PN ---
- Subjective Encounter Start Date: 09/22/18 Encounter Start Time: 14:14 Patient seen and examined, had a tough time coughing this AM, had trumpet placed in nasal cannula to help breath, suctioning revealed mucus plug in the back of his throat. - Objective Vital Signs & Weight: Vital Signs (12 hours) Temp Pulse Resp BP Pulse Ox 09/22/18 12:34 83 16 94 L 09/22/18 11:38 98.5 F 83 20 160/85 H 96 09/22/18 08:00 81 16 92 L 09/22/18 07:31 98.6 F 96 20 136/73 94 L 09/22/18 04:00 98.4 F 89 18 138/77 95 Weight Admit Weight 186 lb 14.4 oz Weight 171 lb 3.2 oz Most Recent Monitor Data Heart Rate from ECG 80 NIBP 174/66 NIBP BP-Mean 102 Respiration from ECG 26 SpO2 95 I&O: 09/21/18 09/22/18 09/23/18 06:59 06:59 06:59 Intake Total 500 1950 540 Output Total 950 2175 Balance -450 -225 540 Result Diagrams: 09/22/18 08:41 09/22/18 08:41 Additional Labs: Accuchecks 09/22/18 09/22/18 09/21/18 11:36 06:21 23:11 POC Glucose 120 H 111 H 92 09/21/18 15:22 POC Glucose 108 Phys Exam - Physical Examination Constitutional: NAD HEENT: PERRLA, moist MMs NG tube in place Neck: no nodes, no JVD Respiratory: no wheezing, no rales, no rhonchi Cardiovascular: RRR, no significant murmur, no rub Gastrointestinal: soft, non-tender, no distention Musculoskeletal: no edema, pulses present Dx/Plan (1) EMILY (acute kidney injury) Code(s): N17.9 - ACUTE KIDNEY FAILURE, UNSPECIFIED Status: Acute Comment: creatinine improved to 6.33 today, nephrology following (2) Acute respiratory failure with hypoxia Code(s): J96.01 - ACUTE RESPIRATORY FAILURE WITH HYPOXIA Status: Acute Comment: Secondary to above, [facility] sed[facility] (3) Hypernatremia Code(s): E87.0 - HYPEROSMOLALITY AND HYPERNATREMIA Status: Acute Comment: pt started on D5W, follow sodium level (4) Perforated sigmoid colon Code(s): K63.1 - PERFORATION OF INTESTINE (NONTRAUMATIC) Status: Acute Comment: s/p surgery (5) Peritonitis Code(s): K65.9 - PERITONITIS, UNSPECIFIED Status: Acute Comment: s/p surgery (6) Sepsis Code(s): A41.9 - SEPSIS, UNSPECIFIED ORGANISM Status: Acute Comment: Improved (7) Syncope Code(s): R55 - SYNCOPE AND COLLAPSE Status: Acute Comment: Suspected cardiac etiology, EP consulted with negative EP study 09/03/18, ILR placed with outpt f/u planned (8) Aortic regurgitation Code(s): I35.1 - NONRHEUMATIC AORTIC (VALVE) INSUFFICIENCY Status: Chronic Comment: EP evaluation pending (9) CAD (coronary artery disease) Code(s): I25.10 - ATHSCL HEART DISEASE OF [place] CORONARY ARTERY W/O ANG PCTRS Status: Chronic Comment: continue med mgmt with ASA, Lipitor, Coreg (10) Hypertension Code(s): I10 - ESSENTIAL (PRIMARY) HYPERTENSION Status: Chronic Qualifiers: Hypertension type: essential hypertension Qualified Code(s): I10 - Essential (primary) hypertension Comment: controlled - Plan * difficulty breathing this AM with mucus plug in back of throat * oral cavity also looks raw, will give some ice chips for now * consult pulmonary for now, possible bronchoscopy? auscultation shows clear lung, unclear if patient is unable to cough up mucus fully or if his tube feedings are backing up to his esophagus? For now will hold tube feeds, obtain CXR and consult pulm * labs stable * vitals stable * case and plan d/w patient at length, he understood and agreed with this plan.
[2018-09-22] MEDS: Aspirin Chewable 81 MG TAB PO SCH (16:47)
--- NOTE | 2018-09-22 17:26 | RAD ---
EXAM: Single view of the chest HISTORY: Shortness of breath COMPARISON: 09/15/2018 FINDINGS: Single view of the chest shows a normal sized cardiomediastinal silhouette. A cardiac josé miguel toring device projects over the left chest wall. The Dobbhoff tube and central venous catheter are unchanged in position. The endotracheal tube has been removed. There is no evidence of consolidation, mass, or pleural effusion. The bones are unremarkable. IMPRESSION: No evidence of acute cardiopulmonary disease
[2018-09-22] MEDS: Atorvastatin Calcium 20 MG TAB PO SCH (22:03)
[2018-09-22] MEDS: Enoxaparin Sodium 30 MG/0.3 ML SYRINGE SC SCH (22:04)
[2018-09-23] MEDS: Acetaminophen 650 MG/20.3 ML UDCUP PO SCH ×4 (00:29→17:13)
[2018-09-23] MEDS: Potassium Chloride 40 MEQ in Dextrose 5% in Water 1,000 ML IV SCH ×2 (04:54→17:13)
[2018-09-23 05:29] LABS: #Basophils 0.1 thou/uL (0.0-0.2); #Eosinphils 0.6 thou/uL (0.0-0.7); #Lymphocytes 1.2 thou/uL (1.20-3.40); #Monocytes 0.8 thou/uL (0.11-0.59); %Basophils 0.6 % (0.0-1.0); %Eosinophils 5.4 % (0.0-10.0); %Lymphocytes 11.6 % (21.0-51.0); %Monocytes 7.8 % (0.0-10.0); %Neutrophils 74.6 % (42.0-75.0); Hemoglobin 8.9 g/dL (14.0-18.0); Mean Corpuscular HGB CONC 32.8 g/dL (32.0-36.0); Mean Corpuscular Hemoglobin 30.8 pg (27.0-31.0); Mean Corpuscular Volume 93.6 fL (78.0-98.0); Mean Platelet Volume 9.3 fL (7.4-10.4); Platelet Count 205 thou/uL (130-400); RBC Distribution Width 12.6 % (11.5-14.5); Red Blood Cell (RBC) Count 2.88 mill/uL (4.70-6.10); White Blood Cell (WBC) Count 10.7 thou/uL (4.8-10.8)
[2018-09-23 05:47] LABS: Anion Gap 13 mmol/L (10-20); BUN (Urea Nitrogen) 35 mg/dL (8.4-25.7); Calc. Creatinine Clearance 35 mL/min (70-130); Calcium 8.3 mg/dL (7.8-10.44); Carbon Dioxide 23 mmol/L (23-31); Chloride 108 mmol/L (98-107); Estimated GFR-MDRD 28; Glucose 96 mg/dL (80-115); Potassium 3.9 mmol/L (3.5-5.1); Sodium 140 mmol/L (136-145)
[2018-09-23] MEDS: Mometasone/Formoterol 120 PUFF INHALER INH SCH (06:58)
[2018-09-23] MEDS: Micafungin 100 MG in Sodium Chloride 0.9% 100 ML IVPB SCH (08:19)
[2018-09-23] MEDS: Potassium Bicarbonate/Cit Ac 25 MEQ TAB PO SCH ×2 (08:19→17:13)
[2018-09-23] MEDS: Aspirin Chewable 81 MG TAB PO SCH (08:19)
[2018-09-23] MEDS: Metoprolol Tartrate 50 MG TAB PER TUBE SCH ×2 (08:19→20:57)
[2018-09-23] MEDS: Famotidine/PF 20 mg/2ml Vial SLOW IVP SCH (08:19)
--- NOTE | 2018-09-23 09:47 | PRG ---
DATE OF SERVICE: 09/23/2018 SUBJECTIVE: Mr. Westfall is arousable today, opens his eyes to voice. He is not really answering questions. He is still restrained secondary to pulling out his Dobhoff tube all the time. He has a sitter present. OBJECTIVE: VITAL SIGNS: He is hemodynamically stable. He is afebrile. GENITOURINARY: He has good urine output and there is stool and air in his bag. ABDOMEN: His abdomen is soft. His incision is healing well. He has active bowel sounds. LABORATORY DATA: His white blood cell count is 10. His hemoglobin is 8.9 with normal differential. His creatinine is down to 2.33. ASSESSMENT: Colectomy, colostomy, slow improvement with now, deconditioning and resolving acute tubular necrosis. PLAN: Ultimately, will need rehab or [facility] placement. Tolerating tube feeds and that is how he is getting his nutrition now since he failed his swallow test. Job ID: [id number]
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
--- NOTE | 2018-09-23 13:20 | PDOC.PN ---
- Subjective Encounter Start Date: 09/23/18 Encounter Start Time: 13:14 Patient seen and examined, no new issues. - Objective Vital Signs & Weight: Vital Signs (12 hours) Temp Pulse Resp BP Pulse Ox 09/23/18 11:06 98.5 F 76 18 144/76 H 98 09/23/18 07:10 97.7 F 79 20 129/74 97 09/23/18 06:58 90 18 100 09/23/18 06:47 90 16 100 09/23/18 04:00 98 F 77 16 146/82 H 96 09/23/18 02:23 16 Weight Admit Weight 186 lb 14.4 oz Weight 171 lb Most Recent Monitor Data Heart Rate from ECG 80 NIBP 174/66 NIBP BP-Mean 102 Respiration from ECG 26 SpO2 95 I&O: 09/22/18 09/23/18 09/24/18 06:59 06:59 06:59 Intake Total 1950 2690 Output Total 2175 2300 Balance -225 390 Result Diagrams: 09/23/18 04:50 09/23/18 04:50 Additional Labs: Accuchecks 09/22/18 16:05 POC Glucose 110 Phys Exam - Physical Examination Constitutional: NAD HEENT: PERRLA, moist MMs, sclera anicteric NG tube Neck: no nodes, no JVD, supple Respiratory: no wheezing, no rales, no rhonchi Cardiovascular: RRR, no significant murmur, no rub Gastrointestinal: soft, non-tender, no distention, positive bowel sounds Dx/Plan (1) EMILY (acute kidney injury) Code(s): N17.9 - ACUTE KIDNEY FAILURE, UNSPECIFIED Status: Acute Comment: creatinine improved to 6.33 today, nephrology following (2) Acute respiratory failure with hypoxia Code(s): J96.01 - ACUTE RESPIRATORY FAILURE WITH HYPOXIA Status: Acute Comment: Secondary to above, continue [facility] ventilation, CCU sedation protocol (3) Hypernatremia Code(s): E87.0 - HYPEROSMOLALITY AND HYPERNATREMIA Status: Acute Comment: pt started on D5W, follow sodium level (4) Perforated sigmoid colon Code(s): K63.1 - PERFORATION OF INTESTINE (NONTRAUMATIC) Status: Acute Comment: s/p surgery (5) Peritonitis Code(s): K65.9 - PERITONITIS, UNSPECIFIED Status: Acute Comment: s/p surgery (6) Sepsis Code(s): A41.9 - SEPSIS, UNSPECIFIED ORGANISM Status: Acute Comment: Improved (7) Syncope Code(s): R55 - SYNCOPE AND COLLAPSE Status: Acute Comment: Suspected cardiac etiology, EP consulted with negative EP study 09/03/18, ILR placed with outpt f/u planned (8) Aortic regurgitation Code(s): I35.1 - NONRHEUMATIC AORTIC (VALVE) INSUFFICIENCY Status: Chronic Comment: EP evaluation pending (9) CAD (coronary artery disease) Code(s): I25.10 - ATHSCL HEART DISEASE OF [place] CORONARY ARTERY W/O ANG PCTRS Status: Chronic Comment: continue med mgmt with ASA, Lipitor, Coreg (10) Hypertension Code(s): I10 - ESSENTIAL (PRIMARY) HYPERTENSION Status: Chronic Qualifiers: Hypertension type: essential hypertension Qualified Code(s): I10 - Essential (primary) hypertension Comment: controlled - Plan * Pulmonary evaluation pending * breathing better * vitals stable * will do MBS in AM to evaluate for dysphagia * started on 1/2NS yesterday for fluids as well as due to low Na, repeat labs in AM * no other changes in plan of care
--- NOTE | 2018-09-23 15:29 | RAD ---
XR Abdomen 1 View/KUB 1 view abdomen series CLINICAL INDICATION: Tube placement FINDINGS: Enteric catheter is present with metallic stylette at the expected region of distal stomach/proximal duodenum. Nonspecific air-filled bowel is seen within the abdomen. Incidental note of added density at the left lung base, incompletely evaluated. IMPRESSION: Enteric catheter traverses to the expected region of distal stomach/proximal small bowel.
--- NOTE | 2018-09-23 18:21 | PRG ---
DATE OF SERVICE: 09/23/2018 SUBJECTIVE: The patient was seen and examined. OBJECTIVE: VITAL SIGNS: Noted with the following vital signs; afebrile, temperature 98.1; pulse 79; respiratory rate of 20; O2 saturation of 94%; blood pressure 157/84. HEENT: Unremarkable. CARDIOVASCULAR SYSTEM: First and second heart sounds were heard. RESPIRATORY SYSTEM: Clear to auscultation. DIGESTIVE SYSTEM: Revealed a benign abdomen with positive bowel sounds. EXTREMITIES: No peripheral edema. SKIN: No new gross rash. LYMPHATICS: No peripheral lymphadenopathy. LABORATORY INVESTIGATION: Showed a sodium down to 140 with potassium of 3.9, creatinine 2.33. CBC showed a hemoglobin of 8.9. IMPRESSION: 1. Hypernatremia, which is improved, status post free water repletion. 2. Hypokalemia, improved. 3. Acute kidney injury, much improved. PLAN: 1. Deescalate free water repletion by discontinuing IV fluid for now and continue with oral supplementation, but monitor the sodium and the potassium and the tendency to become hypernatremic is still there. 2. Discontinue daily blood draws to avoid iatrogenic anemia. 3. Further management to be dependent on the clinical course. Job ID: [id number]
[2018-09-23] MEDS: Enoxaparin Sodium 30 MG/0.3 ML SYRINGE SC SCH (20:57)
[2018-09-23] MEDS: Atorvastatin Calcium 20 MG TAB PO SCH (20:57)
[2018-09-24] MEDS: Acetaminophen 650 MG/20.3 ML UDCUP PO SCH ×4 (00:25→17:54)
[2018-09-24 06:12] LABS: Anion Gap 13 mmol/L (10-20); BUN (Urea Nitrogen) 26 mg/dL (8.4-25.7); Calc. Creatinine Clearance 40 mL/min (70-130); Calcium 8.4 mg/dL (7.8-10.44); Carbon Dioxide 24 mmol/L (23-31); Chloride 105 mmol/L (98-107); Estimated GFR-MDRD 33; Glucose 86 mg/dL (80-115); Potassium 4.2 mmol/L (3.5-5.1); Sodium 138 mmol/L (136-145)
--- NOTE | 2018-09-24 09:21 | PDOC.PN ---
- Subjective Encounter Start Date: 09/24/18 Encounter Start Time: 11:40 Subjective: Patient without complaints. Still in restraints. Dobhoff tube in nose. - Objective MAR Reviewed: Yes Vital Signs & Weight: Vital Signs (12 hours) Temp Pulse Resp BP Pulse Ox 09/24/18 07:07 75 14 100 09/24/18 07:00 98.1 F 83 18 152/72 H 100 09/24/18 04:00 98.8 F 82 18 155/80 H 95 09/24/18 02:02 86 12 92 L 09/24/18 00:00 98.6 F 86 16 162/77 H 96 09/23/18 22:42 76 12 Weight Admit Weight 186 lb 14.4 oz Weight 170 lb 9.6 oz Most Recent Monitor Data Heart Rate from ECG 80 NIBP 174/66 NIBP BP-Mean 102 Respiration from ECG 26 SpO2 95 I&O: 09/23/18 09/24/18 09/25/18 06:59 06:59 06:59 Intake Total 2690 2280 Output Total 2300 2850 Balance 390 -570 Result Diagrams: 09/23/18 04:50 09/24/18 05:00 Additional Labs: Accuchecks 09/24/18 09/24/18 09/23/18 06:07 00:57 18:07 POC Glucose 110 104 109 09/23/18 11:53 POC Glucose 115 H Phys Exam - Physical Examination Constitutional: NAD HEENT: moist MMs dobhoff in nostril Respiratory: no wheezing, no rales, no rhonchi Cardiovascular: RRR incision well healed, ostomy in place, positive bowel sounds, mod TTP Musculoskeletal: no edema Neurological: non-focal Psychiatric: normal affect Dx/Plan (1) Perforated sigmoid colon Code(s): K63.1 - PERFORATION OF INTESTINE (NONTRAUMATIC) Status: Acute Comment: s/p surgery (2) Acute respiratory failure with hypoxia Code(s): J96.01 - ACUTE RESPIRATORY FAILURE WITH HYPOXIA Status: Acute Comment: extubated and on the surgical floor (3) EMILY (acute kidney injury) Code(s): N17.9 - ACUTE KIDNEY FAILURE, UNSPECIFIED Status: Acute Comment: creatinine improved to 6.33 today, nephrology following (4) Hypernatremia Code(s): E87.0 - HYPEROSMOLALITY AND HYPERNATREMIA Status: Acute Comment: pt started on D5W, follow sodium level (5) CAD (coronary artery disease) Code(s): I25.10 - ATHSCL HEART DISEASE OF [place] CORONARY ARTERY W/O ANG PCTRS Status: Chronic Comment: continue med mgmt with ASA, Lipitor, Coreg (6) Grade I diastolic dysfunction Code(s): I51.9 - HEART DISEASE, UNSPECIFIED Status: Chronic Comment: Continue Coreg 6.25mg BID (7) Hypertension Code(s): I10 - ESSENTIAL (PRIMARY) HYPERTENSION Status: Chronic Qualifiers: Hypertension type: essential hypertension Qualified Code(s): I10 - Essential (primary) hypertension Comment: controlled (8) Oropharyngeal dysphagia Code(s): R13.12 - DYSPHAGIA, OROPHARYNGEAL PHASE Status: Acute Comment: severe, MBS today, may need PEG before SNF placement - Plan cont current plan of care, PT/OT, speech therapy * . - Discharge Day Encounter end time: 11:50
--- NOTE | 2018-09-24 09:24 | PRG ---
DATE OF SERVICE: 09/24/2018 SUBJECTIVE: Des Westfall is in no distress. OBJECTIVE: VITAL SIGNS: His O2 saturation is 100% on 2 L, respirations 14, temperature 98, blood pressure . CHEST: Reveals no wheezing or crackles. CARDIAC: Normal S1 and S2. No gallops. ABDOMEN: No masses. LABORATORY DATA: Creatinine 2.5. ASSESSMENT AND PLAN: His back of his throat still shows a large dried up bloody mucus. I showed the findings to the nursing. He needs oral care at least twice a day. Day 25 in the hospital, status post syncope, status post peritonitis. Severe deconditioning. Thrush. Otherwise, continue present treatment. Oral care twice a day. Job ID: [id number]
[2018-09-24] MEDS: Metoprolol Tartrate 50 MG TAB PER TUBE SCH ×2 (09:34→20:57)
[2018-09-24] MEDS: Aspirin Chewable 81 MG TAB PO SCH (09:34)
[2018-09-24] MEDS: Famotidine/PF 20 mg/2ml Vial SLOW IVP SCH (09:35)
[2018-09-24] MEDS: Potassium Bicarbonate/Cit Ac 25 MEQ TAB PO SCH ×2 (09:35→17:54)
[2018-09-24] MEDS ORDERED: Activase 2 MG VIAL CATH SCH (10:00)
[2018-09-24] MEDS: Chlorhexidine Gluconate 15 ML UDCUP SSP PRN ×2 (11:36→21:04)
--- NOTE | 2018-09-24 13:32 | RAD ---
Abdomen one view INDICATION: Dobbhoff feeding tube placement COMPARISON: Prior exam dated the 2018 at 3:10 PM FINDINGS: Bowel gas: Nonspecific Lung bases: Clear. Additional findings: Dobbhoff feeding tube tip is seen within the region of the third portion of the duodenum. Loop recorder overlies left chest wall. Osseous structures: No acute osseous abnormality is demonstrated. IMPRESSION: 1. Dobbhoff feeding tube tip projecting in the region of the third portion of the duodenum.
--- NOTE | 2018-09-24 13:49 | PRG ---
DATE OF SERVICE: 09/24/2018 SUBJECTIVE: Des Westfall is seen by Dr. Mcduffie, Trauma Service today. Mr. Westfall is status post 09/06 and 09/07 laparotomy with transverse left colectomy and colostomy for perforated sigmoid diverticulitis. He had had a necrotic transverse colon requiring further resection. He has a nasojejunal tube in place. The patient seems to have encephalopathy. He is on the surgical floor. He does answer questions. Feeding tube yesterday revealed the Dobbhoff is in the distal stomach. Nurse has advanced another 10 cm and we will obtain another x-ray today. There was some question of aspiration. His tube feeding has been held. He is scheduled to undergo a swallow study today. OBJECTIVE: VITAL SIGNS: Temperature 98.6, heart rate 85, and blood pressure 139/85. LUNGS: Clear to auscultation. CARDIAC: Regular rate and rhythm without murmur or gallop. ABDOMEN: Soft, nontender. Wound looks good. Colostomy is healthy. LABORATORY DATA: White count 10, hemoglobin 8.9. Basic metabolic profile, BUN 26, which is improved. Creatinine 2.05, which is improved this hospitalization. It was normal prior to this hospitalization. ASSESSMENT AND PLAN: Doing well. Await swallow study. Check Dobbhoff feeding tube placement. Resume tube feedings once assured in the right position. Continue rehab placement planning. Job ID: [id number]
--- NOTE | 2018-09-24 15:31 | RAD ---
MODIFIED BARIUM SWALLOW: HISTORY: Dysphagia R13.10, feeding difficulties R 63.3. RADIATION DOSIMETRY: 1.4 minutes of fluoroscopy and DAP of 0.69 uGy*^cm2. FINDINGS: Various consistencies of barium sulfate including thin barium and pudding and barium were given to th e patient. The patient has almost no tongue control with inability to propel the liquids in the mouth posteriorl y. The patient's tongue moves in a haphazard manner. A large amount of saliva and barium remained pooled in the sublingual portion of the oral cavity. It is not safe for the patient to attempt to ingest p.o. material as he has no control of his tongue. IMPRESSION: See above. Transcribed Date/Time: 09/24/2018 3:35 PM
--- NOTE | 2018-09-24 20:40 | PRG ---
DATE OF SERVICE: 09/24/2018 SUBJECTIVE: The patient is seen and examined, noted with the following vital signs. OBJECTIVE: VITAL SIGNS: Afebrile, temperature 98, pulse 85, respiratory rate of 20, O2 saturations are 99%, and blood pressure 130/74. HEENT: Unremarkable. CARDIOVASCULAR SYSTEM: First and second heart sounds were heard. RESPIRATORY SYSTEM: Clear to auscultation. DIGESTIVE SYSTEM: Revealed a benign abdomen with positive bowel sounds. EXTREMITIES: No peripheral edema. SKIN: No new gross rash. LYMPHATICS: No peripheral lymphadenopathy. LABORATORY INVESTIGATION: Showed a creatinine 2.05 and sodium of 138. IMPRESSION: 1. Hypernatremia, which is resolved. 2. Acute kidney injury, which is much improved. PLAN: 1. Continue current renal supportive measures and free water repletion. 2. Further management to be dependent on the clinical course. Job ID: [id number]
[2018-09-24] MEDS: Atorvastatin Calcium 20 MG TAB PO SCH (20:57)
[2018-09-24] MEDS: Enoxaparin Sodium 30 MG/0.3 ML SYRINGE SC SCH (21:06)
[2018-09-25] MEDS: Acetaminophen 650 MG/20.3 ML UDCUP PO SCH ×5 (00:17→23:36)
[2018-09-25] MEDS: Sodium Chloride 0.9% 1,000 ML IV SCH ×2 (02:00→14:20)
[2018-09-25] MEDS ORDERED: PROPOFOL 0 ML ONE (07:13)
[2018-09-25] MEDS ORDERED: Fentanyl 100 MCG/2 ML VIAL ONE (07:13)
[2018-09-25] MEDS ORDERED: PROPOFOL 40 ML ONE (07:15)
[2018-09-25] MEDS: Potassium Bicarbonate/Cit Ac 25 MEQ TAB PO SCH ×2 (07:41→17:34)
[2018-09-25] MEDS: Aspirin Chewable 81 MG TAB PO SCH (07:43)
[2018-09-25] MEDS: Famotidine/PF 20 mg/2ml Vial SLOW IVP SCH (07:43)
--- NOTE | 2018-09-25 08:26 | PDOC.PN ---
- Subjective Encounter Start Date: 09/25/18 Encounter Start Time: 10:30 Subjective: Patient groggy from PEG placement this AM. No complaints. No SOB. No pain. - Objective MAR Reviewed: Yes Vital Signs & Weight: Vital Signs (12 hours) Temp Pulse Resp BP BP Pulse Ox 09/25/18 06:42 71 18 98 09/25/18 05:43 97.6 F 76 16 127/68 94 L 09/25/18 03:29 98.4 F 80 16 152/79 H 94 L 09/25/18 02:26 86 16 09/24/18 23:29 98.6 F 88 16 156/83 H 94 L 09/24/18 22:04 16 Weight Admit Weight 186 lb 14.4 oz Weight 170 lb Most Recent Monitor Data Heart Rate from ECG 80 NIBP 174/66 NIBP BP-Mean 102 Respiration from ECG 26 SpO2 95 I&O: 09/24/18 09/25/18 09/26/18 06:59 06:59 06:59 Intake Total 2280 2500 Output Total 2850 1975 Balance -570 525 Result Diagrams: 09/23/18 04:50 09/24/18 05:00 Additional Labs: Accuchecks 09/24/18 09/24/18 18:21 12:06 POC Glucose 102 108 Phys Exam - Physical Examination Constitutional: NAD HEENT: moist MMs Respiratory: no wheezing, no rales, no rhonchi Cardiovascular: RRR Gastrointestinal: soft, positive bowel sounds abdominal binder over PEG in place Neurological: non-focal Deviation from normal: sleepy, arousable but not talkative Dx/Plan (1) Perforated sigmoid colon Code(s): K63.1 - PERFORATION OF INTESTINE (NONTRAUMATIC) Status: Acute Comment: s/p surgery (2) Acute respiratory failure with hypoxia Code(s): J96.01 - ACUTE RESPIRATORY FAILURE WITH HYPOXIA Status: Acute Comment: extubated and on the surgical floor (3) EMLIY (acute kidney injury) Code(s): N17.9 - ACUTE KIDNEY FAILURE, UNSPECIFIED Status: Acute Comment: creatinine improved to 2.05 6/3, nephrology following (4) Hypernatremia Code(s): E87.0 - HYPEROSMOLALITY AND HYPERNATREMIA Status: Resolved (5) CAD (coronary artery disease) Code(s): I25.10 - ATHSCL HEART DISEASE OF [place] CORONARY ARTERY W/O ANG PCTRS Status: Chronic Comment: continue med mgmt with ASA, Lipitor, Coreg (6) Grade I diastolic dysfunction Code(s): I51.9 - HEART DISEASE, UNSPECIFIED Status: Chronic Comment: Continue Coreg 6.25mg BID (7) Hypertension Code(s): I10 - ESSENTIAL (PRIMARY) HYPERTENSION Status: Chronic Qualifiers: Hypertension type: essential hypertension Qualified Code(s): I10 - Essential (primary) hypertension Comment: controlled (8) Oropharyngeal dysphagia Code(s): R13.12 - DYSPHAGIA, OROPHARYNGEAL PHASE Status: Acute Comment: Severe, no consistencies safe, aspiration with all, PEG placed this morning - Plan cont current plan of care, PT/OT, DVT proph w/lovenox will need rehab vs. SNF * . - Discharge Day Encounter end time: 10:15
[2018-09-25] MEDS ORDERED: Ketamine 50 MG/ML (10ML VIAL) ONE (08:33)
[2018-09-25] MEDS ORDERED: PACU-Morphine 4MG/ML VIAL SLOW IVP PRN (09:11)
[2018-09-25] MEDS ORDERED: Promethazine HCl 25 MG/ML VIAL SLOW IVP PRN (09:11)
[2018-09-25] MEDS ORDERED: Promethazine HCl 25 MG/ML VIAL IM PRN (09:11)
[2018-09-25] MEDS ORDERED: Ondansetron HCl/PF 4 MG/2 ML Vial IVP PRN (09:11)
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
[2018-09-25] MEDS: Metoprolol Tartrate 50 MG TAB PER TUBE SCH ×2 (10:25→20:42)
--- NOTE | 2018-09-25 10:28 | OP ---
DATE OF PROCEDURE: 09/25/2018 PREOPERATIVE DIAGNOSES: Perforated diverticulitis, ileostomy, encephalopathic, abnormal swallow evaluation. ANESTHESIA: TIVA, local 1% Xylocaine. PROCEDURE PERFORMED: Percutaneous endoscopic gastrostomy tube. DESCRIPTION OF PROCEDURE: The patient was taken to the endoscopy suite, where under intravenous sedation, in the supine position, endoscope was placed per os under direct visualization using air insufflation, passed throughout the esophagus, and the stomach insufflated with air. A good indentation noted at the left subcostal. ChloraPrep used. Local anesthetic was infiltrated in the skin and subcutaneous tissue. Stab incision was made. Trocar catheter introduced percutaneously in the gastric lumen, visualized endoscopically with the stomach insufflated with air. Snare placed around the trocar catheter. Wire advanced, grasping the wire and pulling the wire out of the mouth as well as the endoscope. Stomach and esophagus were otherwise normal. Feeding device lubricated and connected to the wire and pulled back down the esophagus and fixated to the abdominal wall with a fixation device and tube tailored to length, and the feeding device was secured. The patient tolerated the procedure well. Job ID: [id number]
[2018-09-25] MEDS ORDERED: PROPOFOL 200 MG/20 ML VIAL ONE (10:52)
--- NOTE | 2018-09-25 11:15 | PRG ---
DATE OF SERVICE: 09/25/2018 SUBJECTIVE: Des Westfall is a 63-year-old gentleman, status post PEG. OBJECTIVE: VITAL SIGNS: Saturation is 98% on 2 L, respiratory rate 18, temperature 97, pulse 71, and blood pressure is 127/68. GENERAL: Does not appear to be in any distress. CHEST: Decreased breath sounds. No wheezing. CARDIAC: Normal S1, S2. No gallops. ABDOMEN: No masses. HEENT: His throat shows no more thrush, but he still has a large thickened mucous plaques sitting on the top of his hard palate. This was shown to the nurses to do oral hygiene care at least twice a day. IMPRESSION: 1. Chronic obstructive pulmonary disease. 2. Status post lap. Eventually placement. Pulmonary will follow at a distance. Please call if needed. Job ID: [id number]
[2018-09-25] MEDS: Ondansetron PF 4 MG/2 ML Vial IVP PRN (13:26)
[2018-09-25] MEDS: Chlorhexidine Gluconate 15 ML UDCUP SSP PRN (13:28)
[2018-09-25] MEDS: Enoxaparin Sodium 30 MG/0.3 ML SYRINGE SC SCH (20:42)
[2018-09-25] MEDS: Atorvastatin Calcium 20 MG TAB PO SCH (20:42)
[2018-09-25] MEDS: Acetaminophen/Codeine Oral Solution PO PRN (20:43)
[2018-09-25] MEDS: Famotidine 40 MG/5 ML Oral Suspension PER TUBE SCH (20:48)
[2018-09-25] MEDS ORDERED: Famotidine 40 MG/5 ML Oral Suspension PER TUBE SCH ×2 (21:00)
--- NOTE | 2018-09-25 21:11 | PRG ---
DATE OF SERVICE: 09/25/2018 SUBJECTIVE: The patient is seen and examined, noted with the following vital signs. OBJECTIVE: VITAL SIGNS: Afebrile, temperature 97.8, pulse 87, respiratory rate of 18, O2 saturation 94%, and blood pressure 147/76. HEENT: Unremarkable. CARDIOVASCULAR SYSTEM: First and second heart sounds were heard. RESPIRATORY SYSTEM: Clear to auscultation. DIGESTIVE SYSTEM: Revealed a benign abdomen. EXTREMITIES: No peripheral edema. SKIN: No new gross rash. LYMPHATICS: No peripheral lymphadenopathy. IMPRESSION: 1. Acute kidney injury, which is much improved. 2. Hypernatremia, resolved, status post free water repletion. 3. Failure to thrive. PLAN: We will continue current renal supportive measures. Job ID: [id number]
[2018-09-26] MEDS: Acetaminophen/Codeine Oral Solution PO PRN ×2 (03:36→22:16)
[2018-09-26 03:59] LABS: #Eosinphils 0.3 thou/uL (0.0-0.7); #Monocytes 0.7 thou/uL (0.11-0.59); #Neutrophils 5.4 thou/uL (1.40-6.50); %Basophils 0.4 % (0.0-1.0); %Eosinophils 3.8 % (0.0-10.0); %Lymphocytes 13.8 % (21.0-51.0); %Monocytes 8.8 % (0.0-10.0); %Neutrophils 73.2 % (42.0-75.0); Hemoglobin 8.4 g/dL (14.0-18.0); Mean Corpuscular HGB CONC 32.7 g/dL (32.0-36.0); Mean Corpuscular Hemoglobin 30.7 pg (27.0-31.0); Mean Corpuscular Volume 93.7 fL (78.0-98.0); Mean Platelet Volume 8.4 fL (7.4-10.4); Platelet Count 174 thou/uL (130-400); RBC Distribution Width 12.3 % (11.5-14.5); Red Blood Cell (RBC) Count 2.74 mill/uL (4.70-6.10); White Blood Cell (WBC) Count 7.4 thou/uL (4.8-10.8)
[2018-09-26 04:18] LABS: Anion Gap 14 mmol/L (10-20); BUN (Urea Nitrogen) 27 mg/dL (8.4-25.7); Calc. Creatinine Clearance 44 mL/min (70-130); Calcium 8.4 mg/dL (7.8-10.44); Carbon Dioxide 22 mmol/L (23-31); Chloride 108 mmol/L (98-107); Estimated GFR-MDRD 37; Glucose 124 mg/dL (80-115); Magnesium 1.3 mg/dL (1.6-2.6); Phosphorus 3.6 mg/dL (2.3-4.7); Potassium 4.2 mmol/L (3.5-5.1); Sodium 140 mmol/L (136-145)
[2018-09-26] MEDS: Acetaminophen 650 MG/20.3 ML UDCUP PO SCH ×4 (06:08→23:52)
[2018-09-26] MEDS: Sodium Chloride 0.9% 1,000 ML IV SCH (06:08)
[2018-09-26] MEDS ORDERED: Magnesium Sulfate 4 GM in Sodium Chloride 0.9% 250 ML 250 ML IVPB SCH (06:45)
[2018-09-26] MEDS ORDERED: Magnesium 2 GM/50 ML 4 GM in Premix Bag 1 BAG IVPB SCH (06:45)
--- NOTE | 2018-09-26 08:37 | PDOC.PN ---
- Subjective Encounter Start Date: 09/26/18 Encounter Start Time: 13:20 Subjective: Patient without complaint. Still a bit slow and confused which has been -: baseline for him since the surgery. - Objective MAR Reviewed: Yes Vital Signs & Weight: Vital Signs (12 hours) Temp Pulse Resp BP Pulse Ox 09/26/18 07:33 95 09/26/18 07:32 82 16 95 09/26/18 07:28 98.1 F 83 18 137/73 94 L 09/26/18 03:22 98.3 F 79 18 123/71 94 L 09/26/18 02:09 78 12 95 09/26/18 00:08 94 L 09/25/18 23:40 97.4 F L 79 18 137/78 94 L 09/25/18 22:15 91 99 09/25/18 20:55 97.4 F L 91 20 128/74 100 Weight Admit Weight 186 lb 14.4 oz Weight 179 lb 8 oz Most Recent Monitor Data Heart Rate from ECG 80 NIBP 174/66 NIBP BP-Mean 102 Respiration from ECG 26 SpO2 95 I&O: 09/25/18 09/26/18 09/27/18 06:59 06:59 06:59 Intake Total 2500 3205 Output Total 1975 1800 Balance 525 1405 Result Diagrams: 09/26/18 03:41 09/26/18 03:41 Additional Labs: Accuchecks 09/26/18 09/26/18 09/25/18 05:37 00:34 18:09 POC Glucose 120 H 118 H 101 09/25/18 09/25/18 09/24/18 11:00 05:46 23:12 POC Glucose 90 100 93 Phys Exam - Physical Examination Constitutional: NAD HEENT: moist MMs Respiratory: no wheezing, no rales, no rhonchi Cardiovascular: RRR, no significant murmur Gastrointestinal: soft, positive bowel sounds abdominal binder convering PEG Neurological: non-focal, moves all 4 limbs Psychiatric: normal affect Dx/Plan (1) Perforated sigmoid colon Code(s): K63.1 - PERFORATION OF INTESTINE (NONTRAUMATIC) Status: Acute Comment: s/p surgery (2) Acute respiratory failure with hypoxia Code(s): J96.01 - ACUTE RESPIRATORY FAILURE WITH HYPOXIA Status: Acute Comment: extubated and on the surgical floor (3) EMILY (acute kidney injury) Code(s): N17.9 - ACUTE KIDNEY FAILURE, UNSPECIFIED Status: Acute Comment: creatinine improved to 1.87 09/26, nephrology following, possibly reintroduce DARLIN- I at some point (4) Hypernatremia Code(s): E87.0 - HYPEROSMOLALITY AND HYPERNATREMIA Status: Resolved (5) CAD (coronary artery disease) Code(s): I25.10 - ATHSCL HEART DISEASE OF [place] CORONARY ARTERY W/O ANG PCTRS Status: Chronic Comment: continue med mgmt with ASA, Lipitor, Coreg (6) Grade I diastolic dysfunction Code(s): I51.9 - HEART DISEASE, UNSPECIFIED Status: Chronic Comment: Coreg had been stopped with acute illness and intubation, restarted at 3.125mg BID per Dr. Fernandes. (7) Hypertension Code(s): I10 - ESSENTIAL (PRIMARY) HYPERTENSION Status: Chronic Qualifiers: Hypertension type: essential hypertension Qualified Code(s): I10 - Essential (primary) hypertension (8) Oropharyngeal dysphagia Code(s): R13.12 - DYSPHAGIA, OROPHARYNGEAL PHASE Status: Acute Comment: Severe, no consistencies safe, aspiration with all, PEG placed, advancing to full tube feeds tomorrow - Plan cont current plan of care, PT/OT, DVT proph w/lovenox awaiting SNF placement * . - Discharge Day Encounter end time: 13:35
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
[2018-09-26] MEDS: Potassium Bicarbonate/Cit Ac 25 MEQ TAB PO SCH ×2 (10:18→18:47)
[2018-09-26] MEDS: Aspirin Chewable 81 MG TAB PO SCH (10:19)
[2018-09-26] MEDS: Metoprolol Tartrate 50 MG TAB PER TUBE SCH ×2 (10:19→20:03)
--- NOTE | 2018-09-26 15:01 | PRG ---
DATE OF SERVICE: 09/26/2018 SUBJECTIVE: The patient was seen this morning sitting up in bed with no signs of acute distress. He is nodding his head appropriately and participating in one-word sentences. He had no acute events overnight. He did receive a PEG placement yesterday by Dr. Hogan and has been tolerating bolus tube feeds since that time. He is pending placement at a snf facility. OBJECTIVE: VITAL SIGNS: Temperature 98.6, pulse 87, respirations 18, oxygen saturation 94% on room air, and blood pressure 136/74. GENERAL: Elderly male, sitting up in bed with no signs of acute distress. PULMONARY: Equal chest rise and fall. Clear breath sounds bilaterally. No signs of acute respiratory distress. CARDIAC: Regular rate and rhythm. No murmurs, gallops or rubs. GI: Abdomen is soft, nontender, and nondistended. PEG tube in place with no active bleeding and no signs of infection. EXTREMITIES: 2+ pulses in all extremities. No significant swelling noted. Gross motor and sensation intact in all extremities. LABORATORY FINDINGS: White count 7.4, hemoglobin 8.4, hematocrit 25.7, and platelets 174. Sodium 140, potassium 4.2, chloride 102, carbon dioxide 22, BUN 27, creatinine 1.87, glucose 124, phos 3.6, and magnesium 1.3. DIAGNOSTIC FINDINGS: There are no new diagnostic findings to report. ASSESSMENT: 1. Status post colon perforation and exploratory laparotomy with hemicolectomy. 2. Status post acute respiratory failure, resolved. 3. Status post acute renal failure, resolving. 4. Failure to thrive. 5. History of hypertension. 6. Hypomagnesemia. PLAN: We will continue with tube feedings today. We will start half of the goal today and increase to full tube feedings tomorrow. Discontinue Rizzo today. Discontinue IV fluids. We will try to place a peripheral IV and subsequently remove the left-sided subclavian central line. Replace magnesium IV today. The patient is pending placement at snf facility. The patient was seen and examined by Dr. Hogan and myself this morning during rounds. Job ID: [id number]
[2018-09-26] MEDS: Carvedilol 3.125 MG TAB PER TUBE SCH (18:46)
[2018-09-26] MEDS: Enoxaparin Sodium 30 MG/0.3 ML SYRINGE SC SCH (20:03)
[2018-09-26] MEDS: Atorvastatin Calcium 20 MG TAB PO SCH (20:03)
[2018-09-26] MEDS: Famotidine 40 MG/5 ML Oral Suspension PER TUBE SCH (20:04)
[2018-09-27] MEDS: Acetaminophen 650 MG/20.3 ML UDCUP PO SCH ×4 (05:58→23:57)
[2018-09-27 06:19] LABS: Anion Gap 13 mmol/L (10-20); BUN (Urea Nitrogen) 28 mg/dL (8.4-25.7); Calc. Creatinine Clearance 52 mL/min (70-130); Calcium 8.8 mg/dL (7.8-10.44); Carbon Dioxide 25 mmol/L (23-31); Chloride 106 mmol/L (98-107); Estimated GFR-MDRD 43; Glucose 99 mg/dL (80-115); Magnesium 2.4 mg/dL (1.6-2.6); Phosphorus 2.4 mg/dL (2.3-4.7); Potassium 4.1 mmol/L (3.5-5.1); Sodium 140 mmol/L (136-145)
[2018-09-27] MEDS ORDERED: PHOS-NAK 1 PKT PACK PO SCH (07:30)
--- NOTE | 2018-09-27 07:51 | PDOC.PN ---
- Subjective Encounter Start Date: 09/27/18 Encounter Start Time: 13:20 Subjective: Patient became more tachpneic this AM, O2 sats dropped some, stable on NC -: O2. Getting neb and improving some. No other complaints. - Objective MAR Reviewed: Yes Vital Signs & Weight: Vital Signs (12 hours) Temp Pulse Resp BP Pulse Ox 09/27/18 06:57 79 14 95 09/27/18 03:53 98.4 F 78 22 H 152/76 H 94 L 09/27/18 02:48 81 12 09/26/18 23:50 98.3 F 81 20 146/72 H 93 L 09/26/18 22:08 76 12 Weight Admit Weight 186 lb 14.4 oz Weight 177 lb 11.2 oz Most Recent Monitor Data Heart Rate from ECG 80 NIBP 174/66 NIBP BP-Mean 102 Respiration from ECG 26 SpO2 95 I&O: 09/26/18 09/27/18 09/28/18 06:59 06:59 06:59 Intake Total 3205 1990 Output Total 1800 1305 Balance 1405 685 Result Diagrams: 09/26/18 03:41 09/27/18 05:27 Additional Labs: Accuchecks 09/27/18 09/27/18 09/26/18 05:36 00:01 17:59 POC Glucose 96 120 H 103 09/26/18 11:42 POC Glucose 120 H Radiology Reviewed by me: Yes (CXR showing new infiltrate in RLL c/w aspiration) Phys Exam - Physical Examination mild respiratory distress HEENT: moist MMs Respiratory: no wheezing, no rales, no rhonchi mild tachypnea Cardiovascular: RRR Gastrointestinal: soft, positive bowel sounds Neurological: non-focal, moves all 4 limbs Psychiatric: normal affect Dx/Plan (1) Aspiration pneumonia Code(s): J69.0 - PNEUMONITIS DUE TO INHALATION OF FOOD AND VOMIT Status: Acute Qualifiers: Laterality: right Lung location: lower lobe of lung Comment: Started on Zosyn 08/27/18, Dr. Koch following (2) Acute respiratory failure with hypoxia Code(s): J96.01 - ACUTE RESPIRATORY FAILURE WITH HYPOXIA Status: Acute Comment: extubated and on the surgical floor, worsened some 08/27/18, ABG with mildly low CO2 and mildly low O2 (3) Perforated sigmoid colon Code(s): K63.1 - PERFORATION OF INTESTINE (NONTRAUMATIC) Status: Acute Comment: s/p surgery (4) EMILY (acute kidney injury) Code(s): N17.9 - ACUTE KIDNEY FAILURE, UNSPECIFIED Status: Acute Comment: creatinine improved to 1.64 09/27, nephrology following, possibly reintroduce DARLIN- I at some point (5) Hypernatremia Code(s): E87.0 - HYPEROSMOLALITY AND HYPERNATREMIA Status: Resolved (6) CAD (coronary artery disease) Code(s): I25.10 - ATHSCL HEART DISEASE OF [place] CORONARY ARTERY W/O ANG PCTRS Status: Chronic Comment: continue med mgmt with ASA, Lipitor, Coreg (7) Grade I diastolic dysfunction Code(s): I51.9 - HEART DISEASE, UNSPECIFIED Status: Chronic Comment: Coreg had been stopped with acute illness and intubation, restarted at 3.125mg BID per Dr. Fernandes. (8) Hypertension Code(s): I10 - ESSENTIAL (PRIMARY) HYPERTENSION Status: Chronic Qualifiers: Hypertension type: essential hypertension Qualified Code(s): I10 - Essential (primary) hypertension (9) Oropharyngeal dysphagia Code(s): R13.12 - DYSPHAGIA, OROPHARYNGEAL PHASE Status: Acute Comment: Severe, no consistencies safe, aspiration with all, PEG placed, advancing to full tube feeds tomorrow - Plan cont current plan of care, PT/OT, member services representative Attempted to contact patient's son about code status, his cell phone not -: picking up, will need to continue trying to get a hold of him. * . - Discharge Day Encounter end time: 13:40
[2018-09-27] MEDS: Aspirin Chewable 81 MG TAB PO SCH (08:43)
[2018-09-27] MEDS: Metoprolol Tartrate 50 MG TAB PER TUBE SCH ×2 (08:43→21:56)
[2018-09-27] MEDS: Carvedilol 3.125 MG TAB PER TUBE SCH ×2 (08:43→16:44)
[2018-09-27] MEDS: Potassium Bicarbonate/Cit Ac 25 MEQ TAB PO SCH ×2 (08:43→16:44)
[2018-09-27 13:30] LABS: Actual Bicarbonate (HCO3a) 24.8 mEq/L (22-28); Base Excess (BEa) 1.4 mEq/L (-2.0 to +3.0); CO2 Tension 34.5 mmHg (35.0-45.0); Calcium, Ionized 1.15 mmol/L (1.12-1.30); Carboxyhemoglobin (COHb) 1.1 gm% (0.0-3.0); Hemoglobin (Hb) 10.9 g/dL (14.0-18.0); O2 Tension (PaO2) 66.5 mmHg (> 80.0); Potassium - ABG Lab 4.42 mmol/L (3.70-5.30); pH, Arterial 7.47 (7.35-7.45)
[2018-09-27 13:35] LABS: ALV-art Gradient 90.015 (0-20); Puncture Site RRA
[2018-09-27] MEDS ORDERED: Piperacillin/Tazobactam 4.5 GM in Sodium Chloride 0.9% 100 ML IVPB SCH (14:00)
--- NOTE | 2018-09-27 15:53 | RAD ---
RADIOGRAPH CHEST 1 VIEW: Date: 09/27/18 Time: 12;57 p.m. HISTORY: 63-year-old male with tachypnea and hypoxemia. COMPARISON: 09/22/18. FINDINGS: Left subclavian central vascular catheter has been removed. The loop recorder overlying the left mid- lower chest remains. There is a small patchy, approximately 3 cm ill-defined infiltrate-like opacity overlying the right lower lung zone, projecting in a different location than previously because of po sitional differences. No pulmonary edema or pneumothorax. No cardiomegaly. IMPRESSION: 1. Small focal density on the right. Possible early acute infiltrate versus scar. Recommend cont inued follow-up. 2. No pulmonary edema. ENEDINA [] POS: NBA
[2018-09-27] MEDS: Piperacillin/Tazobactam 2.25 GM in Sodium Chloride 0.9% 100 ML IVPB SCH ×2 (16:42→23:57)
--- NOTE | 2018-09-27 16:44 | PRG ---
DATE OF SERVICE: 09/27/2018 SUBJECTIVE: Des Westfall who has been in the hospital now for a prolonged period of time. This morning apparently, he choked on his food and aspirated. Chest x- ray shows what appears to be a new right-sided infiltrate. OBJECTIVE: VITAL SIGNS: He is sitting on the side of the bed right now with sats _955 blood pressure 146/76 with mild distress. HEENT: His throat looks much improved from the previous examination. There is less retained mucus in the back of the throat. CHEST: Decreased breath sounds. No wheezing. CARDIAC: Normal S1 and S2. No gallops. ABDOMEN: No masses. LABORATORY DATA: Creatinine 1.64, elevated baseline creatinine is 1.872. Gases show pO2 of 66, pCO2 37 ph7,43. ASSESSMENT: Recurrent aspiration, marked weakness, prolonged hospitalization 4 weeks status post laparotomy, status post dysphagia. Zosyn was initiated. It just needs to be adjusted for the patient's renal failure. Continue supportive care. We will follow from time to time. Job ID: [id number] [facility]
[2018-09-27] MEDS: Famotidine 40 MG/5 ML Oral Suspension PER TUBE SCH (21:56)
[2018-09-27] MEDS: Enoxaparin Sodium 30 MG/0.3 ML SYRINGE SC SCH (21:56)
[2018-09-27] MEDS: Atorvastatin Calcium 20 MG TAB PO SCH (21:56)
[2018-09-27] MEDS: Acetaminophen/Codeine Oral Solution PO PRN (22:00)
[2018-09-27] MEDS ORDERED: Morphine 2 MG/ML SYRINGE SLOW IVP SCH (23:00)
[2018-09-28] MEDS: Acetaminophen 650 MG/20.3 ML UDCUP PO SCH ×3 (05:39→17:59)
[2018-09-28 07:01] LABS: Anion Gap 13 mmol/L (10-20); BUN (Urea Nitrogen) 29 mg/dL (8.4-25.7); Calc. Creatinine Clearance 52 mL/min (70-130); Calcium 8.9 mg/dL (7.8-10.44); Carbon Dioxide 27 mmol/L (23-31); Chloride 105 mmol/L (98-107); Estimated GFR-MDRD 44; Glucose 112 mg/dL (80-115); Magnesium 1.7 mg/dL (1.6-2.6); Phosphorus 3.2 mg/dL (2.3-4.7); Potassium 4.1 mmol/L (3.5-5.1); Sodium 141 mmol/L (136-145)
--- NOTE | 2018-09-28 08:12 | PRG ---
DATE OF SERVICE: 09/27/2018 SUBJECTIVE: The patient was seen this morning, sitting up in bed with no signs of acute distress. Nodding his head appropriately and participating in one-word interactions. Does appear more clear and alert today. No issues with the PEG tube at this time. He is pending placement at a custodial facility. OBJECTIVE: VITAL SIGNS: Temperature 98.5, pulse 85, respirations 26, oxygen saturation 94% on room air, and blood pressure 145/72. GENERAL: Elderly male, sitting up in bed with no signs of acute distress. PULMONARY: Equal chest rise and fall. Clear breath sounds bilaterally. No signs of acute respiratory distress. CARDIAC: Regular rate and rhythm. No murmurs, gallops, or rubs. GI: Abdomen is soft, nontender, nondistended. PEG tube in place with no active bleeding or signs of infection. EXTREMITIES: 2+ pulses in all extremities. No significant swelling noted. Gross motor and sensations are intact. LABORATORY FINDINGS: Sodium 144, potassium 4.1, chloride 106, carbon dioxide 25, BUN 28, creatinine 1.64, glucose 99, phos 2.4, magnesium 2.4. DIAGNOSTIC FINDINGS: There are no new diagnostic findings to discuss. ASSESSMENT: 1. Status post colon perforation and ex-lap with hemicolectomy. 2. Status post acute respiratory failure, resolved. 3. Status post acute renal failure, resolving. 4. Failure to thrive. 5. History of hypertension. 6. Hypophosphatemia. PLAN: Continue tube feedings today at goal, replace phosphorus today. Continue to work with Physical and Occupational Therapy. The patient should be up and out of the bed and into a chair t.i.d. He is pending placement at a custodial facility. He is ready for discharge at this time. The patient was seen and examined by Dr. Hogan this morning during rounds. Job ID: [id number]
--- NOTE | 2018-09-28 09:08 | PRG ---
DATE OF SERVICE: 09/28/2018 SUBJECTIVE: Des Westfall this morning is still encephalopathic and weak. Denies any pain or discomfort. OBJECTIVE: VITAL SIGNS: Saturations 92% on 2 liters, respirations 24, temperature 98, pulse 90, blood pressure 170/71. CHEST: Decreased breath sounds. Rhonchi, right greater than left. CARDIAC: Normal S1 and S2. No gallops. ABDOMEN: No mass. ASSESSMENT AND PLAN: Right lung pneumonia aspiration, severe deconditioning, prolonged hospital stay for laparotomy. He was switched over to Augmentin by Surgery today. Continue supportive care and PT. We will follow as needed. Job ID: [id number]
[2018-09-28] MEDS: Carvedilol 3.125 MG TAB PER TUBE SCH ×2 (09:47→17:59)
[2018-09-28] MEDS: Potassium Bicarbonate/Cit Ac 25 MEQ TAB PO SCH ×2 (09:48→17:59)
[2018-09-28] MEDS: Metoprolol Tartrate 50 MG TAB PER TUBE SCH ×2 (09:48→21:34)
[2018-09-28] MEDS: Aspirin Chewable 81 MG TAB PO SCH (09:48)
[2018-09-28] MEDS: Amoxicillin/Potassium Clav 400 mg/5 ml Oral Suspension PER TUBE SCH ×2 (09:57→21:34)
[2018-09-28] MEDS: hydrALAZINE 20 MG/ML VIAL SLOW IVP PRN (12:42)
[2018-09-28] MEDS: Piperacillin/Tazobactam 2.25 GM in Sodium Chloride 0.9% 100 ML IVPB SCH (14:18)
--- NOTE | 2018-09-28 14:44 | PRG ---
DATE OF SERVICE: 09/28/2018 SUBJECTIVE: The patient remains on the surgical floor status post laparotomy with left colectomy for perforated sigmoid colon, fecal peritonitis, PEG tube placement, segmental transverse colectomy, and end-transverse colostomy. The patient has been stable the last few days. In regard to his surgery, he is still being medically managed by the Medicine Team. From our standpoint, the patient is tolerating his PEG tube feedings and his ostomy is functioning. OBJECTIVE: VITAL SIGNS: Temperature is 98.5, heart rate 90, blood pressure 170/71, respirations 24, and oxygen saturation is 92% on 2 L via nasal cannula. GENERAL: The patient is resting comfortably in bed. He is awake and appears to be at his baseline per nursing staff, does answer very simple questions and follow simple commands. HEENT: Unremarkable. LUNGS: Clear to auscultation. HEART: Regular rate and rhythm. ABDOMEN: Soft and nontender with active bowel sounds with functioning colostomy with air and stool in his colostomy bag. EXTREMITIES: Neurovascularly intact x4. LABORATORY FINDINGS: Sodium 141, potassium 4.1, chloride 105, CO2 of 27, BUN 29, creatinine 1.60, glucose 112, magnesium 1.7, and phosphorus 3.2. There are no radiographs reviewed this morning. ASSESSMENT: 1. Status post laparotomy and left colectomy, segmental transverse colectomy. 2. Partial omentectomy. 3. End-transverse colostomy. 4. Multiple medical comorbidities to include suspected pneumonia and acute kidney injury. PLAN: From a surgical standpoint, the patient is stable. We will sign off this time. Continue tube feedings per the PEG tube and colostomy care. We will be available during the patient's hospital stay as needed. The patient was seen this morning with Dr. Hogan during rounds. Job ID: [id number]
[2018-09-28] MEDS: Acetaminophen/Codeine Oral Solution PO PRN (21:32)
[2018-09-28] MEDS: Enoxaparin Sodium 30 MG/0.3 ML SYRINGE SC SCH (21:33)
[2018-09-28] MEDS: Atorvastatin Calcium 20 MG TAB PO SCH (21:34)
[2018-09-28] MEDS: Famotidine 40 MG/5 ML Oral Suspension PER TUBE SCH (21:34)
--- NOTE | 2018-09-28 21:40 | PDOC.PN ---
- Subjective Encounter Start Date: 09/28/18 Encounter Start Time: 18:30 Nurse reports he has pulled his IV out again. He is baseline mildly altered. - Objective MAR Reviewed: Yes Vital Signs & Weight: Vital Signs (12 hours) Temp Pulse Resp BP BP Pulse Ox 09/28/18 20:24 98.1 F 90 18 143/75 H 95 09/28/18 18:41 86 16 95 09/28/18 16:35 98.2 F 86 18 148/76 H 93 L 09/28/18 13:31 88 19 09/28/18 12:42 80 179/72 H 09/28/18 11:37 97.9 F 80 24 H 179/72 H 95 Weight Admit Weight 186 lb 14.4 oz Weight 173 lb 6.4 oz Most Recent Monitor Data Heart Rate from ECG 80 NIBP 174/66 NIBP BP-Mean 102 Respiration from ECG 26 SpO2 95 I&O: 09/27/18 09/28/18 09/29/18 06:59 06:59 06:59 Intake Total 1990 950 390 Output Total 1305 1375 300 Balance 685 -425 90 Result Diagrams: 09/26/18 03:41 09/28/18 06:18 Additional Labs: Accuchecks 09/28/18 09/28/18 09/28/18 17:54 11:41 05:52 POC Glucose 100 79 92 09/28/18 09/25/18 00:26 08:00 POC Glucose 120 H 111 H Phys Exam - Physical Examination Constitutional: NAD Respiratory: no wheezing, no rales, no rhonchi Cardiovascular: RRR, no significant murmur, no rub Gastrointestinal: soft, non-tender, no distention, positive bowel sounds Dx/Plan (1) Acute respiratory failure with hypoxia Code(s): J96.01 - ACUTE RESPIRATORY FAILURE WITH HYPOXIA Status: Acute Comment: extubated and on the surgical floor, worsened some 08/27/18, ABG with mildly low CO2 and mildly low O2 (2) Aspiration pneumonia Code(s): J69.0 - PNEUMONITIS DUE TO INHALATION OF FOOD AND VOMIT Status: Acute Qualifiers: Laterality: right Lung location: lower lobe of lung Comment: Started on Zosyn 08/27/18, Dr. Koch following (3) EMILY (acute kidney injury) Code(s): N17.9 - ACUTE KIDNEY FAILURE, UNSPECIFIED Status: Acute Comment: creatinine improved to 1.64 09/27, nephrology following, possibly reintroduce DARLIN- I at some point (4) Oropharyngeal dysphagia Code(s): R13.12 - DYSPHAGIA, OROPHARYNGEAL PHASE Status: Acute Comment: Severe, no consistencies safe, aspiration with all, PEG placed, advancing to full tube feeds tomorrow (5) Perforated sigmoid colon Code(s): K63.1 - PERFORATION OF INTESTINE (NONTRAUMATIC) Status: Acute Comment: s/p surgery (6) CAD (coronary artery disease) Code(s): I25.10 - ATHSCL HEART DISEASE OF [place] CORONARY ARTERY W/O ANG PCTRS Status: Chronic Comment: continue med mgmt with ASA, Lipitor, Coreg (7) Grade I diastolic dysfunction Code(s): I51.9 - HEART DISEASE, UNSPECIFIED Status: Chronic Comment: Coreg had been stopped with acute illness and intubation, restarted at 3.125mg BID per Dr. Fernandes. (8) Hypertension Code(s): I10 - ESSENTIAL (PRIMARY) HYPERTENSION Status: Chronic Qualifiers: Hypertension type: essential hypertension Qualified Code(s): I10 - Essential (primary) hypertension (9) Hypernatremia Code(s): E87.0 - HYPEROSMOLALITY AND HYPERNATREMIA Status: Resolved - Plan continue antibiotics, PT/OT, social insurance specialist * Ready for placement. Working on swing bed. * On oral Augmenti.
[2018-09-29] MEDS: Acetaminophen 650 MG/20.3 ML UDCUP PO SCH ×5 (01:40→23:48)
[2018-09-29] MEDS: Acetaminophen/Codeine 120-12MG/5 ML UDCUP PO PRN ×2 (01:57→22:21)
[2018-09-29] MEDS: Metoprolol Tartrate 50 MG TAB PER TUBE SCH ×2 (09:41→21:59)
[2018-09-29] MEDS: Carvedilol 3.125 MG TAB PER TUBE SCH ×2 (09:41→18:07)
[2018-09-29] MEDS: Amoxicillin/Potassium Clav 400 mg/5 ml Oral Suspension PER TUBE SCH ×2 (09:41→21:59)
[2018-09-29] MEDS: Aspirin Chewable 81 MG TAB PO SCH (09:41)
[2018-09-29] MEDS: Potassium Bicarbonate/Cit Ac 25 MEQ TAB PO SCH ×2 (09:41→18:07)
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
[2018-09-29] MEDS: Atorvastatin Calcium 20 MG TAB PO SCH (21:59)
[2018-09-29] MEDS: Enoxaparin Sodium 40 MG/0.4 ML SYRINGE SC SCH (21:59)
[2018-09-29] MEDS: Famotidine 40 MG/5 ML Oral Suspension PER TUBE SCH (21:59)
[2018-09-30] MEDS: Acetaminophen 650 MG/20.3 ML UDCUP PO SCH ×3 (05:28→18:20)
[2018-09-30] MEDS: Acetaminophen/Codeine 120-12MG/5 ML UDCUP PO PRN (05:28)
[2018-09-30] MEDS: Metoprolol Tartrate 50 MG TAB PER TUBE SCH ×2 (10:15→21:23)
[2018-09-30] MEDS: Carvedilol 3.125 MG TAB PER TUBE SCH ×2 (10:15→18:20)
[2018-09-30] MEDS: Potassium Bicarbonate/Cit Ac 25 MEQ TAB PO SCH ×2 (10:15→18:20)
[2018-09-30] MEDS: Aspirin Chewable 81 MG TAB PO SCH (10:15)
[2018-09-30] MEDS: Amoxicillin/Potassium Clav 400 mg/5 ml Oral Suspension PER TUBE SCH ×2 (10:16→21:23)
--- NOTE | 2018-09-30 12:31 | PDOC.PN ---
- Subjective Encounter Start Date: 09/30/18 Encounter Start Time: 10:45 Doing well. Only complains of feeling cold. - Objective Vital Signs & Weight: Vital Signs (12 hours) Temp Pulse Resp BP Pulse Ox 09/30/18 12:00 97.8 F 90 26 H 147/67 H 97 09/30/18 07:48 87 22 H 94 L 09/30/18 07:30 98.4 F 83 22 H 137/77 97 09/30/18 04:00 97.8 F 78 18 116/76 97 Weight Admit Weight 186 lb 14.4 oz Weight 177 lb Most Recent Monitor Data Heart Rate from ECG 80 NIBP 174/66 NIBP BP-Mean 102 Respiration from ECG 26 SpO2 95 I&O: 09/29/18 09/30/18 10/01/18 06:59 06:59 06:59 Intake Total 840 1223 Output Total 780 990 Balance 60 233 Result Diagrams: 09/26/18 03:41 09/28/18 06:18 Additional Labs: Accuchecks 09/30/18 09/30/18 09/30/18 11:34 06:28 00:02 POC Glucose 88 127 H 86 09/29/18 18:28 POC Glucose 74 Phys Exam - Physical Examination Constitutional: NAD Respiratory: no wheezing, no rales, no rhonchi, clear to auscultation bilateral Cardiovascular: RRR, no significant murmur, no rub Gastrointestinal: soft, non-tender, no distention, positive bowel sounds PEG, Colostomy Musculoskeletal: no edema Psychiatric: normal affect Skin: normal turgor Dx/Plan (1) Acute respiratory failure with hypoxia Code(s): J96.01 - ACUTE RESPIRATORY FAILURE WITH HYPOXIA Status: Resolved Comment: extubated and on the surgical floor, worsened some 08/27/18, ABG with mildly low CO2 and mildly low O2 (2) Aspiration pneumonia Code(s): J69.0 - PNEUMONITIS DUE TO INHALATION OF FOOD AND VOMIT Status: Acute Qualifiers: Laterality: right Lung location: lower lobe of lung Comment: Enteral Augmentin. (3) EMILY (acute kidney injury) Code(s): N17.9 - ACUTE KIDNEY FAILURE, UNSPECIFIED Status: Acute Comment: GFR improved to 40's and continues to improve. (4) Oropharyngeal dysphagia Code(s): R13.12 - DYSPHAGIA, OROPHARYNGEAL PHASE Status: Acute Comment: Severe, no consistencies safe, aspiration with all, PEG placed, advancing to full tube feeds tomorrow (5) Perforated sigmoid colon Code(s): K63.1 - PERFORATION OF INTESTINE (NONTRAUMATIC) Status: Acute Comment: s/p left and segmental transverse colectomy with colostomy. Gen Surg following. (6) CAD (coronary artery disease) Code(s): I25.10 - ATHSCL HEART DISEASE OF [place] CORONARY ARTERY W/O ANG PCTRS Status: Chronic Comment: RCA and LCx occlusion with filling from LAD collaterals. continue med mgmt with ASA, Lipitor, Coreg (7) Grade I diastolic dysfunction Code(s): I51.9 - HEART DISEASE, UNSPECIFIED Status: Chronic Comment: Currently on metoprolol. (8) Hypertension Code(s): I10 - ESSENTIAL (PRIMARY) HYPERTENSION Status: Chronic Qualifiers: Hypertension type: essential hypertension Qualified Code(s): I10 - Essential (primary) hypertension (9) Hypernatremia Code(s): E87.0 - HYPEROSMOLALITY AND HYPERNATREMIA Status: Resolved (10) Dysphagia Code(s): R13.10 - DYSPHAGIA, UNSPECIFIED Status: Acute Comment: Unsafe with consistencies. PEG Feeds. (11) Peritonitis Code(s): K65.9 - PERITONITIS, UNSPECIFIED Status: Resolved Comment: s/p surgery (12) Severe sepsis with septic shock Code(s): A41.9 - SEPSIS, UNSPECIFIED ORGANISM; R65.21 - SEVERE SEPSIS WITH SEPTIC SHOCK Status: Resolved (13) Syncope Code(s): R55 - SYNCOPE AND COLLAPSE Status: Acute Comment: Suspected cardiac etiology, EP consulted with negative EP study 09/03/18, ILR placed with outpt f/u planned (14) Aortic regurgitation Code(s): I35.1 - NONRHEUMATIC AORTIC (VALVE) INSUFFICIENCY Status: Chronic (15) Acute metabolic encephalopathy Code(s): G93.41 - METABOLIC ENCEPHALOPATHY Status: Acute Comment: Improving - Plan * Medically stable. Awaiting placement for rehab.
--- NOTE | 2018-09-30 16:27 | PRG ---
DATE OF SERVICE: 09/30/2018 SUBJECTIVE: The patient noted with the following vital signs. OBJECTIVE: VITAL SIGNS: Afebrile, temperature 97.8, pulse 87, respiratory rate of 26, blood pressure 147/67, O2 saturation 96%. HEENT: Unremarkable. CARDIOVASCULAR SYSTEM: First and second heart sounds were heard. RESPIRATORY SYSTEM: Clear to auscultation. DIGESTIVE SYSTEM: Revealed a benign abdomen. EXTREMITIES: No peripheral edema. SKIN: No new gross rash. LYMPHATICS: No peripheral lymphadenopathy. IMPRESSION: 1. Acute kidney injury, which is since improved. 2. Anemia. PLAN: 1. Continue current renal supportive measures. 2. Further management to be dependent on the clinical course. Job ID: [id number]
--- NOTE | 2018-09-30 19:33 | PRG ---
DATE OF SERVICE: 09/30/2018 SUBJECTIVE: Mr. Westfall has no complaints. OBJECTIVE: VITAL SIGNS: He is afebrile, heart rate 74, respiratory rate is 19, oximetry is 95% on room air, and blood pressure 126/76. LUNGS: Clear. HEART: Regular rhythm. ABDOMEN: Soft. Intake and output, positive 233. LABORATORY DATA: There is no lab today. Glucoses are less than 150 today. IMPRESSION: 1. Acute respiratory failure with hypoxia, status post mechanical ventilation, now stable on surgical floor. 2. Aspiration pneumonia. 3. Acute kidney injury on top of chronic renal disease, improving. 4. Status post perforation of sigmoid colon and followed by General Surgery. 5. History of coronary artery disease. 6. Diastolic dysfunction. 7. History of hypertension. Overall, he appears to be stable. I have no suggestions to multiple physicians management so far. Job ID: [id number]
[2018-09-30] MEDS: Enoxaparin Sodium 40 MG/0.4 ML SYRINGE SC SCH (21:23)
[2018-09-30] MEDS: Atorvastatin Calcium 20 MG TAB PO SCH (21:23)
[2018-09-30] MEDS: Famotidine 40 MG/5 ML Oral Suspension PER TUBE SCH (21:23)
[2018-10-01] MEDS: Acetaminophen 650 MG/20.3 ML UDCUP PO SCH ×4 (00:27→17:58)
[2018-10-01] MEDS: Potassium Bicarbonate/Cit Ac 25 MEQ TAB PO SCH ×2 (08:37→17:58)
[2018-10-01] MEDS: Aspirin Chewable 81 MG TAB PO SCH (08:37)
[2018-10-01] MEDS: Metoprolol Tartrate 50 MG TAB PER TUBE SCH ×2 (08:37→20:40)
[2018-10-01] MEDS: Amoxicillin/Potassium Clav 400 mg/5 ml Oral Suspension PER TUBE SCH ×2 (08:38→20:40)
[2018-10-01] MEDS: Carvedilol 3.125 MG TAB PER TUBE SCH ×2 (08:38→17:58)
--- NOTE | 2018-10-01 09:59 | PRG ---
DATE OF SERVICE: 10/01/2018 SUBJECTIVE: A 63-year-old gentleman this morning appears to be more awake, weak, but definitely much more responsive. OBJECTIVE: VITAL SIGNS: His sats are 93% on room air, respiratory rate 20, temperature 98, pulse 96, blood pressure 130/77. CHEST: No wheezing. CARDIAC: Normal S1 and S2. No gallops. ABDOMEN: No masses. IMPRESSION: Recurrent aspiration, status post laparotomy, severe deconditioning, encephalopathy. PLAN: Pulmonary will follow at a distance or antibiotics as per surgery. PT supportive care. Job ID: [id number]
--- NOTE | 2018-10-01 15:58 | PDOC.PN ---
- Subjective Encounter Start Date: 10/01/18 Encounter Start Time: 11:00 Denies any complaints. - Objective Vital Signs & Weight: Vital Signs (12 hours) Temp Pulse Resp BP Pulse Ox 10/01/18 15:42 98.1 F 87 18 135/76 90 L 10/01/18 13:30 76 22 H 10/01/18 12:04 97.3 F L 75 20 149/70 H 95 10/01/18 07:24 98.0 F 96 20 130/77 93 L 10/01/18 04:30 97.6 F 86 20 144/81 H 94 L Weight Admit Weight 186 lb 14.4 oz Weight 176 lb 1.86 oz Most Recent Monitor Data Heart Rate from ECG 80 NIBP 174/66 NIBP BP-Mean 102 Respiration from ECG 26 SpO2 95 I&O: 09/30/18 10/01/18 10/02/18 06:59 06:59 06:59 Intake Total 1223 1066 Output Total 990 1325 Balance 233 -259 Result Diagrams: 09/26/18 03:41 09/28/18 06:18 Additional Labs: Accuchecks 10/01/18 10/01/18 09/30/18 12:02 06:29 23:59 POC Glucose 102 88 81 09/30/18 18:50 POC Glucose 85 Phys Exam - Physical Examination Constitutional: NAD Respiratory: no wheezing, no rales, no rhonchi, clear to auscultation bilateral Cardiovascular: RRR, no significant murmur, no rub Gastrointestinal: soft, non-tender, no distention, positive bowel sounds PEG, Colostomy. Musculoskeletal: no edema Psychiatric: normal affect, A&O x 3 Skin: no rash Dx/Plan (1) Acute respiratory failure with hypoxia Code(s): J96.01 - ACUTE RESPIRATORY FAILURE WITH HYPOXIA Status: Resolved Comment: extubated and on the surgical floor, worsened some 08/27/18, ABG with mildly low CO2 and mildly low O2 (2) Aspiration pneumonia Code(s): J69.0 - PNEUMONITIS DUE TO INHALATION OF FOOD AND VOMIT Status: Acute Qualifiers: Laterality: right Lung location: lower lobe of lung Comment: Enteral Augmentin. (3) EMILY (acute kidney injury) Code(s): N17.9 - ACUTE KIDNEY FAILURE, UNSPECIFIED Status: Acute Comment: GFR improved to 40's and continues to improve. (4) Oropharyngeal dysphagia Code(s): R13.12 - DYSPHAGIA, OROPHARYNGEAL PHASE Status: Acute Comment: Severe, no consistencies safe, aspiration with all, PEG placed, advancing to full tube feeds tomorrow (5) Perforated sigmoid colon Code(s): K63.1 - PERFORATION OF INTESTINE (NONTRAUMATIC) Status: Acute Comment: s/p left and segmental transverse colectomy with colostomy. Gen Surg following. (6) CAD (coronary artery disease) Code(s): I25.10 - ATHSCL HEART DISEASE OF [place] CORONARY ARTERY W/O ANG PCTRS Status: Chronic Comment: RCA and LCx occlusion with filling from LAD collaterals. continue med mgmt with ASA, Lipitor, Coreg (7) Grade I diastolic dysfunction Code(s): I51.9 - HEART DISEASE, UNSPECIFIED Status: Chronic Comment: Currently on metoprolol. (8) Hypertension Code(s): I10 - ESSENTIAL (PRIMARY) HYPERTENSION Status: Chronic Qualifiers: Hypertension type: essential hypertension Qualified Code(s): I10 - Essential (primary) hypertension (9) Hypernatremia Code(s): E87.0 - HYPEROSMOLALITY AND HYPERNATREMIA Status: Resolved (10) Dysphagia Code(s): R13.10 - DYSPHAGIA, UNSPECIFIED Status: Acute Comment: Unsafe with consistencies. PEG Feeds. (11) Peritonitis Code(s): K65.9 - PERITONITIS, UNSPECIFIED Status: Resolved Comment: s/p surgery (12) Severe sepsis with septic shock Code(s): A41.9 - SEPSIS, UNSPECIFIED ORGANISM; R65.21 - SEVERE SEPSIS WITH SEPTIC SHOCK Status: Resolved (13) Syncope Code(s): R55 - SYNCOPE AND COLLAPSE Status: Acute Comment: Suspected cardiac etiology, EP consulted with negative EP study 09/03/18, ILR placed with outpt f/u planned (14) Aortic regurgitation Code(s): I35.1 - NONRHEUMATIC AORTIC (VALVE) INSUFFICIENCY Status: Chronic (15) Acute metabolic encephalopathy Code(s): G93.41 - METABOLIC ENCEPHALOPATHY Status: Acute Comment: Improving - Plan * Stable. * CM working on appropriate placement.
[2018-10-01] MEDS: Famotidine 40 MG/5 ML Oral Suspension PER TUBE SCH (20:40)
[2018-10-01] MEDS: Atorvastatin Calcium 20 MG TAB PO SCH (20:40)
[2018-10-01] MEDS: Enoxaparin Sodium 40 MG/0.4 ML SYRINGE SC SCH (20:40)
[2018-10-02] MEDS: Acetaminophen 650 MG/20.3 ML UDCUP PO SCH ×4 (00:15→17:06)
--- NOTE | 2018-10-02 00:38 | PRG ---
DATE OF SERVICE: 10/01/2018 SUBJECTIVE: Noted with the following vital signs. OBJECTIVE: VITAL SIGNS: Afebrile, temperature 98.1, pulse 85, respiratory rate of 16, O2 saturation of 91%, blood pressure 148/84. HEENT: Unremarkable. RESPIRATORY: First and second heart sounds were heard. RESPIRATORY SYSTEM: Clear to auscultation. DIGESTIVE SYSTEM: Revealed a benign abdomen with positive bowel sounds. EXTREMITIES: No peripheral edema. SKIN: No new gross rash. LYMPHATICS: No peripheral lymphadenopathy. IMPRESSION: 1. Acute kidney injury, which seems to have improved. 2. Hyponatremia, resolved. PLAN: Continue current renal supportive measures. Job ID: [id number]
[2018-10-02] MEDS: Ondansetron ODT 4 MG TAB PO PRN (06:29)
[2018-10-02] MEDS: Potassium Bicarbonate/Cit Ac 25 MEQ TAB PO SCH ×2 (08:32→17:06)
[2018-10-02] MEDS: Carvedilol 3.125 MG TAB PER TUBE SCH ×2 (08:32→17:06)
[2018-10-02] MEDS: Metoprolol Tartrate 50 MG TAB PER TUBE SCH ×2 (08:32→21:33)
[2018-10-02] MEDS: Aspirin Chewable 81 MG TAB PO SCH (08:32)
[2018-10-02] MEDS: Amoxicillin/Potassium Clav 400 mg/5 ml Oral Suspension PER TUBE SCH ×2 (08:33→21:33)
--- NOTE | 2018-10-02 20:40 | PRG ---
DATE OF SERVICE: 10/02/2018 SUBJECTIVE: The patient noted with the following vital signs. OBJECTIVE: VITAL SIGNS: Afebrile, temperature 97.6, pulse 79, respiratory rate of 20, O2 saturations of 93%, blood pressure 123/76. HEENT: Unremarkable. CARDIOVASCULAR: First and second heart sounds were heard. RESPIRATORY SYSTEM: Clear to auscultation. DIGESTIVE SYSTEM: Revealed a benign abdomen with positive bowel sounds. EXTREMITIES: No peripheral edema. IMPRESSION: 1. Acute tubular necrosis, resolved. 2. Chronic kidney disease, stage 3. PLAN: Continue current renal supportive measures. Job ID: [id number]
--- NOTE | 2018-10-02 21:14 | PDOC.PN ---
- Subjective Encounter Start Date: 10/02/18 Encounter Start Time: 10:10 No complaints. - Objective Vital Signs & Weight: Vital Signs (12 hours) Temp Pulse Resp BP Pulse Ox 10/02/18 20:00 98.4 F 83 16 121/72 91 L 10/02/18 18:54 81 20 93 L 10/02/18 13:52 86 24 H Weight Admit Weight 186 lb 14.4 oz Weight 171 lb 12.8 oz Most Recent Monitor Data Heart Rate from ECG 80 NIBP 174/66 NIBP BP-Mean 102 Respiration from ECG 26 SpO2 95 I&O: 10/01/18 10/02/18 10/03/18 06:59 06:59 06:59 Intake Total 1066 711 711 Output Total 1325 1300 575 Balance -259 -589 136 Result Diagrams: 09/26/18 03:41 09/28/18 06:18 Additional Labs: Accuchecks 10/02/18 10/02/18 10/02/18 18:33 13:52 06:14 POC Glucose 124 H 89 98 10/01/18 23:44 POC Glucose 105 Phys Exam - Physical Examination Constitutional: NAD Respiratory: no wheezing, no rales, no rhonchi, clear to auscultation bilateral Cardiovascular: RRR, no significant murmur, no rub Gastrointestinal: soft, non-tender, no distention, positive bowel sounds PEG, Colostomy Musculoskeletal: no edema Neurological: non-focal, normal sensation, moves all 4 limbs Lymphatic: no nodes Psychiatric: normal affect Dx/Plan (1) Acute respiratory failure with hypoxia Code(s): J96.01 - ACUTE RESPIRATORY FAILURE WITH HYPOXIA Status: Resolved Comment: extubated and on the surgical floor, worsened some 08/27/18, ABG with mildly low CO2 and mildly low O2 (2) Aspiration pneumonia Code(s): J69.0 - PNEUMONITIS DUE TO INHALATION OF FOOD AND VOMIT Status: Acute Qualifiers: Laterality: right Lung location: lower lobe of lung Comment: Enteral Augmentin. (3) EMILY (acute kidney injury) Code(s): N17.9 - ACUTE KIDNEY FAILURE, UNSPECIFIED Status: Acute Comment: GFR improved to 40's and continues to improve. (4) Oropharyngeal dysphagia Code(s): R13.12 - DYSPHAGIA, OROPHARYNGEAL PHASE Status: Acute Comment: Severe, no consistencies safe, aspiration with all, PEG placed, advancing to full tube feeds tomorrow (5) Perforated sigmoid colon Code(s): K63.1 - PERFORATION OF INTESTINE (NONTRAUMATIC) Status: Acute Comment: s/p left and segmental transverse colectomy with colostomy. Gen Surg following. (6) CAD (coronary artery disease) Code(s): I25.10 - ATHSCL HEART DISEASE OF [place] CORONARY ARTERY W/O ANG PCTRS Status: Chronic Comment: RCA and LCx occlusion with filling from LAD collaterals. continue med mgmt with ASA, Lipitor, Coreg (7) Grade I diastolic dysfunction Code(s): I51.9 - HEART DISEASE, UNSPECIFIED Status: Chronic Comment: Currently on metoprolol. (8) Hypertension Code(s): I10 - ESSENTIAL (PRIMARY) HYPERTENSION Status: Chronic Qualifiers: Hypertension type: essential hypertension Qualified Code(s): I10 - Essential (primary) hypertension (9) Hypernatremia Code(s): E87.0 - HYPEROSMOLALITY AND HYPERNATREMIA Status: Resolved (10) Dysphagia Code(s): R13.10 - DYSPHAGIA, UNSPECIFIED Status: Acute Comment: Unsafe with consistencies. PEG Feeds. (11) Peritonitis Code(s): K65.9 - PERITONITIS, UNSPECIFIED Status: Resolved Comment: s/p surgery (12) Severe sepsis with septic shock Code(s): A41.9 - SEPSIS, UNSPECIFIED ORGANISM; R65.21 - SEVERE SEPSIS WITH SEPTIC SHOCK Status: Resolved (13) Syncope Code(s): R55 - SYNCOPE AND COLLAPSE Status: Acute Comment: Suspected cardiac etiology, EP consulted with negative EP study 09/03/18, ILR placed with outpt f/u planned (14) Aortic regurgitation Code(s): I35.1 - NONRHEUMATIC AORTIC (VALVE) INSUFFICIENCY Status: Chronic (15) Acute metabolic encephalopathy Code(s): G93.41 - METABOLIC ENCEPHALOPATHY Status: Acute Comment: Improving - Plan cont current plan of care, 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 * Needs to have rehab. * New PEG, Colostomy. * Had encephalopathy that is improving and much better overall. * Still very debilitated.
[2018-10-02] MEDS: Atorvastatin Calcium 20 MG TAB PO SCH (21:33)
[2018-10-02] MEDS: Famotidine 40 MG/5 ML Oral Suspension PER TUBE SCH (21:33)
[2018-10-02] MEDS: Enoxaparin Sodium 40 MG/0.4 ML SYRINGE SC SCH (21:34)
[2018-10-03] MEDS: Acetaminophen 650 MG/20.3 ML UDCUP PO SCH ×5 (00:03→23:51)
[2018-10-03] MEDS: Potassium Bicarbonate/Cit Ac 25 MEQ TAB PO SCH ×2 (08:58→17:51)
[2018-10-03] MEDS: Aspirin Chewable 81 MG TAB PO SCH (08:58)
[2018-10-03] MEDS: Amoxicillin/Potassium Clav 400 mg/5 ml Oral Suspension PER TUBE SCH ×2 (08:58→21:13)
[2018-10-03] MEDS: Carvedilol 3.125 MG TAB PER TUBE SCH ×2 (08:58→17:50)
[2018-10-03] MEDS: Metoprolol Tartrate 50 MG TAB PER TUBE SCH ×2 (08:58→21:12)
[2018-10-03 09:14] LABS: Anion Gap 16 mmol/L (10-20); BUN (Urea Nitrogen) 36 mg/dL (8.4-25.7); Calc. Creatinine Clearance 58 mL/min (70-130); Calcium 9.6 mg/dL (7.8-10.44); Carbon Dioxide 28 mmol/L (23-31); Chloride 104 mmol/L (98-107); Estimated GFR-MDRD 51; Glucose 100 mg/dL (80-115); Potassium 4.1 mmol/L (3.5-5.1); Sodium 144 mmol/L (136-145)
--- NOTE | 2018-10-03 12:53 | PDOC.PN ---
- Subjective Encounter Start Date: 10/03/18 Encounter Start Time: 12:30 Denies any problems. Feels thirsty with dry mouth all the time. Mouth breathing. - Objective Vital Signs & Weight: Vital Signs (12 hours) Temp Pulse Resp BP Pulse Ox 10/03/18 11:20 97.3 F L 74 16 150/81 H 93 L 10/03/18 07:39 98.3 F 79 15 133/72 95 10/03/18 07:36 84 19 10/03/18 07:35 95 10/03/18 04:00 98.2 F 75 16 150/79 H 93 L Weight Admit Weight 186 lb 14.4 oz Weight 171 lb 11.489 oz Most Recent Monitor Data Heart Rate from ECG 80 NIBP 174/66 NIBP BP-Mean 102 Respiration from ECG 26 SpO2 95 I&O: 10/02/18 10/03/18 10/04/18 06:59 06:59 06:59 Intake Total 711 1422 674 Output Total 1300 925 275 Balance -589 497 399 Result Diagrams: 09/26/18 03:41 10/03/18 08:22 Additional Labs: Accuchecks 10/03/18 10/02/18 10/02/18 11:43 23:28 18:33 POC Glucose 105 111 H 124 H 10/02/18 13:52 POC Glucose 89 Phys Exam - Physical Examination Constitutional: NAD Minimally verbal. Respiratory: no wheezing, no rales, no rhonchi, clear to auscultation bilateral Diminished Cardiovascular: RRR, no significant murmur Loop recorder in left upper chest area. Gastrointestinal: soft, non-tender, no distention PEG, Colostomy. Musculoskeletal: no edema Neurological: non-focal Still appears mildly encephalopathy. Answers questions, but doesn't talk much otherwise. Skin: normal turgor Dx/Plan (1) Acute respiratory failure with hypoxia Code(s): J96.01 - ACUTE RESPIRATORY FAILURE WITH HYPOXIA Status: Resolved Comment: extubated and on the surgical floor, worsened some 08/27/18, ABG with mildly low CO2 and mildly low O2 (2) Aspiration pneumonia Code(s): J69.0 - PNEUMONITIS DUE TO INHALATION OF FOOD AND VOMIT Status: Acute Qualifiers: Laterality: right Lung location: lower lobe of lung Comment: Enteral Augmentin. (3) EMILY (acute kidney injury) Code(s): N17.9 - ACUTE KIDNEY FAILURE, UNSPECIFIED Status: Acute Comment: GFR improved to 40's and continues to improve. (4) Oropharyngeal dysphagia Code(s): R13.12 - DYSPHAGIA, OROPHARYNGEAL PHASE Status: Acute Comment: Severe, no consistencies safe, aspiration with all, PEG placed, advancing to full tube feeds tomorrow (5) Perforated sigmoid colon Code(s): K63.1 - PERFORATION OF INTESTINE (NONTRAUMATIC) Status: Acute Comment: s/p left and segmental transverse colectomy with colostomy. Gen Surg following. (6) CAD (coronary artery disease) Code(s): I25.10 - ATHSCL HEART DISEASE OF [place] CORONARY ARTERY W/O ANG PCTRS Status: Chronic Comment: RCA and LCx occlusion with filling from LAD collaterals. continue med mgmt with ASA, Lipitor, Coreg (7) Grade I diastolic dysfunction Code(s): I51.9 - HEART DISEASE, UNSPECIFIED Status: Chronic Comment: Currently on metoprolol. (8) Hypertension Code(s): I10 - ESSENTIAL (PRIMARY) HYPERTENSION Status: Chronic Qualifiers: Hypertension type: essential hypertension Qualified Code(s): I10 - Essential (primary) hypertension (9) Hypernatremia Code(s): E87.0 - HYPEROSMOLALITY AND HYPERNATREMIA Status: Resolved (10) Dysphagia Code(s): R13.10 - DYSPHAGIA, UNSPECIFIED Status: Acute Comment: Unsafe with consistencies. PEG Feeds. (11) Peritonitis Code(s): K65.9 - PERITONITIS, UNSPECIFIED Status: Resolved Comment: s/p surgery (12) Severe sepsis with septic shock Code(s): A41.9 - SEPSIS, UNSPECIFIED ORGANISM; R65.21 - SEVERE SEPSIS WITH SEPTIC SHOCK Status: Resolved (13) Syncope Code(s): R55 - SYNCOPE AND COLLAPSE Status: Acute Comment: Suspected cardiac etiology, EP consulted with negative EP study 09/03/18, ILR placed with outpt f/u planned (14) Aortic regurgitation Code(s): I35.1 - NONRHEUMATIC AORTIC (VALVE) INSUFFICIENCY Status: Chronic (15) Acute metabolic encephalopathy Code(s): G93.41 - METABOLIC ENCEPHALOPATHY Status: Acute Comment: Improving - Plan * This patient was in generally healthy condition prior to admission. * No has oxygen, loop recorder, PEG with enteral feeds, a colostomy. He is still mildly encephalopathic and cognitive function is slow. * He appears to be improving, but does not appear to capable of self-care. * Working on finding a reasonable disposition for him, but has been denied by insurance. Will have appeal peer to peer this afternoon. * Continue to work on mobility.
[2018-10-03] MEDS: Ondansetron ODT 4 MG TAB PO PRN (13:39)
[2018-10-03] MEDS: Enoxaparin Sodium 40 MG/0.4 ML SYRINGE SC SCH (21:13)
[2018-10-03] MEDS: Atorvastatin Calcium 20 MG TAB PO SCH (21:13)
[2018-10-03] MEDS: Famotidine 40 MG/5 ML Oral Suspension PER TUBE SCH (21:13)
[2018-10-04] MEDS: Ondansetron ODT 4 MG TAB PO PRN (04:44)
[2018-10-04] MEDS: Acetaminophen 650 MG/20.3 ML UDCUP PO SCH ×3 (06:34→18:09)
[2018-10-04] MEDS: Metoprolol Tartrate 50 MG TAB PER TUBE SCH ×2 (09:48→20:38)
[2018-10-04] MEDS: Carvedilol 3.125 MG TAB PER TUBE SCH ×2 (09:48→18:09)
[2018-10-04] MEDS: Aspirin Chewable 81 MG TAB PO SCH (09:48)
[2018-10-04] MEDS: Amoxicillin/Potassium Clav 400 mg/5 ml Oral Suspension PER TUBE SCH ×2 (09:49→20:38)
[2018-10-04] MEDS: Potassium Bicarbonate/Cit Ac 25 MEQ TAB PO SCH ×2 (10:03→18:09)
--- NOTE | 2018-10-04 16:42 | PDOC.PN ---
- Subjective Encounter Start Date: 10/04/18 Encounter Start Time: 11:25 Subjective: pt up in bed no complains - Objective Vital Signs & Weight: Vital Signs (12 hours) Temp Pulse Resp BP BP Pulse Ox 10/04/18 15:58 75 24 H 125/73 97 10/04/18 13:51 79 20 10/04/18 11:13 97.8 F 81 26 H 128/78 96 10/04/18 08:00 95 10/04/18 07:56 97.5 F L 82 24 H 154/70 H 92 L 10/04/18 06:52 76 22 H 10/04/18 04:45 97.8 F 74 20 143/76 H 97 Weight Admit Weight 186 lb 14.4 oz Weight 171 lb 11.489 oz Most Recent Monitor Data Heart Rate from ECG 80 NIBP 174/66 NIBP BP-Mean 102 Respiration from ECG 26 SpO2 95 I&O: 10/03/18 10/04/18 10/05/18 06:59 06:59 06:59 Intake Total 1422 1406 228 Output Total 925 825 Balance 497 581 228 Result Diagrams: 09/26/18 03:41 10/03/18 08:22 Additional Labs: Accuchecks 10/04/18 10/04/18 10/04/18 11:30 06:22 00:17 POC Glucose 119 H 85 103 10/03/18 17:45 POC Glucose 85 Phys Exam - Physical Examination Neck: no nodes, no JVD, supple, full ROM Respiratory: no wheezing, no rales, no rhonchi, wheezing present, clear to auscultation bilateral Cardiovascular: RRR, no significant murmur, no rub, gallop, irregular Gastrointestinal: soft, non-tender, no distention, positive bowel sounds Dx/Plan (1) Acute respiratory failure with hypoxia Code(s): J96.01 - ACUTE RESPIRATORY FAILURE WITH HYPOXIA Status: Resolved Comment: extubated and on the surgical floor, worsened some 08/27/18, ABG with mildly low CO2 and mildly low O2 (2) EMILY (acute kidney injury) Code(s): N17.9 - ACUTE KIDNEY FAILURE, UNSPECIFIED Status: Acute Comment: GFR improved to 40's and continues to improve. (3) Acute metabolic encephalopathy Code(s): G93.41 - METABOLIC ENCEPHALOPATHY Status: Acute Comment: Improving (4) Aspiration pneumonia Code(s): J69.0 - PNEUMONITIS DUE TO INHALATION OF FOOD AND VOMIT Status: Acute Qualifiers: Laterality: right Lung location: lower lobe of lung Comment: Enteral Augmentin. (5) Dysphagia Code(s): R13.10 - DYSPHAGIA, UNSPECIFIED Status: Acute Comment: Unsafe with consistencies. PEG Feeds. (6) Perforated sigmoid colon Code(s): K63.1 - PERFORATION OF INTESTINE (NONTRAUMATIC) Status: Acute Comment: s/p left and segmental transverse colectomy with colostomy. Gen Surg following. - Plan awaiting placement, pt npo has a peg tube -: pt asking when he can eat. will talk with speech -: pt has a colostomy. * . Review of Systems - Review of Systems Respiratory: negative: Cough, Dry, Shortness of Breath, Hemoptysis, SOB with Excertion, Pleuritic Pain, Sputum, Wheezing Cardiovascular: negative: chest pain, palpitations, orthopnea, paroxysmal nocturnal dyspnea, edema, light headedness, other - Medications/Allergies Allergies/Adverse Reactions: Allergies Allergy/AdvReac Type Severity Reaction Status Date / Time No Known Drug Allergies Allergy Verified 08/29/18 13:32 Medications: Current Medications Acetaminophen (Tylenol Elixir) 650 mg PO Q6HR [facility] Last Admin: 10/04/18 12:16 Dose: 650 mg Acetaminophen/Codeine Phosphate (Tylenol/Codeine Elixir) 5 ml PO Q4H PRN PRN Reason: Pain Last Admin: 09/30/18 05:28 Dose: 5 ml Albuterol/Ipratropium (Duoneb) 3 ml NEB Q4H PRN PRN Reason: SOB &/or Wheezing Last Admin: 09/27/18 13:24 Dose: 3 ml Albuterol/Ipratropium (Duoneb) 3 ml NEB TID-RT [facility] Last Admin: 10/04/18 13:51 Dose: 3 ml Alteplase, Recombinant (Cathflo) 2 mg CATH ASDIR [facility] Last Admin: 09/24/18 12:23 Dose: 2 mg Amoxicillin/Clavulanate Potassium (Augmentin 400mg/5ml Oral Susp) 875 mg PER TUBE BID [facility] Last Admin: 10/04/18 09:49 Dose: 875 mg Lipase/Protease/[place]ylase ([place] [id number]) 1 cap FS .PER PROTOCOL PRN PRN Reason: TUBE OCCLUSION PROTOCOL Last Admin: 09/15/18 11:53 Dose: 1 cap Aspirin (Aspirin Chewable) 81 mg PO DAILY [facility] Last Admin: 10/04/18 09:48 Dose: 81 mg Atorvastatin Calcium (Lipitor) 20 mg PO HS [facility] Last Admin: 10/03/18 21:13 Dose: 20 mg Carvedilol (Coreg) 3.125 mg PER TUBE BID-[facility] Last Admin: 10/04/18 09:48 Dose: 3.125 mg Chlorhexidine Gluconate (Chlorhexidine Gluconate) 15 ml SSP Q4H PRN PRN Reason: ORAL CARE Last Admin: 09/25/18 13:28 Dose: 15 ml Clonidine (Catapres) 0.1 mg PO Q4H PRN PRN Reason: SBP Greater Than 180 Last Admin: 09/18/18 00:44 Dose: 0.1 mg Dextrose/Water (Dextrose 50%) 25 gm SLOW IVP PRN PRN PRN Reason: Hypoglycemia Enoxaparin Sodium (Lovenox) 40 mg SC 2100 [facility] Last Admin: 10/03/18 21:13 Dose: 40 mg Famotidine (Pepcid) 20 mg PER TUBE 2100 [facility] Last Admin: 10/03/18 21:13 Dose: 20 mg Glucagon (Glucagon) 1 mg IM PRN PRN PRN Reason: Hypoglycemia Hydralazine HCl (Apresoline) 10 mg SLOW IVP Q6H PRN PRN Reason: SBP Greater Than 170 Last Admin: 09/28/18 12:42 Dose: 10 mg Dextrose/Water (D5w) 1,000 mls @ 0 mls/hr IV .Q0M PRN PRN Reason: Hypoglycemia Labetalol HCl (Normodyne) 10 mg SLOW IVP Q4H PRN PRN Reason: Systolic BP > 180 Last Admin: 09/15/18 14:50 Dose: 10 mg Metoprolol Tartrate (Lopressor) 50 mg PER TUBE BID [facility] Last Admin: 10/04/18 09:48 Dose: 50 mg Nitroglycerin (Nitrostat) 0.4 mg SL Q5MIN PRN PRN Reason: Chest Pain Last Admin: 08/31/18 15:33 Dose: 0.4 mg Ondansetron HCl (Zofran) 4 mg IVP Q4H PRN PRN Reason: Nausea/Vomiting Last Admin: 09/25/18 13:26 Dose: 4 mg Ondansetron HCl (Zofran Odt) 4 mg PO Q6H PRN PRN Reason: Nausea/Vomiting Last Admin: 10/04/18 04:44 Dose: 4 mg Potassium Bicarbonate/Citric Acid (K-Vescent) 25 meq PO BID-[facility] Last Admin: 10/04/18 10:03 Dose: 25 meq Sodium Bicarbonate (Bicarbonate, Sodium) 650 mg PER TUBE .PER PROTOCOL PRN PRN Reason: ENTERAL TUBE OCCLUSION Last Admin: 09/15/18 11:53 Dose: 650 mg Sodium Chloride (Flush - Normal Saline) 10 ml IVF Q12HR [facility] Last Admin: 10/04/18 09:49 Dose: 10 ml Sodium Chloride (Flush - Normal Saline) 10 ml IVF PRN PRN PRN Reason: Saline Flush Last Admin: 09/27/18 10:20 Dose: 10 ml
--- NOTE | 2018-10-04 20:10 | PRG ---
DATE OF SERVICE: 10/04/2018 SUBJECTIVE: The patient noted with the following vital signs. OBJECTIVE: VITAL SIGNS: Afebrile, temperature 97.8, pulse 81, respiratory rate of 20, blood pressure 128/78. HEENT: Unremarkable. CARDIOVASCULAR: First and second heart sounds were heard. RESPIRATORY: Clear to auscultation. DIGESTIVE: Revealed a benign abdomen. EXTREMITIES: No peripheral edema. SKIN: No new gross rash. LYMPHATICS: No peripheral lymphadenopathy. IMPRESSION: 1. Acute kidney injury, which is much improved. 2. Hyponatremia, much improved. 3. Sepsis. PLAN: 1. We will continue current renal supportive measures. 2. Further management to be dependent on the clinical course. Job ID: [id number]
[2018-10-04] MEDS: Atorvastatin Calcium 20 MG TAB PO SCH (20:38)
[2018-10-04] MEDS: Famotidine 40 MG/5 ML Oral Suspension PER TUBE SCH (20:38)
[2018-10-04] MEDS: Enoxaparin Sodium 40 MG/0.4 ML SYRINGE SC SCH (20:39)
[2018-10-05] MEDS: Acetaminophen 650 MG/20.3 ML UDCUP PO SCH ×5 (00:14→23:49)
[2018-10-05] MEDS: Chlorhexidine Gluconate 15 ML UDCUP SSP PRN (02:07)
[2018-10-05] MEDS: Ondansetron ODT 4 MG TAB PO PRN (02:11)
[2018-10-05] MEDS: Amoxicillin/Potassium Clav 400 mg/5 ml Oral Suspension PER TUBE SCH ×2 (08:49→21:48)
[2018-10-05] MEDS: Aspirin Chewable 81 MG TAB PO SCH (08:49)
[2018-10-05] MEDS: Carvedilol 3.125 MG TAB PER TUBE SCH ×2 (08:49→18:01)
[2018-10-05] MEDS: Potassium Bicarbonate/Cit Ac 25 MEQ TAB PO SCH ×2 (08:49→18:01)
[2018-10-05] MEDS: Metoprolol Tartrate 50 MG TAB PER TUBE SCH ×2 (08:49→21:47)
--- NOTE | 2018-10-05 20:10 | PRG ---
DATE OF SERVICE: 10/05/2018 SUBJECTIVE: Noted with the following vital signs. OBJECTIVE: VITAL SIGNS: Afebrile, temperature 98, pulse 94, respiratory rate of 20, O2 saturation of 97%, blood pressure 111/69. HEENT: Unremarkable. Moist oral mucosa. No conjunctival injection or icterus. NECK: Supple. CARDIOVASCULAR SYSTEM: First and second heart sounds were heard. RESPIRATORY SYSTEM: Clear to auscultation. DIGESTIVE SYSTEM: Revealed a benign abdomen with positive bowel sounds. EXTREMITIES: No peripheral edema. IMPRESSION: 1. Acute kidney injury, which is improved. 2. Hyponatremia, resolved. PLAN: Continue current renal supportive measures. Further management to be dependent on the clinical course. Job ID: [id number]
[2018-10-05] MEDS: Acetaminophen/Codeine 120-12MG/5 ML UDCUP PO PRN (21:41)
[2018-10-05] MEDS: Enoxaparin Sodium 40 MG/0.4 ML SYRINGE SC SCH (21:47)
[2018-10-05] MEDS: Atorvastatin Calcium 20 MG TAB PO SCH (21:47)
[2018-10-05] MEDS: Famotidine 40 MG/5 ML Oral Suspension PER TUBE SCH (21:48)
[2018-10-06] MEDS: Acetaminophen 650 MG/20.3 ML UDCUP PO SCH ×4 (06:01→23:11)
[2018-10-06] MEDS: Aspirin Chewable 81 MG TAB PO SCH (08:19)
[2018-10-06] MEDS: Metoprolol Tartrate 50 MG TAB PER TUBE SCH ×2 (08:19→21:56)
[2018-10-06] MEDS: Amoxicillin/Potassium Clav 400 mg/5 ml Oral Suspension PER TUBE SCH ×2 (08:19→21:56)
[2018-10-06] MEDS: Potassium Bicarbonate/Cit Ac 25 MEQ TAB PO SCH ×2 (08:19→17:53)
[2018-10-06] MEDS: Carvedilol 3.125 MG TAB PER TUBE SCH ×2 (08:20→17:54)
--- NOTE | 2018-10-06 08:59 | PDOC.PN ---
- Subjective Encounter Start Date: 10/05/18 Encounter Start Time: 10:15 Subjective: pt up in bed wants to try to eat food - Objective Vital Signs & Weight: Vital Signs (12 hours) Temp Pulse Resp BP Pulse Ox 10/06/18 07:52 78 16 94 L 10/06/18 07:15 97.8 F 78 18 150/77 H 94 L 10/06/18 03:41 97.5 F L 72 20 144/76 H 95 10/05/18 23:06 97.6 F 72 20 117/68 95 Weight Admit Weight 186 lb 14.4 oz Weight 168 lb 8 oz Most Recent Monitor Data Heart Rate from ECG 80 NIBP 174/66 NIBP BP-Mean 102 Respiration from ECG 26 SpO2 95 I&O: 10/05/18 10/06/18 10/07/18 06:59 06:59 06:59 Intake Total 1950 1722 Output Total 675 940 Balance 1275 782 Result Diagrams: 10/06/18 09:08 10/06/18 09:08 Phys Exam - Physical Examination Neck: no nodes, no JVD, supple, full ROM Respiratory: no wheezing, no rales, no rhonchi, wheezing present, clear to auscultation bilateral Cardiovascular: RRR, no significant murmur, no rub, gallop, irregular Gastrointestinal: soft, non-tender, no distention, positive bowel sounds Dx/Plan (1) Acute respiratory failure with hypoxia Code(s): J96.01 - ACUTE RESPIRATORY FAILURE WITH HYPOXIA Status: Resolved Comment: extubated and on the surgical floor, worsened some 08/27/18, ABG with mildly low CO2 and mildly low O2 (2) EMILY (acute kidney injury) Code(s): N17.9 - ACUTE KIDNEY FAILURE, UNSPECIFIED Status: Acute Comment: GFR improved to 40's and continues to improve. (3) Acute metabolic encephalopathy Code(s): G93.41 - METABOLIC ENCEPHALOPATHY Status: Acute Comment: Improving (4) Aspiration pneumonia Code(s): J69.0 - PNEUMONITIS DUE TO INHALATION OF FOOD AND VOMIT Status: Acute Qualifiers: Laterality: right Lung location: lower lobe of lung Comment: Enteral Augmentin. (5) Dysphagia Code(s): R13.10 - DYSPHAGIA, UNSPECIFIED Status: Acute Comment: Unsafe with consistencies. PEG Feeds. (6) Perforated sigmoid colon Code(s): K63.1 - PERFORATION OF INTESTINE (NONTRAUMATIC) Status: Acute Comment: s/p left and segmental transverse colectomy with colostomy. Gen Surg following. - Plan will get speech to revaluate pt -: will continue peg tube feeding -: pt awaiting placement * . Review of Systems - Review of Systems Respiratory: negative: Cough, Dry, Shortness of Breath, Hemoptysis, SOB with Excertion, Pleuritic Pain, Sputum, Wheezing Cardiovascular: negative: chest pain, palpitations, orthopnea, paroxysmal nocturnal dyspnea, edema, light headedness, other - Medications/Allergies Allergies/Adverse Reactions: Allergies Allergy/AdvReac Type Severity Reaction Status Date / Time No Known Drug Allergies Allergy Verified 08/29/18 13:32 Medications: Current Medications Acetaminophen (Tylenol Elixir) 650 mg PO Q6HR [facility] Last Admin: 10/06/18 06:01 Dose: 650 mg Acetaminophen/Codeine Phosphate (Tylenol/Codeine Elixir) 5 ml PO Q4H PRN PRN Reason: Pain Last Admin: 10/05/18 21:41 Dose: 5 ml Albuterol/Ipratropium (Duoneb) 3 ml NEB Q4H PRN PRN Reason: SOB &/or Wheezing Last Admin: 09/27/18 13:24 Dose: 3 ml Albuterol/Ipratropium (Duoneb) 3 ml NEB TID-RT [facility] Last Admin: 10/06/18 07:52 Dose: 3 ml Alteplase, Recombinant (Cathflo) 2 mg CATH ASDIR [facility] Last Admin: 09/24/18 12:23 Dose: 2 mg Amoxicillin/Clavulanate Potassium (Augmentin 400mg/5ml Oral Susp) 875 mg PER TUBE BID [facility] Last Admin: 10/06/18 08:19 Dose: 875 mg Lipase/Protease/Amylase ([place] [id number]) 1 cap FS .PER PROTOCOL PRN PRN Reason: TUBE OCCLUSION PROTOCOL Last Admin: 09/15/18 11:53 Dose: 1 cap Aspirin (Aspirin Chewable) 81 mg PO DAILY [facility] Last Admin: 10/06/18 08:19 Dose: 81 mg Atorvastatin Calcium (Lipitor) 20 mg PO HS [facility] Last Admin: 10/05/18 21:47 Dose: 20 mg Carvedilol (Coreg) 3.125 mg PER TUBE BID-[facility] Last Admin: 10/06/18 08:20 Dose: 3.125 mg Chlorhexidine Gluconate (Chlorhexidine Gluconate) 15 ml SSP Q4H PRN PRN Reason: ORAL CARE Last Admin: 10/05/18 02:07 Dose: 15 ml Clonidine (Catapres) 0.1 mg PO Q4H PRN PRN Reason: SBP Greater Than 180 Last Admin: 09/18/18 00:44 Dose: 0.1 mg Dextrose/Water (Dextrose 50%) 25 gm SLOW IVP PRN PRN PRN Reason: Hypoglycemia Enoxaparin Sodium (Lovenox) 40 mg SC 2100 [facility] Last Admin: 10/05/18 21:47 Dose: 40 mg Famotidine (Pepcid) 20 mg PER TUBE 2100 [facility] Last Admin: 10/05/18 21:48 Dose: 20 mg Glucagon (Glucagon) 1 mg IM PRN PRN PRN Reason: Hypoglycemia Hydralazine HCl (Apresoline) 10 mg SLOW IVP Q6H PRN PRN Reason: SBP Greater Than 170 Last Admin: 09/28/18 12:42 Dose: 10 mg Dextrose/Water (D5w) 1,000 mls @ 0 mls/hr IV .Q0M PRN PRN Reason: Hypoglycemia Labetalol HCl (Normodyne) 10 mg SLOW IVP Q4H PRN PRN Reason: Systolic BP > 180 Last Admin: 09/15/18 14:50 Dose: 10 mg Metoprolol Tartrate (Lopressor) 50 mg PER TUBE BID [facility] Last Admin: 10/06/18 08:19 Dose: 50 mg Nitroglycerin (Nitrostat) 0.4 mg SL Q5MIN PRN PRN Reason: Chest Pain Last Admin: 08/31/18 15:33 Dose: 0.4 mg Ondansetron HCl (Zofran) 4 mg IVP Q4H PRN PRN Reason: Nausea/Vomiting Last Admin: 09/25/18 13:26 Dose: 4 mg Ondansetron HCl (Zofran Odt) 4 mg PO Q6H PRN PRN Reason: Nausea/Vomiting Last Admin: 10/05/18 02:11 Dose: 4 mg Potassium Bicarbonate/Citric Acid ([facility]) [facility] Last Admin: 10/06/18 08:19 Dose: 25 meq Sodium Bicarbonate (Bicarbonate, Sodium) 650 mg PER TUBE .PER PROTOCOL PRN PRN Reason: ENTERAL TUBE OCCLUSION Last Admin: 09/15/18 11:53 Dose: 650 mg Sodium Chloride (Flush - Normal Saline) 10 ml IVF Q12HR [facility] Last Admin: 10/06/18 08:20 Dose: Not Given Sodium Chloride (Flush - Normal Saline) 10 ml IVF PRN PRN PRN Reason: Saline Flush Last Admin: 09/27/18 10:20 Dose: 10 ml
[2018-10-06 09:28] LABS: #Basophils 0.1 thou/uL (0.0-0.2); #Eosinphils 0.5 thou/uL (0.0-0.7); #Lymphocytes 1.2 thou/uL (1.20-3.40); #Monocytes 0.6 thou/uL (0.11-0.59); #Neutrophils 6.8 thou/uL (1.40-6.50); %Basophils 0.6 % (0.0-1.0); %Eosinophils 5.1 % (0.0-10.0); %Lymphocytes 13.2 % (21.0-51.0); %Monocytes 6.8 % (0.0-10.0); %Neutrophils 74.3 % (42.0-75.0); Hemoglobin 9.9 g/dL (14.0-18.0); Mean Corpuscular Hemoglobin 31.1 pg (27.0-31.0); Mean Corpuscular Volume 91.7 fL (78.0-98.0); Mean Platelet Volume 7.9 fL (7.4-10.4); Platelet Count 249 thou/uL (130-400); RBC Distribution Width 12.8 % (11.5-14.5); Red Blood Cell (RBC) Count 3.18 mill/uL (4.70-6.10); White Blood Cell (WBC) Count 9.2 thou/uL (4.8-10.8)
[2018-10-06 09:43] LABS: Anion Gap 11 mmol/L (10-20); BUN (Urea Nitrogen) 29 mg/dL (8.4-25.7); Calc. Creatinine Clearance 71 mL/min (70-130); Calcium 8.8 mg/dL (7.8-10.44); Carbon Dioxide 32 mmol/L (23-31); Chloride 98 mmol/L (98-107); Estimated GFR-MDRD 65; Glucose 95 mg/dL (80-115); Magnesium 1.6 mg/dL (1.6-2.6); Phosphorus 2.6 mg/dL (2.3-4.7); Sodium 137 mmol/L (136-145)
--- NOTE | 2018-10-06 15:29 | PDOC.PN ---
- Subjective Encounter Start Date: 10/06/18 Encounter Start Time: 10:00 Subjective: pt up in bed no complains - Objective Vital Signs & Weight: Vital Signs (12 hours) Temp Pulse Resp BP Pulse Ox 10/06/18 15:09 98.3 F 78 18 134/68 94 L 10/06/18 12:56 81 16 90 L 10/06/18 10:30 97.8 F 74 18 133/70 10/06/18 07:52 78 16 94 L 10/06/18 07:15 97.8 F 78 18 150/77 H 94 L 10/06/18 03:41 97.5 F L 72 20 144/76 H 95 Weight Admit Weight 186 lb 14.4 oz Weight 168 lb 8 oz Most Recent Monitor Data Heart Rate from ECG 80 NIBP 174/66 NIBP BP-Mean 102 Respiration from ECG 26 SpO2 95 I&O: 10/05/18 10/06/18 10/07/18 06:59 06:59 06:59 Intake Total 1950 1722 Output Total 675 940 Balance 1275 782 Result Diagrams: 10/06/18 09:08 10/06/18 09:08 Phys Exam - Physical Examination Neck: no nodes, no JVD, supple, full ROM Respiratory: no wheezing, no rhonchi Cardiovascular: RRR, no significant murmur, no rub, gallop, irregular Gastrointestinal: soft, non-tender, no distention, positive bowel sounds Musculoskeletal: no edema, pulses present, edema present Dx/Plan (1) Acute respiratory failure with hypoxia Code(s): J96.01 - ACUTE RESPIRATORY FAILURE WITH HYPOXIA Status: Resolved Comment: extubated and on the surgical floor, worsened some 08/27/18, ABG with mildly low CO2 and mildly low O2 (2) EMILY (acute kidney injury) Code(s): N17.9 - ACUTE KIDNEY FAILURE, UNSPECIFIED Status: Acute Comment: GFR improved to 40's and continues to improve. (3) Acute metabolic encephalopathy Code(s): G93.41 - METABOLIC ENCEPHALOPATHY Status: Acute Comment: Improving (4) Aspiration pneumonia Code(s): J69.0 - PNEUMONITIS DUE TO INHALATION OF FOOD AND VOMIT Status: Acute Qualifiers: Laterality: right Lung location: lower lobe of lung Comment: Enteral Augmentin. (5) Dysphagia Code(s): R13.10 - DYSPHAGIA, UNSPECIFIED Status: Acute Comment: Unsafe with consistencies. PEG Feeds. (6) Perforated sigmoid colon Code(s): K63.1 - PERFORATION OF INTESTINE (NONTRAUMATIC) Status: Acute Comment: s/p left and segmental transverse colectomy with colostomy. Gen Surg following. - Plan will continue augmentin until 10/08 then stop -: pt aspirated after speech reeval. ct head was negative -: Not sure if his dysphagia is from weakness vs possible stroke * . Review of Systems - Review of Systems Respiratory: negative: Cough, Dry, Shortness of Breath, Hemoptysis, SOB with Excertion, Pleuritic Pain, Sputum, Wheezing Cardiovascular: negative: chest pain, palpitations, orthopnea, paroxysmal nocturnal dyspnea, edema, light headedness, other Gastrointestinal: negative: Nausea, Vomiting, Abdominal Pain, Diarrhea, Constipation, Melena, Hematochezia, Other - Medications/Allergies Allergies/Adverse Reactions: Allergies Allergy/AdvReac Type Severity Reaction Status Date / Time No Known Drug Allergies Allergy Verified 08/29/18 13:32 Medications: Current Medications Acetaminophen (Tylenol Elixir) 650 mg PO Q6HR [facility] Last Admin: 10/06/18 13:13 Dose: Not Given Acetaminophen/Codeine Phosphate (Tylenol/Codeine Elixir) 5 ml PO Q4H PRN PRN Reason: Pain Last Admin: 10/05/18 21:41 Dose: 5 ml Albuterol/Ipratropium (Duoneb) 3 ml NEB Q4H PRN PRN Reason: SOB &/or Wheezing Last Admin: 09/27/18 13:24 Dose: 3 ml Albuterol/Ipratropium (Duoneb) 3 ml NEB TID-RT [facility] Last Admin: 10/06/18 12:56 Dose: 3 ml Alteplase, Recombinant (Cathflo) 2 mg CATH ASDIR [facility] Last Admin: 09/24/18 12:23 Dose: 2 mg Amoxicillin/Clavulanate Potassium (Augmentin 400mg/5ml Oral Susp) 875 mg PER TUBE BID [facility] Last Admin: 10/06/18 08:19 Dose: 875 mg Lipase/Protease/Amylase ([place] [id number]) 1 cap FS .PER PROTOCOL PRN PRN Reason: TUBE OCCLUSION PROTOCOL Last Admin: 09/15/18 11:53 Dose: 1 cap Aspirin (Aspirin Chewable) 81 mg PO DAILY [facility] Last Admin: 10/06/18 08:19 Dose: 81 mg Atorvastatin Calcium (Lipitor) 20 mg PO HS [facility] Last Admin: 10/05/18 21:47 Dose: 20 mg Carvedilol (Coreg) 3.125 mg PER TUBE BID-[facility] [place] Last Admin: 10/06/18 08:20 Dose: 3.125 mg Chlorhexidine Gluconate (Chlorhexidine Gluconate) 15 ml SSP Q4H PRN PRN Reason: ORAL CARE Last Admin: 10/05/18 02:07 Dose: 15 ml Clonidine (Catapres) 0.1 mg PO Q4H PRN PRN Reason: SBP Greater Than 180 Last Admin: 09/18/18 00:44 Dose: 0.1 mg Dextrose/Water (Dextrose 50%) 25 gm SLOW IVP PRN PRN PRN Reason: Hypoglycemia Enoxaparin Sodium (Lovenox) 40 mg SC 2100 [facility] Last Admin: 10/05/18 21:47 Dose: 40 mg Famotidine (Pepcid) 20 mg PER TUBE 2100 [facility] Last Admin: 10/05/18 21:48 Dose: 20 mg Glucagon (Glucagon) 1 mg IM PRN PRN PRN Reason: Hypoglycemia Hydralazine HCl (Apresoline) 10 mg SLOW IVP Q6H PRN PRN Reason: SBP Greater Than 170 Last Admin: 09/28/18 12:42 Dose: 10 mg Dextrose/Water (D5w) 1,000 mls @ 0 mls/hr IV .Q0M PRN PRN Reason: Hypoglycemia Labetalol HCl (Normodyne) 10 mg SLOW IVP Q4H PRN PRN Reason: Systolic BP > 180 Last Admin: 09/15/18 14:50 Dose: 10 mg Metoprolol Tartrate (Lopressor) 50 mg PER TUBE BID [facility] Last Admin: 10/06/18 08:19 Dose: 50 mg Nitroglycerin (Nitrostat) 0.4 mg SL Q5MIN PRN PRN Reason: Chest Pain Last Admin: 08/31/18 15:33 Dose: 0.4 mg Ondansetron HCl (Zofran) 4 mg IVP Q4H PRN PRN Reason: Nausea/Vomiting Last Admin: 09/25/18 13:26 Dose: 4 mg Ondansetron HCl (Zofran Odt) 4 mg PO Q6H PRN PRN Reason: Nausea/Vomiting Last Admin: 10/05/18 02:11 Dose: 4 mg Potassium Bicarbonate/Citric Acid (K-Vescent) 25 meq PO BID- [facility] Last Admin: 10/06/18 08:19 Dose: 25 meq Sodium Bicarbonate (Bicarbonate, Sodium) 650 mg PER TUBE .PER PROTOCOL PRN PRN Reason: ENTERAL TUBE OCCLUSION Last Admin: 09/15/18 11:53 Dose: 650 mg Sodium Chloride (Flush - Normal Saline) 10 ml IVF Q12HR [facility] Last Admin: 10/06/18 08:20 Dose: Not Given Sodium Chloride (Flush - Normal Saline) 10 ml IVF PRN PRN PRN Reason: Saline Flush Last Admin: 09/27/18 10:20 Dose: 10 ml
[2018-10-06] MEDS: Famotidine 40 MG/5 ML Oral Suspension PER TUBE SCH (21:56)
[2018-10-06] MEDS: Enoxaparin Sodium 40 MG/0.4 ML SYRINGE SC SCH (21:56)
[2018-10-06] MEDS: Atorvastatin Calcium 20 MG TAB PO SCH (21:56)
[2018-10-07] MEDS: Acetaminophen 650 MG/20.3 ML UDCUP PO SCH ×4 (06:31→23:05)
[2018-10-07] MEDS: Aspirin Chewable 81 MG TAB PO SCH (08:58)
[2018-10-07] MEDS: Carvedilol 3.125 MG TAB PER TUBE SCH ×2 (08:58→17:54)
[2018-10-07] MEDS: Metoprolol Tartrate 50 MG TAB PER TUBE SCH ×2 (08:58→19:38)
[2018-10-07] MEDS: Potassium Bicarbonate/Cit Ac 25 MEQ TAB PO SCH ×2 (08:58→17:54)
[2018-10-07] MEDS: Amoxicillin/Potassium Clav 400 mg/5 ml Oral Suspension PER TUBE SCH ×2 (08:58→19:38)
[2018-10-07] MEDS: Ondansetron ODT 4 MG TAB PO PRN (09:30)
[2018-10-07] MEDS: Acetaminophen/Codeine 120-12MG/5 ML UDCUP PO PRN (10:43)
--- NOTE | 2018-10-07 13:43 | MRI ---
MRI OF THE BRAIN WITHOUT CONTRAST: COMPARISON: None. HISTORY: Stroke with aphasia. TECHNIQUE: Multiplanar, multisequence MR images were obtained in the brain without and with IV contrast. FINDINGS: There are numerous scattered foci of high T2/FLAIR signal in the subcortical and periventricular whit e matter, likely secondary to small-vessel ischemic disease. There are scattered foci of susceptibil ity artifact throughout the brain, likely representing multiple small areas of hemosiderin deposition . This often can be seen with amyloidosis. No restricted diffusion is seen to suggest an acute infa rction. There is no evidence of hydrocephalus, acute intracranial hemorrhage, or extraaxial fluid collection. The expected flow voids are present. Fluid is seen in the bilateral mastoid air cells. IMPRESSION: 1. No evidence of acute intracranial abnormality. 2. Small-vessel ischemic disease. 3. Areas of hemosiderin deposition throughout the brain may be secondary to amyloidosis. POS: [facility]
--- NOTE | 2018-10-07 13:54 | PDOC.PN ---
- Subjective Encounter Start Date: 10/07/18 Encounter Start Time: 11:45 Subjective: pt up in bed no complains - Objective Vital Signs & Weight: Vital Signs (12 hours) Temp Pulse Resp BP BP Pulse Ox 10/07/18 11:13 97.9 F 74 22 H 116/67 96 10/07/18 07:39 97.5 F L 85 22 H 145/74 H 92 L 10/07/18 07:14 76 18 95 10/07/18 04:00 97.6 F 76 16 137/79 95 Weight Admit Weight 186 lb 14.4 oz Weight 163 lb 6.4 oz Most Recent Monitor Data Heart Rate from ECG 80 NIBP 174/66 NIBP BP-Mean 102 Respiration from ECG 26 SpO2 95 I&O: 10/06/18 10/07/18 10/08/18 06:59 06:59 06:59 Intake Total 1722 1761 Output Total 940 975 Balance 782 786 Result Diagrams: 10/06/18 09:08 10/06/18 09:08 Phys Exam - Physical Examination Neck: no nodes, no JVD, supple, full ROM Respiratory: no wheezing, no rales, no rhonchi, clear to auscultation bilateral Cardiovascular: RRR, no significant murmur, no rub, gallop, irregular Gastrointestinal: soft, non-tender, no distention, positive bowel sounds Dx/Plan (1) Acute respiratory failure with hypoxia Code(s): J96.01 - ACUTE RESPIRATORY FAILURE WITH HYPOXIA Status: Resolved Comment: extubated and on the surgical floor, worsened some 08/27/18, ABG with mildly low CO2 and mildly low O2 (2) EMILY (acute kidney injury) Code(s): N17.9 - ACUTE KIDNEY FAILURE, UNSPECIFIED Status: Acute Comment: GFR improved to 40's and continues to improve. (3) Acute metabolic encephalopathy Code(s): G93.41 - METABOLIC ENCEPHALOPATHY Status: Acute Comment: Improving (4) Aspiration pneumonia Code(s): J69.0 - PNEUMONITIS DUE TO INHALATION OF FOOD AND VOMIT Status: Acute Qualifiers: Laterality: right Lung location: lower lobe of lung Comment: Enteral Augmentin. (5) Dysphagia Code(s): R13.10 - DYSPHAGIA, UNSPECIFIED Status: Acute Comment: Unsafe with consistencies. PEG Feeds. (6) Perforated sigmoid colon Code(s): K63.1 - PERFORATION OF INTESTINE (NONTRAUMATIC) Status: Acute Comment: s/p left and segmental transverse colectomy with colostomy. Gen Surg following. - Plan MRI brain no acute stroke but did amyloid -: will continue peg tube feeding. waiting for placement * . Review of Systems - Review of Systems Respiratory: negative: Cough, Dry, Shortness of Breath, Hemoptysis, SOB with Excertion, Pleuritic Pain, Sputum, Wheezing Cardiovascular: negative: chest pain, palpitations, orthopnea, paroxysmal nocturnal dyspnea, edema, light headedness, other Gastrointestinal: negative: Nausea, Vomiting, Abdominal Pain, Diarrhea, Constipation, Melena, Hematochezia, Other - Medications/Allergies Allergies/Adverse Reactions: Allergies Allergy/AdvReac Type Severity Reaction Status Date / Time No Known Drug Allergies Allergy Verified 08/29/18 13:32 Medications: Current Medications Acetaminophen (Tylenol Elixir) 650 mg PO Q6HR [facility] Last Admin: 10/07/18 11:20 Dose: Not Given Acetaminophen/Codeine Phosphate (Tylenol/Codeine Elixir) 5 ml PO Q4H PRN PRN Reason: Pain Last Admin: 10/07/18 10:43 Dose: 5 ml Albuterol/Ipratropium (Duoneb) 3 ml NEB Q4H PRN PRN Reason: SOB &/or Wheezing Last Admin: 09/27/18 13:24 Dose: 3 ml Albuterol/Ipratropium (Duoneb) 3 ml NEB TID-RT [facility] Last Admin: 10/07/18 12:42 Dose: Not Given Alteplase, Recombinant (Cathflo) 2 mg CATH ASDIR [facility] Last Admin: 09/24/18 12:23 Dose: 2 mg Amoxicillin/Clavulanate Potassium (Augmentin 400mg/5ml Oral Susp) 875 mg PER TUBE BID [facility] Last Admin: 10/07/18 08:58 Dose: 875 mg Lipase/Protease/Amylase ([place] [id number]) 1 cap FS .PER PROTOCOL PRN PRN Reason: TUBE OCCLUSION PROTOCOL Last Admin: 09/15/18 11:53 Dose: 1 cap Aspirin (Aspirin Chewable) 81 mg PO DAILY [facility] Last Admin: 10/07/18 08:58 Dose: 81 mg Atorvastatin Calcium (Lipitor) 20 mg PO HS [facility] Last Admin: 10/06/18 21:56 Dose: 20 mg Carvedilol (Coreg) 3.125 mg PER TUBE BID-[facility] Last Admin: 10/07/18 08:58 Dose: 3.125 mg Chlorhexidine Gluconate (Chlorhexidine Gluconate) 15 ml SSP Q4H PRN PRN Reason: ORAL CARE Last Admin: 10/05/18 02:07 Dose: 15 ml Clonidine (Catapres) 0.1 mg PO Q4H PRN PRN Reason: SBP Greater Than 180 Last Admin: 09/18/18 00:44 Dose: 0.1 mg Dextrose/Water (Dextrose 50%) 25 gm SLOW IVP PRN PRN PRN Reason: Hypoglycemia Enoxaparin Sodium (Lovenox) 40 mg SC 2100 [facility] Last Admin: 10/06/18 21:56 Dose: 40 mg Famotidine (Pepcid) 20 mg PER TUBE 2100 [facility] Last Admin: 10/06/18 21:56 Dose: 20 mg Glucagon (Glucagon) 1 mg IM PRN PRN PRN Reason: Hypoglycemia Hydralazine HCl (Apresoline) 10 mg SLOW IVP Q6H PRN PRN Reason: SBP Greater Than 170 Last Admin: 09/28/18 12:42 Dose: 10 mg Dextrose/Water (D5w) 1,000 mls @ 0 mls/hr IV .Q0M PRN PRN Reason: Hypoglycemia Labetalol HCl (Normodyne) 10 mg SLOW IVP Q4H PRN PRN Reason: Systolic BP > 180 Last Admin: 09/15/18 14:50 Dose: 10 mg Metoprolol Tartrate (Lopressor) 50 mg PER TUBE BID [facility] Last Admin: 10/07/18 08:58 Dose: 50 mg Nitroglycerin (Nitrostat) 0.4 mg SL Q5MIN PRN PRN Reason: Chest Pain Last Admin: 08/31/18 15:33 Dose: 0.4 mg Ondansetron HCl (Zofran) 4 mg IVP Q4H PRN PRN Reason: Nausea/Vomiting Last Admin: 09/25/18 13:26 Dose: 4 mg Ondansetron HCl (Zofran Odt) 4 mg PO Q6H PRN PRN Reason: Nausea/Vomiting Last Admin: 10/07/18 09:30 Dose: 4 mg Potassium Bicarbonate/Citric Acid (K-Vescent) 25 meq PO BID-[facility] Last Admin: 10/07/18 08:58 Dose: 25 meq Sodium Bicarbonate (Bicarbonate, Sodium) 650 mg PER TUBE .PER PROTOCOL PRN PRN Reason: ENTERAL TUBE OCCLUSION Last Admin: 09/15/18 11:53 Dose: 650 mg Sodium Chloride (Flush - Normal Saline) 10 ml IVF Q12HR [facility] Last Admin: 10/07/18 09:05 Dose: Not Given Sodium Chloride (Flush - Normal Saline) 10 ml IVF PRN PRN PRN Reason: Saline Flush Last Admin: 09/27/18 10:20 Dose: 10 ml
--- NOTE | 2018-10-07 17:54 | PRG ---
DATE OF SERVICE: 10/07/2018 SUBJECTIVE: The patient noted with the following vital signs. OBJECTIVE: VITAL SIGNS: Afebrile, temperature 98, pulse 78, respiratory rate of 20, O2 saturation of 97%, blood pressure of 160/79. HEENT: Unremarkable. CARDIOVASCULAR: First and second heart sounds are heard. RESPIRATORY: Clear to auscultation. DIGESTIVE: Revealed a benign abdomen. EXTREMITIES: No peripheral edema. SKIN: No new gross rash. LYMPHATICS: No peripheral lymphadenopathy. IMPRESSION: 1. Acute kidney injury, which has resolved. 2. Hyponatremia, resolved. PLAN: Continue current renal supportive measures with renal replacement. Job ID: [id number]
[2018-10-07] MEDS: Famotidine 40 MG/5 ML Oral Suspension PER TUBE SCH (19:37)
[2018-10-07] MEDS: Enoxaparin Sodium 40 MG/0.4 ML SYRINGE SC SCH (19:38)
[2018-10-07] MEDS: Atorvastatin Calcium 20 MG TAB PO SCH (19:38)
[2018-10-07] MEDS: Chlorhexidine Gluconate 15 ML UDCUP SSP PRN (19:46)
[2018-10-08] MEDS: Acetaminophen 650 MG/20.3 ML UDCUP PO SCH ×4 (05:47→23:10)
[2018-10-08] MEDS: Amoxicillin/Potassium Clav 400 mg/5 ml Oral Suspension PER TUBE SCH (09:31)
[2018-10-08] MEDS: Metoprolol Tartrate 50 MG TAB PER TUBE SCH ×2 (09:31→21:36)
[2018-10-08] MEDS: Aspirin Chewable 81 MG TAB PO SCH (09:31)
[2018-10-08] MEDS: Carvedilol 3.125 MG TAB PER TUBE SCH ×2 (09:32→17:33)
[2018-10-08] MEDS: Potassium Bicarbonate/Cit Ac 25 MEQ TAB PO SCH ×2 (09:32→17:34)
[2018-10-08] MEDS: Nystatin 500,000 UNITS/5 ML UDCUP SSW SCH ×3 (11:30→21:36)
[2018-10-08] MEDS: Ondansetron ODT 4 MG TAB PO PRN ×2 (12:03→21:36)
--- NOTE | 2018-10-08 12:03 | PDOC.PN ---
- Subjective Encounter Start Date: 10/08/18 Encounter Start Time: 11:30 Subjective: Patient more alert and talkative now. Denies any pain. States he feels -: less confused. Reports feeling a bit weak with getting up with PT but -: improving. - Objective MAR Reviewed: Yes Vital Signs & Weight: Vital Signs (12 hours) Temp Pulse Resp BP BP Pulse Ox Pulse Ox 10/08/18 11:30 22 H 95 10/08/18 11:20 98.4 F 77 26 H 145/74 H 95 10/08/18 08:13 94 L 10/08/18 07:45 98.3 F 79 24 H 144/81 H 99 10/08/18 07:35 95 10/08/18 07:33 82 16 95 10/08/18 04:00 98 F 79 16 143/76 H 93 L Weight Admit Weight 186 lb 14.4 oz Weight 159 lb 4.8 oz Most Recent Monitor Data Heart Rate from ECG 80 NIBP 174/66 NIBP BP-Mean 102 Respiration from ECG 26 SpO2 95 I&O: 10/07/18 10/08/18 10/09/18 06:59 06:59 06:59 Intake Total 1761 1644 337 Output Total 975 875 Balance 786 769 337 Result Diagrams: 10/06/18 09:08 10/06/18 09:08 Phys Exam - Physical Examination Constitutional: NAD HEENT: moist MMs Respiratory: no wheezing, no rales, no rhonchi Cardiovascular: RRR Gastrointestinal: soft, positive bowel sounds PEG in place Neurological: non-focal, moves all 4 limbs Psychiatric: normal affect Dx/Plan (1) Aspiration pneumonia Code(s): J69.0 - PNEUMONITIS DUE TO INHALATION OF FOOD AND VOMIT Status: Acute Qualifiers: Laterality: right Lung location: lower lobe of lung Comment: Enteral Augmentin. (2) Acute respiratory failure with hypoxia Code(s): J96.01 - ACUTE RESPIRATORY FAILURE WITH HYPOXIA Status: Resolved Comment: extubated and on the surgical floor, worsened some 08/27/18, ABG with mildly low CO2 and mildly low O2, improved and O2 weaned down to 1 L with good sats (3) Perforated sigmoid colon Code(s): K63.1 - PERFORATION OF INTESTINE (NONTRAUMATIC) Status: Acute Comment: s/p left and segmental transverse colectomy with colostomy. Gen Surg following. (4) EMILY (acute kidney injury) Code(s): N17.9 - ACUTE KIDNEY FAILURE, UNSPECIFIED Status: Resolved Comment : GFR improved to 40's and continues to improve. (5) Hypernatremia Code(s): E87.0 - HYPEROSMOLALITY AND HYPERNATREMIA Status: Resolved (6) CAD (coronary artery disease) Code(s): I25.10 - ATHSCL HEART DISEASE OF [place] CORONARY ARTERY W/O ANG PCTRS Status: Chronic Comment: RCA and LCx occlusion with filling from LAD collaterals. continue med mgmt with ASA, Lipitor, Coreg (7) Grade I diastolic dysfunction Code(s): I51.9 - HEART DISEASE, UNSPECIFIED Status: Chronic Comment: Currently on metoprolol. (8) Hypertension Code(s): I10 - ESSENTIAL (PRIMARY) HYPERTENSION Status: Chronic Qualifiers: Hypertension type: essential hypertension Qualified Code(s): I10 - Essential (primary) hypertension (9) Oropharyngeal dysphagia Code(s): R13.12 - DYSPHAGIA, OROPHARYNGEAL PHASE Status: Acute Comment: Severe, no consistencies safe, aspiration with all, PEG placed, advanced to full tube feeds - Plan cont current plan of care, continue antibiotics, PT/OT, DVT proph w/lovenox awaiting placement, possibly swing bed at [facility] -: patient's mental status improved, no stroke on MRI but changes consistent -: with Amyloidosis. With improvement in mental status hopefully his swallow -: will eventually return as well. * . - Discharge Day Encounter end time: 11:40
[2018-10-08] MEDS: Famotidine 40 MG/5 ML Oral Suspension PER TUBE SCH (21:35)
[2018-10-08] MEDS: Enoxaparin Sodium 40 MG/0.4 ML SYRINGE SC SCH (21:36)
[2018-10-08] MEDS: Atorvastatin Calcium 20 MG TAB PO SCH (21:36)
--- NOTE | 2018-10-08 22:08 | PRG ---
DATE OF SERVICE: 10/08/2018 SUBJECTIVE: The patient was seen and examined with no new complaint noted with the following. OBJECTIVE: VITAL SIGNS: Afebrile. Temperature 97.8, pulse 78, respiratory rate of 18, O2 saturations 93% with blood pressure 136/77. HEENT: Unremarkable. . IMPRESSION: 1. Acute kidney injury, which has resolved. 2. , resolved. PLAN: Continue current management. Job ID: [id number]
[2018-10-09] MEDS: Acetaminophen 650 MG/20.3 ML UDCUP PO SCH ×3 (05:57→17:20)
[2018-10-09] MEDS: Nystatin 500,000 UNITS/5 ML UDCUP SSW SCH ×4 (08:19→20:07)
[2018-10-09] MEDS: Aspirin Chewable 81 MG TAB PO SCH (08:19)
[2018-10-09] MEDS: Carvedilol 3.125 MG TAB PER TUBE SCH ×2 (08:19→17:20)
[2018-10-09] MEDS: Metoprolol Tartrate 50 MG TAB PER TUBE SCH ×2 (08:19→20:06)
[2018-10-09] MEDS: Potassium Bicarbonate/Cit Ac 25 MEQ TAB PO SCH ×2 (08:19→17:20)
[2018-10-09] MEDS: Ondansetron ODT 4 MG TAB PO PRN ×2 (09:32→18:22)
--- NOTE | 2018-10-09 09:58 | PDOC.PN ---
- Subjective Encounter Start Date: 10/09/18 Encounter Start Time: 09:45 Subjective: f/u for aspiration PNA, dysphagia with PEG tube feeds hospital day # 41 -: awaiting SNF placement. No new complaints. - Objective MAR Reviewed: Yes Vital Signs & Weight: Vital Signs (12 hours) Temp Pulse Resp BP Pulse Ox 10/09/18 08:20 92 L 10/09/18 07:00 97.9 F 88 24 H 151/76 H 92 L 10/09/18 06:45 93 L 10/09/18 06:41 85 93 L 10/09/18 03:58 94 L 10/09/18 00:00 98.2 F 77 16 129/76 94 L Weight Admit Weight 186 lb 14.4 oz Weight 162 lb 6.4 oz Most Recent Monitor Data Heart Rate from ECG 80 NIBP 174/66 NIBP BP-Mean 102 Respiration from ECG 26 SpO2 95 I&O: 10/08/18 10/09/18 10/10/18 06:59 06:59 06:59 Intake Total 1644 1872 Output Total 875 1200 Balance 769 672 Result Diagrams: 10/06/18 09:08 10/06/18 09:08 Additional Labs: Microbiology 09/06/18 22:42 Urine cohn catheter Urine Culture - Preliminary NO GROWTH AT 12 HOURS 09/06/18 19:37 Venous blood - Left Arm Blood Culture - Preliminary Specimen has been received and culture in progress. No Growth to date. 09/06/18 19:30 Venous blood - Right Arm Blood Culture - Preliminary Specimen has been received and culture in progress. No Growth to date. Laboratory Tests 08/29/18 08/29/18 08/30/18 11:47 11:47 06:20 WBC 10.2 15.5 H Hgb Plt Count Band Neuts % (Manual) Sodium Potassium BUN Creatinine Estimated GFR (MDRD) Phosphorus Magnesium B-Natriuretic Peptide 90.7 09/01/18 09/05/18 09/05/18 05:16 11:36 11:36 WBC 13.3 H 24.2 H Hgb Plt Count Band Neuts % (Manual) 25 H Sodium 139 Potassium 4.4 BUN 43 H Creatinine 2.29 H Estimated GFR (MDRD) 29 Phosphorus Magnesium B-Natriuretic Peptide 09/06/18 09/06/18 09/06/18 06:00 18:34 18:34 WBC 23.4 H 8.6 Hgb 12.1 L Plt Count 124 L Band Neuts % (Manual) 34 H 34 H Sodium Potassium BUN Creatinine 4.18 H Estimated GFR (MDRD) Phosphorus 12.5 H* Magnesium 2.6 B-Natriuretic Peptide 09/07/18 09/07/18 09/07/18 05:41 05:41 05:41 WBC Hgb Plt Count Band Neuts % (Manual) 25 H Sodium Potassium BUN Creatinine Estimated GFR (MDRD) Phosphorus 10.0 H* Magnesium 3.2 H B-Natriuretic Peptide Radiology Reviewed by me: Yes (MRI brain - amyloidosis, no acute changes) Phys Exam - Physical Examination Constitutional: NAD HEENT: PERRLA, sclera anicteric, oral pharynx no lesions Neck: no nodes, no JVD, supple, full ROM Respiratory: no wheezing, no rales, no rhonchi, clear to auscultation bilateral S1, S2 Cardiovascular: RRR, no significant murmur, no rub, gallop PEG in place Gastrointestinal: soft, non-tender, no distention, positive bowel sounds Musculoskeletal: no edema, pulses present Neurological: normal sensation, moves all 4 limbs Skin: normal turgor, cap refill <2 seconds Dx/Plan (1) Perforated sigmoid colon Code(s): K63.1 - PERFORATION OF INTESTINE (NONTRAUMATIC) Status: Acute Comment: s/p left and segmental transverse colectomy with colostomy. Gen Surg following. (2) Peritonitis Code(s): K65.9 - PERITONITIS, UNSPECIFIED Status: Resolved Comment: s/p surgery (3) EMILY (acute kidney injury) Code(s): N17.9 - ACUTE KIDNEY FAILURE, UNSPECIFIED Status: Resolved Comment : GFR improved in 60's (4) Acute respiratory failure with hypoxia Code(s): J96.01 - ACUTE RESPIRATORY FAILURE WITH HYPOXIA Status: Resolved Comment: extubated and on the surgical floor, worsened some 08/27/18, ABG with mildly low CO2 and mildly low O2, improved and O2 weaned down to 1 L with good sats (5) Syncope Code(s): R55 - SYNCOPE AND COLLAPSE Status: Acute Comment: Suspected cardiac etiology, EP consulted with negative EP study 09/03/18, ILR placed with outpt f/u planned (6) Hypertension Code(s): I10 - ESSENTIAL (PRIMARY) HYPERTENSION Status: Chronic Qualifiers: Hypertension type: essential hypertension Qualified Code(s): I10 - Essential (primary) hypertension - Plan PT/OT, social work case manager, speech therapy, DVT proph w/SCDs Stable currently -: Continue nutritional support with Jevity 1.5 TF's -: PT/OT for mobilization -: Continue ASA, Lipitor, Metoprolol -: CM assisting with placement options * .
[2018-10-09 10:46] VITALS: BMI 25.4
--- NOTE | 2018-10-09 11:03 | PRG ---
DATE OF SERVICE: 10/09/2018 The patient noted with the following vital signs; temperature 97.9, pulse 88, respiratory rate of 24, O2 saturation 92%, and blood pressure 151/76 PLAN: We will continue to be . Job ID: [id number]
[2018-10-09 15:19] VITALS: BP 136/64; TEMP 97.7
[2018-10-09] MEDS: Enoxaparin Sodium 40 MG/0.4 ML SYRINGE SC SCH (20:06)
[2018-10-09] MEDS: Atorvastatin Calcium 20 MG TAB PO SCH (20:06)
[2018-10-09] MEDS: Famotidine 40 MG/5 ML Oral Suspension PER TUBE SCH (20:07)
--- NOTE | 2018-10-10 10:49 | DIS ---
DATE OF ADMISSION: 08/29/2018 DATE OF DISCHARGE: 10/09/2018 DISCHARGE DIAGNOSES: 1. Perforated sigmoid diverticula with peritonitis. 2. Status post left hemicolectomy with colostomy. 3. Peritonitis secondary to #1, resolved. 4. Acute kidney injury, resolving. 5. Acute hypoxic respiratory failure, stable. 6. Syncopal episode, suspected cardiogenic, status post implantable loop recorder. 7. Hypertension, stable. 8. Aspiration pneumonia, resolved. 9. Oropharyngeal dysphagia, status post PEG tube placement with Jevity 1.5 tube feeds 8 cans daily. CONSULTATIONS: 1. Dr. Mcduffie with General Surgery Service. 2. Dr. Fernandes with Cardiology Service. 3. Dr. Kennedy with Nephrology Service. 4. Dr. Koch with Pulmonology/Critical Care Service. PERTINENT LAB AND X-RAY FINDINGS: Creatinine ranged between 0.93 to 8.03. BNP ranged between 91 to 1542. CBC showed a white blood cell count ranging between 8.6 to 24.2, hemoglobin ranged between 8.4 to 16.7. Blood cultures x2 dated 09/06/2018, showed no growth at 5 days. Urine culture dated 09/06/2018, showed no growth at 36 hours. 2D transthoracic echocardiogram dated 08/30/2018, showed ejection fraction of 50% to 55%, grade 1/3 diastolic dysfunction. [id number] aortic regurgitation noted. CT of the chest, abdomen, and pelvis dated 08/29/2018, showed acute right fifth rib fracture. CT of the brain without contrast dated 08/29/2018, showed no acute intracranial process. CT of the cervical spine dated 08/29/2018, showed no acute cervical spine process. Cardiac catheterization dated 08/31/2018, showed occluded right coronary and left circumflex with collateral filling from the left anterior descending. Ejection fraction of 40% to 45%. CT of the abdomen dated 09/06/2018, showed free intraperitoneal gas suggesting perforated viscus. Dilated proximal jejunal small bowel loops with abrupt transition zone. Modified barium swallow study dated 09/24/2018, showed dysphagia with evidence of aspiration and lack of coordination for swallowing. CT of the brain without contrast dated 09/25/2018, showed cortical atrophy and white matter ischemic changes. MRI of the brain dated 10/07/2018, showed amyloidosis with small-vessel ischemic changes. No acute process identified. HOSPITAL COURSE: The patient was initially admitted after presenting status post syncopal episode, undergoing initial cardiac and syncopal workup. The patient underwent left heart catheterization showing stable coronary artery disease with recommendations to undergo implantable loop recorder for outpatient monitoring. The patient was evaluated by Cardiology and Electrophysiology Service and deemed appropriately stable from a cardiac standpoint. The patient underwent general trauma evaluation including CT imaging of the brain and cervical spine showing no acute process. The patient was nearing discharge when he developed increasing abdominal pain, distention, undergoing abdominal imaging showing evidence of perforated viscus, suspected perforated diverticula. The patient was evaluated by General Surgery Service, undergoing laparotomy with left colectomy. The patient underwent subsequent second-look exploratory laparotomy with subsequent transverse colectomy and partial omentectomy with colostomy formation. The patient underwent abdominal washout and placed on broad-spectrum IV antibiotic therapy. The patient was monitored in the Critical Care Unit and placed on mechanical ventilation. The patient was slow to clinically improve and required multiple days in the Critical Care Unit, receiving nutritional supplementation parenterally in addition to pulmonary support. The patient slowly transitioned from the Critical Care to step-down unit weaning off mechanical ventilation. The patient developed acute kidney injury, requiring conservative management with overall correction of the renal dysfunction and acute tubular necrosis with general supportive management. Due to the patient's peritonitis and concern for dysphagia, the patient underwent general evaluation from Speech Therapy including modified barium study showing the patient was unsafe for oral intake. The patient underwent subsequent PEG tube placement to continue nutritional supplementation with PEG tube feeds. The patient initially placed on Nepro solution, transitioning to Jevity 1.5 after renal function returned to normal levels. The patient also continued to receive ongoing physical and occupational therapy and was deemed an appropriate candidate for skilled care. Due to the patient's overall deconditioned status and multiple comorbid conditions, the patient has been approved to transfer to [facility] for further medical supervision and therapy. I have examined the patient at the time of discharge and discussed followup instructions. The patient is clinically stable and ready for discharge on 10/09/2018. DISCHARGE MEDICATIONS: 1. Enteric-coated aspirin 81 mg daily. 2. Lipitor 20 mg p.o. daily. 3. Coreg 6.25 mg b.i.d. 4. Lipitor 20 mg p.o. q.h.s. 5. Coreg 3.125 mg b.i.d. 6. Lovenox 40 mg subcutaneously daily. 7. Pepcid 20 mg per PEG tube daily. 8. DuoNeb 3 mL nebulized q.4 hours p.r.n. 9. Metoprolol tartrate 50 mg per PEG tube b.i.d. 10. K-Vescent 25 mEq b.i.d. 11. Sodium bicarbonate 650 mg per PEG tube as needed for enteral tube occlusion. FOLLOWUP: The patient may follow up with his primary care provider through [facility] after discharge from [facility]. The patient will follow up with Dr. Fernandes with Cardiology Service. The patient may follow up with Dr. Mcdufife with General Surgery Service. The patient will follow up with Dr. Hitchcock with Electrophysiology Service. CONDITION ON DISCHARGE: Fair. ACTIVITY: Ad-maría. Recommend ongoing aggressive physical and occupational therapy. SPECIAL INSTRUCTIONS: Oxygen supplementation via nasal cannula to maintain saturations greater than or equal to 92%. DIET: Jevity 1.5 eight cans per day with 30 mL water flushes before and after each can. CODE STATUS: Full. DISPOSITION: Discharge to [facility] on 10/09/2018. TIME SPENT: Total time preparing and coordinating discharge is 55 minutes. Job ID: [id number]
== END 2018-10-09 20:30 | DRG 329 ==
LOC: ERS 11:36 → ERHOLD 13:16 → 2SE 18:26 → CCU 09-06 16:40 → IMCU/EMU 09-15 15:13 → SURG A 09-21 09:59
PROVIDERS: ADMIT Internal Medicine; ATTEND Internal Medicine
PROC: 5A1955Z Respiratory Ventilation, Greater than 96 Consecutive Hours (ICD-10-PCS; principal; 2018-08-29)
PROC: 4A023N7 Measurement of Cardiac Sampling and Pressure, Left Heart, Percutaneous Approach (ICD-10-PCS; 2018-08-31)
PROC: B2111ZZ Fluoroscopy of Multiple Coronary Arteries using Low Osmolar Contrast (ICD-10-PCS; 2018-08-31)
PROC: 0JH602Z Insertion of Monitoring Device into Chest Subcutaneous Tissue and Fascia, Open Approach (ICD-10-PCS; 2018-09-03)
PROC: 4A023FZ Measurement of Cardiac Rhythm, Percutaneous Approach (ICD-10-PCS; 2018-09-03)
PROC: 4A0234Z Measurement of Cardiac Electrical Activity, Percutaneous Approach (ICD-10-PCS; 2018-09-03)
PROC: 0DBN0ZZ Excision of Sigmoid Colon, Open Approach (ICD-10-PCS; 2018-09-06)
PROC: 02HV33Z Insertion of Infusion Device into Superior Vena Cava, Percutaneous Approach (ICD-10-PCS; 2018-09-06)
PROC: 0DBL0ZZ Excision of Transverse Colon, Open Approach (ICD-10-PCS; 2018-09-07)
PROC: 0DBU0ZZ Excision of Omentum, Open Approach (ICD-10-PCS; 2018-09-07)
PROC: 0D1L0Z4 Bypass Transverse Colon to Cutaneous, Open Approach (ICD-10-PCS; 2018-09-07)
PROC: 0DHA0UZ Insertion of Feeding Device into Jejunum, Open Approach (ICD-10-PCS; 2018-09-07)
PROC: 0W9J30Z Drainage of Pelvic Cavity with Drainage Device, Percutaneous Approach (ICD-10-PCS; 2018-09-07)
PROC: 3E0436Z Introduction of Nutritional Substance into Central Vein, Percutaneous Approach (ICD-10-PCS; 2018-09-10)
PROC: 0DH63UZ Insertion of Feeding Device into Stomach, Percutaneous Approach (ICD-10-PCS; 2018-09-25)
PROC: 3E0G76Z Introduction of Nutritional Substance into Upper GI, Via Natural or Artificial Opening (ICD-10-PCS; 2018-09-25)
PROC: 0DJ08ZZ Inspection of Upper Intestinal Tract, Via Natural or Artificial Opening Endoscopic (ICD-10-PCS; 2018-09-25)
DX: K57.20 Diverticulitis of large intestine with perforation and abscess without bleeding (principal); J69.0 Pneumonitis due to inhalation of food and vomit; K65.9 Peritonitis, unspecified; J96.01 Acute respiratory failure with hypoxia; A41.9 Sepsis, unspecified organism; R65.21 Severe sepsis with septic shock; G92 Toxic encephalopathy; I21.A1 Myocardial infarction type 2; K55.049 Acute infarction of large intestine, extent unspecified; I50.33 Acute on chronic diastolic (congestive) heart failure; S22.41XA Multiple fractures of ribs, right side, initial encounter for closed fracture; N17.9 Acute kidney failure, unspecified; E87.0 Hyperosmolality and hypernatremia; E85.9 Amyloidosis, unspecified; J44.1 Chronic obstructive pulmonary disease with (acute) exacerbation; E46 Unspecified protein-calorie malnutrition; I16.1 Hypertensive emergency; I11.0 Hypertensive heart disease with heart failure; I25.10 Atherosclerotic heart disease of native coronary artery without angina pectoris; I35.1 Nonrheumatic aortic (valve) insufficiency; E66.9 Obesity, unspecified; Z68.32 Body mass index [BMI] 32.0-32.9, adult; E87.6 Hypokalemia; E83.41 Hypermagnesemia; E83.39 Other disorders of phosphorus metabolism; K59.01 Slow transit constipation; Z87.891 Personal history of nicotine dependence; S30.811A Abrasion of abdominal wall, initial encounter; S60.512A Abrasion of left hand, initial encounter; V67.5XXA Driver of heavy transport vehicle injured in collision with fixed or stationary object in traffic accident, initial encounter; I16.0 Hypertensive urgency; T79.6XXA Traumatic ischemia of muscle, initial encounter
CPT/HCPCS: 33285; 36415; 36416; 70450; 70551; 71045; 71260; 72125; 74018; 74150; 74177; 74230; 76770; 76942; 80048; 80053; 80061; 81003; 82550; 82553; 82805; 83605; 83735; 83880; 84100; 84484; 85007; 85025; 85027; 85610; 85730; 86850; 86900; 86901; 87040; 87086; 88307; 88309; 90471; 90732; 93005; 93010; 93306; 93458; 93620; 93798; 94002; 94003; 94640; 94660; 96374; 96375; 99152; A4217; C1730; C1764; C1769; G0009; G0390; J0360; J0690; J0694; J1642; J1644; J1650; J1720; J1815; J1940; J2001; J2060; J2248; J2250; J2270; J2370; J2405; J2543; J2704; J2930; J2997; J3010; J3475; J3480; J3490; J7050; J7070; J7512; J7620; P9045; P9047; Q0162; Q9966; Q9967; S0028

== ENCOUNTER 2018-10-24 10:45 | Outpatient (CLI) | payer BC | END 2018-10-24 10:46 | disposition home or self-care (01) | PROVIDERS: ATTEND Internal Medicine | DX: R13.10 Dysphagia, unspecified (principal); R63.3 Feeding difficulties | CPT/HCPCS: 74230 ==

== ENCOUNTER 2018-11-18 18:03 | Emergency (ER) | payer BC | END 2018-11-18 20:51 | disposition home or self-care (01) | LOC: ERS 18:03 | DX: Z43.1 Encounter for attention to gastrostomy (principal); Z87.891 Personal history of nicotine dependence; Z79.899 Other long term (current) drug therapy | CPT/HCPCS: 99281 ==

== ENCOUNTER 2020-01-13 04:55 | Inpatient (IN) | payer MEDICARE, OTHER ==
[2020-01-13 05:54] LABS: #Eosinphils 0.2 thou/uL (0.0-0.7); #Lymphocytes 1.8 thou/uL (1.20-3.40); #Monocytes 1.1 thou/uL (0.11-0.59); #Neutrophils 6.4 thou/uL (1.40-6.50); %Basophils 0.3 % (0.0-1.0); %Eosinophils 1.6 % (0.0-10.0); %Lymphocytes 18.9 % (21.0-51.0); %Monocytes 11.8 % (0.0-10.0); %Neutrophils 67.3 % (42.0-75.0); Hemoglobin 15.7 g/dL (14.0-18.0); Mean Corpuscular HGB CONC 33.5 g/dL (32.0-36.0); Mean Corpuscular Hemoglobin 31.3 pg (27.0-31.0); Mean Corpuscular Volume 93.4 fL (78.0-98.0); Mean Platelet Volume 7.5 fL (7.4-10.4); Platelet Count 155 thou/uL (130-400); RBC Distribution Width 11.5 % (11.5-14.5); Red Blood Cell (RBC) Count 5.01 mill/uL (4.70-6.10); White Blood Cell (WBC) Count 9.5 thou/uL (4.8-10.8)
[2020-01-13 06:02] LABS: Prothrombin Time 13.2 sec (12.0-14.7)
[2020-01-13 06:03] LABS: PTT 35.9 sec (22.9-36.1)
[2020-01-13 06:15] LABS: ALT (SGPT) 27 U/L (8-55); AST (SGOT) 24 U/L (5-34); Albumin 4.2 g/dL (3.4-4.8); Alkaline Phosphatase 72 U/L (40-110); Anion Gap 15 mmol/L (10-20); BUN (Urea Nitrogen) 21 mg/dL (8.4-25.7); Bilirubin, Total 0.4 mg/dL (0.2-1.2); Calc. Creatinine Clearance 0 mL/min (70-130); Calcium 8.7 mg/dL (7.8-10.44); Carbon Dioxide 21 mmol/L (23-31); Chloride 106 mmol/L (98-107); Estimated GFR-MDRD 66; Globulin 2.8 g/dL (2.4-3.5); Glucose 97 mg/dL (80-115); Potassium 4.2 mmol/L (3.5-5.1); Sodium 138 mmol/L (136-145)
[2020-01-13] MEDS ORDERED: Aspirin 325 MG TAB ONE (06:30)
--- NOTE | 2020-01-13 07:06 | CT ---
PRELIMINARY REPORT/[facility]/EMERGENCY AFTER HOURS PROCEDURE: Receipt of this report by the clinical staff was confirmed with KATALINA DE JESUS MD by Donovan Bowers on Jan 13, 2020 05:18:00 CDT. Addendum electronically signed by Ewa Bowers on January 13, 2020 5:18:50 AM CDT EXAM: CT Head Without Intravenous Contrast. CLINICAL HISTORY: LEVEL 1 STROKE AMS; L ARM NUMBNESS TECHNIQUE: Axial computed tomography images of the head/brain without intravenous contrast. COMPARISON: CT\SR - CT BRAIN WO CON - 09/25/2018 09:47 AM CDT FINDINGS: BRAIN: No acute intraparenchymal hemorrhage. No mass lesion. No CT evidence for acute territorial inf arct. No midline shift or extra-axial collection. There is a mild age appropriate brain atrophy with mild periventricular white matter disease. There is old lacunar infarct in the left external cap miriam. VENTRICLES: No hydrocephalus. ORBITS: The orbits are unremarkable. SINUSES AND MASTOIDS: The paranasal sinuses and mastoid air cells are clear. SOFT TISSUES: No significant facial or scalp soft tissue swelling evident. No radiopaque foreign body is seen. BONES: No acute skull fracture. IMPRESSION: No acute intracranial abnormality. ELECTRONICALLY SIGNED BY: Cali Armas MD Jan 13, 2020 5:16:08 AM CDT FINAL REPORT HEAD CT WITHOUT CONTRAST: HISTORY: Level 1 stroke. Left arm numbness. COMPARISON: 10/05/2018. FINDINGS: Hemorrhage: No intraparenchymal hemorrhage or extra-axial hematoma. Brain parenchyma: Cortical siddiqui-white matter differentiation is preserved. No mass effect or midline shift. Basilar cisterns are patent.Chronic small vessel ischemic changes of the white matter. Ventricular system: Ventricles and sulci are patent and symmetric. Calvarium: Intact. Sinuses and mastoid air cells: Adequate aeration. IMPRESSION: 1. This report is in agreement with initial report by [facility] 2. Chronic small vessel ischemic changes. No acute intracranial process. Transcribed Date/Time: 01/13/2020 7:49 AM
--- NOTE | 2020-01-13 07:18 | PDOC.HHP ---
Hospitalist HPI - History of Present Illness LUE weakness History of Present Illness: PCP: Dr. Barillas The patient is a 64-year-old male with a past medical history significant for hypertension and hyperlipidemia that presents to the emergency department via EMS for the above complaint. Patient reports that he woke up at approximately 130 this morning with left arm weakness. He states that he thought he slept on it wrong. He got out of bed and took his dog outside and suffered a mechanical fall while reaching for the door. He denies any LOC, headache or neck pain. He reports associated numbness to his left upper extremity. He denies any changes in speech or vision. Denies any chest pain, heart palpitations, lightheadedness. Denies any abdominal pain, vomiting, diarrhea. Denies any urinary symptoms. He has no known sick contacts. He was able to call EMS. On arrival, EMS reported the patient was hypertensive and mildly tachycardic with a normal SPO2. No drift documented. Patient was taken to the emergency department for further evaluation. ED Course: VITAL SIGNS MonJan 13, 2020 05:00 STEVAN Brennan Jennifer BP: 161/91, MAP: 114, Pulse: 101, Resp: 18, Temp: 98.3 (Oral), Pain: 0, O2 sat: 95 on (Room Air), Time: 01/13/2020 05:00. VITAL SIGNS MonJan 13, 2020 06:00 STEVAN Brennan Jennifer BP: 142/92, MAP: 108, Pulse: 92, Resp: 21, Pain: 0, O2 sat: 93 on (Room Air), Time: 01/13/2020 06:00. VITAL SIGNS MonJan 13, 2020 06:30 STEVAN Brennan Jennifer BP: 142/86, Pulse: 87, Resp: 20, Temp: 98.3 (Oral), Pain: 0, O2 sat: 95 on (Room Air), Time: 01/13/2020 06:30. Medication ministration: aspirin oral 325 mg Oral Given 06:33 01/13/2020 Hospitalist ROS - Review of Systems Constitutional: denies: fever, chills Eyes: denies: vision change Respiratory: denies: cough, shortness of breath Cardiovascular: denies: chest pain, palpitations, edema Gastrointestinal: denies: nausea, vomiting, abdominal pain, diarrhea Genitourinary: denies: dysuria, hematuria Musculoskeletal: denies: neck pain, shoulder pain Skin: denies: rash, bruising Neurological: reports: weakness (LUE extremity), numbness (Left upper extremity). denies: change in speech, confusion All other systems reviewed; all pertinent +/- noted in HPI/Subj - Medication Medications: 1. Losartan 200 mg p.o. daily 2. Carvedilol unknown dose 3. Atorvastatin unknown dose 4. Spironolactone unknown dose 5. Aspirin 81 mg p.o. daily Allergies: NKDA Hospitalist History - Past Medical History Source: patient, RN notes reviewed Cardiac: reports: HTN, Hyperlipidemia - Past Surgical History Past Surgical History: reports: Appendectomy, Other (Colostomy, finger surgery) - Family History Family History: reports: cardiac disorder. 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 Activity level: independent ambulation - Exam General Appearance: negative: NAD, awake alert Eye: PERRL, anicteric sclera ENT: normocephalic atraumatic, moist mucosa Neck: supple, symmetric, no JVD Heart: RRR, no murmur, no gallops, no rubs, normal peripheral pulses Respiratory: CTAB, no wheezes, no rales, no ronchi, normal chest expansion Gastrointestinal: soft, non-distended, normal bowel sounds, no bruit, no guarding, no rigidity Extremities: no cyanosis, no edema Extremities - other findings: LUE non TTP, significant weakness Skin: no rashes Neurological: cranial nerve grossly intact Neurological - other findings: LUE drift, hits bed, numbness: NIH 4 Musculoskeletal - other findings: LUE weakness, senior administrative assistant 5/5, other extremities unremarkable Psychiatric: normal affect, A&O x 3 Hospitalist Results - Labs Result Diagrams: 01/13/20 05:43 01/13/20 05:43 Lab results: WBC 9.5 thou/uL (4.8-10.8) 01/13/20 05:43 Hgb 15.7 g/dL (14.0-18.0) 01/13/20 05:43 Hct 46.7 % (42.0-52.0) 01/13/20 05:43 MCV 93.4 fL (78.0-98.0) 01/13/20 05:43 Plt Count 155 thou/uL (130-400) 01/13/20 05:43 Neutrophils % 67.3 % (42.0-75.0) 01/13/20 05:43 Sodium 138 mmol/L (136-145) 01/13/20 05:43 Potassium 4.2 mmol/L (3.5-5.1) 01/13/20 05:43 Chloride 106 mmol/L (98-107) 01/13/20 05:43 Carbon Dioxide 21 mmol/L (23-31) L 01/13/20 05:43 BUN 21 mg/dL (8.4-25.7) 01/13/20 05:43 Creatinine 1.11 mg/dL (0.7-1.3) 01/13/20 05:43 Glucose 97 mg/dL (80-115) 01/13/20 05:43 Calcium 8.7 mg/dL (7.8-10.44) 01/13/20 05:43 Total Bilirubin 0.4 mg/dL (0.2-1.2) 01/13/20 05:43 AST 24 U/L (5-34) 01/13/20 05:43 ALT 27 U/L (8-55) 01/13/20 05:43 Alkaline Phosphatase 72 U/L (40-110) 01/13/20 05:43 Serum Total Protein 7.0 g/dL (5.8-8.1) 01/13/20 05:43 Albumin 4.2 g/dL (3.4-4.8) 01/13/20 05:43 - EKG Interpretation EK lead EKG interpreted by Emergency Department Physician at time of study, 12 lead EKG shows normal sinus rhythm, Rate (beats per minute): 98, Interpretation: normal EKG, Conduction normal, ST segments normal, T waves normal, Prolonged QT of 374. - Radiology Interpretation CT scan - head Status: report reviewed by me Additional Comment: CT of head unremarkable. CTA head and neck unremarkable. Chest x-ray Status: report reviewed by me Additional Comment: No acute cardiopulmonary process. Hospitalist H&P A/P - Problem (1) CVA (cerebral vascular accident) Code(s): I63.9 - CEREBRAL INFARCTION, UNSPECIFIED Status: Acute (2) Left arm weakness Code(s): R29.898 - OTH SYMPTOMS AND SIGNS INVOLVING THE MUSCULOSKELETAL SYSTEM Status: Acute (3) Hypertension Code(s): I10 - ESSENTIAL (PRIMARY) HYPERTENSION Status: Chronic (4) Hyperlipidemia Code(s): E78.5 - HYPERLIPIDEMIA, UNSPECIFIED Status: Chronic - Plan Plan: 64/M with PMH for HTN and HLD presents for left upper extremity weakness. Admit to stroke unit, observation status. Expected length of stay less than 2 midnights. Presented hypertensive 161/91, tachycardic 101, NL RR, afebrile. NIH 4, LUE drift, sensation Not considered tpa candidate d/t low NIH score. CT brain no acute process. CTA head and neck no acute process. EKG normal sinus rhythm, no ST elevations. Given aspirin. #CVA MRI, echocardiogram. Consult neurology and stroke team. Continue aspirin and add statin. Check TSH, FLP, UA, B12 and folate. Permissive hypertension. #Left arm weakness Likely related to problem #1. #Hypertension Presented with an elevated blood pressure 161/91. Takes Coreg, losartan, spironolactone at home. Will restart home medications when reconciled by nursing. #Hyperlipidemia Takes unknown dose of atorvastatin at home. Started on high intensity dose of atorvastatin. We will check FLP. SCDs for DVT prophylaxis. No GI prophylaxis. Full code. Discussed the case with Dr. Miller.
--- NOTE | 2020-01-13 07:22 | RAD ---
Exam: Chest one view HISTORY:Left arm weakness. Evaluate for CVA. Comparison: 09/27/2018 FINDINGS: Cardiac silhouette:Cardiomegaly. There is a loop recorder. Aorta: Atherosclerotic Pulmonary vessels: Normal Costophrenic angles: Clear LUNGS: No masses or consolidation. Chronic changes involving the lung bases. Stable emphysematous isi nge involving the upper lobes. Pneumothorax: None Osseous abnormalities: None IMPRESSION: No acute cardiopulmonary process.
[2020-01-13] MEDS ORDERED: Acetaminophen 325 MG TAB PO PRN (07:29)
[2020-01-13] MEDS ORDERED: Senokot S 8.6-50 MG TAB PO PRN (07:29)
[2020-01-13] MEDS ORDERED: hydrALAZINE 20 MG/ML VIAL SLOW IVP PRN (07:53)
[2020-01-13] MEDS ORDERED: Labetalol HCl 100 MG/20 ML VIAL SLOW IVP PRN (07:53)
[2020-01-13 09:55] VITALS: BMI 28.0
--- NOTE | 2020-01-13 10:35 | MRI ---
MR angiogram brain: 01/13/2020 COMPARISON: None HISTORY: Left arm weakness, recent fall TECHNIQUE: Multiplanar noncontrast enhanced MR angiography of the brain performed. FINDINGS: Motion artifact limits detailed assessment of the arterial structures. Partially visualized left vertebral artery appears markedly hypoplastic, better evaluated on CT angiogram of the neck performed 01/13/2020. The right vertebral artery is dominant. The basilar artery appears patent. Bilat eral posterior cerebral arteries are patent and demonstrate scattered areas of irregularity, likely on the basis of atherosclerotic disease. No central vascular occlusion or saccular aneurysm seen involving the posterior circulation. There is a patent posterior communicating artery on the right. Imaged portions of the extracranial internal carotid artery demonstrates patency bilaterally. The A1 segment, region of the anterior communicating artery, and distal MEAGHAN branches appear grossly unremarkable aside from mild distal MEAGHAN irregularity. The M1 segment and the MCA bifurcation appears grossly unremarkable. Distal MCA branches demonstrate no focal area of occlusion but there are are multiple areas of irregularity involving distal MCA branches suggesting atherosclerotic disease. No a nterior circulation central vascular occlusion, high-grade stenosis, or saccular aneurysm. IMPRESSION: Multifocal distal arterial irregularity suggest atherosclerotic disease. No central vascu lar occlusion or saccular aneurysm.
[2020-01-13] MEDS ORDERED: Magnevist 469MG/ML 20 ML VIAL ONE (10:46)
--- NOTE | 2020-01-13 10:50 | MRI ---
MRI of thebrain: 01/13/2020 COMPARISON:None available HISTORY:Acute stroke protocol, left arm weakness TECHNIQUE: Multiplanar multisequence MR imaging of thebrain with and without contrast Findings:Numerous scattered foci of restricted diffusion are noted within the right cerebral hemisphe re, including the region of the right caudate head, the posterior right frontoparietal lobe near the vertex, and the posterior right parieto-occipital region. This is consistent with multifocal acut e right-sided infarctions, which appear to be watershed distribution infarctions at the junction of the right MEAGHAN and MCA territory as well as at the junction of the right MCA and CASHIER MANAGER territory. No isabel dence for acute infarction is noted within the brainstem, the cerebellum, or the left cerebral hemisphere. The FLAIR imaging demonstrates numerous extensive confluent areas of periventricular, deep, and subco rtical white matter hypodensity, consistent with severe small vessel disease. The axial gradient echo imaging demonstrates scattered foci of blooming artifact within bilateral cer ebral hemispheres as well as throughout the liat and bilateral cerebellar hemispheres, evidence of numerous remote microhemorrhages, likely on the basis of small vessel disease and/or hypertension. Imaged paranasal sinuses and mastoid air cells are well-aerated. Postcontrast imaging demonstrates no abnormal enhancement within the brain parenchyma IMPRESSION:Numerous foci of acute infarction on the right suggesting watershed infarctions at the dhruv ction of right MEAGHAN and MCA territory as well as the junction of right MCA and CASHIER MANAGER territory. There is evidence of prominent small vessel disease and numerous remote microhemorrhages suggest small vess el disease and/or hypertension.
[2020-01-13 12:28] LABS: Bacteria/HPF None Seen HPF (None Seen); Bilirubin Negative (Negative); Blood, Urine Negative (Negative); Clarity Clear (Clear); Glucose, Urine (Dipstick) Normal (Negative); Ketone, Urine Negative (Negative); Leukocyte Negative Leu/uL (Negative); Nitrite Negative (Negative); Protein, Urine (Dipstick) Negative (Neg-Trace); RBC/HPF 0-3 HPF (0-3); Squamous Epithelial None Seen HPF (0-3); Urobilinogen Normal mg/dL (Less than 2); WBC/HPF 0-3 HPF (0-3)
[2020-01-13 12:32] LABS: Specific Gravity, Urine 1.046 (1.002-1.036)
--- NOTE | 2020-01-13 13:15 | CON ---
NEUROLOGY CONSULTATION DATE OF CONSULTATION: 01/13/2020 REASON FOR CONSULTATION: Left upper extremity weakness. HISTORY OF PRESENT ILLNESS: Des Westfall is a 64-year-old male with medical history significant for hypertension and hyperlipidemia, presented to the emergency department with the EMS because of left upper extremity weakness. Per patient, he woke up around 1:30 this morning on 01/13/2020 with left upper extremity weakness. He thought he stepped wrong. He got out of the bed and took his dog outside and suffered a fall while reaching for the floor. The patient does report focal numbness in the left upper extremity. He denies any loss of consciousness, problems with speech or swallowing, lightheadedness, chest pain, palpitations, abdominal pain, diarrhea, nausea, vomiting, headache, blurred vision or loss of vision, or loss of consciousness associated with the episode. The patient denies any sick contact or exposure to COVID. In the emergency room, he was found to be hypertensive with blood pressure of 161/91, pulse 100, and respiratory rate 18, and he was given aspirin and admitted for further stroke evaluation. REVIEW OF SYSTEMS: All 14 systems were reviewed and were negative except the pertinent positive and negative mentioned in the HPI. HOME MEDICATIONS: 1. Losartan 200 mg p.o. daily. 2. Carvedilol. 3. Atorvastatin. 4. Spironolactone. 5. Aspirin 81 mg daily. ALLERGIES: NO KNOWN DRUG ALLERGIES. PAST MEDICAL HISTORY: Hypertension, hyperlipidemia. PAST SURGICAL HISTORY: Appendectomy, colostomy, finger surgery. FAMILY HISTORY: Significant for coronary artery disease. SOCIAL HISTORY: The patient lives alone. He is a former smoker, quit less than two years ago. Denies alcohol or illegal drug use. PHYSICAL EXAMINATION: BP: 161/91 Pulse: 101, Resp: 18, Temp: 98.3 General Appearance: negative: NAD, awake alert Eye: PERRL, anicteric sclera ENT: normocephalic atraumatic, moist mucosa Neck: supple, symmetric, no JVD Heart: RRR, no murmur, no gallops, no rubs, normal peripheral pulses Respiratory: CTAB, no wheezes, no rales, no ronchi, normal chest expansion Gastrointestinal: soft, non-distended, normal bowel sounds, no bruit, no guarding, no rigidity Extremities: no cyanosis, no edema Extremities - other findings: LUE non TTP, significant weakness Skin: no rashes Neurological:Mental status, the patient is alert and oriented to person, place, and time. Speech is clear. Cranial nerves 2 through 12 intact. Motor; muscle, tone, and bulk are normal. Strength, left upper extremity 3/5, rest 5/5. Cerebellar, finger-nose testing, unable to perform on the left secondary to weakness. Positive left pronator. Sensory, decreased sensation to light touch in the left upper extremity. Gait deferred due to patient's safety reason. DATA REVIEWED: I reviewed the labs which essentially unremarkable. EKG showed normal sinus rhythm. Head CT did not reveal any acute intracranial pathology. CTA of the head and neck were also unremarkable. Chest x-ray did not show any acute intracranial process. Lab results: WBC 9.5 thou/uL (4.8-10.8) 01/13/20 05:43 Hgb 15.7 g/dL (14.0-18.0) 01/13/20 05:43 Hct 46.7 % (42.0-52.0) 01/13/20 05:43 MCV 93.4 fL (78.0-98.0) 01/13/20 05:43 Plt Count 155 thou/uL (130-400) 01/13/20 05:43 Neutrophils % 67.3 % (42.0-75.0) 01/13/20 05:43 Sodium 138 mmol/L (136-145) 01/13/20 05:43 Potassium 4.2 mmol/L (3.5-5.1) 01/13/20 05:43 Chloride 106 mmol/L (98-107) 01/13/20 05:43 Carbon Dioxide 21 mmol/L (23-31) L 01/13/20 05:43 BUN 21 mg/dL (8.4-25.7) 01/13/20 05:43 Creatinine 1.11 mg/dL (0.7-1.3) 01/13/20 05:43 Glucose 97 mg/dL (80-115) 01/13/20 05:43 Calcium 8.7 mg/dL (7.8-10.44) 01/13/20 05:43 Total Bilirubin 0.4 mg/dL (0.2-1.2) 01/13/20 05:43 AST 24 U/L (5-34) 01/13/20 05:43 ALT 27 U/L (8-55) 01/13/20 05:43 Alkaline Phosphatase 72 U/L (40-110) 01/13/20 05:43 Serum Total Protein 7.0 g/dL (5.8-8.1) 01/13/20 05:43 Albumin 4.2 g/dL (3.4-4.8) 01/13/20 05:43 - EKG Interpretation EK lead EKG interpreted by Emergency Department Physician at time of study, 12 lead EKG shows normal sinus rhythm, Rate (beats per minute): 98, Interpretation: normal EKG, Conduction normal, ST segments normal, T waves normal, Prolonged QT of 374. - Radiology Interpretation CT scan - head Status: report reviewed by me Additional Comment: CT of head unremarkable. CTA head and neck unremarkable. Chest x-ray Status: report reviewed by me Additional Comment: No acute cardiopulmonary process. ASSESSMENT AND PLAN: (1) CVA (cerebral vascular accident) Code(s): I63.9 - CEREBRAL INFARCTION, UNSPECIFIED Status: Acute (2) Left arm weakness Code(s): R29.898 - [facility] SYMPTOMS AND SIGNS INVOLVING THE MUSCULOSKELETAL SYSTEM Status: Acute (3) Hypertension Code(s): I10 - ESSENTIAL (PRIMARY) HYPERTENSION Status: Chronic (4) Hyperlipidemia Code(s): E78.5 - HYPERLIPIDEMIA, UNSPECIFIED Status: Chronic Mr. Des Westfall is a 64-year-old male with history significant for hypertension, hyperlipidemia, presented with left upper extremity weakness. MRI of the brain is consistent with acute infarction in the right MCA territory with multiple acute infarctions consistent with most likely cardioembolic in nature. CTA of the head and neck were unremarkable. Consider 2D echocardiogram to rule out cardioembolic source. Telemetry to rule out arrhythmias. Neuro checks every 4 hours. Permissive control of blood pressure at this time. Strict control of blood glucose. Check hemoglobin A1c, fasting lipid panel, and TSH. Continue home medications. Continue medical management per primary team, PT/OT/Speech, DVT prophylaxis. We will continue to follow. Thank you for the consult. Job ID: [id number] MTDD
[2020-01-13] MEDS ORDERED: Magnesium 2 GM/50 ML 2 GM in Premix Bag 1 BAG IVPB SCH (14:00)
[2020-01-13 17:59] LABS: SARS-CoV-2 MS2 Positive; SARS-CoV-2 N Gene Negative; SARS-CoV-2 S Gene Negative; SARS-CoV-2 by NAA Not Detected (NotDetected); SARS-CoV-2 orf1ab Negative
[2020-01-13] MEDS: Atorvastatin Calcium 40 MG TAB PO SCH (20:41)
[2020-01-14 05:28] LABS: Cardiac Risk 3.8 (Less than 4.5)
--- NOTE | 2020-01-14 07:46 | PDOC.HOSPP ---
- Subjective Encounter Date: 01/14/20 Encounter Time: 07:30 Subjective: Patient seen and examined. No new complaints. No overnight events. Reports LUE still weak and numb. Denies any new symptoms, denies chest pain, SOB, abdominal pain or diarrhea. Currently getting echocardiogram at bedside. - Objective Vital Signs & Weight: Vital Signs (12 hours) Temp Pulse Resp BP Pulse Ox 01/14/20 07:27 97.8 F 75 16 155/84 H 93 L 01/14/20 04:00 97.6 F 62 16 142/84 H 92 L 01/14/20 00:00 97.6 F 67 16 151/84 H 92 L Weight Weight 184 lb 14.4 oz I&O: 01/13/20 01/14/20 01/15/20 06:59 06:59 06:59 Intake Total 1250 Output Total 1125 Balance 125 Result Diagrams: 01/13/20 05:43 01/13/20 05:43 Hospitalist ROS - Review of Systems Constitutional: denies: fever, chills Respiratory: denies: cough, shortness of breath, hemoptysis Cardiovascular: denies: chest pain, palpitations, edema Gastrointestinal: denies: nausea, vomiting, abdominal pain, diarrhea Genitourinary: denies: dysuria, hematuria Neurological: reports: weakness (LUE), numbness (LUE). denies: change in speech, confusion All other systems reviewed; all pertinent +/- noted in HPI/Subj - Medication Medications: Active Medications Generic Name Dose Route Start Last Admin Trade Name Freq PRN Reason Stop Dose Admin Atorvastatin Calcium 40 mg 01/13/20 21:00 01/13/20 20:41 Atorvastatin Calcium 40 Mg Tab PO 40 mg HS ADELA Administration - Exam General Appearance: NAD, awake alert Eye: PERRL, anicteric sclera ENT: normocephalic atraumatic Neck: supple, symmetric Heart: RRR, no murmur, no gallops, no rubs, normal peripheral pulses Respiratory: CTAB, no wheezes, no rales, no ronchi, normal chest expansion, no tachypnea Gastrointestinal: soft, non-tender, normal bowel sounds, no bruit, no guarding, no rigidity Extremities: no cyanosis, no edema Neurological: cranial nerve grossly intact, no new deficit Neurological - other findings: LUE weakness and numbness Musculoskeletal: negative: normal tone Musculoskeletal - other findings: LUE 2/5 power scale, other extremities 5/5 Psychiatric: normal affect, A&O x 3 Hosp A/P (1) CVA (cerebral vascular accident) Code(s): I63.9 - CEREBRAL INFARCTION, UNSPECIFIED Status: Acute (2) Left arm weakness Code(s): R29.898 - OTH SYMPTOMS AND SIGNS INVOLVING THE MUSCULOSKELETAL SYSTEM Status: Acute (3) Low magnesium level Code(s): R79.0 - ABNORMAL LEVEL OF BLOOD MINERAL Status: Acute (4) Hypertension Code(s): I10 - ESSENTIAL (PRIMARY) HYPERTENSION Status: Chronic (5) Hyperlipidemia Code(s): E78.5 - HYPERLIPIDEMIA, UNSPECIFIED Status: Chronic - Plan 64/M with PMH for HTN and HLD presents for left upper extremity weakness. Admit to stroke unit, observation status. Expected length of stay less than 2 m idnights. Presented hypertensive 161/91, tachycardic 101, NL RR, afebrile. NIH 4, LUE drift, sensation Not considered tpa candidate d/t low NIH score. CT brain no acute process. CTA head and neck no acute process. EKG normal sinus rhythm, no ST elevations. Given aspirin. #CVA MRI multiple foci of acute infarction on the right, suggesting watershed infarcts at the junction of the right MEAGHAN and MCA territory and right MCA and FIELD TAX AUDITOR territory. Numerous remote microhemorrhages suggest small vessel disease and/or hypertension. Echocardiogram done, results pending. Neurology recs appreciated. Continue stroke team, recs appreciated. Continue aspirin and statin therapy. Add folic acid supplementation. # Left arm weakness Related to problem #1 #Low magnesium level Relative low, Mg 1.9 Give 2gm mag sulfate IVPB. recheck level in am. #Hypertension BP this a.m. 155/84. Continue permissive hypertension. Continue to monitor BP. Hold home dose of Coreg, amlodipine, losartan, spironolactone for now. #Hyperlipidemia Cholesterol 117 Triglycerides 95 LDL 67 HDL 31 Continue atorvastatin.
[2020-01-14] MEDS ORDERED: Magnesium 2 GM/50 ML 2 GM in Premix Bag 1 BAG IVPB SCH (08:00)
[2020-01-14] MEDS: Folic Acid 1 MG TAB PO SCH (08:02)
[2020-01-14] MEDS: Aspirin Chewable 81 MG TAB PO SCH (08:02)
[2020-01-14] MEDS ORDERED: Aspirin 325 mg Enteric Coated Tablet PO SCH (09:00)
[2020-01-14] MEDS ORDERED: Aspirin 81 mg Enteric Coated Tablet PO SCH (09:00)
--- NOTE | 2020-01-14 12:24 | PDOC.NEUPN ---
- Subjective Encounter Date: 01/14/20 Subjective: Patient feels much better. LUE weakness is much improved. - Objective Vital Signs & Weight: Vital Signs (12 hours) Temp Pulse Resp BP Pulse Ox 01/14/20 12:00 98.3 F 90 16 173/101 H 92 L 01/14/20 07:45 93 L 01/14/20 07:27 97.8 F 75 16 155/84 H 93 L 01/14/20 04:00 97.6 F 62 16 142/84 H 92 L Weight Weight 184 lb 14.4 oz I&O: 01/13/20 01/14/20 01/15/20 06:59 06:59 06:59 Intake Total 1250 300 Output Total 1125 Balance 125 300 Result Diagrams: 01/13/20 05:43 01/13/20 05:43 Additional Labs: Accuchecks 01/13/20 05:19 POC Glucose 91 Radiology Reviewed by me: Yes EKG Reviewed by me: Yes ROS - Review of Systems Constitutional: denies: fever, chills, sweats, weakness, malaise, other Eyes: denies: pain, vision change, conjunctivae inflammation, eyelid inflammation, redness, other ENT: denies: ear pain, ear discharge, nose pain, nose discharge, nose congestion, mouth pain, mouth swelling, throat pain, throat swelling, other Cardiovascular: denies: no pertinent history, AFIB, CAD, CHF, HTN, CT, Syncope, Hyperlipidemia, Mitral valve stenosis, Aortic stenosis, Valve insufficiency, Pulmonary hypertension, Other Gastrointestinal: denies: nausea, vomiting, abdominal pain, diarrhea, constipation, melena, hematochezia, other Genitourinary: denies: dysuria, frequency, incontinence, hematuria, retention, other Musculoskeletal: denies: neck pain, shoulder pain, arm pain, back pain, hand pain, leg pain, foot pain, other Skin: denies: rash, lesions, gerry, bruising, other Neurological: reports: weakness, numbness - Medication Medications: Active Medications Generic Name Dose Route Start Last Admin Trade Name Freq PRN Reason Stop Dose Admin Aspirin 324 mg 01/14/20 09:00 01/14/20 08:02 Aspirin Chewable 81 Mg Tab PO 324 mg DAILY ADELA Administration Atorvastatin Calcium 40 mg 01/13/20 21:00 01/13/20 20:41 Atorvastatin Calcium 40 Mg Tab PO 40 mg HS ADELA Administration Folic Acid 1 mg 01/14/20 09:00 01/14/20 08:02 Folic Acid 1 Mg Tab PO 1 mg DAILY ADELA Administration - Exam General Appearance: awake alert Eye: PERRL, anicteric sclera ENT: normocephalic atraumatic, no oropharyngeal lesions Neck: supple Respiratory: CTAB Cardiovascular: RRR Gastrointestinal: soft Extremities: no cyanosis Skin: normal turgor Neurological: no new deficit Musculoskeletal: normal tone, no muscle wasting PSYCH: normal affect, normal behavior, A&O x 3, oriented to person, oriented to place, oriented to time Results - Labs Result Diagrams: 01/13/20 05:43 01/13/20 05:43 Lab results: WBC 9.5 thou/uL (4.8-10.8) 01/13/20 05:43 Hgb 15.7 g/dL (14.0-18.0) 01/13/20 05:43 Hct 46.7 % (42.0-52.0) 01/13/20 05:43 MCV 93.4 fL (78.0-98.0) 01/13/20 05:43 Plt Count 155 thou/uL (130-400) 01/13/20 05:43 Neutrophils % 67.3 % (42.0-75.0) 01/13/20 05:43 Sodium 138 mmol/L (136-145) 01/13/20 05:43 Potassium 4.2 mmol/L (3.5-5.1) 01/13/20 05:43 Chloride 106 mmol/L (98-107) 01/13/20 05:43 Carbon Dioxide 21 mmol/L (23-31) L 01/13/20 05:43 BUN 21 mg/dL (8.4-25.7) 01/13/20 05:43 Creatinine 1.11 mg/dL (0.7-1.3) 01/13/20 05:43 Glucose 97 mg/dL (80-115) 01/13/20 05:43 Calcium 8.7 mg/dL (7.8-10.44) 01/13/20 05:43 Total Bilirubin 0.4 mg/dL (0.2-1.2) 01/13/20 05:43 AST 24 U/L (5-34) 01/13/20 05:43 ALT 27 U/L (8-55) 01/13/20 05:43 Alkaline Phosphatase 72 U/L (40-110) 01/13/20 05:43 Serum Total Protein 7.0 g/dL (5.8-8.1) 01/13/20 05:43 Albumin 4.2 g/dL (3.4-4.8) 01/13/20 05:43 Urine Ketones Negative mg/dL (Negative) 01/13/20 11:58 Urine Blood Negative (Negative) 01/13/20 11:58 Urine Nitrite Negative (Negative) 01/13/20 11:58 Ur Leukocyte Esterase Negative Homero/uL (Negative) 01/13/20 11:58 Urine RBC 0-3 HPF (0-3) 01/13/20 11:58 Urine WBC 0-3 HPF (0-3) 01/13/20 11:58 Ur Squamous Epith Cells None Seen HPF (0-3) 01/13/20 11:58 Urine Bacteria None Seen HPF (None Seen) 01/13/20 11:58 - Radiology Interpretation MRI - head Status: image reviewed by me Additional Comment: MRI brain reviewed and showed multiple foci of acute infarction on the right, suggestive for watershed infarcts at the junction of the right MEAGHAN and MCA territory and right MCA and [employer]GER [employer] territory. Numerous remote microhemorrhages suggestive of small vessel disease PN A/P (1) CVA (cerebral vascular accident) Code(s): I63.9 - CEREBRAL INFARCTION, UNSPECIFIED Status: Acute (2) Left arm weakness Code(s): R29.898 - OTH SYMPTOMS AND SIGNS INVOLVING THE MUSCULOSKELETAL SYSTEM Status: Acute (3) Low magnesium level Code(s): R79.0 - ABNORMAL LEVEL OF BLOOD MINERAL Status: Acute (4) Hyperlipidemia Code(s): E78.5 - HYPERLIPIDEMIA, UNSPECIFIED Status: Chronic (5) Hypertension Code(s): I10 - ESSENTIAL (PRIMARY) HYPERTENSION Status: Chronic (6) Hypertension Code(s): I10 - ESSENTIAL (PRIMARY) HYPERTENSION Status: Chronic Qualifiers: Hypertension type: essential hypertension Qualified Code(s): I10 - Essential (primary) hypertension - Plan Daily Plan: PT/OT, DVT proph w/lovenox 64 year old male with medical history significant for HTN and HLD presented with left upper extremity weakness. MRI Brain positive for acute infarction. Head CT reviewed which was negative for acute process. CTA head and neck did not reveal acute process. MRI brain reviewed and showed multiple foci of acute infarction on the right, suggestive for watershed infarcts at the junction of the right MEAGHAN and MCA territory and right MCA and [employer] MANAGER [employer]ICE territory. Numerous remote microhemorrhages suggestive of small vessel disease Echocardiogram completed, results pending. Neuro checks every 4 hours. Continue aspirin and statin for secondary stroke prevention. Continue home medications. Telemetry PT/OT/Speech. Continue medical management per primary team. Case discussed with patient and during MDR rounds..
--- NOTE | 2020-01-14 17:23 | CT ---
PRELIMINARY REPORT/[facility]/EMERGENCY AFTER HOURS PROCEDURE: Receipt of this report by the clinical staff was confirmed with KATALINA DE JESUS MD by Donovan Bowers on Jan 13, 2020 05:40:00 CDT. Addendum electronically signed by Ewa Bowers on January 13, 2020 5:40:28 AM CDT EXAM: CTA Head and Neck with Intravenous Contrast. CLINICAL HISTORY: LEVEL 1 STROKE Patient here for evaluation secondary to left arm weakness. Stat es that he woke up at 130 and his arm was weak. States that he then fell on the ground and was unable to get up. Was able to contact EMS TECHNIQUE: Axial CTA images of the head and neck performed with intravenous contrast. Two-dimensional MIP and/or three-dimensional MIP and volume rendered reformations were performed. Note: Per PQRS, the description of internal carotid artery percent stenosis, including 0 percent or normal exam, is b ased on [place] Symptomatic Carotid Endarterectomy Trial (NASCET) criteria. CONTRAST: With; ISOVUE 370, 90ML COMPARISON: None provided. FINDINGS: CTA NECK: COMMON CAROTID ARTERIES No significant stenosis. No dissection or occlusion. INTERNAL CAROTID ARTERIES No stenosis by NASCET criteria. No dissection or occlusion. VERTEBRAL ARTERIES No significant stenosis. No dissection or occlusion. CTA HEAD: ANTERIOR VERTEBRAL ARTERIES No significant stenosis. No occlusion. No aneurysm. MIDDLE CEREBRAL ARTERIES No significant stenosis. No occlusion. No aneurysm. POSTERIOR CEREBRAL ARTERIES No significant stenosis. No occlusion. No aneurysm. BASILAR ARTERY No significant stenosis. No occlusion. No aneurysm. OTHER: SOFT TISSUES There is a moderate to severe emphysema both lungs. BONES No acute osseous abnormality. IMPRESSION: Unremarkable CTA of the head and neck. ELECTRONICALLY SIGNED BY: Cali Armas MD Jan 13, 2020 5:38:05 AM CDT FINAL REPORT EXAM: CT ANGIOGRAM OF THE HEAD AND NECK INDICATION: Level 1 stroke. Left arm weakness. COMPARISON: None. TECHNIQUE: CT angiogram of the head and neck are performed in the axial plane. Three-dimensional reformatted sotero ges are submitted for interpretation. FINDINGS: CTA OF THE HEAD WITH AND WITHOUT CONTRAST: POSTCONTRAST CT OF BRAIN: Pathologic enhancement: No pathologic enhancement the brain. Postcontrast soft tissue neck CT: Aerodigestive tract:Aerodigestive tract is patent. No mucosal abnormality. Sinuses: Adequate aerated.. Orbits: Bilateral ocular lenses are appropriately located. Both globes are intact. Retrobulbar fat is preserved. Symmetric attenuation the optic nerves and ocular rectus muscles. Salivary glands:Fatty attenuation of the parotid glands. Symmetric attenuation of the salivary glands . Thyroid gland: Unremarkable. Lymph nodes: No evidence of lymphadenopathy by size criteria. Paraspinal muscles: Symmetric attenuation of the sternocleidomastoid muscles. Appropriate attenuation of the paraspinal muscles. Cervical spine:Vertebral body height is maintained. No fracture. No significant central canal stenosi s or significant neural foraminal narrowing. Limited evaluation by technique. Upper mediastinum and lung apices: Extensive emphysematous changes. CTA OF THE NECK WITH CONTRAST: Aorta: Aortic arch is excluded. Limited evaluation of the origin of the great vessels of the neck Right carotid artery: Visualized origin of the right carotid artery, innominate artery, common caroti d artery have appropriate enhancement and luminal diameter. There is atherosclerosis with mild (30%) narrowing of the right carotid bifurcation and proximal internal carotid artery. Left carotid: Limited evaluation of the origin of the left carotid artery. Left common carotid artery , carotid bifurcation and internal carotid artery demonstrate atherosclerosis. No significant stenosis based upon NASCET criteria. Subclavian arteries:Symmetric and patent . Vertebral arteries:Dominant right vertebral artery. Vertebral arteries are patent throughout their co urse in the neck . CTA OF THE BRAIN: Intracranial internal carotid arteries:Atherosclerosis. No significant luminal narrowing. Anterior circulation: Symmetric enhancement and luminal diameter of the A1 segments, M1 segments, pro ximal A2 segments and proximal MCA branches. Intracranial vertebral arteries: Appropriate enhancement and luminal diameter. PICA artery origins ar e normal in caliber. Posterior circulation: Both vertebral arteries supply a normal appearing basilar artery. Right ANTIQUE FURNITURE RESTORER ayon s a origin. Left P1 segment is patent. IMPRESSION: 1. This report is in agreement with initial report by [facility]. 2. No significant stenosis based upon NASCET criteria. 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 Nonemergent cardiovascular surgical consultation is recommended. Transcribed Date/Time: 01/14/2020 5:23 PM
[2020-01-14] MEDS: Atorvastatin Calcium 40 MG TAB PO SCH (20:47)
[2020-01-15 05:15] LABS: #Eosinphils 0.3 thou/uL (0.0-0.7); #Lymphocytes 1.5 thou/uL (1.20-3.40); #Neutrophils 5.5 thou/uL (1.40-6.50); %Basophils 0.4 % (0.0-1.0); %Eosinophils 3.3 % (0.0-10.0); %Lymphocytes 18.2 % (21.0-51.0); %Monocytes 11.6 % (0.0-10.0); %Neutrophils 66.5 % (42.0-75.0); Hemoglobin 15.2 g/dL (14.0-18.0); Mean Corpuscular HGB CONC 33.1 g/dL (32.0-36.0); Mean Corpuscular Hemoglobin 30.8 pg (27.0-31.0); Mean Corpuscular Volume 92.9 fL (78.0-98.0); Mean Platelet Volume 8.6 fL (7.4-10.4); Platelet Count 147 thou/uL (130-400); RBC Distribution Width 11.6 % (11.5-14.5); Red Blood Cell (RBC) Count 4.95 mill/uL (4.70-6.10); White Blood Cell (WBC) Count 8.3 thou/uL (4.8-10.8)
[2020-01-15 05:39] LABS: Anion Gap 14 mmol/L (10-20); BUN (Urea Nitrogen) 14 mg/dL (8.4-25.7); Calc. Creatinine Clearance 103 mL/min (70-130); Calcium 8.6 mg/dL (7.8-10.44); Carbon Dioxide 24 mmol/L (23-31); Chloride 105 mmol/L (98-107); Estimated GFR-MDRD 90; Glucose 94 mg/dL (80-115); Potassium 4.2 mmol/L (3.5-5.1); Sodium 139 mmol/L (136-145)
[2020-01-15] MEDS: Aspirin Chewable 81 MG TAB PO SCH (08:45)
[2020-01-15] MEDS: Folic Acid 1 MG TAB PO SCH (08:46)
[2020-01-15] MEDS: Simethicone Chewable 80 MG TAB PO SCH (08:46)
--- NOTE | 2020-01-15 12:39 | PDOC.HOSPP ---
- Subjective Encounter Date: 01/15/20 Encounter Time: 09:20 Subjective: Patient still has a left hand weakness very significant but he is able to move slightly his strength is 2 out of 5 in the left arm. - Objective Vital Signs & Weight: Vital Signs (12 hours) Temp Pulse Resp BP Pulse Ox 01/15/20 11:45 97.4 F L 75 17 163/83 H 96 01/15/20 07:47 97.5 F L 77 16 156/94 H 98 01/15/20 04:47 98.1 F 62 18 140/75 94 L 01/15/20 00:34 99.1 F 74 16 148/86 H 93 L Weight Weight 184 lb 14.4 oz I&O: 01/14/20 01/15/20 01/16/20 06:59 06:59 06:59 Intake Total 1250 1940 300 Output Total 1125 510 Balance 125 1430 300 Result Diagrams: 01/15/20 04:29 01/15/20 04:29 Hospitalist ROS - Medication Medications: Active Medications Generic Name Dose Route Start Last Admin Trade Name Stephanie PRN Reason Stop Dose Admin Aspirin 324 mg 01/14/20 09:00 01/15/20 08:45 Aspirin Chewable 81 Mg Tab PO 324 mg DAILY ADELA Administration Atorvastatin Calcium 40 mg 01/13/20 21:00 01/14/20 20:47 Atorvastatin Calcium 40 Mg Tab PO 40 mg HS ADELA Administration Folic Acid 1 mg 01/14/20 09:00 01/15/20 08:46 Folic Acid 1 Mg Tab PO 1 mg DAILY ADELA Administration Simethicone 80 mg 01/15/20 09:00 01/15/20 08:46 Simethicone Chewable 80 Mg Tab PO 80 mg DAILY ADELA Administration - Exam General Appearance: NAD, awake alert Eye: PERRL ENT: normocephalic atraumatic Neck: supple Heart: RRR, normal peripheral pulses Respiratory: CTAB Gastrointestinal: soft, normal bowel sounds Neurological: no new deficit Neurological - other findings: Left arm 2 out of 5 in strength Psychiatric: A&O x 3 Hosp A/P - Plan 64/M with PMH for HTN and HLD presents for left upper extremity weakness. Admit to stroke unit, observation status. Expected length of stay less than 2 midnights. Presented hypertensive 161/91, tachycardic 101, NL RR, afebrile. NIH 4, LUE drift, sensation Not considered tpa candidate d/t low NIH score. CT brain no acute process. CTA head and neck no acute process. EKG normal sinus rhythm, no ST elevations. Given aspirin. #CVA MRI multiple foci of acute infarction on the right, suggesting watershed infarcts at the junction of the right MEAGHAN and MCA territory and right MCA and AIRPLANE COVER MAKER territory. Numerous remote microhemorrhages suggest small vessel disease and/or hypertension. Echocardiogram done, results pending. Neurology recs appreciated. Continue stroke team, recs appreciated. Continue aspirin and statin therapy. Add folic acid supplementation. # Left arm weakness Related to problem #1 #Low magnesium level Relative low, Mg 1.9 Give 2gm mag sulfate IVPB. recheck level in am. #Hypertension BP this a.m. 155/84. Continue permissive hypertension. Continue to monitor BP. Hold home dose of Coreg, amlodipine, losartan, spironolactone for now. #Hyperlipidemia Cholesterol 117 Triglycerides 95 LDL 67 HDL 31 Continue atorvastatin. Head MRA showed bilateral cerebral hemisphere scattered foci and liat and bila teral cerebellar hemisphere with evidence of numerous remote microhemorrhages with the basis of small vessel disease and hypertension. 2D echo pending. I checked with Dr. Barcaly If the echo looks normal he would benefit with 3 weeks event monitor rather than transesophageal echo. So will wait for the transthoracic echo and then arrange for event monitor. Rehab when echo report available-
--- NOTE | 2020-01-15 12:44 | PDOC.NEUPN ---
- Subjective Encounter Date: 01/15/20 Subjective: Patient feels much better. LUE weakness is much improved 3/5 today. - Objective Vital Signs & Weight: Vital Signs (12 hours) Temp Pulse Resp BP Pulse Ox 01/15/20 11:45 97.4 F L 75 17 163/83 H 96 01/15/20 07:47 97.5 F L 77 16 156/94 H 98 01/15/20 04:47 98.1 F 62 18 140/75 94 L Weight Weight 184 lb 14.4 oz I&O: 01/14/20 01/15/20 01/16/20 06:59 06:59 06:59 Intake Total 1250 1940 300 Output Total 1125 510 Balance 125 1430 300 Result Diagrams: 01/15/20 04:29 01/15/20 04:29 Radiology Reviewed by me: Yes EKG Reviewed by me: Yes ROS - Review of Systems Constitutional: denies: fever, chills, sweats, weakness, malaise, other Eyes: denies: pain, vision change, conjunctivae inflammation, eyelid inflammation, redness, other ENT: denies: ear pain, ear discharge, nose pain, nose discharge, nose conge stion, mouth pain, mouth swelling, throat pain, throat swelling, other Respiratory: denies: cough, dry, shortness of breath, hemoptysis, SOB with excertion, pleuritic pain, sputum, wheezing, other Cardiovascular: denies: no pertinent history, AFIB, CAD, CHF, HTN, CA, Syncope, Hyperlipidemia, Mitral valve stenosis, Aortic stenosis, Valve insufficiency, Pulmonary hypertension, Other Gastrointestinal: denies: nausea, vomiting, abdominal pain, diarrhea, constipation, melena, hematochezia, other Genitourinary: denies: dysuria, frequency, incontinence, hematuria, retention, other Musculoskeletal: denies: neck pain, shoulder pain, arm pain, back pain, hand pain, leg pain, foot pain, other Skin: denies: rash, lesions, gerry, bruising, other Neurological: reports: weakness, numbness. denies: incoordination, change in speech, confusion, seizures, other - Medication Medications: Active Medications Generic Name Dose Route Start Last Admin Trade Name Freq PRN Reason Stop Dose Admin Aspirin 324 mg 01/14/20 09:00 01/15/20 08:45 Aspirin Chewable 81 Mg Tab PO 324 mg DAILY ADELA Administration Atorvastatin Calcium 40 mg 01/13/20 21:00 01/14/20 20:47 Atorvastatin Calcium 40 Mg Tab PO 40 mg HS ADELA Administration Folic Acid 1 mg 01/14/20 09:00 01/15/20 08:46 Folic Acid 1 Mg Tab PO 1 mg DAILY ADELA Administration Simethicone 80 mg 01/15/20 09:00 01/15/20 08:46 Simethicone Chewable 80 Mg Tab PO 80 mg DAILY ADELA Administration - Exam General Appearance: awake alert Eye: PERRL, anicteric sclera ENT: normocephalic atraumatic Neck: supple Respiratory: CTAB Cardiovascular: RRR Gastrointestinal: soft Extremities: no cyanosis Skin: normal turgor Neurological: CN's grossly intact, no new deficit Musculoskeletal: normal tone, no muscle wasting PSYCH: normal affect, normal behavior, A&O x 3 Results - Labs Result Diagrams: 01/15/20 04:29 01/15/20 04:29 Lab results: WBC 8.3 thou/uL (4.8-10.8) 01/15/20 04:29 Hgb 15.2 g/dL (14.0-18.0) 01/15/20 04:29 Hct 46.0 % (42.0-52.0) 01/15/20 04:29 MCV 92.9 fL (78.0-98.0) 01/15/20 04:29 Plt Count 147 thou/uL (130-400) 01/15/20 04:29 Neutrophils % 66.5 % (42.0-75.0) 01/15/20 04:29 Sodium 139 mmol/L (136-145) 01/15/20 04:29 Potassium 4.2 mmol/L (3.5-5.1) 01/15/20 04:29 Chloride 105 mmol/L (98-107) 01/15/20 04:29 Carbon Dioxide 24 mmol/L (23-31) 01/15/20 04:29 BUN 14 mg/dL (8.4-25.7) 01/15/20 04:29 Creatinine 0.85 mg/dL (0.7-1.3) 01/15/20 04:29 Glucose 94 mg/dL (80-115) 01/15/20 04:29 Calcium 8.6 mg/dL (7.8-10.44) 01/15/20 04:29 Total Bilirubin 0.4 mg/dL (0.2-1.2) 01/13/20 05:43 AST 24 U/L (5-34) 01/13/20 05:43 ALT 27 U/L (8-55) 01/13/20 05:43 Alkaline Phosphatase 72 U/L (40-110) 01/13/20 05:43 Serum Total Protein 7.0 g/dL (5.8-8.1) 01/13/20 05:43 Albumin 4.2 g/dL (3.4-4.8) 01/13/20 05:43 Urine Ketones Negative mg/dL (Negative) 01/13/20 11:58 Urine Blood Negative (Negative) 01/13/20 11:58 Urine Nitrite Negative (Negative) 01/13/20 11:58 Ur Leukocyte Esterase Negative Homero/uL (Negative) 01/13/20 11:58 Urine RBC 0-3 HPF (0-3) 01/13/20 11:58 Urine WBC 0-3 HPF (0-3) 01/13/20 11:58 Ur Squamous Epith Cells None Seen HPF (0-3) 01/13/20 11:58 Urine Bacteria None Seen HPF (None Seen) 01/13/20 11:58 - Radiology Interpretation MRI - head Additional Comment: MRI Brain consistent with new infarction PN A/P (1) CVA (cerebral vascular accident) Code(s): I63.9 - CEREBRAL INFARCTION, UNSPECIFIED Status: Acute (2) Left arm weakness Code(s): R29.898 - OTH SYMPTOMS AND SIGNS INVOLVING THE MUSCULOSKELETAL SYSTEM Status: Acute (3) Low magnesium level Code(s): R79.0 - ABNORMAL LEVEL OF BLOOD MINERAL Status: Acute (4) Hyperlipidemia Code(s): E78.5 - HYPERLIPIDEMIA, UNSPECIFIED Status: Chronic (5) Hypertension Code(s): I10 - ESSENTIAL (PRIMARY) HYPERTENSION Status: Chronic (6) Hypertension Code(s): I10 - ESSENTIAL (PRIMARY) HYPERTENSION Status: Chronic Qualifiers: Hypertension type: essential hypertension Qualified Code(s): I10 - Essential (primary) hypertension - Plan Daily Plan: PT/OT, speech therapy, out of bed/ambulate 64 year old male with medical history significant for HTN and HLD presented with left upper extremity weakness. MRI Brain positive for acute infarction. CM on board for discharge planning. Awaiting rehab placement. Head CT reviewed which was negative for acute process. CTA head and neck did not reveal acute process. MRI brain reviewed and showed multiple foci of acute infarction on the right, suggestive for watershed infarcts at the junction of the right MEAGHAN and MCA territory and right MCA and SENIOR ADULTS DIRECTOR territory. Numerous remote microhemorrhages suggestive of small vessel disease Echocardiogram completed, results pending. Neuro checks every 4 hours. Continue aspirin and statin for secondary stroke prevention. Continue home medications. Telemetry PT/OT/Speech. Continue medical management per primary team. Case discussed with patient and during MDR rounds..
[2020-01-15] MEDS: Atorvastatin Calcium 40 MG TAB PO SCH (21:08)
[2020-01-16 05:38] LABS: #Basophils 0.1 thou/uL (0.0-0.2); #Eosinphils 0.2 thou/uL (0.0-0.7); #Lymphocytes 1.7 thou/uL (1.20-3.40); #Monocytes 0.8 thou/uL (0.11-0.59); #Neutrophils 4.1 thou/uL (1.40-6.50); %Basophils 0.9 % (0.0-1.0); %Eosinophils 3.5 % (0.0-10.0); %Lymphocytes 25.1 % (21.0-51.0); %Monocytes 11.5 % (0.0-10.0); Hemoglobin 15.1 g/dL (14.0-18.0); Mean Corpuscular HGB CONC 34.4 g/dL (32.0-36.0); Mean Corpuscular Hemoglobin 32.3 pg (27.0-31.0); Mean Corpuscular Volume 93.8 fL (78.0-98.0); Mean Platelet Volume 7.8 fL (7.4-10.4); Platelet Count 144 thou/uL (130-400); RBC Distribution Width 11.5 % (11.5-14.5); Red Blood Cell (RBC) Count 4.69 mill/uL (4.70-6.10); White Blood Cell (WBC) Count 6.9 thou/uL (4.8-10.8)
[2020-01-16 05:57] LABS: Anion Gap 14 mmol/L (10-20); BUN (Urea Nitrogen) 14 mg/dL (8.4-25.7); Calc. Creatinine Clearance 98 mL/min (70-130); Calcium 8.7 mg/dL (7.8-10.44); Carbon Dioxide 25 mmol/L (23-31); Chloride 105 mmol/L (98-107); Estimated GFR-MDRD 86; Glucose 101 mg/dL (80-115); Potassium 4.1 mmol/L (3.5-5.1); Sodium 140 mmol/L (136-145)
[2020-01-16] MEDS: Aspirin Chewable 81 MG TAB PO SCH (08:23)
[2020-01-16] MEDS: Folic Acid 1 MG TAB PO SCH (08:25)
[2020-01-16] MEDS: Simethicone Chewable 80 MG TAB PO SCH (08:25)
--- NOTE | 2020-01-16 12:41 | PDOC.NEUPN ---
- Subjective Encounter Date: 01/16/20 Subjective: Patient feels much better. LUE weakness is 3/5 - Objective Vital Signs & Weight: Vital Signs (12 hours) Temp Pulse Resp BP Pulse Ox 01/16/20 11:36 98 F 83 16 131/76 92 L 01/16/20 07:50 98.3 F 65 16 135/75 92 L 01/16/20 04:00 97.5 F L 79 18 147/78 H 93 L Weight Weight 184 lb 14.4 oz I&O: 01/15/20 01/16/20 01/17/20 06:59 06:59 06:59 Intake Total 1940 960 Output Total 510 250 Balance 1430 710 Result Diagrams: 01/16/20 04:49 01/16/20 04:49 Radiology Reviewed by me: Yes EKG Reviewed by me: Yes ROS - Review of Systems Constitutional: denies: fever, chills, sweats, weakness, malaise, other Eyes: denies: pain, vision change, conjunctivae inflammation, eyelid inflammation, redness, other ENT: denies: ear pain, ear discharge, nose pain, nose discharge, nose congestion, mouth pain, mouth swelling, throat pain, throat swelling, other Respiratory: denies: cough, dry, shortness of breath, hemoptysis, SOB with excertion, pleuritic pain, sputum, wheezing, other Cardiovascular: denies: no pertinent history, AFIB, CAD, CHF, HTN, SC, Syncope, Hyperlipidemia, Mitral valve stenosis, Aortic stenosis, Valve insufficiency, Pulmonary hypertension, Other Gastrointestinal: denies: nausea, vomiting, abdominal pain, diarrhea, constipation, melena, hematochezia, other Genitourinary: denies: dysuria, frequency, incontinence, hematuria, retention, other Musculoskeletal: denies: neck pain, shoulder pain, arm pain, back pain, hand pain, leg pain, foot pain, other Skin: denies: rash, lesions, gerry, bruising, other Neurological: reports: weakness, numbness. denies: incoordination, change in speech, confusion, seizures, other - Medication Medications: Active Medications Generic Name Dose Route Start Last Admin Trade Name Freq PRN Reason Stop Dose Admin Aspirin 324 mg 01/14/20 09:00 01/16/20 08:23 Aspirin Chewable 81 Mg Tab PO 324 mg DAILY ADELA Administration Atorvastatin Calcium 40 mg 01/13/20 21:00 01/15/20 21:08 Atorvastatin Calcium 40 Mg Tab PO 40 mg HS ADELA Administration Folic Acid 1 mg 01/14/20 09:00 01/16/20 08:25 Folic Acid 1 Mg Tab PO 1 mg DAILY ADELA Administration Simethicone 80 mg 01/15/20 09:00 01/16/20 08:25 Simethicone Chewable 80 Mg Tab PO 80 mg DAILY ADELA Administration Sodium Chloride 10 ml 01/13/20 07:53 01/16/20 08:25 Flush - Normal Saline 10 Ml Syringe IVF 10 ml PRN PRN Administration Saline Flush - Exam General Appearance: awake alert Eye: PERRL ENT: normocephalic atraumatic Neck: supple Respiratory: CTAB Cardiovascular: RRR Gastrointestinal: soft Extremities: no cyanosis Skin: normal turgor Neurological: no new deficit Musculoskeletal: no muscle wasting PSYCH: normal affect, normal behavior, A&O x 3 Results - Labs Result Diagrams: 01/16/20 04:49 01/16/20 04:49 Lab results: WBC 6.9 thou/uL (4.8-10.8) 01/16/20 04:49 Hgb 15.1 g/dL (14.0-18.0) 01/16/20 04:49 Hct 44.0 % (42.0-52.0) 01/16/20 04:49 MCV 93.8 fL (78.0-98.0) 01/16/20 04:49 Plt Count 144 thou/uL (130-400) 01/16/20 04:49 Neutrophils % 59.0 % (42.0-75.0) 01/16/20 04:49 Sodium 140 mmol/L (136-145) 01/16/20 04:49 Potassium 4.1 mmol/L (3.5-5.1) 01/16/20 04:49 Chloride 105 mmol/L (98-107) 01/16/20 04:49 Carbon Dioxide 25 mmol/L (23-31) 01/16/20 04:49 BUN 14 mg/dL (8.4-25.7) 01/16/20 04:49 Creatinine 0.89 mg/dL (0.7-1.3) 01/16/20 04:49 Glucose 101 mg/dL (80-115) 01/16/20 04:49 Calcium 8.7 mg/dL (7.8-10.44) 01/16/20 04:49 Total Bilirubin 0.4 mg/dL (0.2-1.2) 01/13/20 05:43 AST 24 U/L (5-34) 01/13/20 05:43 ALT 27 U/L (8-55) 01/13/20 05:43 Alkaline Phosphatase 72 U/L (40-110) 01/13/20 05:43 Serum Total Protein 7.0 g/dL (5.8-8.1) 01/13/20 05:43 Albumin 4.2 g/dL (3.4-4.8) 01/13/20 05:43 Urine Ketones Negative mg/dL (Negative) 01/13/20 11:58 Urine Blood Negative (Negative) 01/13/20 11:58 Urine Nitrite Negative (Negative) 01/13/20 11:58 Ur Leukocyte Esterase Negative Homero/uL (Negative) 01/13/20 11:58 Urine RBC 0-3 HPF (0-3) 01/13/20 11:58 Urine WBC 0-3 HPF (0-3) 01/13/20 11:58 Ur Squamous Epith Cells None Seen HPF (0-3) 01/13/20 11:58 Urine Bacteria None Seen HPF (None Seen) 01/13/20 11:58 - Radiology Interpretation MRI - head Status: image reviewed by me, report reviewed by me Additional Comment: MRI brain showed infarct in the right MCA territory. PN A/P (1) CVA (cerebral vascular accident) Code(s): I63.9 - CEREBRAL INFARCTION, UNSPECIFIED Status: Acute (2) Left arm weakness Code(s): R29.898 - OTH SYMPTOMS AND SIGNS INVOLVING THE MUSCULOSKELETAL SYSTEM Status: Acute (3) Low magnesium level Code(s): R79.0 - ABNORMAL LEVEL OF BLOOD MINERAL Status: Acute (4) Hyperlipidemia Code(s): E78.5 - HYPERLIPIDEMIA, UNSPECIFIED Status: Chronic (5) Hypertension Code(s): I10 - ESSENTIAL (PRIMARY) HYPERTENSION Status: Chronic (6) Hypertension Code(s): I10 - ESSENTIAL (PRIMARY) HYPERTENSION Status: Chronic Qualifiers: Hypertension type: essential hypertension Qualified Code(s): I10 - Essential (primary) hypertension - Plan Daily Plan: PT/OT, speech therapy 64 year old male with medical history significant for HTN and HLD presented with left upper extremity weakness. MRI Brain positive for acute infarction. Weakness much improved and patient is able to raise his left arm against gravity. CM on board for discharge planning. Awaiting rehab placement. Head CT reviewed which was negative for acute process. CTA head and neck did not reveal acute process. MRI brain reviewed and showed multiple foci of acute infarction on the right, suggestive for watershed infarcts at the junction of the right MEAGHAN and MCA territory and right MCA and POWER SCREWDRIVER OPERATOR territory. Numerous remote microhemorrhages suggestive of small vessel disease Echocardiogram completed. Left ventricular ejection fraction is 60 to 65%. No thrombus or PFO. Neuro checks every 4 hours. Continue aspirin and statin for secondary stroke prevention. Continue home medications. Telemetry PT/OT/Speech. Continue medical management per primary team. Case discussed with patient and during MDR rounds..
[2020-01-16 15:21] VITALS: TEMP 98.1
[2020-01-16 15:22] VITALS: BP 143/82
--- NOTE | 2020-01-17 09:53 | DIS ---
DATE OF ADMISSION: 01/13/2020 DATE OF DISCHARGE: 01/16/2020 DISCHARGE DIAGNOSES: 1. Left hemiparesis, more notable on the left arm and hand and then the left lower extremity. 2. Hypertension. 3. Hyperlipidemia. 4. Hypomagnesemia that is repleted. 5. Hyperlipidemia with LDL of 67 and cholesterol of 117. CONSULT: Neurology consult as well as Cardiology. PERTINENT IMAGE FINDINGS: Head MRA showed bilateral cerebral hemispheres scattered foci of numerous remote microhemorrhages with basis of small vessel disease and hypertension. Echo showed EF of 65% and diastolic dysfunction and mild left atrial enlargement. MEDICATIONS: 1. Cozaar 100 mg daily. 2. Norvasc 5 mg daily. 3. Spironolactone 25 mg daily. 4. Lipitor 40 mg at bedtime. 5. Coreg 3.125 mg daily. 6. Aspirin 325 mg daily. PHYSICAL EXAMINATION: VITAL SIGNS: On the day of discharge, his temperature is 98, pulse 83, blood pressure is 131/76, saturating 92% on room air. GENERAL: The patient is alert, oriented, does not have any acute distress. No overnight events noted. He still has some weakness in his left hand. Otherwise, he is quite ready to be discharged to the rehab. CARDIOVASCULAR: Regular rate and rhythm without murmurs, rubs, or gallops. LUNGS: Clear to auscultation bilaterally without wheezing, rales, or rhonchi. ABDOMEN: Soft, nontender, nondistended. Good bowel sounds. EXTREMITIES: Without any pitting edema. HOSPITAL COURSE: This is a 64-year-old male with a past medical history of hypertension, hyperlipidemia, presented with left upper extremity weakness. Initial NIH Scale was 4, left upper extremity drift and mild sensory impairment, but mostly weakness. He was considered not a tPA candidate due to low NIH score. CT brain without any acute process. CT angiogram of the head and neck also showed no acute process. However, the MRA showed findings as mentioned above. His EKG was normal sinus rhythm without any ST-T wave changes. Since he was already on a baby aspirin, it was increased to 325 mg daily. Followed stroke protocol. His LDL is in the target range less than 70. We will continue with his home regimen of Lipitor. Due to the ongoing weakness in his left hand, he would benefit with transient rehab. In this regard, he is transferred to the rehab facility in hemodynamically stable condition. Even though his transthoracic echo did not show any valvular abnormalities and wall motion abnormality given his microhemorrhages in the brain, there was consideration for transesophageal echo. I discussed with Dr. Barclay. He recommended to do event monitor for 3 weeks' duration to rule out arrhythmia, if any, as an etiology for this microhemorrhagic infarct in the brain. In this regard, we contacted Dr. Barclay's office who will set up the event monitor in the rehab. The patient is expected to follow up with Dr. Barclay after completion of the 3-week duration with the event monitor. DISCHARGE INSTRUCTIONS: Activity as tolerated with physical therapy supervision. Healthy heart diet. Follow up with PCP in 1 week. Follow up with Dr. Barclay's office after 3 weeks of wearing event monitor. TIME SPENT: Discharge time took over 35 minutes. Job ID: [id number] MTDD
--- NOTE | 2020-01-17 12:59 | PQF ---
CLINICAL DOCUMENTATION CLARIFICATION FORM: Dear : Arnoldo Miller MD Date / Time: 01/17/2020 Please exercise your independent, professional judgment in responding to the clarification form. Clinical indicators are provided on the bottom of this form for your review Please check appropriate box(es): [ ] Hypertensive urgency [ ] Hypertensive emergency [ ] Hypertensive crisis [ x] Other diagnosis ____just hypertension without urgency,emergency and crisis (Please specify if any) [ ] Unable to determine Physician Signature: Date/Time: For continuity of documentation, please document condition throughout progress notes and discharge summary. Thank You. To be completed by CDI/Coding staff for physician review: Present Clinical Indicators - Signs / Symptoms / Labs Results and Location in Medical Record [x ] Patient was hypertensive and mildly tachycardic with normal SPO2 H&P on 01/12 [ x ] Hypertension-presented with an elevated BP 161/91. H&P on 01/12 [ x ] Permissive control of blood pressure at this time Consult on 01/12 [ x ] Continue permissive hypertension, continue to monitor BP. BP this am155/84 Hosptial PN 01/14 [ ] Present Risk Factors Results and Location in Medical Record [ x ] Aged person 64 yrs H&P on 01/12 [x ] Past medical history: HTN H&P on 01/12 [ ] [ ] Present Treatments Results and Location in Medical Record [ x] Takes coreg, losartan, spironolactone at home. Will restart home medication when reconciled by nursing H&P on 01/12 [ x ] Apresoline 10mg IV Medication from 01/12 to 01/15 [ x ] Labetalol HCL 20 mg IV Medication from 01/12 to 01/15 [ ] CDS/Cheese Packer Signature: AAS Phone #: Date/Time: 01/17/2020 This is a permanent part of the Medical Record [facility]
== END 2020-01-16 16:30 | DRG 66 ==
LOC: ERS 04:55 → 2SE 06:34 → OBSVTOIN 13:52
PROVIDERS: ADMIT Internal Medicine; ATTEND Internal Medicine
DX: I63.9 Cerebral infarction, unspecified (principal); I10 Essential (primary) hypertension; R29.704 NIHSS score 4; E78.5 Hyperlipidemia, unspecified; R79.0 Abnormal level of blood mineral; Z20.828 Contact with and (suspected) exposure to other viral communicable diseases; R53.1 Weakness; Z79.82 Long term (current) use of aspirin; Z79.899 Other long term (current) drug therapy; Z90.49 Acquired absence of other specified parts of digestive tract; Z87.891 Personal history of nicotine dependence
CPT/HCPCS: 36415; 36416; 70450; 70496; 70498; 70544; 70553; 71045; 80048; 80053; 80061; 81001; 82607; 82746; 83735; 84443; 85025; 85610; 85730; 87635; 90471; 90732; 93005; 93306; A9579; G0009; G0378; J3475; U0003

== ENCOUNTER 2022-08-10 05:33 | Day surgery (SDC) | payer MEDICARE ==
[2022-08-09 12:26] VITALS: BMI 29.7
[2022-08-10] MEDS ORDERED: Lidocaine 1% w/Epinephrine 1:100K 20 ML VIAL ONE (06:39)
== END 2022-08-10 07:40 | disposition home or self-care (01) ==
LOC: SDC 05:33
PROVIDERS: ATTEND Internal Medicine Cardiovascular Disease
PROC: 0JPT32Z Removal of Monitoring Device from Trunk Subcutaneous Tissue and Fascia, Percutaneous Approach (ICD-10-PCS; principal; 2022-08-10)
DX: Z45.09 Encounter for adjustment and management of other cardiac device (principal); R55 Syncope and collapse; I35.1 Nonrheumatic aortic (valve) insufficiency; I25.5 Ischemic cardiomyopathy; I25.10 Atherosclerotic heart disease of native coronary artery without angina pectoris; E78.5 Hyperlipidemia, unspecified; I10 Essential (primary) hypertension; I25.2 Old myocardial infarction; Z86.73 Personal history of transient ischemic attack (TIA), and cerebral infarction without residual deficits; Z87.891 Personal history of nicotine dependence; Z79.899 Other long term (current) drug therapy
CPT/HCPCS: 33286

== ENCOUNTER 2025-01-07 14:21 | Inpatient (IN) | payer MEDICARE ==
[2025-01-07 14:55] LABS: #Basophils 0.05 10x3/uL (0.0-0.2); #Eosinophils 0.24 10x3/uL (0.0-0.7); #Monocytes 0.85 10x3/uL (0.11-0.59); #Neutrophils 5.13 10x3/uL (1.40-6.50); %Basophils 0.7 % (0.0-1.0); %Eosinophils 3.2 % (0.0-10.0); %Lymphocytes 15.7 % (21.0-51.0); %Monocytes 11.4 % (0.0-10.0); %Neutrophils 68.9 % (42.0-75.0); Hematocrit 45.9 % (42.0-52.0); Hemoglobin 15.1 g/dL (14.0-18.0); Mean Corpuscular Hemoglobin 31.7 pg (27.0-31.0); Mean Corpuscular Volume 96.4 fL (78.0-98.0); Platelet Count 151 10x3/uL (130-400); Red Blood Cell (RBC) Count 4.76 mill/uL (4.70-6.10); White Blood Cell (WBC) Count 7.45 10x3/uL (4.8-10.8)
[2025-01-07 15:10] LABS: ALT (SGPT) 23 U/L (Less than 45); AST (SGOT) 25 U/L (11-34); Albumin 4.0 g/dL (3.1-4.5); Alkaline Phosphatase 71 U/L (40-110); Anion Gap 14 mmol/L (10-20); BUN (Urea Nitrogen) 18 mg/dL (8.4-25.7); Bilirubin, Total 0.4 mg/dL (0.3-1.2); Calc. Creatinine Clearance 0 mL/min (70-130); Calcium 9.3 mg/dL (7.8-10.44); Carbon Dioxide 21 mmol/L (23-31); Chloride 110 mmol/L (98-107); Globulin 2.7 g/dL (2.4-3.5); Glucose 120 mg/dL (80-115); Lipase 12 U/L (8-78); Potassium 4.2 mmol/L (3.5-5.1); Sodium 141 mmol/L (136-145)
[2025-01-07] MEDS ORDERED: Nitroglycerin 2% Ointment 1 INCH/1 GM Packet ONE (15:19)
[2025-01-07] MEDS ORDERED: Furosemide 40 MG (4 mL) VIAL ONE (15:19)
[2025-01-07 15:47] LABS: Bacteria/HPF None Seen HPF (None Seen); CAUTI Indications for Culture Pelvic or flank pain; Glucose, Urine (Dipstick) Normal (Negative); Leukocyte Negative Leu/uL (Negative); Protein, Urine (Dipstick) Negative (Neg-Trace); RBC/HPF 0-3 HPF (0-3); Specific Gravity, Urine 1.024 (1.002-1.036); WBC/HPF 0-3 HPF (0-3)
[2025-01-07 15:50] LABS: Urine Culture Reflex No No
[2025-01-07 17:47] VITALS: BMI 27.3
[2025-01-07] MEDS ORDERED: Senokot S 8.6-50 MG TAB PO PRN (19:39)
[2025-01-07] MEDS ORDERED: Calcium Carbonate 500 MG ChewTAB PO PRN (19:39)
[2025-01-07] MEDS ORDERED: Acetaminophen 325 MG TAB PO PRN (19:39)
[2025-01-07] MEDS ORDERED: Melatonin 3 MG TAB PO PRN (19:39)
[2025-01-07] MEDS ORDERED: Ondansetron PF 4 MG/2 ML Vial IVP PRN (19:39)
[2025-01-08] MEDS ORDERED: Guaifenesin DM 100-10/5 ML UDCUP PO PRN (02:42)
[2025-01-08 05:18] LABS: #Basophils 0.06 10x3/uL (0.0-0.2); #Eosinophils 0.38 10x3/uL (0.0-0.7); #Monocytes 1.20 10x3/uL (0.11-0.59); #Neutrophils 5.76 10x3/uL (1.40-6.50); %Basophils 0.7 % (0.0-1.0); %Eosinophils 4.1 % (0.0-10.0); %Lymphocytes 19.2 % (21.0-51.0); %Monocytes 13.1 % (0.0-10.0); %Neutrophils 62.7 % (42.0-75.0); Hematocrit 45.5 % (42.0-52.0); Hemoglobin 14.9 g/dL (14.0-18.0); Mean Corpuscular Hemoglobin 31.4 pg (27.0-31.0); Mean Corpuscular Volume 95.8 fL (78.0-98.0); Platelet Count 153 10x3/uL (130-400); Red Blood Cell (RBC) Count 4.75 mill/uL (4.70-6.10); White Blood Cell (WBC) Count 9.18 10x3/uL (4.8-10.8)
[2025-01-08 05:35] LABS: Anion Gap 13 mmol/L (10-20); BUN (Urea Nitrogen) 16 mg/dL (8.4-25.7); Calc. Creatinine Clearance 68 mL/min (70-130); Calcium 8.4 mg/dL (7.8-10.44); Carbon Dioxide 21 mmol/L (23-31); Chloride 110 mmol/L (98-107); Glucose 97 mg/dL (80-115); Potassium 3.6 mmol/L (3.5-5.1); Sodium 140 mmol/L (136-145)
[2025-01-08] MEDS: PNEUMOC 20-VAL CONJ-DIP CRM/PF 0.5 ML SYRINGE IM ONE (09:03)
[2025-01-08] MEDS: Furosemide 20 MG (2 mL) VIAL SLOW IVP SCH (09:03)
[2025-01-08] MEDS: Carvedilol 3.125 MG TAB PO SCH (09:05)
[2025-01-08] MEDS: Losartan 25 MG TAB PO SCH (09:05)
[2025-01-08] MEDS: Aspirin 81 mg Enteric Coated Tablet PO SCH (09:05)
[2025-01-08] MEDS ORDERED: Communication Order-Pharmacy FS SCH (19:30)
[2025-01-09] MEDS ORDERED: Communication Order-Pharmacy FS SCH (16:15)
[2025-01-10 05:51] LABS: Anion Gap 11 mmol/L (10-20); BUN (Urea Nitrogen) 18 mg/dL (8.4-25.7); Calc. Creatinine Clearance 72 mL/min (70-130); Calcium 8.5 mg/dL (7.8-10.44); Carbon Dioxide 27 mmol/L (23-31); Chloride 104 mmol/L (98-107); Glucose 97 mg/dL (80-115); Potassium 4.0 mmol/L (3.5-5.1); Sodium 138 mmol/L (136-145)
[2025-01-10 06:25] LABS: #Basophils 0.03 10x3/uL (0.0-0.2); #Eosinophils 0.29 10x3/uL (0.0-0.7); #Monocytes 0.98 10x3/uL (0.11-0.59); #Neutrophils 5.46 10x3/uL (1.40-6.50); %Basophils 0.4 % (0.0-1.0); %Eosinophils 3.7 % (0.0-10.0); %Lymphocytes 13.5 % (21.0-51.0); %Monocytes 12.5 % (0.0-10.0); %Neutrophils 69.6 % (42.0-75.0); Hematocrit 42.1 % (42.0-52.0); Hemoglobin 13.6 g/dL (14.0-18.0); Mean Corpuscular Hemoglobin 31.3 pg (27.0-31.0); Mean Corpuscular Volume 97.0 fL (78.0-98.0); Platelet Count 129 10x3/uL (130-400); Red Blood Cell (RBC) Count 4.34 mill/uL (4.70-6.10); White Blood Cell (WBC) Count 7.84 10x3/uL (4.8-10.8)
[2025-01-10] MEDS ORDERED: Heparin 10,000 UNITS/ 10 ML VIAL ONE (06:33)
[2025-01-10] MEDS ORDERED: Adenosine 6 mg (2 mL) VIAL ONE (06:33)
[2025-01-10] MEDS ORDERED: Lidocaine 1% (PF) 30 ML VIAL ONE (06:33)
[2025-01-10] MEDS ORDERED: EPINEPHrine 1 MG/10 ML Abboject SYRINGE ONE (06:33)
[2025-01-10] MEDS ORDERED: Nitroglycerin 50 MG/250 ML BOT 0 ML ONE (06:34)
[2025-01-10] MEDS ORDERED: PHENYLEPHRINE-NS 100 MCG/ML 10 ML SYRINGE ONE (06:34)
[2025-01-10 07:46] LABS: Anisocytosis SLIGHT = 6-15 cells HPF (0-5); Macrocytosis SLIGHT = 6-15 cells HPF (0-5); Platelet Adequacy Comment Platelets Decreased
[2025-01-10] MEDS ORDERED: Iopamidol 370 76% 100 ML VIAL ONE (11:50)
[2025-01-10 12:42] VITALS: BP 124/74; TEMP 98.6
== END 2025-01-10 16:26 | disposition short-term general hospital (02) | DRG 286 ==
LOC: ERS 14:21 → OBS 17:05
PROVIDERS: ADMIT Family Medicine; ATTEND Hospitalist
PROC: 4A023N8 Measurement of Cardiac Sampling and Pressure, Bilateral, Percutaneous Approach (ICD-10-PCS; principal; 2025-01-10)
PROC: B2111ZZ Fluoroscopy of Multiple Coronary Arteries using Low Osmolar Contrast (ICD-10-PCS; 2025-01-10)
PROC: B2161ZZ Fluoroscopy of Right and Left Heart using Low Osmolar Contrast (ICD-10-PCS; 2025-01-10)
DX: I35.2 Nonrheumatic aortic (valve) stenosis with insufficiency (principal); I50.33 Acute on chronic diastolic (congestive) heart failure; J96.10 Chronic respiratory failure, unspecified whether with hypoxia or hypercapnia; I25.10 Atherosclerotic heart disease of native coronary artery without angina pectoris; E78.5 Hyperlipidemia, unspecified; I25.5 Ischemic cardiomyopathy; Z60.2 Problems related to living alone; I25.2 Old myocardial infarction; Z90.49 Acquired absence of other specified parts of digestive tract; Z93.3 Colostomy status; Z98.890 Other specified postprocedural states; Z98.49 Cataract extraction status, unspecified eye; Z87.891 Personal history of nicotine dependence; Z86.73 Personal history of transient ischemic attack (TIA), and cerebral infarction without residual deficits; I11.0 Hypertensive heart disease with heart failure; J44.9 Chronic obstructive pulmonary disease, unspecified; Z79.82 Long term (current) use of aspirin; Z79.899 Other long term (current) drug therapy
CPT/HCPCS: 36415; 71045; 80048; 80053; 81001; 83690; 83880; 84484; 85025; 90471; 90677; 93005; 93460; 96374; C1769; C1887; G0009; J0153; J0165; J0461; J1644; J1940; J2250; J7030; Q9967